=== PATIENT | male | born 1955 | race American Indian/Alaskan Native ===

== ENCOUNTER 2016-09-12 14:53 | Outpatient (CLI) | payer MEDICARE ==
--- NOTE | 2016-09-13 09:45 | XRay Report ---
Chest 2 views. History: Dyspnea, end stage renal disease. Findings: The heart and pulmonary vessels are normal. The lungs are clear. There is no pleural fluid. The bony structures appear normal. A vascular stent is noted in the left axilla and subclavian region. Impression: No acute findings.
== END 2016-09-12 14:54 | disposition home or self-care (01) ==
LOC: XRAY 14:53
PROVIDERS: ATTEND Internal Medicine Nephrology
DX: N18.6 End stage renal disease (principal); R06.00 Dyspnea, unspecified
CPT/HCPCS: 71020

== ENCOUNTER 2019-10-10 21:43 | Observation (INO) | payer MEDICARE ==
[2019-10-10] MEDS ORDERED: DEXTROSE 50% IN WATER (25GM) 50 ML SYRINGE IV ONE (21:53)
--- NOTE | 2019-10-10 21:54 | Emergency Department Report ---
ED General Adult HPI - General Chief complaint: Hypoglycemia Stated complaint: LOW SUGAR PUI?: No Time Seen by Provider: 10/10/19 21:51 Source: EMS Mode of arrival: Stretcher Limitations: Altered Mental Status - History of Present Illness Initial comments: Patient is a 64-year-old male that presents emergency room with hypoglycemia and altered mental status. Patient brought in by EMS. Report received from EMS. Patient's blood sugar with EMS was reading as low. Patient was minimally responsive. EMS placed a right IO since they were unable to place a peripheral IV and gave the patient D50. The patient is currently lethargic but easily arousable and able to answer some questions. Patient denies pain. Patient is not sure how his sugar dropped. Patient is on insulin. Patient has a history of diabetes. Patient denies chest pain or shortness of breath. Patient denies nausea vomiting. Patient denies shortness of breath. Patient denies recent travel. Patient denies recent international travel. Patient denies exposure to the novel coronavirus. Patient denies sick contacts. Patient denies fever and chills. Patient denies cough. Patient denies diarrhea. Patient denies coming in contact with anybody with symptoms of the novel coronavirus. -: Sudden Consistency: constant Improves with: none Worsens with: none Associated Symptoms: denies other symptoms - Related Data Allergies Allergy/AdvReac Type Severity Reaction Status Date / Time No Known Allergies Allergy Unverified 09/12/16 14:54 ED Review of Systems ROS: Stated complaint: LOW SUGAR Other details as noted in HPI Comment: All other systems reviewed and negative ED Past Medical Hx - Past Medical History Previous Medical History?: Yes Hx Hypertension: Yes Hx Diabetes: Yes ED Physical Exam - General General appearance: in no apparent distress, lethargic, obese - Head Head exam: Present: atraumatic, normocephalic - Eye Eye exam: Present: normal appearance, PERRL Pupils: Present: normal accommodation - ENT ENT exam: Present: mucous membranes dry - Neck Neck exam: Present: normal inspection - Respiratory Respiratory exam: Present: normal lung sounds bilaterally. Absent: respiratory distress - Cardiovascular Cardiovascular Exam: Present: regular rate, normal rhythm. Absent: systolic murmur, diastolic murmur, rubs, gallop - GI/Abdominal GI/Abdominal exam: Present: soft, normal bowel sounds. Absent: distended, tenderness, guarding - Rectal Rectal exam: Present: deferred - Extremities Exam Extremities exam: Present: normal inspection, full ROM. Absent: tenderness - Back Exam Back exam: Present: normal inspection - Neurological Exam Neurological exam: Present: oriented X3, CN II-XII intact, reflexes normal - Psychiatric Psychiatric exam: Present: normal affect, normal mood - Skin Skin exam: Present: warm, dry, intact, normal color. Absent: rash ED Course Vital Signs 10/10/19 10/10/19 10/10/19 22:11 22:30 22:46 Temperature 90.5 F L Pulse Rate 89 90 91 H Respiratory 16 15 13 Rate Blood Pressure 105/80 134/106 Blood Pressure 105/80 [Left] O2 Sat by Pulse 100 100 Oximetry 10/10/19 10/10/19 10/10/19 23:00 23:30 23:46 Temperature Pulse Rate 95 H 86 81 Respiratory 15 18 16 Rate Blood Pressure 103/78 103/78 98/28 Blood Pressure [Left] O2 Sat by Pulse 98 100 100 Oximetry 10/11/19 10/11/19 10/11/19 00:00 00:16 00:30 Temperature Pulse Rate 87 94 H 87 Respiratory 18 10 L 15 Rate Blood Pressure 98/28 132/46 132/46 Blood Pressure [Left] O2 Sat by Pulse 100 98 100 Oximetry 10/11/19 10/11/19 10/11/19 00:46 01:00 01:16 Temperature Pulse Rate 92 H 92 H 99 H Respiratory 13 16 22 Rate Blood Pressure 132/46 132/46 127/67 Blood Pressure [Left] O2 Sat by Pulse 99 97 100 Oximetry 10/11/19 01:19 Temperature 97.7 F Pulse Rate Respiratory Rate Blood Pressure Blood Pressure [Left] O2 Sat by Pulse Oximetry - Reevaluation(s) Reevaluation #1: Initial valuation done. Patient is lethargic but arousable and answers most questions appropriately. Patient has a right lower extremity IO which was placed by EMS under emergency duration since the patient required emergent D50. Patient will have an IV line placed. 10/10/19 21:53 Reevaluation #2: Patient's blood sugar is still low. Patient will be given D50. 10/10/19 22:09 Reevaluation #3: Patient's blood sugar at 68.. patient will be given oral glucose. Patient awake alert and oriented x4. Patient answering questions appropriately. 10/10/19 23:14 Reevaluation #4: Patient tolerated p.o. intake. 10/10/19 23:44 Reevaluation #5: I discussed all results with patient. I discussed plan of care with patient. Patient agrees with plan of care and admission. Patient to be admitted to the hospitalist service. 10/11/19 00:15 - Consultations Consultation #1: Hospitalist consulted for admission. Hospitalist to admit patient. 10/11/19 00:16 ED Medical Decision Making - Lab Data Result diagrams: 10/10/19 22:28 10/10/19 22:28 - EKG Data -: EKG Interpreted by Me EKG shows normal: sinus rhythm, axis, intervals, QRS complexes, ST-T waves Rate: normal - Radiology Data Radiology results: report reviewed, image reviewed interpreted by me: Chest x-ray: No pneumonia, no pneumothorax, no acute findings, lung martinez are clear, no fractures. CT head/brain wo con INDICATION / CLINICAL INFORMATION: Altered Mental Status. TECHNIQUE: Axial CT imaging of the brain was obtained without contrast. Coronal and sagittal reformatted imaging obtained and reviewed. All CT scans at this location are performed using CT dose reduction for ALARA by means of automated exposure control. COMPARISON: None available. FINDINGS: No intracranial hemorrhage, mass, or midline shift. No extra-axial fluid collection or suggestion of acute territorial infarction. Ventricular system and basilar cisterns are unremarkable. Mild age- appropriate cerebral/cerebellar atrophy noted. No evidence for acute ischemia. Visualized paranasal sinuses and mastoid air cells are well aerated and clear. No calvarial abnormality of significance. No soft tissue abnormality noted. IMPRESSION: 1. No acute intracranial abnormality. CHEST 1 VIEW INDICATION / CLINICAL INFORMATION: ams. COMPARISON: Chest radiograph 09/12/2016 FINDINGS: SUPPORT DEVICES: None. HEART / MEDIASTINUM: Borderline heart size, accentuated by low lung volumes and AP technique. LUNGS / PLEURA: No significant pulmonary or pleural abnormality. No pneumothorax. ADDITIONAL FINDINGS: Endovascular stent in the left supraclavicular region and left axilla. IMPRESSION: 1. No acute findings. - Medical Decision Making Patient is a 64-year-old male that presents emergency room with hyperglycemia, altered mental status and lethargy. Patient's blood sugar was low in the field. EMS unable to give D50 due to not being able to acquire a peripheral IV. Patient had IO placed by EMS. Patient was given D50 2 A of D50 in the field and his blood sugar was 46. Patient given a third amp of D50 in the ER and blood sugar increased to 68. Patient then became more lucid and more responsive and alert and oriented. Patient was then given oral intake. Patient tolerated oral intake. Upon initial evaluation patient was found to be hypothermic and was placed on a Sincere hugger. Patient had labs done which were consistent with end- stage renal disease. Patient had a head CT for his multiple altered mental status and was normal. Patient had a chest x-ray which was negative for acute findings. Patient admitted to the hospital service for further evaluation treatment and observation. Patient's dialysis schedule is Monday - Differential Diagnosis Hypoglycemia, end-stage renal disease, missed meals, missed dose of insulin Critical Care Time: Yes Critical care time in (mins) excluding proc time.: 35 Critical care attestation.: If time is entered above; I have spent that time in minutes in the direct care of this critically ill patient, excluding procedure time. Critical Care Time: 35 minutes ED Disposition Clinical Impression: Hypoglycemia, ESRD (end stage renal disease) on dialysis Hypothermia Qualifiers: Encounter type: initial encounter Qualified Code(s): T68.XXXA - Hypothermia, initial encounter Altered mental state Qualifiers: Altered mental status type: unspecified Qualified Code(s): R41.82 - Altered me ntal status, unspecified Disposition: 09 OP ADMIT IP TO THIS HOSP Is pt being admited?: Yes Does the pt Need Aspirin: No Condition: Critical Time of Disposition: 00:18
[2019-10-10 22:59] LABS: Basophils % (Auto) 0.2 % (0.0-1.8); Eosinophils % (Auto) 0.1 % (0.0-4.3); Lymphocytes # (Auto) 0.6 K/mm3 (1.2-5.4); Lymphocytes % (Auto) 5.6 % (13.4-35.0); Mean Corpuscular HGB Conc 31 % (32-34); Mean Corpuscular Volume 80 fl (84-94); Monocytes # (Auto) 0.5 K/mm3 (0.0-0.8); Monocytes % (Auto) 5.2 % (0.0-7.3); Platelet Count 243 K/mm3 (140-440); Red Blood Count 6.12 M/mm3 (3.65-5.03); Red Cell Distribution Width 17.2 % (13.2-15.2)
[2019-10-10 23:00] LABS: Hematocrit 48.9 % (35.5-45.6); Hemoglobin 15.2 gm/dl (11.8-15.2)
--- NOTE | 2019-10-10 23:06 | XRay Report ---
CHEST 1 VIEW INDICATION / CLINICAL INFORMATION: ams. COMPARISON: Chest radiograph 09/12/2016 FINDINGS: SUPPORT DEVICES: None. HEART / MEDIASTINUM: Borderline heart size, accentuated by low lung volumes and AP technique. LUNGS / PLEURA: No significant pulmonary or pleural abnormality. No pneumothorax. ADDITIONAL FINDINGS: Endovascular stent in the left supraclavicular region and left axilla. IMPRESSION: 1. No acute findings. Signer Name: Mahsa Cody MD Signed: 10/10/2019 11:01 PM Workstation Name: [id number]
[2019-10-10 23:18] LABS: Albumin 4.1 g/dL (3.9-5); Calcium 10.1 mg/dL (8.4-10.2)
--- NOTE | 2019-10-10 23:35 | Cat Scan Report ---
CT head/brain wo con INDICATION / CLINICAL INFORMATION: Altered Mental Status. TECHNIQUE: Axial CT imaging of the brain was obtained without contrast. Coronal and sagittal reformatted imaging obtained and reviewed. All CT scans at this location are performed using CT dose reduction for ALAR A by means of automated exposure control. COMPARISON: None available. FINDINGS: No intracranial hemorrhage, mass, or midline shift. No extra-axial fluid collection or suggestion of acute territorial infarction. Ventricular system and basilar cisterns are unremarkable. Mild age-appr opriate cerebral/cerebellar atrophy noted. No evidence for acute ischemia. Visualized paranasal sinuses and mastoid air cells are well aerated and clear. No calvarial abnormality of significance. No soft tissue abnormality noted. IMPRESSION: 1. No acute intracranial abnormality. Signer Name: Ivone Francisco MD Signed: 10/10/2019 11:30 PM Workstation Name: [id number]
[2019-10-11] MEDS ORDERED: DEXTROSE 50% IN WATER (25GM) 50 ML SYRINGE IV ONE ×2 (01:22→01:28)
[2019-10-11] MEDS ORDERED: DEXTROSE 5% IN WATER 0 ML IV ONE ×2 (01:28→01:29)
[2019-10-11] MEDS ORDERED: DEXTROSE 5% IN WATER 1,000 ML IV ONE (01:36)
[2019-10-11] MEDS ORDERED: MAGNESIUM HYDROXIDE (MOM) ORAL LIQD UDC PO PRN (01:44)
[2019-10-11] MEDS ORDERED: ONDANSETRON 4 MG/2 ML INJ IV PRN (01:44)
[2019-10-11] MEDS ORDERED: ACETAMINOPHEN 325 MG TAB PO PRN (01:44)
[2019-10-11] MEDS ORDERED: DEXTROSE 50% IN WATER (25GM) 50 ML SYRINGE IV PRN (01:44)
--- NOTE | 2019-10-11 01:56 | History and Physical Report ---
History of Present Illness Date of examination: 10/11/19 Date of admission: 10/11/19 00:36 Chief complaint: Altered Mental Status History of present illness: 64-year-old -[place] male with known history of hypertension, diabetes mellitus and end-stage renal disease on dialysis Mondays, Wednesdays and Fridays presenting to the emergency room today with altered mental status and hypoglycemia. Patient was brought in by EMS and blood sugar was said to be re ading low. He was minimally responsive and patient was given a D50 prior to arrival in the emergency room he had an IO and started as EMS could not get a peripheral IV line. Patient denies any fever or chills, denies any chest pain or shortness of breath, no nausea vomiting, no diarrhea, no abdominal pain, no hematuria or dysuria. Patient states she has been compliant with his medication and he does not know why his blood sugar dropped. He has received IV fluid and also been given some juice to drink in the emergency room. Past History Past Medical History: diabetes, ESRD (On dialysis Monday, Monday and Monday.), hypertension Past Surgical History: Other (Left arm A-V fistula placement) Social history: no significant social history Family history: no significant family history Medications and Allergies Allergies Allergy/AdvReac Type Severity Reaction Status Date / Time No Known Allergies Allergy Unverified 09/12/16 14:54 Active Meds: Active Medications Dextrose (D5w) 1,000 mls @ 75 mls/hr IV DIRECT LOS Last Admin: 10/11/19 01:42 Dose: 75 mls/hr Documented by: Review of Systems Constitutional: no fever, no chills, no lethargy Ears, nose, mouth and throat: no nasal congestion, no sore throat Cardiovascular: no chest pain, no palpitations Respiratory: no cough, no shortness of breath Gastrointestinal: no abdominal pain, no nausea, no vomiting, no diarrhea Genitourinary Male: no dysuria, no hematuria, no flank pain Musculoskeletal: no neck pain, no low back pain Integumentary: no rash, no pruritis Neurological: confusion, no seizures, no syncope, no headaches Psychiatric: no anxiety, no depression Exam - Constitutional Vitals: Temp Pulse Resp BP Pulse Ox 97.7 F 99 H 22 127/67 100 10/11/19 01:19 10/11/19 01:16 10/11/19 01:16 10/11/19 01:16 10/11/19 01:16 General appearance: Present: no acute distress, well-nourished, obese - EENT Eyes: Present: PERRL, EOM intact. Absent: scleral icterus ENT: hearing intact, clear oral mucosa, dentition normal - Neck Neck: Present: supple, normal ROM. Absent: carotid bruits - Respiratory Respiratory effort: normal Respiratory: bilateral: CTA - Cardiovascular Rhythm: regular Heart Sounds: Present: S1 & S2. Absent: gallop, systolic murmur, diastolic murmur, rub - Extremities Extremities: no ischemia, pulses intact, pulses symmetrical, No edema, Full ROM Peripheral Pulses: within normal limits - Abdominal General gastrointestinal: Present: soft, non-tender, non-distended, normal bowel sounds. Absent: mass - Integumentary Integumentary: Present: clear, warm, dry. Absent: rash - Musculoskeletal Musculoskeletal: strength equal bilaterally - Psychiatric Psychiatric: appropriate mood/affect, intact judgment & insight, memory intact, cooperative - Neurologic Neurologic: CNII-XII intact, no focal deficits, moves all extremities Results - Labs CBC & Chem 7: 10/10/19 22:28 10/10/19 22:28 Labs: Abnormal lab results 10/10/19 10/10/19 10/10/19 Range/Units 22:05 22:28 22:28 RBC 6.12 H (3.65-5.03) M/mm3 Hct 48.9 H (35.5-45.6) % MCV 80 L (84-94) fl MCH 25 L (28-32) pg MCHC 31 L (32-34) % RDW 17.2 H (13.2-15.2) % Lymph % (Auto) 5.6 L (13.4-35.0) % Lymph # 0.6 L (1.2-5.4) K/mm3 Seg Neutrophils % 88.9 H (40.0-70.0) % Seg Neutrophils # 9.3 H (1.8-7.7) K/mm3 Chloride 89.0 L (98-107) mmol/L Carbon Dioxide 34 H (22-30) mmol/L BUN 26 H (9-20) mg/dL Creatinine 6.7 H (0.8-1.3) mg/dL Glucose 74 L (75-100) mg/dL POC Glucose 42 L (70-105) AST 81 H (5-40) units/L 10/10/19 10/11/19 Range/Units 23:10 01:28 RBC (3.65-5.03) M/mm3 Hct (35.5-45.6) % MCV (84-94) fl MCH (28-32) pg MCHC (32-34) % RDW (13.2-15.2) % Lymph % (Auto) (13.4-35.0) % Lymph # (1.2-5.4) K/mm3 Seg Neutrophils % (40.0-70.0) % Seg Neutrophils # (1.8-7.7) K/mm3 Chloride (98-107) mmol/L Carbon Dioxide (22-30) mmol/L BUN (9-20) mg/dL Creatinine (0.8-1.3) mg/dL Glucose (75-100) mg/dL POC Glucose 68 L 58 L (70-105) AST (5-40) units/L Assessment and Plan - Patient Problems (1) Hypoglycemia Current Visit: Yes Status: Acute Plan to address problem: Etiology is unclear. Patient has been on insulin at home. Patient has been started on D5W. Will monitor Accu-Cheks closely. (2) Altered mental state Current Visit: Yes Status: Acute Qualifiers: Altered mental status type: unspecified Qualified Code(s): R41.82 - Altered mental status, unspecified Plan to address problem: Possibly secondary to the hypoglycemia. Patient has become more alert since arrival in the emergency room. We will continue to monitor mental status. (3) ESRD (end stage renal disease) on dialysis Current Visit: Yes Status: Acute Plan to address problem: Patient gets dialysis on Mondays, Wednesdays and Fridays. Consult has been placed to the nutrition tech for evaluation. (4) Hypothermia Current Visit: Yes Status: Acute Qualifiers: Encounter type: initial encounter Qualified Code(s): T68.XXXA - Hypothermia, initial encounter Plan to address problem: Patient has been be placed on a Sincere hugger. Will monitor vital signs closely. (5) DVT prophylaxis Current Visit: Yes Status: Acute Plan to address problem: Patient be placed on subcutaneous heparin. (6) Full code status Current Visit: Yes Status: Acute
[2019-10-11] MEDS ORDERED: DEXTROSE 5% IN WATER 1,000 ML IV SCH (02:00)
[2019-10-11] MEDS: INSULIN LISPRO 100 UNIT/ML VIAL 3 mL SUB-Q SCH ×2 (02:08→12:37)
[2019-10-11] MEDS: MORPHINE 2 MG/1 ML INJ IV PRN ×2 (06:12→17:42)
[2019-10-11] MEDS: HEPARIN 5,000 UNIT/1 ML VIAL SUB-Q SCH ×3 (06:22→21:23)
[2019-10-11] MEDS: D5W/0.9% NACL 1,000 ML IV SCH (08:00)
--- NOTE | 2019-10-11 09:28 | Progress Note ---
Assessment and Plan Assessment and Plan - Patient Problems (1) Hypoglycemia-blood sugar stable Current Visit: Yes Status: Acute Plan to address problem: Etiology is unclear. Patient has been on insulin at home. patient to monitor blood sugar at home before meal Will Continue IV D5W and monitor blood sugar (2) Altered mental state-likely due to hypoglycermia-resolved Current Visit: Yes Status: Acute Qualifiers: Altered mental status type: unspecified Qualified Code(s): R41.82 - Altered mental status, unspecified Plan to address problem: patient alert and orient at the time of assessment CT of the head negative for acut finding (3) ESRD (end stage renal disease) on dialysis Current Visit: Yes Status: Acute Plan to address problem: Patient gets dialysis on Mondays, Wednesdays and Fridays. Consult has been placed to the chief minister for evaluation. Follow chief minister plan of care Continue HD per renal reces (4) Hypothermia-temp stable Current Visit: Yes Status: Acute Qualifiers: Encounter type: initial encounter Qualified Code(s): T68.XXXA - Hypothermia, initial encounter Plan to address problem: Continue monitor vital signs (5) DVT prophylaxis Current Visit: Yes Status: Acute Plan to address problem: subcutaneous heparin. (6) Full code status Current Visit: Yes Status: Acute Subjective Date of service: 10/11/19 Interval history: patient seen-awake and on his phone with a family member. Patient reports he is felling better, but still has light headedness. He denies chest pain, sob, and n/v CT of the head-negative for acute process Chest x-ray-no acute finding Right arm graft for HD noted Objective - Constitutional Vitals: Vital Signs - 12hr 10/10/19 10/10/19 10/10/19 22:11 22:30 22:46 Temperature 90.5 F L Pulse Rate 89 90 91 H Respiratory 16 15 13 Rate Blood Pressure 105/80 134/106 Blood Pressure 105/80 [Left] O2 Sat by Pulse 100 100 Oximetry 10/10/19 10/10/19 10/10/19 23:00 23:30 23:46 Temperature Pulse Rate 95 H 86 81 Respiratory 15 18 16 Rate Blood Pressure 103/78 103/78 98/28 Blood Pressure [Left] O2 Sat by Pulse 98 100 100 Oximetry 10/11/19 10/11/19 10/11/19 00:00 00:16 00:30 Temperature Pulse Rate 87 94 H 87 Respiratory 18 10 L 15 Rate Blood Pressure 98/28 132/46 132/46 Blood Pressure [Left] O2 Sat by Pulse 100 98 100 Oximetry 10/11/19 10/11/19 10/11/19 00:46 01:00 01:16 Temperature Pulse Rate 92 H 92 H 99 H Respiratory 13 16 22 Rate Blood Pressure 132/46 132/46 127/67 Blood Pressure [Left] O2 Sat by Pulse 99 97 100 Oximetry 10/11/19 10/11/19 10/11/19 01:19 01:20 01:30 Temperature 97.7 F Pulse Rate 98 H 94 H Respiratory 18 13 Rate Blood Pressure 127/67 127/67 Blood Pressure [Left] O2 Sat by Pulse 100 100 Oximetry 10/11/19 10/11/19 10/11/19 01:40 01:50 02:00 Temperature Pulse Rate 106 H 95 H 99 H Respiratory 16 17 18 Rate Blood Pressure 127/67 127/67 127/67 Blood Pressure [Left] O2 Sat by Pulse 100 99 100 Oximetry 10/11/19 10/11/19 10/11/19 02:10 02:37 03:32 Temperature 98.0 F Pulse Rate 95 H 99 H 98 H Respiratory 13 18 Rate Blood Pressure 127/67 124/76 Blood Pressure [Left] O2 Sat by Pulse 99 97 Oximetry 10/11/19 06:12 Temperature Pulse Rate Respiratory 20 Rate Blood Pressure Blood Pressure [Left] O2 Sat by Pulse Oximetry General appearance: Present: no acute distress, well-nourished - EENT Eyes: PERRL, EOM intact ENT: hearing intact, clear oral mucosa Ears: bilateral: normal - Neck Neck: supple, normal ROM - Respiratory Respiratory effort: normal Respiratory: bilateral: CTA - Breasts Breasts: normal - Cardiovascular Heart rate: 98 Rhythm: regular Heart Sounds: Present: S1 & S2. Absent: gallop, rub Extremities: pulses intact, No edema, normal color, Full ROM - Gastrointestinal General gastrointestinal: Present: soft, non-tender, non-distended, normal bowel sounds - Genitourinary Male genitourinary: deferred (ESRD requiring HD), normal - Integumentary Integumentary: clear, warm, dry - Musculoskeletal Musculoskeletal: 1, strength equal bilaterally - Neurologic Neurologic: moves all extremities - Psychiatric Psychiatric: memory intact, appropriate mood/affect, intact judgment & insight - Labs CBC & Chem 7: 10/10/19 22:28 10/10/19 22:28 Labs: Abnormal lab results 10/10/19 10/10/19 10/10/19 Range/Units 22:05 22:28 22:28 RBC 6.12 H (3.65-5.03) M/mm3 Hct 48.9 H (35.5-45.6) % MCV 80 L (84-94) fl MCH 25 L (28-32) pg MCHC 31 L (32-34) % RDW 17.2 H (13.2-15.2) % Lymph % (Auto) 5.6 L (13.4-35.0) % Lymph # 0.6 L (1.2-5.4) K/mm3 Seg Neutrophils % 88.9 H (40.0-70.0) % Seg Neutrophils # 9.3 H (1.8-7.7) K/mm3 Chloride 89.0 L (98-107) mmol/L Carbon Dioxide 34 H (22-30) mmol/L BUN 26 H (9-20) mg/dL Creatinine 6.7 H (0.8-1.3) mg/dL Glucose 74 L (75-100) mg/dL POC Glucose 42 L (70-105) Hemoglobin A1c (4-6) % AST 81 H (5-40) units/L 10/10/19 10/10/19 10/11/19 Range/Units 22:28 23:10 01:28 RBC (3.65-5.03) M/mm3 Hct (35.5-45.6) % MCV (84-94) fl MCH (28-32) pg MCHC (32-34) % RDW (13.2-15.2) % Lymph % (Auto) (13.4-35.0) % Lymph # (1.2-5.4) K/mm3 Seg Neutrophils % (40.0-70.0) % Seg Neutrophils # (1.8-7.7) K/mm3 Chloride (98-107) mmol/L Carbon Dioxide (22-30) mmol/L BUN (9-20) mg/dL Creatinine (0.8-1.3) mg/dL Glucose (75-100) mg/dL POC Glucose 68 L 58 L (70-105) Hemoglobin A1c 7.3 H (4-6) % AST (5-40) units/L 10/11/19 Range/Units 06:44 RBC (3.65-5.03) M/mm3 Hct (35.5-45.6) % MCV (84-94) fl MCH (28-32) pg MCHC (32-34) % RDW (13.2-15.2) % Lymph % (Auto) (13.4-35.0) % Lymph # (1.2-5.4) K/mm3 Seg Neutrophils % (40.0-70.0) % Seg Neutrophils # (1.8-7.7) K/mm3 Chloride (98-107) mmol/L Carbon Dioxide (22-30) mmol/L BUN (9-20) mg/dL Creatinine (0.8-1.3) mg/dL Glucose (75-100) mg/dL POC Glucose 107 H (70-105) Hemoglobin A1c (4-6) % AST (5-40) units/L
--- NOTE | 2019-10-11 11:33 | Event Note ---
Date: 10/11/[address] 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 Notified Dr. Carter of hospitalization. Consult placed to his group.
[2019-10-11 14:35] LABS: Hepatitis B Surface Antigen Non-Reactive (Negative); Hepatitis C Virus Antibody Non-Reactive (NonReactive)
--- NOTE | 2019-10-11 16:17 | Consultation ---
History of Present Illness - Reason for Consult Consult date: 10/11/19 end stage renal disease - History of Present Illness This is a 64 year old male who presented to the E.R last night via EMS for Hypoglycemia with altered mentation. Patient was found minimally responsive by neighbor who then called 911. Patient is currently awake and alert and oriented x 3. Patient has history of Hypotension, Diabetes Mellitus and ESRD and is on hemodialysis and is due today. We are being consulted for management of this patient's ESRD. Past History Past Medical History: diabetes, ESRD (On dialysis Monday, Monday and Monday.), hypertension Past Surgical History: Other (Left arm A-V fistula placement) Social history: no significant social history Family history: no significant family history Medications and Allergies Allergies Allergy/AdvReac Type Severity Reaction Status Date / Time No Known Allergies Allergy Unverified 09/12/16 14:54 Active Meds: Active Medications Acetaminophen (Tylenol) 650 mg PO Q4H PRN PRN Reason: Pain MILD(1-3)/Fever >100.5/THOMPSON Dextrose (D50w (25gm) Syringe) 0 ml IV Q30MIN PRN; Protocol PRN Reason: Hypoglycemia Heparin Sodium (Porcine) (Heparin) 5,000 unit SUB-Q Q8HR LOS Last Admin: 10/11/19 06:22 Dose: 5,000 unit Documented by: Dextrose/Sodium Chloride (D5ns) 1,000 mls @ 75 mls/hr IV DIRECT LOS Last Admin: 10/11/19 08:00 Dose: 75 mls/hr Documented by: Insulin Human Lispro (Humalog) 0 unit SUB-Q Q6HR LOS; Protocol Last Admin: 10/11/19 02:08 Dose: Not Given Documented by: Magnesium Hydroxide (Milk Of Magnesia) 30 ml PO Q4H PRN PRN Reason: Constipation Morphine Sulfate (Morphine) 2 mg IV Q4H PRN PRN Reason: Pain, Moderate (4-6) Last Admin: 10/11/19 06:12 Dose: 2 mg Documented by: Ondansetron HCl (Zofran) 4 mg IV Q8H PRN PRN Reason: Nausea And Vomiting Sodium Chloride (Sodium Chloride Flush Syringe 10 Ml) 10 ml IV BID LOS Sodium Chloride (Sodium Chloride Flush Syringe 10 Ml) 10 ml IV PRN PRN PRN Reason: LINE FLUSH Review of Systems Constitutional: fatigue, no weight loss, no weight gain, no fever, no chills Ears, nose, mouth and throat: no ear pain, no ear discharge, no tinnitis, no decreased hearing, no nose pain, no nasal congestion, no nasal discharge Cardiovascular: edema, no chest pain, no orthopnea, no palpitations, no rapid/irregular heart beat, no syncope, no lightheadedness Respiratory: no cough, no cough with sputum, no excessive sputum, no hemoptysis, no shortness of breath Gastrointestinal: no abdominal pain, no nausea, no vomiting, no diarrhea, no constipation, no change in bowel habits Genitourinary Male: no hematuria, no flank pain, no discharge, no urinary frequency, no urinary hesitancy Rectal: no pain, no incontinence, no bleeding Musculoskeletal: no neck stiffness, no neck pain, no shooting arm pain, no arm numbness/tingling, no low back pain, no shooting leg pain Integumentary: no rash, no pruritis, no redness, no sores, no wounds, no jaundice Neurological: no head injury, no transient paralysis, no paralysis, no weakness, no parathesias, no numbness, no tingling, no seizures, no syncope Psychiatric: no anxiety, no memory loss, no change in sleep habits, no sleep disturbances, no insomnia, no hypersomnia, no change in appetite, no change in libido Endocrine: no cold intolerance, no heat intolerance, no polyphagia, no excessive thirst, no polydipsia, no polyuria, no nocturia Exam - Vital Signs Vital signs: Vital Signs Temp Pulse Resp BP Pulse Ox 90.5 F L 89 16 105/80 100 10/10/19 22:11 10/10/19 22:11 10/10/19 22:11 10/10/19 22:11 10/10/19 22:11 - General Appearance General appearance: well-developed, appears stated age EENT: ATNC, PERRL, hearing intact, vision intact Neck: Present: neck supple, trachea midline Respiratory: Decreased Breath Sounds Heart: regular, S1S2 Gastrointestinal: Present: normoactive bowel sounds Integumentary: warm and dry Neurologic: alert and oriented x3 Musculoskeletal: Present: joint swelling Psychiatric: cooperative Results - Lab Results 10/10/19 22:28 10/10/19 22:28 Most recent lab results Calcium 10.1 mg/dL (8.4-10.2) 10/10/19 22:28 Assessment and Plan End Stage Renal Disease on hemodialysis: -Hemodialysis today for UF and clearance -Fluid restriction of 1 liter per day -No Epogen as HGb is 15.2 -Obtain daily weights -Monitor I/O's -Assess dialysis needs daily Hypoglycemia: -On D5W drip -Insulin on hold -As per primary Hypotension: -Resume home Midodrine if needed
[2019-10-12] MEDS: INSULIN LISPRO 100 UNIT/ML VIAL 3 mL SUB-Q SCH ×3 (01:35→12:12)
[2019-10-12] MEDS: D5W/0.9% NACL 1,000 ML IV SCH (04:40)
[2019-10-12] MEDS: HEPARIN 5,000 UNIT/1 ML VIAL SUB-Q SCH ×2 (05:00→15:00)
[2019-10-12 06:29] LABS: Basophils % (Auto) 0.7 % (0.0-1.8); Eosinophils # (Auto) 0.2 K/mm3 (0.0-0.4); Eosinophils % (Auto) 2.7 % (0.0-4.3); Hematocrit 41.2 % (35.5-45.6); Hemoglobin 13.1 gm/dl (11.8-15.2); Lymphocytes # (Auto) 1.5 K/mm3 (1.2-5.4); Lymphocytes % (Auto) 24.6 % (13.4-35.0); Mean Corpuscular HGB Conc 32 % (32-34); Mean Corpuscular Volume 79 fl (84-94); Monocytes # (Auto) 0.6 K/mm3 (0.0-0.8); Monocytes % (Auto) 10.2 % (0.0-7.3); Platelet Count 122 K/mm3 (140-440); Red Blood Count 5.21 M/mm3 (3.65-5.03); Red Cell Distribution Width 17.1 % (13.2-15.2)
[2019-10-12 06:37] LABS: INR 1.16 (0.87-1.13)
[2019-10-12 06:44] LABS: Calcium 9.4 mg/dL (8.4-10.2)
--- NOTE | 2019-10-12 10:13 | Progress Note ---
Assessment and Plan Assessment and Plan - Patient Problems (1) Hypoglycemia-blood sugar stable-glucose 104 today Current Visit: Yes Status: Acute Plan to address problem: Etiology is unclear. Patient has been on insulin at home. patient to monitor blood sugar at home before meal Will Continue IV D5W and monitor blood sugar (2) Altered mental state-likely due to hypoglycermia-resolved Current Visit: Yes Status: Acute Qualifiers: Altered mental status type: unspecified Qualified Code(s): R41.82 - Altered mental status, unspecified Plan to address problem: patient alert and orient at the time of assessment CT of the head negative for acut finding (3) ESRD (end stage renal disease) on dialysis Current Visit: Yes Status: Acute Plan to address problem: Patient gets dialysis on Mondays, Wednesdays and Fridays. Consult has been placed to the health care marketing manager for evaluation. Follow health care marketing manager plan of care Continue HD per renal reces (4) Hypothermia-temp stable Current Visit: Yes Status: Acute Qualifiers: Encounter type: initial encounter Qualified Code(s): T68.XXXA - Hypothermia, initial encounter Plan to address problem: Continue monitor vital signs (5) DVT prophylaxis Current Visit: Yes Status: Acute Plan to address problem: subcutaneous heparin. (6) Full code status Current Visit: Yes Status: Acute Subjective Interval history: Patient seen-at bedside. reviewed mar, lab, and v/s. Reviewed health care marketing manager note and reces Continue Hemodialysis today for UF and clearance Fluid restriction of 1 liter per day No Epogen as HGb is 15.2 He denies chest pain, sob, and n/v CT of the head-negative for acute process Chest x-ray-no acute finding Right arm graft for HD noted Objective - Constitutional Vitals: Vital Signs - 12hr 10/11/19 10/11/19 10/12/19 23:00 23:59 04:47 Temperature 98.0 F 98.0 F Pulse Rate 93 H 94 H 99 H Respiratory 18 18 Rate Blood Pressure 96/51 83/35 O2 Sat by Pulse 96 93 Oximetry 10/12/19 10/12/19 04:52 07:43 Temperature 98.0 F 98.1 F Pulse Rate 82 Respiratory 18 18 Rate Blood Pressure 100/44 116/56 O2 Sat by Pulse 98 Oximetry - Labs CBC & Chem 7: 10/12/19 05:54 10/12/19 05:54 Labs: Abnormal lab results 10/11/19 10/11/19 10/12/19 Range/Units 18:00 21:21 05:09 RBC (3.65-5.03) M/mm3 MCV (84-94) fl MCH (28-32) pg RDW (13.2-15.2) % Plt Count (140-440) K/mm3 [place] % (Auto) (0.0-7.3) % PT (12.2-14.9) Sec. INR (0.87-1.13) Chloride (98-107) mmol/L Carbon Dioxide (22-30) mmol/L BUN (9-20) mg/dL Creatinine (0.8-1.3) mg/dL Glucose (75-100) mg/dL POC Glucose 121 H 172 H 130 H (70-105) Phosphorus (2.5-4.5) mg/dL 10/12/19 10/12/19 10/12/19 Range/Units 05:54 05:54 05:54 RBC 5.21 H (3.65-5.03) M/mm3 MCV 79 L (84-94) fl MCH 25 L (28-32) pg RDW 17.1 H (13.2-15.2) % Plt Count 122 L (140-440) K/mm3 [place] % (Auto) 10.2 H (0.0-7.3) % PT 15.1 H (12.2-14.9) Sec. INR 1.16 H (0.87-1.13) Chloride 93.9 L (98-107) mmol/L Carbon Dioxide 31 H (22-30) mmol/L BUN 26 H (9-20) mg/dL Creatinine 6.6 H (0.8-1.3) mg/dL Glucose 131 H (75-100) mg/dL POC Glucose (70-105) Phosphorus 4.80 H (2.5-4.5) mg/dL
[2019-10-12 11:12] VITALS: BP 130/65
--- NOTE | 2019-10-12 11:32 | Discharge Summary ---
Providers - Providers Date of Admission: 10/11/19 00:36 Date of discharge: 10/12/19 Attending physician: BOAZ SIMENTAL 10/11/19 01:44 Consult to Dietitian/Nutrition [CONS] Routine Physician Instructions: Reason For Exam: Reason for Consult: Diet education 10/11/19 06:59 Consult to Physician [CONS] Routine Comment: Consulting Provider: NORTH BURKS Physician Instructions: Reason For Exam: ESRD ON DIALYSIS- MON,MON,Mon10/11/19 11:33 Consult to Physician [CONS] Routine Comment: Consulting Provider: ROSHAN LOCKWOOD Physician Instructions: Reason For Exam: ESRD Primary care physician: AUDREY VILLASEÑOR Hospitalization Reason for admission: Hypoglycemia/reduced responsiveness Condition: Fair Hospital course: - Patient Problems (1) Hypoglycemia-blood sugar stable-glucose 104 today Etiology is unclear-HGA1C done-7.3 Patient has been on insulin at home. patient to monitor blood sugar at home before meal and follow SSI sliding scale form for insulin coverage given to patient to follow for home (2) Altered mental state-likely due to hypoglycermia-resolved CT of the head negative for acut finding (3) ESRD (end stage renal disease) on dialysis Patient will continue dialysis on Mondays, Wednesdays and Fridays. (4) Hypothermia-temp stable-oral temp-97.8 FridPatient seen sitting at bedside in no acute distress. patient alert and oriented times. Patient reports he is feeling well. Reviewed lab, mar, and v/s. BP 136/68, temp 97.8, blood sugar 104 HGA1C 7.3. Discussed with patient to monitor blood sugar with SSL before insulin coverage. patient voiced understanding. Disposition: DC-01 TO HOME OR SELFCARE Core Measure Documentation - Palliative Care Palliative Care/ Comfort Measures: Not Applicable - Core Measures Any of the following diagnoses?: none Exam - Constitutional Vitals: Temp Pulse Resp BP Pulse Ox 97.9 F 89 18 130/65 98 10/12/19 10:56 10/12/19 10:56 10/12/19 10:56 10/12/19 10:56 10/12/19 10:56 General appearance: Present: no acute distress, well-nourished - EENT Eyes: Present: PERRL ENT: hearing intact, clear oral mucosa - Neck Neck: Present: supple, normal ROM - Respiratory Respiratory effort: normal Respiratory: bilateral: CTA - Cardiovascular Heart rate: 76 Heart Sounds: Present: S1 & S2. Absent: rub, click - Extremities Extremities: pulses symmetrical, No edema Peripheral Pulses: within normal limits - Abdominal General gastrointestinal: Present: soft, non-tender, non-distended, normal bowel sounds Male genitourinary: Present: normal - Integumentary Integumentary: Present: clear, warm, dry - Musculoskeletal Musculoskeletal: gait normal, strength equal bilaterally - Psychiatric Psychiatric: appropriate mood/affect, intact judgment & insight - Neurologic Neurologic: CNII-XII intact, moves all extremities - Allied Health Allied health notes reviewed: nursing Plan Diet: low fat, low cholesterol, low salt, diabetic, renal Special Instructions: restrict fluid intake to Follow up with: PRIMARY CARE, [Referring] - 3-5 Days Prescriptions: Insulin Lispro [Humalog] See Protocol SUB-Q ACHS 30 Days #1 vial
--- NOTE | 2019-10-12 13:09 | Progress Note ---
Assessment and Plan End Stage Renal Disease on hemodialysis: -no indication for HD today -Fluid restriction of 1 liter per day -No Epogen as HGb is 15.2 -Obtain daily weights -Monitor I/O's -Assess dialysis needs daily Hypoglycemia: - resolved -As per primary Hypotension: -Resume home Midodrine if needed Subjective Date of service: 10/12/19 Principal diagnosis: ESRD on HD Interval history: no overnight events, A&O X3 Objective - Vital Signs Vital signs: Vital Signs - 12hr 10/12/19 10/12/19 10/12/19 04:47 04:52 07:25 Temperature 98.0 F 98.0 F Pulse Rate 99 H 88 Respiratory 18 18 Rate Blood Pressure 83/35 100/44 O2 Sat by Pulse 93 Oximetry 10/12/19 10/12/19 10/12/19 07:43 10:56 11:57 Temperature 98.1 F 97.9 F Pulse Rate 82 89 Respiratory 18 18 Rate Blood Pressure 116/56 130/65 O2 Sat by Pulse 98 98 98 Oximetry - Lab 10/12/19 05:54 10/12/19 05:54 Most recent lab results Calcium 9.4 mg/dL (8.4-10.2) 10/12/19 05:54 Phosphorus 4.80 mg/dL (2.5-4.5) H 10/12/19 05:54 Medications & Allergies - Medications Allergies/Adverse Reactions: Allergies No Known Allergies Allergy (Unverified 09/12/16 14:54) Home Medications: Home Medications Medication Instructions Recorded Confirmed Last Taken Type Acetaminophen [Acetaminophen TAB] 650 mg PO Q4H PRN tablet 10/12/19 Unknown Rx Insulin Lispro [Humalog] 0 unit SUB-Q Q6HR vial 10/12/19 Unknown Rx Active Medications: Generic Name Dose Route Start Last Admin Trade Name Freq PRN Reason Stop Dose Admin Acetaminophen 650 mg 10/11/19 01:44 Tylenol PO Q4H PRN Pain MILD(1-3)/Fever >100.5/THOMPSON Dextrose 0 ml 10/11/19 01:44 D50w (25gm) Syringe IV Q30MIN PRN Hypoglycemia Protocol Heparin Sodium (Porcine) 5,000 unit 10/11/19 06:00 10/12/19 05:00 Heparin SUB-Q 5,000 unit Q8HR LOS Administration Dextrose/Sodium Chloride 1,000 mls @ 75 mls/hr 10/11/19 02:00 10/12/19 04:40 D5ns IV 75 mls/hr DIRECT LOS Administration Insulin Human Lispro 0 unit 10/12/19 16:30 Humalog SUB-Q ACHS LOS Protocol Magnesium Hydroxide 30 ml 10/11/19 01:44 Milk Of Magnesia PO Q4H PRN Constipation Morphine Sulfate 2 mg 10/11/19 01:44 10/11/19 17:42 Morphine IV 2 mg Q4H PRN Administration Pain, Moderate (4-6) Ondansetron HCl 4 mg 10/11/19 01:44 Zofran IV Q8H PRN Nausea And Vomiting Sodium Chloride 10 ml 10/11/19 10:00 10/11/19 21:23 Sodium Chloride Flush Syringe 10 Ml IV 10 ml BID LOS Administration Sodium Chloride 10 ml 10/11/19 01:44 Sodium Chloride Flush Syringe 10 Ml IV PRN PRN LINE FLUSH
[2019-10-12] MEDS ORDERED: INSULIN LISPRO 100 UNIT/ML VIAL 3 mL SUB-Q SCH (16:30)
== END 2019-10-12 15:45 | disposition home or self-care (01) ==
LOC: ED 21:43 → 4A 10-11 00:36
PROVIDERS: ADMIT Internal Medicine Geriatric Medicine; ATTEND Internal Medicine
DX: E11.649 Type 2 diabetes mellitus with hypoglycemia without coma (principal); R41.82 Altered mental status, unspecified; T68.XXXA Hypothermia, initial encounter; I12.0 Hypertensive chronic kidney disease with stage 5 chronic kidney disease or end stage renal disease; N18.6 End stage renal disease; E11.22 Type 2 diabetes mellitus with diabetic chronic kidney disease; I95.9 Hypotension, unspecified; Z99.2 Dependence on renal dialysis; Z79.899 Other long term (current) drug therapy; Z79.4 Long term (current) use of insulin
CPT/HCPCS: 36415; 70450; 71045; 80048; 80053; 80074; 82962; 83036; 84100; 85025; 85610; 93005; 96361; 96372; 96374; 96375; 96376; 99291; G0257; G0378; J1644; J2270; J7042; J7070

== ENCOUNTER 2020-08-30 23:46 | Inpatient (IN) | payer MEDICARE ==
--- NOTE | 2020-08-31 00:23 | Emergency Department Report ---
HPI - General Chief Complaint: Wound/Laceration Time Seen by Provider: 08/31/20 00:02 - HPI HPI: This is a 65-year-old -[place] male presents to the emergency department via EMS from home with complaint of bleeding from his chest port in the right upper extremity. This started about 1 hour ago. EMS says that he appeared to lose about 0.5 L of blood. The patient has just some slight throbbing to the area. He denies any chest pain, shortness of breath, nausea, vomiting, diaphoresis. He has not taken anything for his symptoms prior to presentation. He gets dialysis on Monday/Monday/Monday and has been compliant. His fingernail former is Dr. Roque. The patient's vascular surgeon is Dr. Calhoun. He also has a past medical history of diabetes and hypertension. ED Past Medical Hx - Past Medical History Previous Medical History?: Yes Hx Hypertension: Yes Hx Diabetes: Yes Hx Renal Disease: Yes (dialysis mwf) - Surgical History Additional Surgical History: left arm fistula/ functioning per patient - Social History Smoking Status: Never Smoker - Medications Home Medications: Home Medications Medication Instructions Recorded Confirmed Last Taken Type Acetaminophen [Acetaminophen TAB] 650 mg PO Q4H PRN tablet 10/12/19 Unknown Rx Insulin Lispro [Humalog] 0 unit SUB-Q Q6HR vial 10/12/19 Unknown Rx Insulin Lispro [Humalog] See Protocol SUB-Q ACHS 30 Days #1 10/12/19 Unknown Rx vial ED Review of Systems ROS: Stated complaint: DIALYSIS PORT LEAKING/BLEEDING Other details as noted in HPI Comment: All other systems reviewed and negative Constitutional: denies: chills, fever Eyes: denies: eye pain, vision change ENT: denies: ear pain, throat pain Respiratory: denies: cough, shortness of breath Cardiovascular: denies: chest pain, palpitations Gastrointestinal: denies: abdominal pain, vomiting Genitourinary: denies: dysuria, discharge Musculoskeletal: myalgia. denies: back pain Skin: denies: rash, lesions Neurological: denies: headache, weakness Hematological/Lymphatic: easy bleeding Physical Exam - Physical Exam Physical Exam: GENERAL: The patient is well-developed well-nourished. HENT: Normocephalic. Atraumatic. Patient has moist mucous membranes. EYES: Extraocular motions are intact. NECK: Supple. Trachea is midline. CHEST/LUNGS: Clear to auscultation. There is no respiratory distress noted. HEART/CARDIOVASCULAR: Regular. There is no tachycardia. There is no murmur. ABDOMEN: Abdomen is soft, nontender. Patient has normal bowel sounds. Obese habitus. SKIN: Skin is warm and dry. NEURO: The patient is awake, alert, and oriented. The patient is cooperative. The patient has no focal neurologic deficits. Normal speech. MUSCULOSKELETAL: Mild tenderness to palpation to the right upper arm over the dialysis fistula. There is no limitation range of motion. There is a right upper extremity dialysis fistula in place. No current bleeding. There is also a left upper extremity dialysis fistula in place. ED Course - Consultations Consultation #1: 08/31/20 03:[address] Cunha, fingernail former on-call for Dr. Roque. They will see the patient as a consult for possible dialysis in the a.m. ED Medical Decision Making - Lab Data Result diagrams: 08/31/20 00:41 08/31/20 00:41 Lab Results 08/31/20 08/31/20 08/31/20 Range/Units 00:41 00:41 00:41 WBC 10.2 (4.5-11.0) K/mm3 RBC 3.95 (3.65-5.03) M/mm3 Hgb 9.7 L (11.8-15.2) gm/dl Hct 30.1 L (35.5-45.6) % MCV 76 L (84-94) fl MCH 25 L (28-32) pg MCHC 32 (32-34) % RDW 15.0 (13.2-15.2) % Plt Count 115 L (140-440) K/mm3 Lymph % (Auto) 9.5 L (13.4-35.0) % [place] % (Auto) 7.4 H (0.0-7.3) % Eos % (Auto) 1.2 (0.0-4.3) % Baso % (Auto) 0.2 (0.0-1.8) % Lymph # (Auto) 1.0 L (1.2-5.4) K/mm3 [place] # (Auto) 0.8 (0.0-0.8) K/mm3 Eos # (Auto) 0.1 (0.0-0.4) K/mm3 Baso # (Auto) 0.0 (0.0-0.1) K/mm3 Seg Neutrophils % 81.7 H (40.0-70.0) % Seg Neutrophils # 8.4 H (1.8-7.7) K/mm3 PT 15.3 H (12.2-14.9) Sec. INR 1.16 H (0.87-1.13) APTT 31.3 (24.2-36.6) Sec. Sodium 138 (137-145) mmol/L Potassium 4.2 (3.6-5.0) mmol/L Chloride 92.6 L (98-107) mmol/L Carbon Dioxide 32 H (22-30) mmol/L Anion Gap 18 mmol/L BUN 38 H (9-20) mg/dL Creatinine 7.5 H (0.8-1.3) mg/dL Estimated GFR 9 ml/min BUN/Creatinine Ratio 5 % Glucose 264 H (75-100) mg/dL Calcium 8.0 L (8.4-10.2) mg/dL - Medical Decision Making This patient presents with complaint of atraumatic spontaneous bleeding from the right upper extremity dialysis fistula, which is not currently used. The area was unwrapped and we did not see any current bleeding, but the patient has blood on his shirt, shorts, and in a towel, obviously showing that the patient did have at least a moderate amount of bleeding prior to presentation and in route. On top of that, the patient says that he saw a moderate amount of pus coming from that same area yesterday. Patient presents with a low-grade fever of about 101.5 F. He has no complaints of any chest pain, shortness of breath. Patient was given a dose of DDAVP and the fistula was rewrapped. Labs have been mostly unremarkable including CBC and metabolic panel, except for renal insufficiency consistent with his end-stage renal disease. Patient continues to have some tachycardia throughout his ED course. He has a fever of unknown origin, but has complaints of possible infection from the unused right upper extremity dialysis fistula. Blood cultures have been sent and the patient was started on antibiotics. Nephrology was contacted and consulted. Patient will be admitted to the hospital for further evaluation and treatment was accepted for admission by the hospitalist, Dr. Dsouza. Critical Care Time: No Critical care attestation.: If time is entered above; I have spent that time in minutes in the direct care of this critically ill patient, excluding procedure time. ED Disposition Clinical Impression: ESRD (end stage renal disease) on dialysis Fever Qualifiers: Fever type: unspecified Qualified Code(s): R50.9 - Fever, unspecified Bleeding from dialysis shunt Qualifiers: Encounter type: initial encounter Qualified Code(s): T82.838A - Hemorrhage due to vascular prosthetic devices, implants and grafts, initial encounter Infection, dialysis vascular access Qualifiers: Encounter type: initial encounter Qualified Code(s): T82.7XXA - Infection and inflammatory reaction due to other cardiac and vascular devices, implants and grafts, initial encounter Disposition: 09 OP ADMIT IP TO THIS HOSP Is pt being admited?: Yes Condition: Fair Time of Disposition: 02:30
[2020-08-31] MEDS ORDERED: ACETAMINOPHEN 325 MG TAB PO ONE (01:07)
[2020-08-31 01:12] LABS: Basophils % (Auto) 0.2 % (0.0-1.8); Eosinophils # (Auto) 0.1 K/mm3 (0.0-0.4); Eosinophils % (Auto) 1.2 % (0.0-4.3); Hematocrit 30.1 % (35.5-45.6); Hemoglobin 9.7 gm/dl (11.8-15.2); Lymphocytes % (Auto) 9.5 % (13.4-35.0); Mean Corpuscular HGB Conc 32 % (32-34); Mean Corpuscular Volume 76 fl (84-94); Monocytes # (Auto) 0.8 K/mm3 (0.0-0.8); Monocytes % (Auto) 7.4 % (0.0-7.3); Platelet Count 115 K/mm3 (140-440); Red Blood Count 3.95 M/mm3 (3.65-5.03)
[2020-08-31] MEDS ORDERED: DESMOPRESSIN 4 MCG/ML VIAL IV ONE (01:15)
[2020-08-31 01:29] LABS: INR 1.16 (0.87-1.13)
[2020-08-31 01:30] LABS: Partial Thromboplastin Time 31.3 Sec. (24.2-36.6)
[2020-08-31] MEDS ORDERED: SODIUM CHLORIDE 0.9% IV ONE (01:45)
[2020-08-31] MEDS ORDERED: DESMOPRESSIN IV ONE (01:45)
[2020-08-31] MEDS ORDERED: VANCOMYCIN/NS 1 GM/250 ML 1 GM/250 ML BAG IV ONE ×2 (02:13→10:00)
[2020-08-31] MEDS ORDERED: DEXTROSE 50% IN WATER (25GM) 50 ML SYRINGE IV PRN (02:59)
[2020-08-31] MEDS ORDERED: MORPHINE 4 MG/1 ML INJ IV PRN (02:59)
[2020-08-31] MEDS ORDERED: ONDANSETRON 4 MG/2 ML INJ IV PRN (02:59)
[2020-08-31] MEDS ORDERED: MORPHINE 2 MG/1 ML INJ IV PRN (02:59)
[2020-08-31] MEDS ORDERED: MAGNESIUM HYDROXIDE (MOM) ORAL LIQD UDC PO PRN (02:59)
--- NOTE | 2020-08-31 03:09 | History and Physical Report ---
History of Present Illness Date of examination: 08/31/20 Date of admission: 08/31/2020 Chief complaint: Bleeding from AV fistula History of present illness: 65-year-old -[place] male with known history of hypertension, diabetes mellitus and end-stage renal disease on dialysis on Mondays, Wednesdays and Fridays presents to the emergency room today AV fistula site of the right upper extremity. Bleeding was said to have started about an hour prior to reporting to the emergency room. Patient indicates that he felt some throbbing and what looked like pus like material coming from the AV fistula site prior to the bleeding. Use of right AV fistula site has since been discontinued due to blockage. He denies any fever or chills, no chest pain or shortness of breath, no nausea or vomiting and no abdominal pain. He denies any dizziness, no headache and no diaphoresis. Patient's tree shear operator is Dr. Roque. He has been compliant with his dialysis. According to EMS patient lost about 500 cc of blood. Upon arrival in the emergency room bleeding site was dressed with pressure applied. There has been no bleeding since arrival in the emergency room. He had a fever of 101.2 F. Work-up so far in the emergency room has been unremarkable however hemoglobin is 9.7, BUN is 38 and creatinine 7.5 Patient is being admitted with bleeding right upper extremity AV fistula and fever. Past History Past Medical History: diabetes, dialysis, ESRD (Gets dialysis on Mondays, Wednesdays and Fridays), hypertension Past Surgical History: Other (AV fistula placement the left arm) Social history: no significant social history Family history: no significant family history Medications and Allergies Allergies Allergy/AdvReac Type Severity Reaction Status Date / Time No Known Allergies Allergy Unverified 09/12/16 14:54 Home Medications Medication Instructions Recorded Confirmed Last Taken Type Acetaminophen [Acetaminophen TAB] 650 mg PO Q4H PRN tablet 10/12/19 Unknown Rx Insulin Lispro [Humalog] 0 unit SUB-Q Q6HR vial 10/12/19 Unknown Rx Insulin Lispro [Humalog] See Protocol SUB-Q ACHS 30 Days #1 10/12/19 Unknown Rx vial Active Meds: Active Medications Vancomycin HCl (Vancomycin/Ns 1 Gm/250 Ml) 1 gm in 250 mls @ 167.007 mls/hr IV ONCE ONE; Protocol Stop: 08/31/20 03:42 Last Admin: 08/31/20 02:50 Dose: 167.007 mls/hr Documented by: Review of Systems Constitutional: no fever, no chills Ears, nose, mouth and throat: no nasal congestion, no sore throat Cardiovascular: no chest pain, no palpitations Respiratory: no cough, no shortness of breath, no wheezing Gastrointestinal: no abdominal pain, no nausea, no vomiting, no diarrhea, no constipation Genitourinary Male: no dysuria, no hematuria, no flank pain, no nocturia Musculoskeletal: no neck pain, no low back pain Integumentary: no rash, no pruritis Neurological: no headaches, no confusion Psychiatric: no anxiety, no depression Endocrine: no polyphagia, no polydipsia, no polyuria, no nocturia Exam - Constitutional Vitals: Temp Pulse Resp BP Pulse Ox 101.2 F H 97 H 17 156/82 99 08/31/20 01:08 08/31/20 01:00 08/31/20 01:00 08/31/20 01:00 08/31/20 01:00 General appearance: Present: no acute distress, well-nourished, obese - EENT Eyes: Present: PERRL, EOM intact. Absent: scleral icterus ENT: hearing intact, clear oral mucosa, dentition normal - Neck Neck: Present: supple, normal ROM - Respiratory Respiratory effort: normal Respiratory: bilateral: CTA - Cardiovascular Rhythm: regular Heart Sounds: Present: S1 & S2. Absent: gallop, systolic murmur, diastolic murmur, rub, click - Extremities Extremities: no ischemia, pulses intact, pulses symmetrical, No edema, normal temperature, normal color, Full ROM Extremity abnormal: other (Dressing over right upper arm AV fistula. No warmth or tenderness. Left upper extremity AV fistula in place with palpable thrill.) Peripheral Pulses: within normal limits - Abdominal General gastrointestinal: Present: soft, non-tender, non-distended, normal bowel sounds. Absent: mass - Integumentary Integumentary: Present: clear, warm, dry, normal turgor - Musculoskeletal Musculoskeletal: strength equal bilaterally - Psychiatric Psychiatric: appropriate mood/affect, intact judgment & insight, memory intact, cooperative - Neurologic Neurologic: CNII-XII intact, no focal deficits, moves all extremities Results - Labs CBC & Chem 7: 08/31/20 00:41 08/31/20 00:41 Labs: Abnormal lab results 08/31/20 08/31/20 08/31/20 Range/Units 00:41 00:41 00:41 Hgb 9.7 L (11.8-15.2) gm/dl Hct 30.1 L (35.5-45.6) % MCV 76 L (84-94) fl MCH 25 L (28-32) pg Plt Count 115 L (140-440) K/mm3 Lymph % (Auto) 9.5 L (13.4-35.0) % [place] % (Auto) 7.4 H (0.0-7.3) % Lymph # (Auto) 1.0 L (1.2-5.4) K/mm3 Seg Neutrophils % 81.7 H (40.0-70.0) % Seg Neutrophils # 8.4 H (1.8-7.7) K/mm3 PT 15.3 H (12.2-14.9) Sec. INR 1.16 H (0.87-1.13) Chloride 92.6 L (98-107) mmol/L Carbon Dioxide 32 H (22-30) mmol/L BUN 38 H (9-20) mg/dL Creatinine 7.5 H (0.8-1.3) mg/dL Glucose 264 H (75-100) mg/dL Calcium 8.0 L (8.4-10.2) mg/dL Assessment and Plan - Patient Problems (1) Bleeding from dialysis shunt Current Visit: Yes Status: Acute Plan to address problem: Dressing has been done on the right AV fistula site. Meanwhile bleeding has subsided. May require vascular surgery evaluation. Patient meanwhile gets dialysis from the left AV fistula site. (2) ESRD (end stage renal disease) on dialysis Current Visit: Yes Status: Acute Plan to address problem: Patient on dialysis on Mondays, Wednesdays and Fridays. Nephrology has been consulted for evaluation. (3) Diabetes mellitus Current Visit: Yes Status: Acute Plan to address problem: We will monitor Accu-Cheks closely. Patient placed on sliding scale. (4) Hypertension Current Visit: Yes Status: Acute Plan to address problem: We will resume routine home medications and monitor vital signs closely. (5) Fever Current Visit: Yes Status: Acute Plan to address problem: Etiology unclear. Patient has been initiated on IV vancomycin. Will await culture results. (6) DVT prophylaxis Current Visit: No Status: Acute Plan to address problem: Patient placed on sequential compression device. (7) Full code status Current Visit: No Status: Acute Plan to address problem: Patient is full code
[2020-08-31] MEDS ORDERED: VANCOMYCIN PHARMACY TO DOSE IV SCH (04:00)
[2020-08-31] MEDS: INSULIN REGULAR, HUMAN 100 UNITS/1 ML SUB-Q SCH ×3 (09:31→22:11)
[2020-08-31 10:00] LABS: Hepatitis B Surface Antigen Non-Reactive (Negative); Hepatitis C Virus Antibody Non-Reactive (NonReactive)
--- NOTE | 2020-08-31 13:04 | Consultation ---
History of Present Illness - Reason for Consult Consult date: 08/31/20 end stage renal disease - History of Present Illness This is a 65 year old male who presented to the hospital from home for a chief complaint of bleeding from his AVF site. Upon arrival to E.R bleeding had stopped but during my evaluation, patient's right AVF is actively bleeding and pressure dressing has come off. Informed nurse to reapply. 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 Patient also noted to have fever of 101.2 F. Patient has ESRD and is due for hemodialysis today. Patient has history of Hypotenison on Midodrine, Diabetes Mellitus and Obesity. We are being consulted for management of this patient's ESRD. Past History Past Medical History: diabetes, dialysis, ESRD (Gets dialysis on Mondays, Wednesdays and Fridays), hypertension Past Surgical History: Other (AV fistula placement the left arm) Social history: no significant social history Family history: no significant family history Medications and Allergies Allergies Allergy/AdvReac Type Severity Reaction Status Date / Time No Known Allergies Allergy Unverified 09/12/16 14:54 Home Medications Medication Instructions Recorded Confirmed Last Taken Type Acetaminophen [Acetaminophen TAB] 650 mg PO Q4H PRN tablet 10/12/19 Unknown Rx Insulin Lispro [Humalog] 0 unit SUB-Q Q6HR vial 10/12/19 Unknown Rx Insulin Lispro [Humalog] See Protocol SUB-Q ACHS 30 Days #1 10/12/19 Unknown Rx vial Active Meds: Active Medications Acetaminophen (Acetaminophen 325 Mg Tab) 650 mg PO Q4H PRN PRN Reason: Pain MILD(1-3)/Fever >100.5/THOMPSON Dextrose (Dextrose 50% In Water (25gm) 50 Ml Syringe) 0 ml IV Q30MIN PRN; Protocol PRN Reason: Hypoglycemia Insulin Human Regular (Insulin Regular, Human 100 Units/1 Ml) 0 units SUB-Q ACHS LOS; Protocol Last Admin: 08/31/20 12:19 Dose: 3 units Documented by: Magnesium Hydroxide (Magnesium Hydroxide (Mom) Oral Liqd Udc) 30 ml PO Q4H PRN PRN Reason: Constipation Morphine Sulfate (Morphine 2 Mg/1 Ml Inj) 2 mg IV Q4H PRN PRN Reason: Pain, Moderate (4-6) Ondansetron HCl (Ondansetron 4 Mg/2 Ml Inj) 4 mg IV Q8H PRN PRN Reason: Nausea And Vomiting Sodium Chloride (Sodium Chloride 0.9% 10 Ml Flush Syringe) 10 ml IV BID LOS Last Admin: 08/31/20 10:13 Dose: 10 ml Documented by: Sodium Chloride (Sodium Chloride 0.9% 10 Ml Flush Syringe) 10 ml IV PRN PRN PRN Reason: LINE FLUSH Review of Systems Constitutional: fever, fatigue, no weight loss, no weight gain, no chills Ears, nose, mouth and throat: no ear pain, no ear discharge, no tinnitis, no decreased hearing, no nose pain, no nasal congestion, no nasal discharge Cardiovascular: no chest pain, no orthopnea, no palpitations, no rapid/irregular heart beat, no shortness of breath, no dyspnea on exertion Respiratory: no cough, no cough with sputum, no excessive sputum, no hemoptysis, no shortness of breath, no dyspnea on exertion Gastrointestinal: no abdominal pain, no nausea, no vomiting, no diarrhea, no constipation, no change in bowel habits Genitourinary Male: no hematuria, no flank pain, no urinary frequency, no urinary hesitancy Musculoskeletal: other (Right AVF bleeding from open wound site), no neck stiffness, no neck pain, no shooting leg pain Integumentary: no rash, no redness, no sores, no wounds, no jaundice Neurological: no head injury, no transient paralysis, no paralysis, no parathesias, no numbness, no tingling, no seizures Psychiatric: no memory loss, no change in sleep habits, no sleep disturbances, no insomnia, no hypersomnia, no change in appetite, no change in libido Endocrine: no cold intolerance, no heat intolerance, no polyphagia, no excessive thirst, no polydipsia, no polyuria, no nocturia Exam - Vital Signs Vital signs: Vital Signs Resp Pulse Ox 18 99 08/31/20 00:14 08/31/20 00:14 - General Appearance General appearance: well-developed, appears stated age EENT: ATNC, PERRL, hearing intact, vision intact Neck: Present: neck supple Respiratory: Decreased Breath Sounds Heart: regular, S1S2 Gastrointestinal: Present: normoactive bowel sounds Neurologic: alert and oriented x3 Musculoskeletal: Present: other (Left AVF has positive bruit and thrill .RIght AVF with small wound draining thick bloody contents, also with large aneurysm) Results - Lab Results 08/31/20 00:41 08/31/20 00:41 Most recent lab results Calcium 8.0 mg/dL (8.4-10.2) L 08/31/20 00:41 Assessment and Plan Assessment: Bleeding from AV fistula/Abscess End Stage Renal Disease Hypotension Diabetes Mellitus Plan: Hemodialysis today for UF and clearance via Left AVF Right old AVF that is not in use, has aneurysm present and suspected abscess with active thick bloody drainage. Informed nurse to reapply dressing as it has fallen off. Will consult IR Dr. Rasmussen for evaluation as contents may need to be drained a nd/or old right AVF may need to be excised since it is not in use Fluid restriction of 1 liter per day Renally dose medications Strict I&O monitoring Assess dialysis needs daily Renal plan reviewed by Dr Roque
--- NOTE | 2020-08-31 16:58 | Event Note ---
Date: 08/31/20 Discussed with patient that he is a patient of Dr. Calhoun who has privileges at [facility]. Evaluated right upper extremity old aneurysmal access evaluated with 1/2 cm by half centimeter hole with old blood leaking from it. Aneurysmal access is thrombosed and at minimum contaminated and likely will require removal. Discussed with nurse to apply Betadine and Gregg wrap. Since patient sees Dr. Calhoun, they will contact him for evaluation and access removal.
[2020-09-01] MEDS: ACETAMINOPHEN 325 MG TAB PO PRN ×3 (00:06→20:44)
--- NOTE | 2020-09-01 02:48 | Event Note ---
Date: 08/31/20 AV fistula aneurysm on Rt Arm Patients ABV fistula placed by Dr Calhoun Consulted Dr Unique florez to be consulted if Dr Calhoun not on the case
[2020-09-01 06:12] LABS: Basophils % (Auto) 0.4 % (0.0-1.8); Eosinophils # (Auto) 0.1 K/mm3 (0.0-0.4); Eosinophils % (Auto) 1.4 % (0.0-4.3); Hematocrit 25.3 % (35.5-45.6); Hemoglobin 8.4 gm/dl (11.8-15.2); Lymphocytes # (Auto) 1.1 K/mm3 (1.2-5.4); Lymphocytes % (Auto) 11.3 % (13.4-35.0); Mean Corpuscular HGB Conc 33 % (32-34); Mean Corpuscular Volume 76 fl (84-94); Monocytes # (Auto) 0.9 K/mm3 (0.0-0.8); Platelet Count 106 K/mm3 (140-440); Red Blood Count 3.34 M/mm3 (3.65-5.03)
[2020-09-01 06:23] LABS: INR 1.15 (0.87-1.13)
[2020-09-01 06:29] LABS: Calcium 9.5 mg/dL (8.4-10.2)
[2020-09-01] MEDS: INSULIN REGULAR, HUMAN 100 UNITS/1 ML SUB-Q SCH ×4 (08:35→22:45)
--- NOTE | 2020-09-01 12:13 | Progress Note ---
Assessment and Plan Assessment and plan: (1) Bleeding from dialysis shunt Current Visit: Yes Status: Acute Plan to address problem: Dressing has been done on the right AV fistula site. Meanwhile bleeding has subsided. May require vascular surgery evaluation. Patient meanwhile gets dialysis from the left AV fistula site. (2) ESRD (end stage renal disease) on dialysis Current Visit: Yes Status: Acute Plan to address problem: Patient on dialysis on Mondays, Wednesdays and Fridays. Nephrology has been consulted for evaluation. (3) Diabetes mellitus Current Visit: Yes Status: Acute Plan to address problem: We will monitor Accu-Cheks closely. Patient placed on sliding scale. (4) Hypertension Current Visit: Yes Status: Acute Plan to address problem: We will resume routine home medications and monitor vital signs closely. (5) Fever Current Visit: Yes Status: Acute Plan to address problem: Etiology unclear. Patient has been initiated on IV vancomycin. Will await culture results. (6) DVT prophylaxis Current Visit: No Status: Acute Plan to address problem: Patient placed on sequential compression device. (7) Full code status Current Visit: No Status: Acute Plan to address problem: Patient is full code We will closely monitor the patient and adjust management as needed Plan of care reviewed with the patient and his nurse store sales consultant recommendations noted and appreciated History Interval history: I have seen and examined the patient at the bedside this morning Patient's chart and medications reviewed Patient feels slightly better no new complaints Vital signs noted Hospitalist Physical - Constitutional Vitals: Temp Pulse Resp BP Pulse Ox 100.0 F H 94 H 18 126/49 95 09/01/20 11:30 09/01/20 11:30 09/01/20 11:30 09/01/20 11:30 09/01/20 11:30 General appearance: Present: no acute distress, well-nourished, obese - EENT Eyes: Present: PERRL, EOM intact - Neck Neck: Present: supple, normal ROM - Respiratory Respiratory effort: normal Respiratory: bilateral: diminished, negative: rales, rhonchi, wheezing - Cardiovascular Rhythm: regular Heart Sounds: Present: S1 & S2 - Extremities Extremities: no ischemia, No edema, abnormal (Right upper extremity AV fistula swelling redness) - Abdominal General gastrointestinal: soft, non-tender, non-distended, normal bowel sounds - Integumentary Integumentary: Present: clear, warm - Psychiatric Psychiatric: appropriate mood/affect, cooperative - Neurologic Neurologic: moves all extremities Results - Labs CBC & Chem 7: 09/01/20 20:55 09/01/20 04:00 Labs: Laboratory Last Values WBC 9.9 K/mm3 (4.5-11.0) 09/01/20 04:00 RBC 3.34 M/mm3 (3.65-5.03) L 09/01/20 04:00 Hgb 8.4 gm/dl (11.8-15.2) L 09/01/20 04:00 Hct 25.3 % (35.5-45.6) L 09/01/20 04:00 MCV 76 fl (84-94) L 09/01/20 04:00 MCH 25 pg (28-32) L 09/01/20 04:00 MCHC 33 % (32-34) 09/01/20 04:00 RDW 15.0 % (13.2-15.2) 09/01/20 04:00 Plt Count 106 K/mm3 (140-440) L 09/01/20 04:00 Lymph % (Auto) 11.3 % (13.4-35.0) L 09/01/20 04:00 [place] % (Auto) 9.0 % (0.0-7.3) H 09/01/20 04:00 Eos % (Auto) 1.4 % (0.0-4.3) 09/01/20 04:00 Baso % (Auto) 0.4 % (0.0-1.8) 09/01/20 04:00 Lymph # (Auto) 1.1 K/mm3 (1.2-5.4) L 09/01/20 04:00 [place] # (Auto) 0.9 K/mm3 (0.0-0.8) H 09/01/20 04:00 Eos # (Auto) 0.1 K/mm3 (0.0-0.4) 09/01/20 04:00 Baso # (Auto) 0.0 K/mm3 (0.0-0.1) 09/01/20 04:00 Seg Neutrophils % 77.9 % (40.0-70.0) H 09/01/20 04:00 Seg Neutrophils # 7.7 K/mm3 (1.8-7.7) 09/01/20 04:00 PT 15.2 Sec. (12.2-14.9) H 09/01/20 04:00 INR 1.15 (0.87-1.13) H 09/01/20 04:00 APTT 31.3 Sec. (24.2-36.6) 08/31/20 00:41 Sodium 138 mmol/L (137-145) 09/01/20 04:00 Potassium 3.7 mmol/L (3.6-5.0) 09/01/20 04:00 Chloride 94.9 mmol/L (98-107) L 09/01/20 04:00 Carbon Dioxide 32 mmol/L (22-30) H 09/01/20 04:00 Anion Gap 15 mmol/L 09/01/20 04:00 BUN 27 mg/dL (9-20) H 09/01/20 04:00 Creatinine 6.0 mg/dL (0.8-1.3) H 09/01/20 04:00 Estimated GFR 11 ml/min 09/01/20 04:00 BUN/Creatinine Ratio 5 % 09/01/20 04:00 Glucose 213 mg/dL (75-100) H 09/01/20 04:00 POC Glucose 266 mg/dL (70-105) H 09/01/20 11:31 Calcium 9.5 mg/dL (8.4-10.2) D 09/01/20 04:00 Random Vancomycin 13.4 ug/mL (0-40.0) 09/01/20 07:17 Hepatitis A IgM Ab Non-reactive (NonReactive) 08/31/20 08:59 Hep Bs Antigen Non-reactive (Negative) 08/31/20 08:59 Hep B Core IgM Ab Non-reactive (NonReactive) 08/31/20 08:59 Hepatitis C Antibody Non-reactive (NonReactive) 08/31/20 08:59 Microbiology: Microbiology 08/31/20 02:17 Peripheral/Venous Blood Culture - Preliminary NO GROWTH AFTER 24 HOURS 08/31/20 02:46 Peripheral/Venous Blood Culture - Preliminary Briceño/IV: Voiding Method Condom Catheter Active Medications - Current Medications Current Medications: Generic Name Dose Route Start Last Admin Trade Name Freq PRN Reason Stop Dose Admin Acetaminophen 650 mg 08/31/20 02:59 09/01/20 09:58 Acetaminophen 325 Mg Tab PO 650 mg Q4H PRN Administration Pain MILD(1-3)/Fever >100.5/THOMPSON Dextrose 0 ml 08/31/20 02:59 Dextrose 50% In Water (25gm) 50 Ml Syringe IV Q30MIN PRN Hypoglycemia Protocol Insulin Human Regular 0 units 08/31/20 07:30 09/01/20 08:36 Insulin Regular, Human 100 Units/1 Ml SUB-Q 3 units ACHS LOS Administration Protocol Magnesium Hydroxide 30 ml 08/31/20 02:59 Magnesium Hydroxide (Mom) Oral Liqd Udc PO Q4H PRN Constipation Morphine Sulfate 2 mg 08/31/20 02:59 08/31/20 17:05 Morphine 2 Mg/1 Ml Inj IV 2 mg Q4H PRN Administration Pain, Moderate (4-6) Ondansetron HCl 4 mg 08/31/20 02:59 Ondansetron 4 Mg/2 Ml Inj IV Q8H PRN Nausea And Vomiting Sodium Chloride 10 ml 08/31/20 10:00 09/01/20 10:00 Sodium Chloride 0.9% 10 Ml Flush Syringe IV 10 ml BID LOS Administration Sodium Chloride 10 ml 08/31/20 02:59 Sodium Chloride 0.9% 10 Ml Flush Syringe IV PRN PRN LINE FLUSH Nutrition/Malnutrition Assess - Dietary Evaluation Nutrition/Malnutrition Findings: Nutrition Notes Start: 08/31/20 13:13 Freq: Status: Active Protocol: Document 08/31/20 13:13 ORI (Rec: 08/31/20 13:13 ORI [id number]) Nutrition Notes Need for Assessment generated from: MD Order,Education Initial or Follow up Brief Note Subjective/Other Information MD consult for diet education. Pt denied education. Nutrition Intervention Revisit per MD consult or patient Sign Off request:
--- NOTE | 2020-09-01 15:14 | Progress Note ---
Assessment and Plan Assessment: Bleeding from AV fistula/Abscess End Stage Renal Disease Hypotension Diabetes Mellitus Plan: Hemodialysis tomorrow for UF and clearance via Left AVF Right old AVF that is not in use, has aneurysm present and thick bloody drainage, may need to be excised. Dr. Rasmussen deferred consult to evaluate patient's right AVF to Dr. Calhoun, awaiting his input Fluid restriction of 1 liter per day Renally dose medications Strict I&O monitoring Assess dialysis needs daily Renal plan reviewed by Dr Roque Subjective Date of service: 09/01/20 Principal diagnosis: Bleeding from old right AVF Interval history: Patient seen lying in bed. No family at bedside. Objective - Vital Signs Vital signs: Vital Signs - 12hr 09/01/20 09/01/20 09/01/20 03:43 07:22 07:30 Temperature 100.1 F H 100.6 F H 97.7 F Pulse Rate 111 H 95 H 107 H Respiratory 18 20 18 Rate Blood Pressure 117/50 109/57 125/78 O2 Sat by Pulse 97 94 91 Oximetry 09/01/20 11:30 Temperature 100.0 F H Pulse Rate 94 H Respiratory 18 Rate Blood Pressure 126/49 O2 Sat by Pulse 95 Oximetry - General Appearance General appearance: well-developed, appears stated age EENT: ATNC, PERRL, hearing intact, vision intact Neck: no JVD, supple Respiratory: Present: Decreased Breath Sounds Cardiology: S1S2 Gastrointestinal: normoactive bowel sounds Integumentary: warm and dry Neurologic: alert and oriented x3 Musculoskeletal: joint swelling, other (has PVD) Psychiatric: cooperative - Lab 09/01/20 04:00 09/01/20 04:00 Most recent lab results Calcium 9.5 mg/dL (8.4-10.2) D 09/01/20 04:00 Medications & Allergies - Medications Allergies/Adverse Reactions: Allergies No Known Allergies Allergy (Unverified 09/12/16 14:54) Home Medications: Home Medications Medication Instructions Recorded Confirmed Last Taken Type Acetaminophen [Acetaminophen TAB] 650 mg PO Q4H PRN tablet 10/12/19 09/01/20 Unknown Rx Insulin Lispro [Humalog] 0 unit SUB-Q Q6HR vial 10/12/19 09/01/20 Unknown Rx Insulin Lispro [Humalog] See Protocol SUB-Q ACHS 30 Days #1 10/12/19 09/01/20 Unknown Rx vial Active Medications: Generic Name Dose Route Start Last Admin Trade Name Ulissesq PRN Reason Stop Dose Admin Acetaminophen 650 mg 08/31/20 02:59 09/01/20 09:58 Acetaminophen 325 Mg Tab PO 650 mg Q4H PRN Administration Pain MILD(1-3)/Fever >100.5/THOMPSON Dextrose 0 ml 08/31/20 02:59 Dextrose 50% In Water (25gm) 50 Ml Syringe IV Q30MIN PRN Hypoglycemia Protocol Insulin Human Regular 0 units 08/31/20 07:30 09/01/20 12:13 Insulin Regular, Human 100 Units/1 Ml SUB-Q 4 units ACHS LOS Administration Protocol Magnesium Hydroxide 30 ml 08/31/20 02:59 Magnesium Hydroxide (Mom) Oral Liqd Udc PO Q4H PRN Constipation Morphine Sulfate 2 mg 08/31/20 02:59 08/31/20 17:05 Morphine 2 Mg/1 Ml Inj IV 2 mg Q4H PRN Administration Pain, Moderate (4-6) Ondansetron HCl 4 mg 08/31/20 02:59 Ondansetron 4 Mg/2 Ml Inj IV Q8H PRN Nausea And Vomiting Sodium Chloride 10 ml 08/31/20 10:00 09/01/20 10:00 Sodium Chloride 0.9% 10 Ml Flush Syringe IV 10 ml BID LOS Administration Sodium Chloride 10 ml 08/31/20 02:59 Sodium Chloride 0.9% 10 Ml Flush Syringe IV PRN PRN LINE FLUSH
--- NOTE | 2020-09-01 15:55 | Consultation ---
History of Present Illness - Reason for Consult Consult date: 09/01/20 - History of Present Illness 65 yo M PMHx HTN, DM2, ESRD on HD presented to the hospital complaining of bleeding from his RUE fistula. He notes what he believes to be purulence coming from the fistula site. He otherwise denies any issues. Febrile to 101.2 with a white count of 9.9. Blood cultures with GPC. Imaging personally reviewed: None Review of Systems: Bold if positive, otherwise negative General: fevers, chills, rigors HEENT: visual disturbance, diplopia, eye pain Respiratory: cough, sputum, hemoptysis, shortness of breath Cardiovascular: chest pain, syncope Gastrointestinal: nausea, vomiting, diarrhea, abdominal pain Genitourinary: dysuria, hematuria, flank pain Musculoskeletal: neck pain, back pain, joint pain, edema Neurologic: headaches, seizures Hematologic: easy bruising or bleeding Endocrine: night sweats, acute weight loss Skin: rash, jaundice, redness Psychiatric: suicidal, homicidal ideation Past History Past Medical History: diabetes, dialysis, ESRD (Gets dialysis on Mondays, Wednesdays and Fridays), hypertension Past Surgical History: Other (AV fistula placement the left arm) Social history: no significant social history Family history: no significant family history Medications and Allergies Allergies Allergy/AdvReac Type Severity Reaction Status Date / Time No Known Allergies Allergy Unverified 09/12/16 14:54 Home Medications Medication Instructions Recorded Confirmed Last Taken Type Acetaminophen [Acetaminophen TAB] 650 mg PO Q4H PRN tablet 10/12/19 09/01/20 Unknown Rx Insulin Lispro [Humalog] 0 unit SUB-Q Q6HR vial 10/12/19 09/01/20 Unknown Rx Insulin Lispro [Humalog] See Protocol SUB-Q ACHS 30 Days #1 10/12/19 09/01/20 Unknown Rx vial Active Meds: Active Medications Acetaminophen (Acetaminophen 325 Mg Tab) 650 mg PO Q4H PRN PRN Reason: Pain MILD(1-3)/Fever >100.5/THOMPSON Last Admin: 09/01/20 09:58 Dose: 650 mg Documented by: Dextrose (Dextrose 50% In Water (25gm) 50 Ml Syringe) 0 ml IV Q30MIN PRN; Protocol PRN Reason: Hypoglycemia Insulin Human Regular (Insulin Regular, Human 100 Units/1 Ml) 0 units SUB-Q ACHS LOS; Protocol Last Admin: 09/01/20 12:13 Dose: 4 units Documented by: Magnesium Hydroxide (Magnesium Hydroxide (Mom) Oral Liqd Udc) 30 ml PO Q4H PRN PRN Reason: Constipation Morphine Sulfate (Morphine 2 Mg/1 Ml Inj) 2 mg IV Q4H PRN PRN Reason: Pain, Moderate (4-6) Last Admin: 08/31/20 17:05 Dose: 2 mg Documented by: Ondansetron HCl (Ondansetron 4 Mg/2 Ml Inj) 4 mg IV Q8H PRN PRN Reason: Nausea And Vomiting Sodium Chloride (Sodium Chloride 0.9% 10 Ml Flush Syringe) 10 ml IV BID LOS Last Admin: 09/01/20 10:00 Dose: 10 ml Documented by: Sodium Chloride (Sodium Chloride 0.9% 10 Ml Flush Syringe) 10 ml IV PRN PRN PRN Reason: LINE FLUSH Physical Examination - Physical Exam Narrative exam: Physical Exam: Constitutional: Alert, cooperative. No acute distress Head, Ears, Nose: Normocephalic, atraumatic. External ears, nose normal Eyes: Conjunctivae/corneas clear. No icterus. No ptosis. Neck: Supple, no meningeal signs Oral: dentition fair, no thrush Cardiovascular: S1, S2 normal. Respiratory: Good air entry, clear to auscultation bilaterally GI: Soft, non-tender; bowel sounds normal. No peritoneal signs. Musculoskeletal: No pedal edema, no cyanosis. +RUE AVG Skin: No rash or abscess Hem/Lymphatic: No palpable cervical or supraclavicular nodes. No lymphangitis Psych: Mood ok. Affect normal Neurological: Awake, alert, oriented. No gross abnormality - Constitutional Vitals: Vital Signs Temp Pulse Resp BP Pulse Ox 100.0 F H 94 H 18 126/49 95 09/01/20 11:30 09/01/20 11:30 09/01/20 11:30 09/01/20 11:30 09/01/20 11:30 Temperature -Last 24 Hours Temperature 100.0 F Temperature 97.7 F Temperature 100.6 F Temperature 100.1 F Temperature 101.9 F Temperature 98.5 F Temperature 98.5 F Temperature 98.2 F Results - Labs CBC & Chem 7: 09/01/20 04:00 09/01/20 04:00 Labs: Abnormal lab results 08/31/20 08/31/20 09/01/20 Range/Units 16:27 20:51 04:00 RBC 3.34 L (3.65-5.03) M/mm3 Hgb 8.4 L (11.8-15.2) gm/dl Hct 25.3 L (35.5-45.6) % MCV 76 L (84-94) fl MCH 25 L (28-32) pg Plt Count 106 L (140-440) K/mm3 Lymph % (Auto) 11.3 L (13.4-35.0) % [place] % (Auto) 9.0 H (0.0-7.3) % Lymph # (Auto) 1.1 L (1.2-5.4) K/mm3 [place] # (Auto) 0.9 H (0.0-0.8) K/mm3 Seg Neutrophils % 77.9 H (40.0-70.0) % PT (12.2-14.9) Sec. INR (0.87-1.13) Chloride (98-107) mmol/L Carbon Dioxide (22-30) mmol/L BUN (9-20) mg/dL Creatinine (0.8-1.3) mg/dL Glucose (75-100) mg/dL POC Glucose 244 H 188 H (70-105) mg/dL 09/01/20 09/01/20 09/01/20 Range/Units 04:00 04:00 07:20 RBC (3.65-5.03) M/mm3 Hgb (11.8-15.2) gm/dl Hct (35.5-45.6) % MCV (84-94) fl MCH (28-32) pg Plt Count (140-440) K/mm3 Lymph % (Auto) (13.4-35.0) % [place] % (Auto) (0.0-7.3) % Lymph # (Auto) (1.2-5.4) K/mm3 [place] # (Auto) (0.0-0.8) K/mm3 Seg Neutrophils % (40.0-70.0) % PT 15.2 H (12.2-14.9) Sec. INR 1.15 H (0.87-1.13) Chloride 94.9 L (98-107) mmol/L Carbon Dioxide 32 H (22-30) mmol/L BUN 27 H (9-20) mg/dL Creatinine 6.0 H (0.8-1.3) mg/dL Glucose 213 H (75-100) mg/dL POC Glucose 201 H (70-105) mg/dL 09/01/20 Range/Units 11:31 RBC (3.65-5.03) M/mm3 Hgb (11.8-15.2) gm/dl Hct (35.5-45.6) % MCV (84-94) fl MCH (28-32) pg Plt Count (140-440) K/mm3 Lymph % (Auto) (13.4-35.0) % [place] % (Auto) (0.0-7.3) % Lymph # (Auto) (1.2-5.4) K/mm3 [place] # (Auto) (0.0-0.8) K/mm3 Seg Neutrophils % (40.0-70.0) % PT (12.2-14.9) Sec. INR (0.87-1.13) Chloride (98-107) mmol/L Carbon Dioxide (22-30) mmol/L BUN (9-20) mg/dL Creatinine (0.8-1.3) mg/dL Glucose (75-100) mg/dL POC Glucose 266 H (70-105) mg/dL Assessment and Plan Cultures: Blood culture GPC A/P: 35-year-old man history hypertension, diabetes, ESRD on HD presented with AVG site infection and bacteremia #Sepsis: Present with fevers and tachycardia. Secondary to bacteremia #GPC bacteremia: Awaiting speciation, contaminant versus real. #?AVG site infection: Recommend ultrasound of the area to evaluate for abscess #Diabetes: tight glycemic control for best outcomes. Recs: -Continue empiric vancomycin for now, goal trough 10-20. -Follow up blood culture finalization -Repeat blood cultures in AM -TTE -RUE AVG US. Thank you for the consult, we will continue to follow. MD [facility] ([facility] O: [phone] F: [phone]
--- NOTE | 2020-09-01 16:44 | Event Note ---
Date: 09/01/20 Responded to code met call because of severe bleeding from right upper extremity old aneurysmal access. Code team was at the bedside trying to control the bleeding with pressure bandage, consulted vascular Dr. Rasmussen Who immediately came and applied Surgicel and pressure bandage and plan to take to the OR tomorrow. Patient has been hemodynamically and clinically stable, alert and awake oriented x3 Stat CBC was requested, and consider blood transfusion if needed. Will closely monitor the patient and adjust the management as needed Plan of care reviewed with the patient and his nurse
--- NOTE | 2020-09-01 17:10 | Consultation ---
History of Present Illness - Reason for Consult Consult date: 09/01/20 Infected Right Arm AV Fistula Requesting physician: TIFFANY PATEL - History of Present Illness The patient is a 65-year-old male with history of end-stage renal disease who is currently on hemodialysis through left arm AV graft that was placed approximately 2 years ago. He presented to the emergency department with complaints of bleeding from a right arm AV fistula that he states was created approximately 5 years ago. He has not been using the fistula however over the last several weeks the fistula began to ulcerate and started to bleed on the day of his presentation. By report there was approximately half a liter of blood at the scene. The patient had a fever of approximately 101.2 on arrival. Since his admission he had a pressure dressing placed on the wound which initially con trolled the bleeding however today we were called secondary to the patient hemorrhaging despite having the pressure dressing in place. The patient denies having any pain or numbness in the right upper extremity. He has no additional complaints at this time. Past History Past Medical History: diabetes, dialysis, ESRD (Gets dialysis on Mondays, Wednesdays and Fridays), hypertension Past Surgical History: Other (Creation of left arm AV graft, creation of right arm AV fistula) Social history: no significant social history Family history: no significant family history Medications and Allergies Allergies Allergy/AdvReac Type Severity Reaction Status Date / Time No Known Allergies Allergy Unverified 09/12/16 14:54 Home Medications Medication Instructions Recorded Confirmed Last Taken Type Acetaminophen [Acetaminophen TAB] 650 mg PO Q4H PRN tablet 10/12/19 09/01/20 Unknown Rx Insulin Lispro [Humalog] 0 unit SUB-Q Q6HR vial 10/12/19 09/01/20 Unknown Rx Insulin Lispro [Humalog] See Protocol SUB-Q ACHS 30 Days #1 10/12/19 09/01/20 Unknown Rx vial Active Meds: Active Medications Acetaminophen (Acetaminophen 325 Mg Tab) 650 mg PO Q4H PRN PRN Reason: Pain MILD(1-3)/Fever >100.5/THOMPSON Last Admin: 09/01/20 09:58 Dose: 650 mg Documented by: Dextrose (Dextrose 50% In Water (25gm) 50 Ml Syringe) 0 ml IV Q30MIN PRN; Protocol PRN Reason: Hypoglycemia Insulin Human Regular (Insulin Regular, Human 100 Units/1 Ml) 0 units SUB-Q ACHS LOS; Protocol Last Admin: 09/01/20 12:13 Dose: 4 units Documented by: Magnesium Hydroxide (Magnesium Hydroxide (Mom) Oral Liqd Udc) 30 ml PO Q4H PRN PRN Reason: Constipation Morphine Sulfate (Morphine 2 Mg/1 Ml Inj) 2 mg IV Q4H PRN PRN Reason: Pain, Moderate (4-6) Last Admin: 08/31/20 17:05 Dose: 2 mg Documented by: Ondansetron HCl (Ondansetron 4 Mg/2 Ml Inj) 4 mg IV Q8H PRN PRN Reason: Nausea And Vomiting Sodium Chloride (Sodium Chloride 0.9% 10 Ml Flush Syringe) 10 ml IV BID LOS Last Admin: 09/01/20 10:00 Dose: 10 ml Documented by: Sodium Chloride (Sodium Chloride 0.9% 10 Ml Flush Syringe) 10 ml IV PRN PRN PRN Reason: LINE FLUSH Review of Systems All systems: negative Exam - Constitutional Vitals: Temp Pulse Resp BP Pulse Ox 99.3 F 99 H 20 158/63 98 09/01/20 16:46 09/01/20 16:46 09/01/20 16:46 09/01/20 16:46 09/01/20 16:46 General appearance: Present: no acute distress - Respiratory Respiratory effort: normal - Cardiovascular Rhythm: regular - Extremities Extremities: abnormal (Right arm AV fistula with 2 large pseudoaneurysms and a large ulcerated area with bleeding near the arterial anastomosis, the 2nd pseudoaneurysm is near the venous outflow and has a smaller ulceration with bleeding, there is no palpable thrill in the access) Extremity abnormal: other (Left arm AV graft with palpable thrill and no evidence of ulceration) - Abdominal General gastrointestinal: Present: soft Male genitourinary: Present: deferred - Rectal Rectal Exam: deferred Results - Labs CBC & Chem 7: 09/01/20 04:00 09/01/20 04:00 Labs: Abnormal lab results 08/31/20 09/01/20 09/01/20 Range/Units 20:51 04:00 04:00 RBC 3.34 L (3.65-5.03) M/mm3 Hgb 8.4 L (11.8-15.2) gm/dl Hct 25.3 L (35.5-45.6) % MCV 76 L (84-94) fl MCH 25 L (28-32) pg Plt Count 106 L (140-440) K/mm3 Lymph % (Auto) 11.3 L (13.4-35.0) % [place] % (Auto) 9.0 H (0.0-7.3) % Lymph # (Auto) 1.1 L (1.2-5.4) K/mm3 [place] # (Auto) 0.9 H (0.0-0.8) K/mm3 Seg Neutrophils % 77.9 H (40.0-70.0) % PT 15.2 H (12.2-14.9) Sec. INR 1.15 H (0.87-1.13) Chloride (98-107) mmol/L Carbon Dioxide (22-30) mmol/L BUN (9-20) mg/dL Creatinine (0.8-1.3) mg/dL Glucose (75-100) mg/dL POC Glucose 188 H (70-105) mg/dL 09/01/20 09/01/20 09/01/20 Range/Units 04:00 07:20 11:31 RBC (3.65-5.03) M/mm3 Hgb (11.8-15.2) gm/dl Hct (35.5-45.6) % MCV (84-94) fl MCH (28-32) pg Plt Count (140-440) K/mm3 Lymph % (Auto) (13.4-35.0) % [place] % (Auto) (0.0-7.3) % Lymph # (Auto) (1.2-5.4) K/mm3 [place] # (Auto) (0.0-0.8) K/mm3 Seg Neutrophils % (40.0-70.0) % PT (12.2-14.9) Sec. INR (0.87-1.13) Chloride 94.9 L (98-107) mmol/L Carbon Dioxide 32 H (22-30) mmol/L BUN 27 H (9-20) mg/dL Creatinine 6.0 H (0.8-1.3) mg/dL Glucose 213 H (75-100) mg/dL POC Glucose 201 H 266 H (70-105) mg/dL Assessment and Plan The patient is a 65-year-old male with a history of end-stage renal disease who presented with bleeding from an infected right arm arteriovenous fistula. At this time a pressure dressing has been placed on the fistula to control the bleeding. He will have his hemoglobin checked and transfused as needed. I will take him to the operating room tomorrow to excise the pseudoaneurysms and ligate both the inflow and outflow of the fistula to prevent any future complications of the fistula. The patient has expressed understanding of the plan and agrees.
[2020-09-01 21:20] LABS: Basophils # (Auto) 0.1 K/mm3 (0.0-0.1); Basophils % (Auto) 0.5 % (0.0-1.8); Eosinophils # (Auto) 0.1 K/mm3 (0.0-0.4); Eosinophils % (Auto) 1.2 % (0.0-4.3); Hematocrit 25.1 % (35.5-45.6); Hemoglobin 8.5 gm/dl (11.8-15.2); Lymphocytes # (Auto) 0.9 K/mm3 (1.2-5.4); Lymphocytes % (Auto) 7.8 % (13.4-35.0); Mean Corpuscular HGB Conc 34 % (32-34); Mean Corpuscular Volume 76 fl (84-94); Monocytes % (Auto) 8.4 % (0.0-7.3); Platelet Count 121 K/mm3 (140-440); Red Blood Count 3.32 M/mm3 (3.65-5.03); Red Cell Distribution Width 14.9 % (13.2-15.2)
[2020-09-02] MEDS: ACETAMINOPHEN 325 MG TAB PO PRN (02:30)
[2020-09-02] MEDS ORDERED: ceFAZolin/Water 2 GM/20 ML 2 GM/20 ML SYRINGE IV NR (06:00)
[2020-09-02] MEDS: INSULIN REGULAR, HUMAN 100 UNITS/1 ML SUB-Q SCH ×6 (07:42→23:42)
--- NOTE | 2020-09-02 09:55 | Event Note ---
Date: 09/02/20 Late entry: Called to bedside on 09/01/2020. Patient has still not been seen by his usual vascular provider who is a physician on staff. Contacted due to emergent situation with bleeding from AV access. Assess and found two denuded areas of tissue overlying the aneurysm with one bleeding from tissue disruption, and the other appearing to have a draining vein into the area that must have been bleeding. Due to the lack of tissue integrity, stitches could not be applied. Instead I cleaned the areas with betadine, applied surgicel, and then placed 4x4 overlying the area and applied a non circumferential pressure bandage over the area with elastoplast and silk tape. Bleeding controlled. Patient will need explantation of the old AV acess t omorrow. Hospital still cannot get in touch with patient's vascular provider and therefore we will see the patient under emergency conditions for explantation tomorrow. See full note by Dr. Mederos.
[2020-09-02] MEDS: SODIUM CHLORIDE 0.9% 1000 ML 1,000 ML IV SCH (10:08)
[2020-09-02] MEDS ORDERED: ONDANSETRON 4 MG/2 ML INJ IV PRN (10:10)
[2020-09-02] MEDS ORDERED: HYDROmorphone 1 MG/1 ML INJ IV PRN ×2 (10:10)
--- NOTE | 2020-09-02 10:11 | Anesthesia Day of Surgery ---
Anesthesia Day of Surgery - Day of Surgery Patient Examined: Yes Patient H&P Reviewed: Yes Patient is NPO: Yes
--- NOTE | 2020-09-02 10:18 | Anesthesia Consultation ---
Anesthesia Consult and Med Hx Date of service: 09/02/20 - Airway Anesthetic Teeth Evaluation: Good ROM Head & Neck: Adequate Mental/Hyoid Distance: Adequate Mallampati Class: Class II Intubation Access Assessment: Probably Good - Pre-Operative Health Status ASA Pre-Surgery Classification: ASA3 Proposed Anesthetic Plan: General - Pulmonary SOB: Yes (MAI) Hx Sleep Apnea: Yes - Cardiovascular System Hx Hypertension: Yes - Gastrointestinal Hx Gastroesophageal Reflux Disease: No - Endocrine Hx Renal Disease: Yes Hx End Stage Renal Disease: Yes (HD --) - Hematic Hx Anemia: Yes Hx Sickle Cell Disease: No - Other Systems Hx Obesity: Yes - Additional Comments Anesthesia Medical History Comments: ECHO done yesterday; not resulted
[2020-09-02] MEDS ORDERED: ROCURONIUM 50 MG/5 ML INJ IV ONE (10:45)
[2020-09-02] MEDS ORDERED: SUCCINYLCHOLINE CHLORIDE 200 MG/10 ML INJ MDV ONE (10:45)
[2020-09-02] MEDS ORDERED: LIDOCAINE MPF (2%) 20 MG/1 ML VIAL 5 ML ONE (10:45)
[2020-09-02] MEDS ORDERED: fentaNYL 100 MCG/2 ML INJ ONE (10:46)
[2020-09-02] MEDS ORDERED: propofoL 200 MG/20 ML VIAL IV ONE (10:46)
[2020-09-02] MEDS ORDERED: ePHEDrine SULFATE 50 MG/1 ML INJ ONE (10:48)
[2020-09-02] MEDS ORDERED: SODIUM CHLORIDE 0.45% 500 ML IV ONE (10:58)
[2020-09-02] MEDS ORDERED: HEPARIN 10,000 UNITS/10 ML VIAL ONE (10:58)
[2020-09-02] MEDS ORDERED: MIDAZOLAM 2 MG/2 ML INJ IV NR (11:00)
[2020-09-02] MEDS ORDERED: HEPARIN 10,000 UNITS/10 ML VIAL IV ONE (12:33)
[2020-09-02] MEDS ORDERED: SODIUM CHLORIDE 0.9% 500 ML IVPB IV ONE (12:33)
[2020-09-02] MEDS ORDERED: BUPIVACAINE/PF (0.5%) 5 MG/1 ML 30 ML VIAL INFILTRATI ONE (12:33)
[2020-09-02] MEDS ORDERED: NEOSTIGMINE 10MG/10 ML INJ MDV ONE (12:50)
[2020-09-02] MEDS ORDERED: GLYCOPYRROLATE 0.4 MG/2 ML INJ ONE (12:50)
--- NOTE | 2020-09-02 12:55 | Operative Report ---
Operative Report Operative Report: Date of Procedure: 09/02/2020 Pre-operative Diagnosis: Infected Right Upper Extremity AV Fistula Post-operative Diagnosis: Same Procedure(s): 1. Excision of Infected Right Upper Extremity AV Fistula Surgeon: Hood Mederos M.D. Block Greaser: None Anesthesia: General Endotracheal Anesthesia EBL: 600 mL Counts: Correct Complications: None Condition: Stable Findings: Both the venous outflow and the arterial inflow were patent. There was purulent drainage from the pseudoaneurysm at the venous outflow. Specimen: Right arm AV fistula was sent for culture. Indication: The patient is a 65-year-old male with a history of end-stage renal disease who is currently on hemodialysis through left arm arteriovenous access. He presented with spontaneous bleeding from a previous right arm arteriovenous fistula that had not been used for approximately 2 years. The bleeding occurred at 2 areas of pseudoaneurysm and it is believed that the thrombus within the pseudoaneurysms has become infected. He is in need of excision of the fistula. He has been given the risk, benefits, and alternative procedures and consented to the procedure. Description of Procedure: The patient was brought to the operating room and laid in supine position. After general endotracheal esthesia was achieved his right arm was prepped and draped in normal sterile fashion. An elliptical incision was created around the area of pseudoaneurysm, using a 10 blade and carried down through the soft tissue using cautery. Multiple subcutaneous branches were identified, suture ligated, and divided. The venous outflow of the fistula was identified and found to be patent. This was clamped with 2 Lily clamps and divided and then suture-ligated. Once the venous outflow of the fistula have been ligated cautery was used to continue the dissection towards the arterial inflow. The arterial inflow was identified and suture ligated with a 0 silk tie. It was then divided and cautery was used to complete the dissection until the aneurysmal portion of the fistula have been completely transected and excised. The specimen was passed off and sent to microbiology for culture. Cautery was used to achieve hemostasis within the wound bed. The wound was then copiously irrigated. Once hemostasis had been adequately achieved the wound was anesthetized using 0.5% Marcaine. The wound was then partially closed using 3-0 Vicryl in running fashion the deep dermal layer to close the proximal portion of the wound leaving approximately 3 cm of the wound opening at the arterial inflow. [place] were then used to reapproximate the skin over the portion that had been closed with the Vicryl suture. The portion of the wound that remained open was packed with a Betadine soaked gauze and then the wound was dressed with fluffs, an ABD pad, a Kerlix roll, and a 6 inch Gregg bandage. The patient tolerated the procedure well. All sponge, needle, and instrument counts were correct. The patient was taken to the recovery area in stable condition.
--- NOTE | 2020-09-02 14:27 | Progress Note ---
Assessment and Plan Assessment: Bleeding from AV fistula/Abscess End Stage Renal Disease Hypotension Diabetes Mellitus Plan: Hemodialysis today for UF and clearance via Left AVF Right old AVF that is not in use, has aneurysm present and thick bloody drainage, undergoing excision of right AVF today Fluid restriction of 1 liter per day Renally dose medications Strict I&O monitoring Assess dialysis needs daily Renal plan reviewed with Dr Roque Subjective Date of service: 09/02/20 Principal diagnosis: Bleeding from old right AVF Interval history: Patient off floor in OR Objective - Vital Signs Vital signs: Vital Signs - 12hr 09/02/20 09/02/20 09/02/20 04:07 07:37 10:05 Temperature 100.4 F H 101.3 F H 99.7 F H Pulse Rate 109 H 100 H 104 H Respiratory 18 20 18 Rate Blood Pressure 108/68 128/56 156/66 O2 Sat by Pulse 96 100 99 Oximetry 09/02/20 09/02/20 09/02/20 13:14 13:20 13:25 Temperature 97.0 F L Pulse Rate 102 H 100 H 100 H Respiratory 16 17 17 Rate Blood Pressure 119/35 120/41 121/54 O2 Sat by Pulse 100 100 100 Oximetry 09/02/20 09/02/20 09/02/20 13:30 13:45 14:00 Temperature 98.0 F 98.2 F Pulse Rate 99 H 97 H 97 H Respiratory 17 16 16 Rate Blood Pressure 125/50 117/51 133/49 O2 Sat by Pulse 100 99 97 Oximetry 09/02/20 14:15 Temperature 98.2 F Pulse Rate 98 H Respiratory 19 Rate Blood Pressure 102/43 O2 Sat by Pulse 97 Oximetry - Lab 09/01/20 20:55 09/01/20 04:00 Most recent lab results Calcium 9.5 mg/dL (8.4-10.2) D 09/01/20 04:00 Medications & Allergies - Medications Allergies/Adverse Reactions: Allergies No Known Allergies Allergy (Unverified 09/12/16 14:54) Home Medications: Home Medications Medication Instructions Recorded Confirmed Last Taken Type Acetaminophen [Acetaminophen TAB] 650 mg PO Q4H PRN tablet 10/12/19 09/01/20 Unknown Rx Insulin Lispro [Humalog] 0 unit SUB-Q Q6HR vial 10/12/19 09/01/20 Unknown Rx Insulin Lispro [Humalog] See Protocol SUB-Q ACHS 30 Days #1 10/12/19 09/01/20 Unknown Rx vial Active Medications: Generic Name Dose Route Start Last Admin Trade Name Freq PRN Reason Stop Dose Admin Acetaminophen 650 mg 08/31/20 02:59 09/02/20 02:30 Acetaminophen 325 Mg Tab PO 650 mg Q4H PRN Administration Pain MILD(1-3)/Fever >100.5/THOMPSON Dextrose 0 ml 08/31/20 02:59 Dextrose 50% In Water (25gm) 50 Ml Syringe IV Q30MIN PRN Hypoglycemia Protocol Hydromorphone HCl 0.25 mg 09/02/20 10:10 Hydromorphone 1 Mg/1 Ml Inj IV 09/02/20 23:00 Q10MIN PRN Pain, Moderate (4-6) Hydromorphone HCl 0.5 mg 09/02/20 10:10 Hydromorphone 1 Mg/1 Ml Inj IV 09/02/20 23:00 Q10MIN PRN Pain , Severe (7-10) Cefazolin Sodium 2 gm in 20 mls @ 80 mls/hr 09/02/20 06:00 Ancef/Sterile Water 2 Gm/20 Ml IV 09/02/20 23:59 PREOP NR Protocol Sodium Chloride 1,000 mls @ 42 mls/hr 09/02/20 11:00 09/02/20 10:08 Nacl 0.9% 1000 Ml IV 42 mls/hr DIRECT LOS Administration Insulin Human Regular 0 units 08/31/20 07:30 09/02/20 13:41 Insulin Regular, Human 100 Units/1 Ml SUB-Q 3 units ACHS LOS Administration Protocol Magnesium Hydroxide 30 ml 08/31/20 02:59 Magnesium Hydroxide (Mom) Oral Liqd Udc PO Q4H PRN Constipation Midazolam HCl 2 mg 09/02/20 11:00 Midazolam 2 Mg/2 Ml Inj IV 09/02/20 23:59 PREOP NR Morphine Sulfate 2 mg 08/31/20 02:59 08/31/20 17:05 Morphine 2 Mg/1 Ml Inj IV 2 mg Q4H PRN Administration Pain, Moderate (4-6) Ondansetron HCl 4 mg 08/31/20 02:59 Ondansetron 4 Mg/2 Ml Inj IV Q8H PRN Nausea And Vomiting Sodium Chloride 10 ml 08/31/20 10:00 09/02/20 00:17 Sodium Chloride 0.9% 10 Ml Flush Syringe IV 10 ml BID LOS Administration Sodium Chloride 10 ml 08/31/20 02:59 Sodium Chloride 0.9% 10 Ml Flush Syringe IV PRN PRN LINE FLUSH
--- NOTE | 2020-09-02 15:04 | Progress Note ---
Assessment and Plan Cultures: Blood culture GPC A/P: 35-year-old man history hypertension, diabetes, ESRD on HD presented with AVG site infection and bacteremia #Sepsis: Present with fevers and tachycardia. Secondary to bacteremia #GPC bacteremia: Awaiting speciation, contaminant versus real. #?AVG site infection: Recommend ultrasound of the area to evaluate for abscess #Diabetes: tight glycemic control for best outcomes. Recs: -Continue empiric vancomycin for now, goal trough 10-20. -Follow up blood culture finalization -Follow up repeat blood cultures -TTE -Infected AVG was removed. Await negative cultures prior to new permanant line. Thank you for the consult, we will continue to follow. Arnoldo Pugh MD [facility] ([facility] O: [phone] F: [phone] Subjective Date of service: 09/02/20 Principal diagnosis: Bleeding from old right AVF Interval history: Afebrile, no acute change present. Culture results still pending. Taken to the OR today for excision of infected fistula. Cultures obtained. Objective - Exam Narrative Exam: Physical Exam: Constitutional: Alert, cooperative. No acute distress Head, Ears, Nose: Normocephalic, atraumatic. External ears, nose normal Eyes: Conjunctivae/corneas clear. No icterus. No ptosis. Neck: Supple, no meningeal signs Oral: dentition fair, no thrush Cardiovascular: S1, S2 normal. Respiratory: Good air entry, clear to auscultation bilaterally GI: Soft, non-tender; bowel sounds normal. No peritoneal signs. Musculoskeletal: No pedal edema, no cyanosis. +RUE AVG Skin: No rash or abscess Hem/Lymphatic: No palpable cervical or supraclavicular nodes. No lymphangitis Psych: Mood ok. Affect normal Neurological: Awake, alert, oriented. No gross abnormality - Constitutional Vitals: Vital Signs Temp Pulse Resp BP Pulse Ox -98 F L 98 H 18 132/36 95 09/02/20 14:33 09/02/20 14:33 09/02/20 14:33 09/02/20 14:33 09/02/20 14:33 Temperature -Last 24 Hours Temperature -98 F Temperature 98.3 F Temperature 98.2 F Temperature 98.2 F Temperature 98.2 F Temperature 98.0 F Temperature 97.0 F Temperature 99.7 F Temperature 99.7 F Temperature 101.3 F Temperature 100.4 F Temperature 102.4 F Temperature 101.3 F Temperature 99.3 F - Labs CBC & Chem 7: 09/01/20 20:55 09/01/20 04:00 Labs: Abnormal lab results 09/01/20 09/01/20 09/01/20 Range/Units 16:44 20:55 21:04 WBC 11.4 H (4.5-11.0) K/mm3 RBC 3.32 L (3.65-5.03) M/mm3 Hgb 8.5 L (11.8-15.2) gm/dl Hct 25.1 L (35.5-45.6) % MCV 76 L (84-94) fl MCH 26 L (28-32) pg Plt Count 121 L (140-440) K/mm3 Lymph % (Auto) 7.8 L (13.4-35.0) % Gibson % (Auto) 8.4 H (0.0-7.3) % Lymph # (Auto) 0.9 L (1.2-5.4) K/mm3 Gibson # (Auto) 1.0 H (0.0-0.8) K/mm3 Seg Neutrophils % 82.1 H (40.0-70.0) % Seg Neutrophils # 9.3 H (1.8-7.7) K/mm3 POC Glucose 250 H 255 H (70-105) mg/dL Crossmatch 09/02/20 09/02/20 09/02/20 Range/Units 07:39 10:14 10:20 WBC (4.5-11.0) K/mm3 RBC (3.65-5.03) M/mm3 Hgb (11.8-15.2) gm/dl Hct (35.5-45.6) % MCV (84-94) fl MCH (28-32) pg Plt Count (140-440) K/mm3 Lymph % (Auto) (13.4-35.0) % Gibson % (Auto) (0.0-7.3) % Lymph # (Auto) (1.2-5.4) K/mm3 Gibson # (Auto) (0.0-0.8) K/mm3 Seg Neutrophils % (40.0-70.0) % Seg Neutrophils # (1.8-7.7) K/mm3 POC Glucose 209 H 186 H (70-105) mg/dL Crossmatch See Detail 09/02/20 Range/Units 13:24 WBC (4.5-11.0) K/mm3 RBC (3.65-5.03) M/mm3 Hgb (11.8-15.2) gm/dl Hct (35.5-45.6) % MCV (84-94) fl MCH (28-32) pg Plt Count (140-440) K/mm3 Lymph % (Auto) (13.4-35.0) % Gibson % (Auto) (0.0-7.3) % Lymph # (Auto) (1.2-5.4) K/mm3 Gibson # (Auto) (0.0-0.8) K/mm3 Seg Neutrophils % (40.0-70.0) % Seg Neutrophils # (1.8-7.7) K/mm3 POC Glucose 202 H (70-105) mg/dL Crossmatch
--- NOTE | 2020-09-02 17:07 | Post Anesthesia Evaluation ---
- Post Anesthesia Evaluation Patient Participated: Yes Airway Patent: Yes Stable Respiratory Function: Yes Nausea/Vomiting: No Temp > 96.8F: Yes Pain Manageable: Yes Adequeate Hydration: Yes Anesthesia Complications: No Block Receding Appropriately: Not Applicable Patient on Ventilator: No
--- NOTE | 2020-09-02 18:29 | Progress Note ---
Assessment and Plan Assessment and plan: -- Infected Right Upper Extremity AV Fistula s/p Excision of Infected Right Upper Extremity AV Fistula -- Bleeding from right upper extremity AV fistula Current Visit: Yes Status: Acute Dressing has been done on the right AV fistula site. Meanwhile bleeding has subsided. Vascular applied Surgicel and pressure bandage Today s/p excision of the infected right upper extremity AV fistula Vascular following --ESRD (end stage renal disease) on dialysis Current Visit: Yes Status: Acute Has left upper arm dialysis access , HD on Mondays, Wednesdays and Fridays. Nephrology following -- Diabetes mellitus Current Visit: Yes Status: Acute We will monitor Accu-Cheks closely. Patient placed on sliding scale. Long-acting insulin as needed -- Hypertension Current Visit: Yes Status: Acute Continue current antihypertensives As needed medications --Febrile illness/sepsis Current Visit: Yes Status: Acute Infected right AV fistula Patient has been initiated on IV vancomycin. Cultures positive for gram positive cocci ID following --Morbid obesity; BMI 41.6 Current Visit: Yes Status: Acute Patient needs weight reduction and medically stable --DVT prophylaxis Current Visit: No Status: Acute Patient placed on sequential compression device. --Full code status Current Visit: No Status: Acute Patient is full code Closely monitor the patient and adjust the management as needed History Interval history: Patient was scheduled for vascular procedure today followed by hemodialysis Seen and examined the patient at the bedside patient's chart and medications reviewed Feels slightly better Hospitalist Physical - Constitutional Vitals: Temp Pulse Resp BP Pulse Ox 97.8 F 109 H 16 167/57 100 09/02/20 15:00 09/02/20 15:00 09/02/20 15:00 09/02/20 15:00 09/02/20 15:00 General appearance: Present: no acute distress, well-nourished, obese (Morbidly obese) - EENT Eyes: Present: PERRL, EOM intact - Neck Neck: Present: supple, normal ROM - Respiratory Respiratory effort: normal Respiratory: bilateral: diminished, negative: rales, rhonchi, wheezing - Cardiovascular Rhythm: regular Heart Sounds: Present: S1 & S2 - Extremities Extremities: no ischemia, No edema, abnormal (Surgical dressing right upper arm) - Abdominal General gastrointestinal: soft, non-tender, non-distended, normal bowel sounds - Integumentary Integumentary: Present: clear, warm - Psychiatric Psychiatric: appropriate mood/affect, cooperative - Neurologic Neurologic: moves all extremities Results - Labs CBC & Chem 7: 09/02/20 21:18 09/03/20 04:59 Labs: Laboratory Last Values WBC 11.4 K/mm3 (4.5-11.0) H 09/01/20 20:55 RBC 3.32 M/mm3 (3.65-5.03) L 09/01/20 20:55 Hgb 8.5 gm/dl (11.8-15.2) L 09/01/20 20:55 Hct 25.1 % (35.5-45.6) L 09/01/20 20:55 MCV 76 fl (84-94) L 09/01/20 20:55 MCH 26 pg (28-32) L 09/01/20 20:55 MCHC 34 % (32-34) 09/01/20 20:55 RDW 14.9 % (13.2-15.2) 09/01/20 20:55 Plt Count 121 K/mm3 (140-440) L 09/01/20 20:55 Lymph % (Auto) 7.8 % (13.4-35.0) L 09/01/20 20:55 Hughes % (Auto) 8.4 % (0.0-7.3) H 09/01/20 20:55 Eos % (Auto) 1.2 % (0.0-4.3) 09/01/20 20:55 Baso % (Auto) 0.5 % (0.0-1.8) 09/01/20 20:55 Lymph # (Auto) 0.9 K/mm3 (1.2-5.4) L 09/01/20 20:55 Hughes # (Auto) 1.0 K/mm3 (0.0-0.8) H 09/01/20 20:55 Eos # (Auto) 0.1 K/mm3 (0.0-0.4) 09/01/20 20:55 Baso # (Auto) 0.1 K/mm3 (0.0-0.1) 09/01/20 20:55 Seg Neutrophils % 82.1 % (40.0-70.0) H 09/01/20 20:55 Seg Neutrophils # 9.3 K/mm3 (1.8-7.7) H 09/01/20 20:55 PT 15.2 Sec. (12.2-14.9) H 09/01/20 04:00 INR 1.15 (0.87-1.13) H 09/01/20 04:00 APTT 31.3 Sec. (24.2-36.6) 08/31/20 00:41 Sodium 138 mmol/L (137-145) 09/01/20 04:00 Potassium 3.7 mmol/L (3.6-5.0) 09/01/20 04:00 Chloride 94.9 mmol/L (98-107) L 09/01/20 04:00 Carbon Dioxide 32 mmol/L (22-30) H 09/01/20 04:00 Anion Gap 15 mmol/L 09/01/20 04:00 BUN 27 mg/dL (9-20) H 09/01/20 04:00 Creatinine 6.0 mg/dL (0.8-1.3) H 09/01/20 04:00 Estimated GFR 11 ml/min 09/01/20 04:00 BUN/Creatinine Ratio 5 % 09/01/20 04:00 Glucose 213 mg/dL (75-100) H 09/01/20 04:00 POC Glucose 247 mg/dL (70-105) H 09/02/20 15:11 Calcium 9.5 mg/dL (8.4-10.2) D 09/01/20 04:00 Random Vancomycin 13.4 ug/mL (0-40.0) 09/01/20 07:17 Hepatitis A IgM Ab Non-reactive (NonReactive) 08/31/20 08:59 Hep Bs Antigen Non-reactive (Negative) 08/31/20 08:59 Hep B Core IgM Ab Non-reactive (NonReactive) 08/31/20 08:59 Hepatitis C Antibody Non-reactive (NonReactive) 08/31/20 08:59 Blood Type A POSITIVE 09/02/20 10:20 Antibody Screen Negative 09/02/20 10:20 Crossmatch See Detail 09/02/20 10:20 Microbiology: Microbiology 09/02/20 04:54 Peripheral/Venous Blood Culture - Preliminary Culture in Progress 09/02/20 05:46 Peripheral/Venous Blood Culture - Preliminary Culture in Progress 08/31/20 02:17 Peripheral/Venous Blood Culture - Preliminary NO GROWTH AFTER 48 HOURS Briceño/IV: Voiding Method Condom Catheter Active Medications - Current Medications Current Medications: Generic Name Dose Route Start Last Admin Trade Name Freq PRN Reason Stop Dose Admin Acetaminophen 650 mg 08/31/20 02:59 09/02/20 02:30 Acetaminophen 325 Mg Tab PO 650 mg Q4H PRN Administration Pain MILD(1-3)/Fever >100.5/THOMPSON Dextrose 0 ml 08/31/20 02:59 Dextrose 50% In Water (25gm) 50 Ml Syringe IV Q30MIN PRN Hypoglycemia Protocol Hydromorphone HCl 0.25 mg 09/02/20 10:10 Hydromorphone 1 Mg/1 Ml Inj IV 09/02/20 23:00 Q10MIN PRN Pain, Moderate (4-6) Hydromorphone HCl 0.5 mg 09/02/20 10:10 Hydromorphone 1 Mg/1 Ml Inj IV 09/02/20 23:00 Q10MIN PRN Pain , Severe (7-10) Cefazolin Sodium 2 gm in 20 mls @ 80 mls/hr 09/02/20 06:00 Ancef/Sterile Water 2 Gm/20 Ml IV 09/02/20 23:59 PREOP NR Protocol Sodium Chloride 1,000 mls @ 42 mls/hr 09/02/20 11:00 09/02/20 10:08 Nacl 0.9% 1000 Ml IV 42 mls/hr DIRECT LOS Administration Vancomycin HCl 1,250 mg/ 275 mls @ 166.667 mls/hr 09/02/20 22:00 Sodium Chloride IV 09/02/20 23:38 ONCE ONE Insulin Human Regular 0 units 08/31/20 07:30 09/02/20 16:42 Insulin Regular, Human 100 Units/1 Ml SUB-Q Not Given ACHS LOS Protocol Magnesium Hydroxide 30 ml 08/31/20 02:59 Magnesium Hydroxide (Mom) Oral Liqd Udc PO Q4H PRN Constipation Midazolam HCl 2 mg 09/02/20 11:00 Midazolam 2 Mg/2 Ml Inj IV 09/02/20 23:59 PREOP NR Morphine Sulfate 2 mg 08/31/20 02:59 08/31/20 17:05 Morphine 2 Mg/1 Ml Inj IV 2 mg Q4H PRN Administration Pain, Moderate (4-6) Ondansetron HCl 4 mg 08/31/20 02:59 Ondansetron 4 Mg/2 Ml Inj IV Q8H PRN Nausea And Vomiting Sodium Chloride 10 ml 08/31/20 10:00 09/02/20 16:42 Sodium Chloride 0.9% 10 Ml Flush Syringe IV Not Given BID LOS Sodium Chloride 10 ml 08/31/20 02:59 Sodium Chloride 0.9% 10 Ml Flush Syringe IV PRN PRN LINE FLUSH Nutrition/Malnutrition Assess - Dietary Evaluation Nutrition/Malnutrition Findings: Nutrition Notes Start: 08/31/20 13:13 Freq: Status: Active Protocol: Document 08/31/20 13:13 (Rec: 08/31/20 13:13 ORI [id number]) Nutrition Notes Need for Assessment generated from: MD Order,Education Initial or Follow up Brief Note Subjective/Other Information MD consult for diet education. Pt denied education. Nutrition Intervention Revisit per MD consult or patient Sign Off request:
--- NOTE | 2020-09-02 19:39 | Progress Note ---
Assessment and Plan Assessment and plan: -- Infected Right Upper Extremity AV Fistula s/p Excision of Infected Right Upper Extremity AV Fistula -- Bleeding from right upper extremity AV fistula Current Visit: Yes Status: Acute Dressing has been done on the right AV fistula site. Meanwhile bleeding has subsided. Vascular applied Surgicel and pressure bandage Today s/p excision of the infected right upper extremity AV fistula Vascular following --ESRD (end stage renal disease) on dialysis Current Visit: Yes Status: Acute Has left upper arm dialysis access , HD on Mondays, Wednesdays and Fridays. Nephrology following -- Diabetes mellitus Current Visit: Yes Status: Acute We will monitor Accu-Cheks closely. Patient placed on sliding scale. Long-acting insulin as needed -- Hypertension Current Visit: Yes Status: Acute Continue current antihypertensives As needed medications --Febrile illness/sepsis Current Visit: Yes Status: Acute Infected right AV fistula Patient has been initiated on IV vancomycin. Cultures positive for gram positive cocci ID following --Morbid obesity; BMI 41.6 Current Visit: Yes Status: Acute Patient needs weight reduction and medically stable --DVT prophylaxis Current Visit: No Status: Acute Patient placed on sequential compression device. --Full code status Current Visit: No Status: Acute Patient is full code Closely monitor the patient and adjust the management as needed Closely monitor the patient and adjust management History Interval history: I have seen and examined the patient at the bedside Patient's chart and medications reviewed Patient feels slightly better Hospitalist Physical - Constitutional Vitals: Temp Pulse Resp BP Pulse Ox 97.8 F 109 H 16 167/57 100 09/02/20 15:00 09/02/20 15:00 09/02/20 15:00 09/02/20 15:00 09/02/20 15:00 General appearance: Present: no acute distress, well-nourished, obese - EENT Eyes: Present: PERRL, EOM intact - Neck Neck: Present: supple, normal ROM - Respiratory Respiratory effort: normal Respiratory: bilateral: diminished, negative: rales, rhonchi, wheezing - Cardiovascular Rhythm: regular Heart Sounds: Present: S1 & S2 - Extremities Extremities: no ischemia, No edema - Abdominal General gastrointestinal: soft, non-tender, non-distended, normal bowel sounds - Integumentary Integumentary: Present: clear, warm - Psychiatric Psychiatric: appropriate mood/affect, cooperative - Neurologic Neurologic: CNII-XII intact, moves all extremities Results - Labs CBC & Chem 7: 09/04/20 10:14 09/03/20 04:59 Labs: Laboratory Last Values WBC 11.4 K/mm3 (4.5-11.0) H 09/01/20 20:55 RBC 3.32 M/mm3 (3.65-5.03) L 09/01/20 20:55 Hgb 8.5 gm/dl (11.8-15.2) L 09/01/20 20:55 Hct 25.1 % (35.5-45.6) L 09/01/20 20:55 MCV 76 fl (84-94) L 09/01/20 20:55 MCH 26 pg (28-32) L 09/01/20 20:55 MCHC 34 % (32-34) 09/01/20 20:55 RDW 14.9 % (13.2-15.2) 09/01/20 20:55 Plt Count 121 K/mm3 (140-440) L 09/01/20 20:55 Lymph % (Auto) 7.8 % (13.4-35.0) L 09/01/20 20:55 Stephenson % (Auto) 8.4 % (0.0-7.3) H 09/01/20 20:55 Eos % (Auto) 1.2 % (0.0-4.3) 09/01/20 20:55 Baso % (Auto) 0.5 % (0.0-1.8) 09/01/20 20:55 Lymph # (Auto) 0.9 K/mm3 (1.2-5.4) L 09/01/20 20:55 Stephenson # (Auto) 1.0 K/mm3 (0.0-0.8) H 09/01/20 20:55 Eos # (Auto) 0.1 K/mm3 (0.0-0.4) 09/01/20 20:55 Baso # (Auto) 0.1 K/mm3 (0.0-0.1) 09/01/20 20:55 Seg Neutrophils % 82.1 % (40.0-70.0) H 09/01/20 20:55 Seg Neutrophils # 9.3 K/mm3 (1.8-7.7) H 09/01/20 20:55 PT 15.2 Sec. (12.2-14.9) H 09/01/20 04:00 INR 1.15 (0.87-1.13) H 09/01/20 04:00 APTT 31.3 Sec. (24.2-36.6) 08/31/20 00:41 Sodium 138 mmol/L (137-145) 09/01/20 04:00 Potassium 3.7 mmol/L (3.6-5.0) 09/01/20 04:00 Chloride 94.9 mmol/L (98-107) L 09/01/20 04:00 Carbon Dioxide 32 mmol/L (22-30) H 09/01/20 04:00 Anion Gap 15 mmol/L 09/01/20 04:00 BUN 27 mg/dL (9-20) H 09/01/20 04:00 Creatinine 6.0 mg/dL (0.8-1.3) H 09/01/20 04:00 Estimated GFR 11 ml/min 09/01/20 04:00 BUN/Creatinine Ratio 5 % 09/01/20 04:00 Glucose 213 mg/dL (75-100) H 09/01/20 04:00 POC Glucose 247 mg/dL (70-105) H 09/02/20 15:11 Calcium 9.5 mg/dL (8.4-10.2) D 09/01/20 04:00 Random Vancomycin 13.4 ug/mL (0-40.0) 09/01/20 07:17 Hepatitis A IgM Ab Non-reactive (NonReactive) 08/31/20 08:59 Hep Bs Antigen Non-reactive (Negative) 08/31/20 08:59 Hep B Core IgM Ab Non-reactive (NonReactive) 08/31/20 08:59 Hepatitis C Antibody Non-reactive (NonReactive) 08/31/20 08:59 Blood Type A POSITIVE 09/02/20 10:20 Antibody Screen Negative 09/02/20 10:20 Crossmatch See Detail 09/02/20 10:20 Microbiology: Microbiology 09/02/20 04:54 Peripheral/Venous Blood Culture - Preliminary Culture in Progress 09/02/20 05:46 Peripheral/Venous Blood Culture - Preliminary Culture in Progress 08/31/20 02:17 Peripheral/Venous Blood Culture - Preliminary NO GROWTH AFTER 48 HOURS Briceño/IV: Voiding Method Condom Catheter Active Medications - Current Medications Current Medications: Generic Name Dose Route Start Last Admin Trade Name Freq PRN Reason Stop Dose Admin Acetaminophen 650 mg 08/31/20 02:59 09/02/20 02:30 Acetaminophen 325 Mg Tab PO 650 mg Q4H PRN Administration Pain MILD(1-3)/Fever >100.5/THOMPSON Dextrose 0 ml 08/31/20 02:59 Dextrose 50% In Water (25gm) 50 Ml Syringe IV Q30MIN PRN Hypoglycemia Protocol Hydromorphone HCl 0.25 mg 09/02/20 10:10 Hydromorphone 1 Mg/1 Ml Inj IV 09/02/20 23:00 Q10MIN PRN Pain, Moderate (4-6) Hydromorphone HCl 0.5 mg 09/02/20 10:10 Hydromorphone 1 Mg/1 Ml Inj IV 09/02/20 23:00 Q10MIN PRN Pain , Severe (7-10) Cefazolin Sodium 2 gm in 20 mls @ 80 mls/hr 09/02/20 06:00 Ancef/Sterile Water 2 Gm/20 Ml IV 09/02/20 23:59 PREOP NR Protocol Sodium Chloride 1,000 mls @ 42 mls/hr 09/02/20 11:00 09/02/20 10:08 Nacl 0.9% 1000 Ml IV 42 mls/hr DIRECT LOS Administration Vancomycin HCl 1,250 mg/ 275 mls @ 166.667 mls/hr 09/02/20 22:00 Sodium Chloride IV 09/02/20 23:38 ONCE ONE Insulin Human Regular 0 units 08/31/20 07:30 09/02/20 16:42 Insulin Regular, Human 100 Units/1 Ml SUB-Q Not Given ACHS LOS Protocol Magnesium Hydroxide 30 ml 08/31/20 02:59 Magnesium Hydroxide (Mom) Oral Liqd Udc PO Q4H PRN Constipation Midazolam HCl 2 mg 09/02/20 11:00 Midazolam 2 Mg/2 Ml Inj IV 09/02/20 23:59 PREOP NR Morphine Sulfate 2 mg 08/31/20 02:59 08/31/20 17:05 Morphine 2 Mg/1 Ml Inj IV 2 mg Q4H PRN Administration Pain, Moderate (4-6) Ondansetron HCl 4 mg 08/31/20 02:59 Ondansetron 4 Mg/2 Ml Inj IV Q8H PRN Nausea And Vomiting Sodium Chloride 10 ml 08/31/20 10:00 09/02/20 16:42 Sodium Chloride 0.9% 10 Ml Flush Syringe IV Not Given BID LOS Sodium Chloride 10 ml 08/31/20 02:59 Sodium Chloride 0.9% 10 Ml Flush Syringe IV PRN PRN LINE FLUSH Nutrition/Malnutrition Assess - Dietary Evaluation Nutrition/Malnutrition Findings: Nutrition Notes Start: 08/31/20 13:13 Freq: Status: Active Protocol: Document 08/31/20 13:13 (Rec: 08/31/20 13:13 [id number]) Nutrition Notes Need for Assessment generated from: MD Order,Education Initial or Follow up Brief Note Subjective/Other Information MD consult for diet education. Pt denied education. Nutrition Intervention Revisit per MD consult or patient Sign Off request:
[2020-09-02 21:38] LABS: Hematocrit 28.2 % (35.5-45.6); Hemoglobin 9.3 gm/dl (11.8-15.2)
[2020-09-02] MEDS ORDERED: VANCOMYCIN 1,250 MG in SODIUM CHLORIDE 0.9% 250ML 250 ML IV ONE (22:00)
[2020-09-03 05:56] LABS: Calcium 8.9 mg/dL (8.4-10.2)
[2020-09-03] MEDS: INSULIN REGULAR, HUMAN 100 UNITS/1 ML SUB-Q SCH ×2 (09:20→15:39)
--- NOTE | 2020-09-03 09:23 | Progress Note ---
Assessment and Plan Patient's left upper arm AV fistula removal site with only scant drainage. The patient will need wound care both as an inpatient and on discharge. He can follow-up in our office for staple removal in 2 weeks. Subjective Date of service: 09/03/20 Principal diagnosis: Bleeding from old right AVF Interval history: Patient status post excision of right upper arm AV fistula secondary to infected pseudoaneurysms and fistula that has not been used for 2 years. The patient's incision is clean and dry with only scant drainage. The patient currently dialyzes through a left upper arm AV graft. Objective - Constitutional Vitals: Vital Signs - 12hr 09/02/20 09/03/20 09/03/20 23:41 04:16 07:52 Temperature 98.0 F 98 F 98.6 F Pulse Rate 106 H 78 87 Respiratory 18 18 Rate Blood Pressure 102/50 103/44 Blood Pressure 135/68 [Right] O2 Sat by Pulse 94 99 Oximetry 09/03/20 08:56 Temperature Pulse Rate Respiratory Rate Blood Pressure Blood Pressure [Right] O2 Sat by Pulse 99 Oximetry General appearance: Present: no acute distress - EENT Eyes: EOM intact ENT: hearing intact - Neck Neck: supple - Respiratory Respiratory effort: normal Extremities: abnormal (Postsurgical changes to both arms following multiple fistula and graft placement) - Gastrointestinal General gastrointestinal: Present: deferred Rectal Exam: deferred - Genitourinary Male genitourinary: deferred - Psychiatric Psychiatric: appropriate mood/affect, cooperative - Labs CBC & Chem 7: 09/02/20 21:18 09/03/20 04:59 Labs: Abnormal lab results 09/02/20 09/02/20 09/02/20 Range/Units 10:14 10:20 13:24 Hgb (11.8-15.2) gm/dl Hct (35.5-45.6) % Chloride (98-107) mmol/L Carbon Dioxide (22-30) mmol/L BUN (9-20) mg/dL Creatinine (0.8-1.3) mg/dL Glucose (75-100) mg/dL POC Glucose 186 H 202 H (70-105) mg/dL Crossmatch See Detail 09/02/20 09/02/20 09/02/20 Range/Units 15:11 20:34 21:18 Hgb 9.3 L (11.8-15.2) gm/dl Hct 28.2 L (35.5-45.6) % Chloride (98-107) mmol/L Carbon Dioxide (22-30) mmol/L BUN (9-20) mg/dL Creatinine (0.8-1.3) mg/dL Glucose (75-100) mg/dL POC Glucose 247 H 205 H (70-105) mg/dL Crossmatch 09/03/20 09/03/20 Range/Units 04:59 07:35 Hgb (11.8-15.2) gm/dl Hct (35.5-45.6) % Chloride 95.0 L (98-107) mmol/L Carbon Dioxide 32 H (22-30) mmol/L BUN 28 H (9-20) mg/dL Creatinine 5.8 H (0.8-1.3) mg/dL Glucose 216 H (75-100) mg/dL POC Glucose 198 H (70-105) mg/dL Crossmatch Medications & Allergies - Medications Allergies/Adverse Reactions: Allergies No Known Allergies Allergy (Unverified 09/12/16 14:54) Home Medications: Home Medications Medication Instructions Recorded Confirmed Last Taken Type Acetaminophen [Acetaminophen TAB] 650 mg PO Q4H PRN tablet 10/12/19 09/01/20 Unknown Rx Insulin Lispro [Humalog] 0 unit SUB-Q Q6HR vial 10/12/19 09/01/20 Unknown Rx Insulin Lispro [Humalog] See Protocol SUB-Q ACHS 30 Days #1 10/12/19 09/01/20 Unknown Rx vial Active Medications: Generic Name Dose Route Start Last Admin Trade Name Leonila PRN Reason Stop Dose Admin Acetaminophen 650 mg 08/31/20 02:59 09/02/20 02:30 Acetaminophen 325 Mg Tab PO 650 mg Q4H PRN Administration Pain MILD(1-3)/Fever >100.5/THOMPSON Dextrose 0 ml 08/31/20 02:59 Dextrose 50% In Water (25gm) 50 Ml Syringe IV Q30MIN PRN Hypoglycemia Protocol Sodium Chloride 1,000 mls @ 42 mls/hr 09/02/20 11:00 09/02/20 10:08 Nacl 0.9% 1000 Ml IV 42 mls/hr DIRECT LOS Administration Insulin Human Regular 0 units 08/31/20 07:30 09/02/20 23:42 Insulin Regular, Human 100 Units/1 Ml SUB-Q Not Given ACHS [facility] Protocol Magnesium Hydroxide 30 ml 08/31/20 02:59 Magnesium Hydroxide (Mom) Oral Liqd Udc PO Q4H PRN Constipation Morphine Sulfate 2 mg 08/31/20 02:59 08/31/20 17:05 Morphine 2 Mg/1 Ml Inj IV 2 mg Q4H PRN Administration Pain, Moderate (4-6) Ondansetron HCl 4 mg 08/31/20 02:59 Ondansetron 4 Mg/2 Ml Inj IV Q8H PRN Nausea And Vomiting Sodium Chloride 10 ml 08/31/20 10:00 09/02/20 21:19 Sodium Chloride 0.9% 10 Ml Flush Syringe IV 10 ml BID LOS Administration Sodium Chloride 10 ml 08/31/20 02:59 Sodium Chloride 0.9% 10 Ml Flush Syringe IV PRN PRN LINE FLUSH
--- NOTE | 2020-09-03 09:44 | Progress Note ---
Assessment and Plan Bleeding from AV fistula/Abscess End Stage Renal Disease Hypotension Diabetes Mellitus Plan: No indication for HD today Right old AVF that is not in use, has aneurysm present and thick bloody drainage, underwent excision of right AVF yesterday, followed by vascular Fluid restriction of 1 liter per day Renally dose medications Strict I&O monitoring Assess dialysis needs daily Subjective Date of service: 09/03/20 Principal diagnosis: Bleeding from old right AVF Interval history: Tolerated HD yesterday Objective - Vital Signs Vital signs: Vital Signs - 12hr 09/02/20 09/03/20 09/03/20 23:41 04:16 07:52 Temperature 98.0 F 98 F 98.6 F Pulse Rate 106 H 78 87 Respiratory 18 18 Rate Blood Pressure 102/50 103/44 Blood Pressure 135/68 [Right] O2 Sat by Pulse 94 99 Oximetry 09/03/20 08:56 Temperature Pulse Rate Respiratory Rate Blood Pressure Blood Pressure [Right] O2 Sat by Pulse 99 Oximetry - General Appearance General appearance: well-developed, well-nourished, appears stated age EENT: ATNC, PERRL, mucous membranes moist Neck: no JVD, no carotid bruit Respiratory: Present: Clear to Ascultation. Absent: Rales, Ronchi Cardiology: regular, S1S2 Gastrointestinal: normoactive bowel sounds, no tenderness, no distended, no masses Integumentary: no rash, warm and dry Neurologic: no focal deficit, no asterixis Musculoskeletal: other (trace pitting edema in BLE) Psychiatric: mood/affect appropriate, cooperative - Lab 09/02/20 21:18 09/03/20 04:59 Most recent lab results Calcium 8.9 mg/dL (8.4-10.2) 09/03/20 04:59 Medications & Allergies - Medications Allergies/Adverse Reactions: Allergies No Known Allergies Allergy (Unverified 09/12/16 14:54) Home Medications: Home Medications Medication Instructions Recorded Confirmed Last Taken Type Acetaminophen [Acetaminophen TAB] 650 mg PO Q4H PRN tablet 10/12/19 09/01/20 Unknown Rx Insulin Lispro [Humalog] 0 unit SUB-Q Q6HR vial 10/12/19 09/01/20 Unknown Rx Insulin Lispro [Humalog] See Protocol SUB-Q ACHS 30 Days #1 08/22/20 07/13/21 Unknown Rx vial Insulin Detemir [Levemir Flextouch] 8 unit SQ QHS 09/03/20 09/03/20 08/31/20 20:00 History Active Medications: Generic Name Dose Route Start Last Admin Trade Name Freq PRN Reason Stop Dose Admin Acetaminophen 650 mg 08/31/20 02:59 09/02/20 02:30 Acetaminophen 325 Mg Tab PO 650 mg Q4H PRN Administration Pain MILD(1-3)/Fever >100.5/THOMPSON Dextrose 0 ml 08/31/20 02:59 Dextrose 50% In Water (25gm) 50 Ml Syringe IV Q30MIN PRN Hypoglycemia Protocol Sodium Chloride 1,000 mls @ 42 mls/hr 09/02/20 11:00 09/02/20 10:08 Nacl 0.9% 1000 Ml IV 42 mls/hr DIRECT LOS Administration Insulin Human Regular 0 units 08/31/20 07:30 09/03/20 09:20 Insulin Regular, Human 100 Units/1 Ml SUB-Q 2 units ACHS LOS Administration Protocol Magnesium Hydroxide 30 ml 08/31/20 02:59 Magnesium Hydroxide (Mom) Oral Liqd Udc PO Q4H PRN Constipation Morphine Sulfate 2 mg 08/31/20 02:59 08/31/20 17:05 Morphine 2 Mg/1 Ml Inj IV 2 mg Q4H PRN Administration Pain, Moderate (4-6) Ondansetron HCl 4 mg 08/31/20 02:59 Ondansetron 4 Mg/2 Ml Inj IV Q8H PRN Nausea And Vomiting Sodium Chloride 10 ml 08/31/20 10:00 09/03/20 09:21 Sodium Chloride 0.9% 10 Ml Flush Syringe IV 10 ml BID LOS Administration Sodium Chloride 10 ml 08/31/20 02:59 Sodium Chloride 0.9% 10 Ml Flush Syringe IV PRN PRN LINE FLUSH
--- NOTE | 2020-09-03 11:26 | Progress Note ---
Assessment and Plan Cultures: Blood culture GPC A/P: 35-year-old man history hypertension, diabetes, ESRD on HD presented with AVG site infection and bacteremia #Sepsis: Present with fevers and tachycardia. Secondary to bacteremia #GPC bacteremia: Awaiting speciation, contaminant versus real. #?AVG site infection: Recommend ultrasound of the area to evaluate for abscess #Diabetes: tight glycemic control for best outcomes. Recs: -Continue empiric vancomycin for now, goal trough 10-20. -Follow up blood culture finalization -> still awaiting? -Follow up repeat blood cultures -Infected AVF was removed. Thank you for the consult, we will continue to follow. Arnoldo Pugh MD [facility] ([facility]) O: [phone] F: [phone] Subjective Date of service: 09/03/20 Principal diagnosis: Bleeding from old right AVF Interval history: Afebrile, no acute change. Cultures still awaiting finalization Objective - Exam Narrative Exam: Physical Exam: Constitutional: Alert, cooperative. No acute distress Head, Ears, Nose: Normocephalic, atraumatic. External ears, nose normal Eyes: Conjunctivae/corneas clear. No icterus. No ptosis. Neck: Supple, no meningeal signs Oral: dentition fair, no thrush Cardiovascular: S1, S2 normal. Respiratory: Good air entry, clear to auscultation bilaterally GI: Soft, non-tender; bowel sounds normal. No peritoneal signs. Musculoskeletal: No pedal edema, no cyanosis. +RUE AVG Skin: No rash or abscess Hem/Lymphatic: No palpable cervical or supraclavicular nodes. Psych: Mood ok. Affect normal Neurological: Awake, alert, oriented. No gross abnormality - Constitutional Vitals: Vital Signs Temp Pulse Resp BP Pulse Ox 98.6 F 87 18 103/44 99 09/03/20 07:52 09/03/20 07:52 09/03/20 07:52 09/03/20 07:52 09/03/20 08:56 Temperature -Last 24 Hours Temperature 98.6 F Temperature 98 F Temperature 98.0 F Temperature 97.8 F Temperature 98.0 F Temperature 97.8 F Temperature 97.8 F Temperature -98 F Temperature 98.3 F Temperature 98.2 F Temperature 98.2 F Temperature 98.2 F Temperature 98.0 F Temperature 97.0 F - Labs CBC & Chem 7: 09/02/20 21:18 09/03/20 04:59 Labs: Abnormal lab results 09/02/20 09/02/20 09/02/20 Range/Units 10:20 13:24 15:11 Hgb (11.8-15.2) gm/dl Hct (35.5-45.6) % Chloride (98-107) mmol/L Carbon Dioxide (22-30) mmol/L BUN (9-20) mg/dL Creatinine (0.8-1.3) mg/dL Glucose (75-100) mg/dL POC Glucose 202 H 247 H (70-105) mg/dL Crossmatch See Detail 09/02/20 09/02/20 09/03/20 Range/Units 20:34 21:18 04:59 Hgb 9.3 L (11.8-15.2) gm/dl Hct 28.2 L (35.5-45.6) % Chloride 95.0 L (98-107) mmol/L Carbon Dioxide 32 H (22-30) mmol/L BUN 28 H (9-20) mg/dL Creatinine 5.8 H (0.8-1.3) mg/dL Glucose 216 H (75-100) mg/dL POC Glucose 205 H (70-105) mg/dL Crossmatch 09/03/20 09/03/20 Range/Units 07:35 11:07 Hgb (11.8-15.2) gm/dl Hct (35.5-45.6) % Chloride (98-107) mmol/L Carbon Dioxide (22-30) mmol/L BUN (9-20) mg/dL Creatinine (0.8-1.3) mg/dL Glucose (75-100) mg/dL POC Glucose 198 H 237 H (70-105) mg/dL Crossmatch
[2020-09-03 14:50] LABS: Hematocrit 22.9 % (35.5-45.6); Hemoglobin 7.7 gm/dl (11.8-15.2)
[2020-09-03] MEDS: INSULIN LISPRO 100 UNIT/ML SUB-Q SCH ×2 (15:52→21:52)
[2020-09-03] MEDS: INSULIN GLARGINE 100 UNITS/ML SUB-Q SCH (21:51)
[2020-09-03] MEDS: ACETAMINOPHEN 325 MG TAB PO PRN (21:51)
[2020-09-03 23:45] LABS: Hematocrit 22.6 % (35.5-45.6); Hemoglobin 7.4 gm/dl (11.8-15.2)
[2020-09-04 10:31] LABS: Hematocrit 23.7 % (35.5-45.6); Hemoglobin 7.8 gm/dl (11.8-15.2)
--- NOTE | 2020-09-04 11:50 | Progress Note ---
Assessment and Plan Bleeding from AV fistula/Abscess End Stage Renal Disease Hypotension Diabetes Mellitus Plan: HD today for clearance and volume removal Fluid restriction of 1 liter per day Renally dose medications Strict I&O monitoring Assess dialysis needs daily Subjective Date of service: 09/04/20 Principal diagnosis: Bleeding from old right AVF Interval history: in dialysis this AM, tolerating Objective - Vital Signs Vital signs: Vital Signs - 12hr 09/04/20 09/04/20 09/04/20 00:24 05:08 08:34 Temperature 98.3 F 98.2 F 98.1 F Pulse Rate 87 89 89 Respiratory 20 20 20 Rate Blood Pressure 95/50 109/49 120/51 O2 Sat by Pulse 100 97 98 Oximetry O2 Sat by Pulse Oximetry [ Anterior Bilateral Throughout] 09/04/20 09/04/20 09/04/20 08:36 09:10 09:15 Temperature 97.8 F Pulse Rate 88 84 Respiratory 18 Rate Blood Pressure 110/64 122/69 O2 Sat by Pulse 100 Oximetry O2 Sat by Pulse 100 Oximetry [ Anterior Bilateral Throughout] 09/04/20 09/04/20 09/04/20 09:30 09:45 10:00 Temperature Pulse Rate 87 90 90 Respiratory Rate Blood Pressure 119/58 94/54 129/55 O2 Sat by Pulse Oximetry O2 Sat by Pulse Oximetry [ Anterior Bilateral Throughout] 09/04/20 09/04/20 09/04/20 10:15 10:30 10:45 Temperature Pulse Rate 90 90 94 H Respiratory Rate Blood Pressure 111/51 128/61 101/39 O2 Sat by Pulse Oximetry O2 Sat by Pulse Oximetry [ Anterior Bilateral Throughout] 09/04/20 09/04/20 09/04/20 11:00 11:15 11:30 Temperature Pulse Rate 93 H 73 94 H Respiratory Rate Blood Pressure 122/55 94/47 104/32 O2 Sat by Pulse Oximetry O2 Sat by Pulse Oximetry [ Anterior Bilateral Throughout] 09/04/20 11:45 Temperature Pulse Rate 95 H Respiratory Rate Blood Pressure 105/56 O2 Sat by Pulse Oximetry O2 Sat by Pulse Oximetry [ Anterior Bilateral Throughout] - Lab 09/04/20 10:14 09/03/20 04:59 Most recent lab results Calcium 8.9 mg/dL (8.4-10.2) 09/03/20 04:59 Medications & Allergies - Medications Allergies/Adverse Reactions: Allergies No Known Allergies Allergy (Unverified 09/12/16 14:54) Home Medications: Home Medications Medication Instructions Recorded Confirmed Last Taken Type Acetaminophen [Acetaminophen TAB] 650 mg PO Q4H PRN tablet 10/12/19 09/01/20 Unknown Rx Insulin Lispro [Humalog] 0 unit SUB-Q Q6HR vial 10/12/19 09/01/20 Unknown Rx Insulin Lispro [Humalog] See Protocol SUB-Q ACHS 30 Days #1 10/12/19 09/01/20 Unknown Rx vial Insulin Detemir [Levemir Flextouch] 8 unit SQ QHS 09/03/20 09/03/20 08/31/20 20:00 History Active Medications: Generic Name Dose Route Start Last Admin Trade Name Freq PRN Reason Stop Dose Admin Acetaminophen 650 mg 08/31/20 02:59 09/03/20 21:51 Acetaminophen 325 Mg Tab PO 650 mg Q4H PRN Administration Pain MILD(1-3)/Fever >100.5/THOMPSON Dextrose 0 ml 08/31/20 02:59 Dextrose 50% In Water (25gm) 50 Ml Syringe IV Q30MIN PRN Hypoglycemia Protocol Sodium Chloride 1,000 mls @ 42 mls/hr 09/02/20 11:00 09/02/20 10:08 Nacl 0.9% 1000 Ml IV 42 mls/hr DIRECT LOS Administration Insulin Glargine 8 units 09/03/20 22:00 09/03/20 21:51 Insulin Glargine 100 Units/Ml SUB-Q 8 units QHS LOS Administration Insulin Human Lispro 0 unit 09/03/20 16:30 09/03/20 21:52 Insulin Lispro 100 Unit/Ml SUB-Q 4 unit ACHS LOS Administration Protocol Magnesium Hydroxide 30 ml 08/31/20 02:59 Magnesium Hydroxide (Mom) Oral Liqd Udc PO Q4H PRN Constipation Morphine Sulfate 2 mg 08/31/20 02:59 08/31/20 17:05 Morphine 2 Mg/1 Ml Inj IV 2 mg Q4H PRN Administration Pain, Moderate (4-6) Ondansetron HCl 4 mg 08/31/20 02:59 Ondansetron 4 Mg/2 Ml Inj IV Q8H PRN Nausea And Vomiting Sodium Chloride 10 ml 08/31/20 10:00 09/03/20 21:55 Sodium Chloride 0.9% 10 Ml Flush Syringe IV 10 ml BID LOS Administration Sodium Chloride 10 ml 08/31/20 02:59 Sodium Chloride 0.9% 10 Ml Flush Syringe IV PRN PRN LINE FLUSH
--- NOTE | 2020-09-04 15:42 | Progress Note ---
Assessment and Plan Assessment and plan: --Sepsis/due to infected graft/gram-negative rods; Current Visit: Yes Status: Acute Follow culture sensitivities, antibiotics per ID s/p Excision of Infected Right Upper Extremity AV Fistula Wound care, follow sensitivities -- Bleeding from right upper extremity AV fistula Current Visit: Yes Status: Acute Dressing has been done on the right AV fistula site. Meanwhile bleeding has subsided. Vascular applied Surgicel and pressure bandage Today s/p excision of the infected right upper extremity AV fistula Vascular following --ESRD (end stage renal disease) on dialysis Current Visit: Yes Status: Acute Has left upper arm dialysis access , HD on Mondays, Wednesdays and Fridays. Nephrology following -- Diabetes mellitus Current Visit: Yes Status: Acute We will monitor Accu-Cheks closely. Patient placed on sliding scale. Long-acting insulin as needed -- Hypertension Current Visit: Yes Status: Acute Continue current antihypertensives As needed medications --Febrile illness/sepsis Current Visit: Yes Status: Acute Infected right AV fistula status post excision Bacteremia, continue current antibiotics per ID --Morbid obesity; BMI 41.6 Current Visit: Yes Status: Acute Patient needs weight reduction and medically stable --DVT prophylaxis Current Visit: No Status: Acute Patient placed on sequential compression device. --Full code status Current Visit: No Status: Acute Patient is full code Closely monitor the patient and adjust the management as needed Consults and recommendations noted and appreciated Plan of care reviewed with the patient and his nurse History Interval history: I seen and examined the patient at the bedside Patient's chart and medications reviewed No new events reported by the nursing staff Patient received hemodialysis today Vital signs noted Hospitalist Physical - Constitutional Vitals: Temp Pulse Resp BP Pulse Ox 97.8 F 92 H 18 100/54 100 09/04/20 12:25 09/04/20 12:25 09/04/20 12:25 09/04/20 12:25 09/04/20 09:10 General appearance: Present: no acute distress, well-nourished, obese - EENT Eyes: Present: PERRL, EOM intact - Neck Neck: Present: supple, normal ROM - Respiratory Respiratory effort: normal Respiratory: bilateral: diminished, negative: rales, rhonchi, wheezing - Cardiovascular Rhythm: regular Heart Sounds: Present: S1 & S2 - Extremities Extremities: no ischemia, abnormal (Dressing in place right upper extremity) - Abdominal General gastrointestinal: soft, non-tender, non-distended, normal bowel sounds - Integumentary Integumentary: Present: clear, warm - Psychiatric Psychiatric: appropriate mood/affect, cooperative - Neurologic Neurologic: moves all extremities Results - Labs CBC & Chem 7: 09/04/20 10:14 09/03/20 04:59 Labs: Laboratory Last Values WBC 11.4 K/mm3 (4.5-11.0) H 09/01/20 20:55 RBC 3.32 M/mm3 (3.65-5.03) L 09/01/20 20:55 Hgb 7.8 gm/dl (11.8-15.2) L 09/04/20 10:14 Hct 23.7 % (35.5-45.6) L 09/04/20 10:14 MCV 76 fl (84-94) L 09/01/20 20:55 MCH 26 pg (28-32) L 09/01/20 20:55 MCHC 34 % (32-34) 09/01/20 20:55 RDW 14.9 % (13.2-15.2) 09/01/20 20:55 Plt Count 121 K/mm3 (140-440) L 09/01/20 20:55 Lymph % (Auto) 7.8 % (13.4-35.0) L 09/01/20 20:55 [place] % (Auto) 8.4 % (0.0-7.3) H 09/01/20 20:55 Eos % (Auto) 1.2 % (0.0-4.3) 09/01/20 20:55 Baso % (Auto) 0.5 % (0.0-1.8) 09/01/20 20:55 Lymph # (Auto) 0.9 K/mm3 (1.2-5.4) L 09/01/20 20:55 [place] # (Auto) 1.0 K/mm3 (0.0-0.8) H 09/01/20 20:55 Eos # (Auto) 0.1 K/mm3 (0.0-0.4) 09/01/20 20:55 Baso # (Auto) 0.1 K/mm3 (0.0-0.1) 09/01/20 20:55 Seg Neutrophils % 82.1 % (40.0-70.0) H 09/01/20 20:55 Seg Neutrophils # 9.3 K/mm3 (1.8-7.7) H 09/01/20 20:55 PT 15.2 Sec. (12.2-14.9) H 09/01/20 04:00 INR 1.15 (0.87-1.13) H 09/01/20 04:00 APTT 31.3 Sec. (24.2-36.6) 08/31/20 00:41 Sodium 138 mmol/L (137-145) 09/03/20 04:59 Potassium 4.2 mmol/L (3.6-5.0) 09/03/20 04:59 Chloride 95.0 mmol/L (98-107) L 09/03/20 04:59 Carbon Dioxide 32 mmol/L (22-30) H 09/03/20 04:59 Anion Gap 15 mmol/L 09/03/20 04:59 BUN 28 mg/dL (9-20) H 09/03/20 04:59 Creatinine 5.8 mg/dL (0.8-1.3) H 09/03/20 04:59 Estimated GFR 12 ml/min 09/03/20 04:59 BUN/Creatinine Ratio 5 % 09/03/20 04:59 Glucose 216 mg/dL (75-100) H 09/03/20 04:59 POC Glucose 189 mg/dL (70-105) H 09/04/20 08:31 Calcium 8.9 mg/dL (8.4-10.2) 09/03/20 04:59 Random Vancomycin 13.4 ug/mL (0-40.0) 09/01/20 07:17 Hepatitis A IgM Ab Non-reactive (NonReactive) 08/31/20 08:59 Hep Bs Antigen Non-reactive (Negative) 08/31/20 08:59 Hep B Core IgM Ab Non-reactive (NonReactive) 08/31/20 08:59 Hepatitis C Antibody Non-reactive (NonReactive) 08/31/20 08:59 Blood Type A POSITIVE 09/02/20 10:20 Antibody Screen Negative 09/02/20 10:20 Crossmatch See Detail 09/02/20 10:20 Microbiology: Microbiology 09/02/20 Unknown Arm - Right Surgical Biopsy Culture - Preliminary Gram Negative Mahamed 09/02/20 04:54 Peripheral/Venous Blood Culture - Preliminary NO GROWTH AFTER 48 HOURS 09/02/20 05:46 Peripheral/Venous Blood Culture - Preliminary NO GROWTH AFTER 48 HOURS 08/31/20 02:17 Peripheral/Venous Blood Culture - Preliminary NO GROWTH AFTER 4 DAYS Briceño/IV: Voiding Method Toilet Active Medications - Current Medications Current Medications: Generic Name Dose Route Start Last Admin Trade Name Freq PRN Reason Stop Dose Admin Acetaminophen 650 mg 08/31/20 02:59 09/03/20 21:51 Acetaminophen 325 Mg Tab PO 650 mg Q4H PRN Administration Pain MILD(1-3)/Fever >100.5/THOMPSON Dextrose 0 ml 08/31/20 02:59 Dextrose 50% In Water (25gm) 50 Ml Syringe IV Q30MIN PRN Hypoglycemia Protocol Sodium Chloride 1,000 mls @ 42 mls/hr 09/02/20 11:00 09/02/20 10:08 Nacl 0.9% 1000 Ml IV 42 mls/hr DIRECT LOS Administration Vancomycin HCl 1,250 mg/ 275 mls @ 166.667 mls/hr 09/04/20 22:00 Sodium Chloride IV 09/04/20 23:38 ONCE ONE Insulin Glargine 8 units 09/03/20 22:00 09/03/20 21:51 Insulin Glargine 100 Units/Ml SUB-Q 8 units QHS LOS Administration Insulin Human Lispro 0 unit 09/03/20 16:30 09/03/20 21:52 Insulin Lispro 100 Unit/Ml SUB-Q 4 unit ACHS LOS Administration Protocol Magnesium Hydroxide 30 ml 08/31/20 02:59 Magnesium Hydroxide (Mom) Oral Liqd Udc PO Q4H PRN Constipation Morphine Sulfate 2 mg 08/31/20 02:59 08/31/20 17:05 Morphine 2 Mg/1 Ml Inj IV 2 mg Q4H PRN Administration Pain, Moderate (4-6) Ondansetron HCl 4 mg 08/31/20 02:59 Ondansetron 4 Mg/2 Ml Inj IV Q8H PRN Nausea And Vomiting Sodium Chloride 10 ml 08/31/20 10:00 09/03/20 21:55 Sodium Chloride 0.9% 10 Ml Flush Syringe IV 10 ml BID LOS Administration Sodium Chloride 10 ml 08/31/20 02:59 Sodium Chloride 0.9% 10 Ml Flush Syringe IV PRN PRN LINE FLUSH Nutrition/Malnutrition Assess - Dietary Evaluation Nutrition/Malnutrition Findings: Nutrition Notes Start: 08/31/20 13:13 Freq: Status: Active Protocol: Document 08/31/20 13:13 ORI (Rec: 08/31/20 13:13 ORI [id number]) Nutrition Notes Need for Assessment generated from: MD Order,Education Initial or Follow up Brief Note Subjective/Other Information MD consult for diet education. Pt denied education. Nutrition Intervention Revisit per MD consult or patient Sign Off request:
--- NOTE | 2020-09-04 16:03 | Progress Note ---
Assessment and Plan Cultures: Blood culture GPC Surgical culture: Gram-negative gabi A/P: 35-year-old man history hypertension, diabetes, ESRD on HD presented with AVG site infection and bacteremia #Sepsis: Present with fevers and tachycardia. Secondary to bacteremia #GPC bacteremia: Awaiting speciation, contaminant versus real. #AVF site infection: removed old AVF, cultures positive #Diabetes: tight glycemic control for best outcomes. Recs: -Continue empiric vancomycin for now, goal trough 10-20. -Follow up blood culture finalization -> still awaiting? -Added ceftriaxone due to positive surgical culture with GNR -Follow up repeat blood cultures -Infected AVF was removed. Thank you for the consult, we will continue to follow. Arnoldo Pugh MD [facility] ([facility]) O: [phone] F: [phone] Subjective Date of service: 09/04/20 Principal diagnosis: Bleeding from old right AVF Interval history: Afebrile, no acute change. Blood culture still pending, however surgical biopsy culture with gram-negative gabi. Objective - Exam Narrative Exam: Physical Exam: Constitutional: Alert, cooperative. No acute distress Head, Ears, Nose: Normocephalic, atraumatic. External ears, nose normal Eyes: Conjunctivae/corneas clear. No icterus. No ptosis. Neck: Supple, no meningeal signs Oral: dentition fair, no thrush Cardiovascular: S1, S2 normal. Respiratory: Good air entry, clear to auscultation bilaterally GI: Soft, non-tender; bowel sounds normal. No peritoneal signs. Musculoskeletal: No pedal edema, no cyanosis. +RUE AVG Skin: No rash or abscess Hem/Lymphatic: No palpable cervical or supraclavicular nodes. Psych: Mood ok. Affect normal Neurological: Awake, alert, oriented. No gross abnormality - Constitutional Vitals: Vital Signs Temp Pulse Resp BP Pulse Ox 97.8 F 92 H 18 100/54 100 09/04/20 12:25 09/04/20 12:25 09/04/20 12:25 09/04/20 12:25 09/04/20 09:10 Temperature -Last 24 Hours Temperature 97.8 F Temperature 97.8 F Temperature 98.1 F Temperature 98.2 F Temperature 98.3 F Temperature 98.4 F Temperature 98.6 F - Labs CBC & Chem 7: 09/04/20 10:14 09/03/20 04:59 Labs: Abnormal lab results 09/03/20 09/03/20 09/04/20 Range/Units 21:14 23:03 08:31 Hgb 7.4 L (11.8-15.2) gm/dl Hct 22.6 L (35.5-45.6) % POC Glucose 284 H 189 H (70-105) mg/dL 09/04/20 Range/Units 10:14 Hgb 7.8 L (11.8-15.2) gm/dl Hct 23.7 L (35.5-45.6) % POC Glucose (70-105) mg/dL
[2020-09-04] MEDS ORDERED: VANCOMYCIN 1,250 MG in SODIUM CHLORIDE 0.9% 250ML 250 ML IV ONE (22:00)
[2020-09-04] MEDS: INSULIN LISPRO 100 UNIT/ML SUB-Q SCH (22:01)
[2020-09-04] MEDS: cefTRIAXone/NS 2 GM/100 ML 2 GM/100 ML BAG IV SCH (22:07)
[2020-09-04] MEDS: INSULIN GLARGINE 100 UNITS/ML SUB-Q SCH (22:07)
[2020-09-04] MEDS: SODIUM CHLORIDE 0.9% 1000 ML 1,000 ML IV SCH (22:29)
[2020-09-05 08:14] LABS: Hematocrit 23.4 % (35.5-45.6); Hemoglobin 7.8 gm/dl (11.8-15.2)
[2020-09-05 08:31] LABS: Calcium 9.2 mg/dL (8.4-10.2)
[2020-09-05] MEDS: INSULIN LISPRO 100 UNIT/ML SUB-Q SCH ×6 (09:44→23:21)
--- NOTE | 2020-09-05 11:39 | Progress Note ---
Assessment and Plan Assessment Bleeding from AV fistula/Abscess Sepsis due to infected graft ESRD on HD Hypotension Anemia of ESRD Diabetes Mellitus type 2 on insulin Plan: S/p HD yesterday for UF and clearance, UF removed 2.5L No acute indication for HD today Assess need for HD on daily basis Fluid restriction of 1 liter per day S/p Excision of Infected Right Upper Extremity AV Fistula by Dr Hood Mederos (vascular surgeon) on 09/02/20 Renally dose medications Strict I&O This pt undergoes OP HD at [facility] Renal plan reviewed by Dr Roque Subjective Date of service: 09/05/20 Principal diagnosis: Bleeding from old right AVF Interval history: Pt seen in the chair, denies shortness of breath at this time, has some pain to right arm s/p procedure, no acute distress, no family at bedside Objective - Vital Signs Vital signs: Vital Signs - 12hr 09/05/20 09/05/20 09/05/20 01:21 04:35 08:34 Temperature 98.0 F 97.9 F 97.6 F Pulse Rate 82 80 82 Respiratory 20 20 20 Rate Blood Pressure 105/55 118/53 130/54 O2 Sat by Pulse 100 99 100 Oximetry - General Appearance General appearance: well-developed EENT: ATNC Neck: no JVD Respiratory: Present: Decreased Breath Sounds Cardiology: regular, S1S2, other (ACCESS: Left AVF + thrill and bruit noted) Gastrointestinal: normoactive bowel sounds, no tenderness Integumentary: other (Right arm wound with dressing in place) Neurologic: alert and oriented x3 Musculoskeletal: other (trace edema to BLE) Psychiatric: cooperative - Lab 09/05/20 07:41 09/05/20 07:41 Most recent lab results Calcium 9.2 mg/dL (8.4-10.2) 09/05/20 07:41 Medications & Allergies - Medications Allergies/Adverse Reactions: Allergies No Known Allergies Allergy (Unverified 09/12/16 14:54) Home Medications: Home Medications Medication Instructions Recorded Confirmed Last Taken Type Acetaminophen [Acetaminophen TAB] 650 mg PO Q4H PRN tablet 10/12/19 09/01/20 Unknown Rx Insulin Lispro [Humalog] 0 unit SUB-Q Q6HR vial 10/12/19 09/01/20 Unknown Rx Insulin Lispro [Humalog] See Protocol SUB-Q ACHS 30 Days #1 10/12/19 09/01/20 Unknown Rx vial Insulin Detemir [Levemir Flextouch] 8 unit SQ QHS 09/03/20 09/03/20 08/31/20 20:00 History Active Medications: Generic Name Dose Route Start Last Admin Trade Name Freq PRN Reason Stop Dose Admin Acetaminophen 650 mg 08/31/20 02:59 09/03/20 21:51 Acetaminophen 325 Mg Tab PO 650 mg Q4H PRN Administration Pain MILD(1-3)/Fever >100.5/THOMPSON Dextrose 0 ml 08/31/20 02:59 Dextrose 50% In Water (25gm) 50 Ml Syringe IV Q30MIN PRN Hypoglycemia Protocol Sodium Chloride 1,000 mls @ 42 mls/hr 09/02/20 11:00 09/04/20 22:29 Nacl 0.9% 1000 Ml IV 42 mls/hr DIRECT LOS Administration Ceftriaxone Sodium 2 gm in 100 mls @ 200 mls/hr 09/04/20 17:00 09/04/20 22:07 Rocephin/Ns 2 Gm/100 Ml IV 200 mls/hr Q24H LOS Administration Protocol Insulin Glargine 8 units 09/03/20 22:00 09/04/20 22:07 Insulin Glargine 100 Units/Ml SUB-Q 8 units QHS LOS Administration Insulin Human Lispro 0 unit 09/03/20 16:30 09/05/20 09:45 Insulin Lispro 100 Unit/Ml SUB-Q Not Given ACHS LOS Protocol Magnesium Hydroxide 30 ml 08/31/20 02:59 Magnesium Hydroxide (Mom) Oral Liqd Udc PO Q4H PRN Constipation Morphine Sulfate 2 mg 08/31/20 02:59 08/31/20 17:05 Morphine 2 Mg/1 Ml Inj IV 2 mg Q4H PRN Administration Pain, Moderate (4-6) Ondansetron HCl 4 mg 08/31/20 02:59 Ondansetron 4 Mg/2 Ml Inj IV Q8H PRN Nausea And Vomiting Sodium Chloride 10 ml 08/31/20 10:00 09/05/20 09:45 Sodium Chloride 0.9% 10 Ml Flush Syringe IV Not Given BID LOS Sodium Chloride 10 ml 08/31/20 02:59 Sodium Chloride 0.9% 10 Ml Flush Syringe IV PRN PRN LINE FLUSH
--- NOTE | 2020-09-05 12:39 | Progress Note ---
Assessment and Plan Assessment and plan: --Sepsis/due to infected graft/gram-negative rods; Current Visit: Yes Status: Acute Follow culture sensitivities, antibiotics per ID s/p Excision of Infected Right Upper Extremity AV Fistula. Wound care, follow sensitivities --Klebsiella pneumonia/surgical cultures Current Visit: Yes Status: Acute ID DC vancomycin and Rocephin recommend renal dose of Levaquin to 250 mg daily ID cleared for discharge -- Bleeding from right upper extremity AV fistula Current Visit: Yes Status: Acute Dressing has been done on the right AV fistula site. Meanwhile bleeding has subsided. Vascular applied Surgicel and pressure bandage Today s/p excision of the infected right upper extremity AV fistula Vascular following --ESRD (end stage renal disease) on dialysis Current Visit: Yes Status: Acute Has left upper arm dialysis access , HD on Mondays, Wednesdays and Fridays. Nephrology following -- Diabetes mellitus Current Visit: Yes Status: Acute We will monitor Accu-Cheks closely. Patient placed on sliding scale. Long-acting insulin as needed -- Hypertension Current Visit: Yes Status: Acute Continue current antihypertensives As needed medications --Febrile illness/sepsis Current Visit: Yes Status: Acute Infected right AV fistula status post excision Bacteremia, continue current antibiotics per ID --Morbid obesity; BMI 41.6 Current Visit: Yes Status: Acute Patient needs weight reduction and medically stable --DVT prophylaxis Current Visit: No Status: Acute Patient placed on sequential compression device. 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 Pressure dressing applied vascular IR Dr. Rasmussen applied Surgicel and pressure bandage possible exploration and surgical procedure tomorrow, closely monitor H&H and transfuse as needed 09/02/2020; Patient underwent vascular surgical procedure Excision of infected right upper extremity AV fistula under general endotracheal anesthesia 09/03/2020; right upper extremity surgical site clean and dry only scant drainage Patient receives hemodialysis from the left upper arm AV graft 09/04/2020; Patient is receiving vancomycin empirically surgical cultures positive for gram- negative rods, ID added Rocephin 09/05/2020; Surgical cultures Klebsiella pneumonia, ID discontinued vancomycin changed to oral Levaquin 250 daily to complete 5 days. ID signed off cleared for discharge. Patient lives alone, multiple medical problems, patient and family requested SNF placement, case management initiated DC planning per case management possible SNF placement. History Interval history: I have seen and examined the patient at the bedside Patient's chart and medications reviewed No new events reported by the nursing staff Patient's surgical cultures Klebsiella pneumonia ID discontinued Vanco and Rocephin, started renal dose of Levaquin Total 5 days as infected graft is removed Patient has no new complaints Vital signs reviewed Hemodialysis per schedule Hospitalist Physical - Constitutional Vitals: Temp Pulse Resp BP Pulse Ox 97.6 F 82 20 130/54 100 09/05/20 08:34 09/05/20 08:34 09/05/20 08:34 09/05/20 08:34 09/05/20 08:34 General appearance: Present: no acute distress, well-nourished, obese - EENT Eyes: Present: PERRL, EOM intact - Neck Neck: Present: supple, normal ROM - Respiratory Respiratory effort: normal Respiratory: bilateral: diminished, negative: rales, rhonchi, wheezing - Cardiovascular Rhythm: regular Heart Sounds: Present: S1 & S2 - Extremities Extremities: no ischemia, No edema - Abdominal General gastrointestinal: soft, non-tender, non-distended, normal bowel sounds - Integumentary Integumentary: Present: clear, warm - Psychiatric Psychiatric: appropriate mood/affect, cooperative - Neurologic Neurologic: CNII-XII intact, moves all extremities Results - Labs CBC & Chem 7: 09/05/20 07:41 09/05/20 07:41 Labs: Laboratory Last Values WBC 11.4 K/mm3 (4.5-11.0) H 09/01/20 20:55 RBC 3.32 M/mm3 (3.65-5.03) L 09/01/20 20:55 Hgb 7.8 gm/dl (11.8-15.2) L 09/05/20 07:41 Hct 23.4 % (35.5-45.6) L 09/05/20 07:41 MCV 76 fl (84-94) L 09/01/20 20:55 MCH 26 pg (28-32) L 09/01/20 20:55 MCHC 34 % (32-34) 09/01/20 20:55 RDW 14.9 % (13.2-15.2) 09/01/20 20:55 Plt Count 121 K/mm3 (140-440) L 09/01/20 20:55 Lymph % (Auto) 7.8 % (13.4-35.0) L 09/01/20 20:55 Centre % (Auto) 8.4 % (0.0-7.3) H 09/01/20 20:55 Eos % (Auto) 1.2 % (0.0-4.3) 09/01/20 20:55 Baso % (Auto) 0.5 % (0.0-1.8) 09/01/20 20:55 Lymph # (Auto) 0.9 K/mm3 (1.2-5.4) L 09/01/20 20:55 Centre # (Auto) 1.0 K/mm3 (0.0-0.8) H 09/01/20 20:55 Eos # (Auto) 0.1 K/mm3 (0.0-0.4) 09/01/20 20:55 Baso # (Auto) 0.1 K/mm3 (0.0-0.1) 09/01/20 20:55 Seg Neutrophils % 82.1 % (40.0-70.0) H 09/01/20 20:55 Seg Neutrophils # 9.3 K/mm3 (1.8-7.7) H 09/01/20 20:55 PT 15.2 Sec. (12.2-14.9) H 09/01/20 04:00 INR 1.15 (0.87-1.13) H 09/01/20 04:00 APTT 31.3 Sec. (24.2-36.6) 08/31/20 00:41 Sodium 138 mmol/L (137-145) 09/05/20 07:41 Potassium 3.9 mmol/L (3.6-5.0) 09/05/20 07:41 Chloride 93.9 mmol/L (98-107) L 09/05/20 07:41 Carbon Dioxide 34 mmol/L (22-30) H 09/05/20 07:41 Anion Gap 14 mmol/L 09/05/20 07:41 BUN 29 mg/dL (9-20) H 09/05/20 07:41 Creatinine 6.0 mg/dL (0.8-1.3) H 09/05/20 07:41 Estimated GFR 11 ml/min 09/05/20 07:41 BUN/Creatinine Ratio 5 % 09/05/20 07:41 Glucose 204 mg/dL (75-100) H 09/05/20 07:41 POC Glucose 269 mg/dL (70-105) H 09/05/20 11:38 Calcium 9.2 mg/dL (8.4-10.2) 09/05/20 07:41 Random Vancomycin 13.4 ug/mL (0-40.0) 09/01/20 07:17 Hepatitis A IgM Ab Non-reactive (NonReactive) 08/31/20 08:59 Hep Bs Antigen Non-reactive (Negative) 08/31/20 08:59 Hep B Core IgM Ab Non-reactive (NonReactive) 08/31/20 08:59 Hepatitis C Antibody Non-reactive (NonReactive) 08/31/20 08:59 Blood Type A POSITIVE 09/02/20 10:20 Antibody Screen Negative 09/02/20 10:20 Crossmatch See Detail 09/02/20 10:20 Microbiology: Microbiology 09/02/20 Unknown Arm - Right Surgical Biopsy Culture - Preliminary Klebsiella Pneumoniae 09/02/20 04:54 Peripheral/Venous Blood Culture - Preliminary NO GROWTH AFTER 72 HOURS 09/02/20 05:46 Peripheral/Venous Blood Culture - Preliminary NO GROWTH AFTER 72 HOURS 08/31/20 02:17 Peripheral/Venous Blood Culture - Final NO GROWTH AFTER 5 DAYS Briceño/IV: Voiding Method Toilet Active Medications - Current Medications Current Medications: Generic Name Dose Route Start Last Admin Trade Name Freq PRN Reason Stop Dose Admin Acetaminophen 650 mg 08/31/20 02:59 09/03/20 21:51 Acetaminophen 325 Mg Tab PO 650 mg Q4H PRN Administration Pain MILD(1-3)/Fever >100.5/THOMPSON Dextrose 0 ml 08/31/20 02:59 Dextrose 50% In Water (25gm) 50 Ml Syringe IV Q30MIN PRN Hypoglycemia Protocol Sodium Chloride 1,000 mls @ 42 mls/hr 09/02/20 11:00 09/04/20 22:29 Nacl 0.9% 1000 Ml IV 42 mls/hr DIRECT LOS Administration Ceftriaxone Sodium 2 gm in 100 mls @ 200 mls/hr 09/04/20 17:00 09/04/20 22:07 Rocephin/Ns 2 Gm/100 Ml IV 200 mls/hr Q24H LOS Administration Protocol Insulin Glargine 8 units 09/03/20 22:00 09/04/20 22:07 Insulin Glargine 100 Units/Ml SUB-Q 8 units QHS LOS Administration Insulin Human Lispro 0 unit 09/03/20 16:30 09/05/20 11:42 Insulin Lispro 100 Unit/Ml SUB-Q 4 unit ACHS LOS Administration Protocol Magnesium Hydroxide 30 ml 08/31/20 02:59 Magnesium Hydroxide (Mom) Oral Liqd Udc PO Q4H PRN Constipation Morphine Sulfate 2 mg 08/31/20 02:59 08/31/20 17:05 Morphine 2 Mg/1 Ml Inj IV 2 mg Q4H PRN Administration Pain, Moderate (4-6) Ondansetron HCl 4 mg 08/31/20 02:59 Ondansetron 4 Mg/2 Ml Inj IV Q8H PRN Nausea And Vomiting Sodium Chloride 10 ml 08/31/20 10:00 09/05/20 11:42 Sodium Chloride 0.9% 10 Ml Flush Syringe IV 10 ml BID LOS Administration Sodium Chloride 10 ml 08/31/20 02:59 Sodium Chloride 0.9% 10 Ml Flush Syringe IV PRN PRN LINE FLUSH Nutrition/Malnutrition Assess - Dietary Evaluation Nutrition/Malnutrition Findings: Nutrition Notes Start: 08/31/20 13:13 Freq: Status: Active Protocol: Document 08/31/20 13:13 ORI (Rec: 08/31/20 13:13 ORI [id number]) Nutrition Notes Need for Assessment generated from: MD Order,Education Initial or Follow up Brief Note Subjective/Other Information MD consult for diet education. Pt denied education. Nutrition Intervention Revisit per MD consult or patient Sign Off request:
--- NOTE | 2020-09-05 13:34 | Progress Note ---
Assessment and Plan Cultures: Blood culture coagulase-negative staph Surgical culture: Klebsiella pneumoniae A/P: 35-year-old man history hypertension, diabetes, ESRD on HD presented with AVG site infection and bacteremia #Sepsis: Present with fevers and tachycardia. Secondary to bacteremia #CoNS bacteremia: Likely contaminant #AVF site infection: removed old AVF, cultures positive #Diabetes: tight glycemic control for best outcomes. Recs: -Stop vancomycin -Okay to discharge with Levaquin 250 mg daily to complete 5 days -Infected AVF was removed. Thank you for the consult, we will sign off. Please call with questions. Arnoldo Pugh MD [facility] ([facility]) O: [phone] F: [phone] Subjective Date of service: 09/05/20 Principal diagnosis: Bleeding from old right AVF Interval history: Afebrile, no acute change. Cultures finalized Objective - Exam Narrative Exam: Physical Exam: Constitutional: Alert, cooperative. No acute distress Head, Ears, Nose: Normocephalic, atraumatic. External ears, nose normal Eyes: Conjunctivae/corneas clear. No icterus. No ptosis. Neck: Supple, no meningeal signs Oral: dentition fair, no thrush Cardiovascular: S1, S2 normal. Respiratory: Good air entry, clear to auscultation bilaterally GI: Soft, non-tender; bowel sounds normal. No peritoneal signs. Musculoskeletal: No pedal edema, no cyanosis. +RUE AVG Skin: No rash or abscess Hem/Lymphatic: No palpable cervical or supraclavicular nodes. Psych: Mood ok. Affect normal Neurological: Awake, alert, oriented. No gross abnormality - Constitutional Vitals: Vital Signs Temp Pulse Resp BP Pulse Ox 97.6 F 82 20 130/54 97 09/05/20 08:34 09/05/20 08:34 09/05/20 08:34 09/05/20 08:34 09/05/20 10:00 Temperature -Last 24 Hours Temperature 97.6 F Temperature 97.9 F Temperature 98.0 F Temperature 98.5 F Temperature 98.3 F - Labs CBC & Chem 7: 09/05/20 07:41 09/05/20 07:41 Labs: Abnormal lab results 09/04/20 09/04/20 09/05/20 Range/Units 17:53 21:43 07:24 Hgb (11.8-15.2) gm/dl Hct (35.5-45.6) % Chloride (98-107) mmol/L Carbon Dioxide (22-30) mmol/L BUN (9-20) mg/dL Creatinine (0.8-1.3) mg/dL Glucose (75-100) mg/dL POC Glucose 195 H 273 H 196 H (70-105) mg/dL 09/05/20 09/05/20 09/05/20 Range/Units 07:41 07:41 11:38 Hgb 7.8 L (11.8-15.2) gm/dl Hct 23.4 L (35.5-45.6) % Chloride 93.9 L (98-107) mmol/L Carbon Dioxide 34 H (22-30) mmol/L BUN 29 H (9-20) mg/dL Creatinine 6.0 H (0.8-1.3) mg/dL Glucose 204 H (75-100) mg/dL POC Glucose 269 H (70-105) mg/dL
[2020-09-05] MEDS: cefTRIAXone/NS 2 GM/100 ML 2 GM/100 ML BAG IV SCH (18:39)
--- NOTE | 2020-09-05 19:05 | Event Note ---
Date: 09/05/20 I called patient's daughter Ms. Yovana Coreas at [phone] and discussed in detail patient's condition, tests and reports, consultants recommendation, treatment plan, discharge planning , SNF placement, she had numerous questions, answered all of them and encouraged her to call back if she has any new questions or concerns. I also advised her to talk to the rn field case manager regarding the discharge planning Informed patient's nurse Ms. Chiang about my conversation with Ms.Kiera Coreas.
[2020-09-05] MEDS: INSULIN GLARGINE 100 UNITS/ML SUB-Q SCH (23:20)
--- NOTE | 2020-09-06 08:35 | Progress Note ---
Assessment and Plan Assessment Bleeding from AV fistula/Abscess Sepsis due to infected graft Surgical cultures Klebsiella pneumonia ESRD on HD Hypotension Anemia of ESRD Diabetes Mellitus type 2 on insulin Plan: Labs pending today No acute indication for HD today at this time HD tomorrow for UF and clearance Assess need for HD on daily basis Fluid restriction of 1 liter per day S/p Excision of Infected Right Upper Extremity AV Fistula by Dr Hood Mederos (vascular surgeon) on 09/02/20 Renally dose medications Strict I&O This pt undergoes OP HD at [facility] Renal plan reviewed by Dr Roque Subjective Date of service: 09/06/20 Principal diagnosis: Bleeding from old right AVF Interval history: Pt seen in bed, states breathing ok, no acute distress. Objective - Vital Signs Vital signs: Vital Signs - 12hr 09/05/20 09/05/20 09/06/20 22:00 22:55 00:19 Temperature 98.4 F Pulse Rate 72 76 Respiratory 18 20 Rate Blood Pressure 126/64 O2 Sat by Pulse 97 100 Oximetry 09/06/20 09/06/20 00:21 05:16 Temperature 98.8 F 97.6 F Pulse Rate 68 73 Respiratory 18 18 Rate Blood Pressure 138/68 128/41 O2 Sat by Pulse 91 99 Oximetry - General Appearance General appearance: well-developed EENT: ATNC Neck: no JVD Respiratory: Present: Decreased Breath Sounds Cardiology: regular, S1S2, other (ACCESS: Left AVF + thrill and bruit) Gastrointestinal: normoactive bowel sounds, no tenderness Integumentary: other (Right arm wound with dressing in place) Neurologic: alert and oriented x3 Musculoskeletal: other (trace edema to BLE) Psychiatric: cooperative - Lab 09/06/20 09:05 09/06/20 09:05 Most recent lab results Calcium 9.2 mg/dL (8.4-10.2) 09/05/20 07:41 Medications & Allergies - Medications Allergies/Adverse Reactions: Allergies No Known Allergies Allergy (Unverified 09/12/16 14:54) Home Medications: Home Medications Medication Instructions Recorded Confirmed Last Taken Type Acetaminophen [Acetaminophen TAB] 650 mg PO Q4H PRN tablet 10/12/19 09/01/20 Unknown Rx Insulin Lispro [Humalog] 0 unit SUB-Q Q6HR vial 10/12/19 09/01/20 Unknown Rx Insulin Lispro [Humalog] See Protocol SUB-Q ACHS 30 Days #1 10/12/19 09/01/20 Unknown Rx vial Insulin Detemir [Levemir Flextouch] 8 unit SQ QHS 09/03/20 09/03/20 08/31/20 20:00 History Active Medications: Generic Name Dose Route Start Last Admin Trade Name Freq PRN Reason Stop Dose Admin Acetaminophen 650 mg 08/31/20 02:59 09/03/20 21:51 Acetaminophen 325 Mg Tab PO 650 mg Q4H PRN Administration Pain MILD(1-3)/Fever >100.5/THOMPSON Dextrose 0 ml 08/31/20 02:59 Dextrose 50% In Water (25gm) 50 Ml Syringe IV Q30MIN PRN Hypoglycemia Protocol Sodium Chloride 1,000 mls @ 42 mls/hr 09/02/20 11:00 09/04/20 22:29 Nacl 0.9% 1000 Ml IV 42 mls/hr DIRECT LOS Administration Ceftriaxone Sodium 2 gm in 100 mls @ 200 mls/hr 09/04/20 17:00 09/05/20 18:39 Rocephin/Ns 2 Gm/100 Ml IV 200 mls/hr Q24H LOS Administration Protocol Insulin Glargine 8 units 09/03/20 22:00 09/05/20 23:20 Insulin Glargine 100 Units/Ml SUB-Q 8 units QHS LOS Administration Insulin Human Lispro 0 unit 09/03/20 16:30 09/05/20 23:21 Insulin Lispro 100 Unit/Ml SUB-Q 3 unit ACHS LOS Administration Protocol Magnesium Hydroxide 30 ml 08/31/20 02:59 Magnesium Hydroxide (Mom) Oral Liqd Udc PO Q4H PRN Constipation Morphine Sulfate 2 mg 08/31/20 02:59 08/31/20 17:05 Morphine 2 Mg/1 Ml Inj IV 2 mg Q4H PRN Administration Pain, Moderate (4-6) Ondansetron HCl 4 mg 08/31/20 02:59 Ondansetron 4 Mg/2 Ml Inj IV Q8H PRN Nausea And Vomiting Sodium Chloride 10 ml 08/31/20 10:00 09/05/20 23:22 Sodium Chloride 0.9% 10 Ml Flush Syringe IV 10 ml BID LOS Administration Sodium Chloride 10 ml 08/31/20 02:59 Sodium Chloride 0.9% 10 Ml Flush Syringe IV PRN PRN LINE FLUSH
[2020-09-06 09:32] LABS: Hematocrit 22.3 % (35.5-45.6); Hemoglobin 7.4 gm/dl (11.8-15.2); Mean Corpuscular HGB Conc 33 % (32-34); Mean Corpuscular Volume 77 fl (84-94); Platelet Count 189 K/mm3 (140-440); Red Blood Count 2.89 M/mm3 (3.65-5.03); Red Cell Distribution Width 15.8 % (13.2-15.2)
[2020-09-06 09:42] LABS: Calcium 9.1 mg/dL (8.4-10.2)
[2020-09-06] MEDS: INSULIN LISPRO 100 UNIT/ML SUB-Q SCH ×4 (10:09→22:34)
--- NOTE | 2020-09-06 11:41 | Progress Note ---
Assessment and Plan Assessment and plan: --Sepsis/due to infected graft/gram-negative rods; Current Visit: Yes Status: Acute Follow culture sensitivities, antibiotics per ID s/p Excision of Infected Right Upper Extremity AV Fistula. Wound care, follow sensitivities --Klebsiella pneumonia/surgical cultures Current Visit: Yes Status: Acute ID DC vancomycin and Rocephin recommend renal dose of Levaquin to 250 mg daily ID cleared for discharge -- Bleeding from right upper extremity AV fistula Current Visit: Yes Status: Acute Dressing has been done on the right AV fistula site. Meanwhile bleeding has subsided. Vascular applied Surgicel and pressure bandage Today s/p excision of the infected right upper extremity AV fistula Vascular following --ESRD (end stage renal disease) on dialysis Current Visit: Yes Status: Acute Has left upper arm dialysis access , HD on Mondays, Wednesdays and Fridays. Nephrology following -- Diabetes mellitus Current Visit: Yes Status: Acute We will monitor Accu-Cheks closely. Patient placed on sliding scale. Long-acting insulin as needed -- Hypertension Current Visit: Yes Status: Acute Continue current antihypertensives As needed medications --Febrile illness/sepsis Current Visit: Yes Status: Acute Infected right AV fistula status post excision Bacteremia, continue current antibiotics per ID --Morbid obesity; BMI 41.6 Current Visit: Yes Status: Acute Patient needs weight reduction and medically stable --DVT prophylaxis Current Visit: No Status: Acute Patient placed on sequential compression device. 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 Pressure dressing applied vascular IR Dr. Rasmussen applied Surgicel and pressure bandage possible exploration and surgical procedure tomorrow, closely monitor H&H and transfuse as needed 09/02/2020; Patient underwent vascular surgical procedure Excision of infected right upper extremity AV fistula under general endotracheal anesthesia 09/03/2020; right upper extremity surgical site clean and dry only scant drainage Patient receives hemodialysis from the left upper arm AV graft 09/04/2020; Patient is receiving vancomycin empirically surgical cultures positive for gram- negative rods, ID added Rocephin 09/05/2020; Surgical cultures Klebsiella pneumonia, ID discontinued vancomycin changed to oral Levaquin 250 daily to complete 5 days. ID signed off cleared for discharge. Patient lives alone, multiple medical problems, patient and family requested SNF placement, case management initiated DC planning per case management possible SNF placement. On 09/05/20 I called patient's daughter Ms. Yovana Coreas at [phone] and discussed in detail patient's condition, tests and reports, consultants recommendation, treatment plan, discharge planning , SNF placement, she had numerous questions, answered all of them and encouraged her to call back if she has any new question s or concerns. I also advised her to talk to the case supervisor regarding the discharge planning Informed patient's nurse Ms. Chiang about my conversation with Ms.Kiera Coreas. 09/06/2020; patient is clinically stable, awaiting SNF placement, DC planning per case management History Interval history: I have seen and examined the patient at the bedside today Patient's chart and medications reviewed. Patient feels better, no new complaints Vital signs noted Awaiting placement Hospitalist Physical - Constitutional Vitals: Temp Pulse Resp BP Pulse Ox 97.6 F 73 18 128/41 100 09/06/20 05:16 09/06/20 05:16 09/06/20 05:16 09/06/20 05:16 09/06/20 10:00 General appearance: Present: no acute distress, well-nourished, obese - EENT Eyes: Present: PERRL, EOM intact - Neck Neck: Present: supple, normal ROM - Respiratory Respiratory effort: normal Respiratory: bilateral: diminished, negative: rales, rhonchi, wheezing - Cardiovascular Rhythm: regular Heart Sounds: Present: S1 & S2 - Extremities Extremities: no ischemia, No edema - Abdominal General gastrointestinal: soft, non-tender, non-distended, normal bowel sounds - Integumentary Integumentary: Present: clear, warm - Psychiatric Psychiatric: appropriate mood/affect, cooperative - Neurologic Neurologic: CNII-XII intact, moves all extremities Results - Labs CBC & Chem 7: 09/06/20 09:05 09/06/20 09:05 Labs: Laboratory Last Values WBC 7.6 K/mm3 (4.5-11.0) 09/06/20 09:05 RBC 2.89 M/mm3 (3.65-5.03) L 09/06/20 09:05 Hgb 7.4 gm/dl (11.8-15.2) L 09/06/20 09:05 Hct 22.3 % (35.5-45.6) L 09/06/20 09:05 MCV 77 fl (84-94) L 09/06/20 09:05 MCH 26 pg (28-32) L 09/06/20 09:05 MCHC 33 % (32-34) 09/06/20 09:05 RDW 15.8 % (13.2-15.2) H 09/06/20 09:05 Plt Count 189 K/mm3 (140-440) 09/06/20 09:05 Lymph % (Auto) 7.8 % (13.4-35.0) L 09/01/20 20:55 [place] % (Auto) 8.4 % (0.0-7.3) H 09/01/20 20:55 Eos % (Auto) 1.2 % (0.0-4.3) 09/01/20 20:55 Baso % (Auto) 0.5 % (0.0-1.8) 09/01/20 20:55 Lymph # (Auto) 0.9 K/mm3 (1.2-5.4) L 09/01/20 20:55 [place] # (Auto) 1.0 K/mm3 (0.0-0.8) H 09/01/20 20:55 Eos # (Auto) 0.1 K/mm3 (0.0-0.4) 09/01/20 20:55 Baso # (Auto) 0.1 K/mm3 (0.0-0.1) 09/01/20 20:55 Seg Neutrophils % 82.1 % (40.0-70.0) H 09/01/20 20:55 Seg Neutrophils # 9.3 K/mm3 (1.8-7.7) H 09/01/20 20:55 PT 15.2 Sec. (12.2-14.9) H 09/01/20 04:00 INR 1.15 (0.87-1.13) H 09/01/20 04:00 APTT 31.3 Sec. (24.2-36.6) 08/31/20 00:41 Sodium 137 mmol/L (137-145) 09/06/20 09:05 Potassium 4.0 mmol/L (3.6-5.0) 09/06/20 09:05 Chloride 94.8 mmol/L (98-107) L 09/06/20 09:05 Carbon Dioxide 33 mmol/L (22-30) H 09/06/20 09:05 Anion Gap 13 mmol/L 09/06/20 09:05 BUN 36 mg/dL (9-20) H 09/06/20 09:05 Creatinine 7.4 mg/dL (0.8-1.3) H 09/06/20 09:05 Estimated GFR 9 ml/min 09/06/20 09:05 BUN/Creatinine Ratio 5 % 09/06/20 09:05 Glucose 169 mg/dL (75-100) H 09/06/20 09:05 POC Glucose 175 mg/dL (70-105) H 09/06/20 11:39 Calcium 9.1 mg/dL (8.4-10.2) 09/06/20 09:05 Phosphorus 4.70 mg/dL (2.5-4.5) H 09/06/20 09:05 Random Vancomycin 25.9 ug/mL (0-40.0) 09/06/20 04:44 Coronavirus (PCR) Negative (Negative) 09/04/20 Unknown Hepatitis A IgM Ab Non-reactive (NonReactive) 08/31/20 08:59 Hep Bs Antigen Non-reactive (Negative) 08/31/20 08:59 Hep B Core IgM Ab Non-reactive (NonReactive) 08/31/20 08:59 Hepatitis C Antibody Non-reactive (NonReactive) 08/31/20 08:59 Blood Type A POSITIVE 09/02/20 10:20 Antibody Screen Negative 09/02/20 10:20 Crossmatch See Detail 09/02/20 10:20 Microbiology: Microbiology 09/02/20 04:54 Peripheral/Venous Blood Culture - Preliminary NO GROWTH AFTER 4 DAYS 09/02/20 05:46 Peripheral/Venous Blood Culture - Preliminary NO GROWTH AFTER 4 DAYS 09/02/20 Unknown Arm - Right Surgical Biopsy Culture - Preliminary Klebsiella Pneumoniae 08/31/20 02:46 Peripheral/Venous Blood Culture - Preliminary Coag Negative Staphylococcus Briceño/IV: Voiding Method Urinal Active Medications - Current Medications Current Medications: Generic Name Dose Route Start Last Admin Trade Name Freq PRN Reason Stop Dose Admin Acetaminophen 650 mg 08/31/20 02:59 09/03/20 21:51 Acetaminophen 325 Mg Tab PO 650 mg Q4H PRN Administration Pain MILD(1-3)/Fever >100.5/THOMPSON Dextrose 0 ml 08/31/20 02:59 Dextrose 50% In Water (25gm) 50 Ml Syringe IV Q30MIN PRN Hypoglycemia Protocol Sodium Chloride 1,000 mls @ 42 mls/hr 09/02/20 11:00 09/04/20 22:29 Nacl 0.9% 1000 Ml IV 42 mls/hr DIRECT LOS Administration Ceftriaxone Sodium 2 gm in 100 mls @ 200 mls/hr 09/04/20 17:00 09/05/20 18:39 Rocephin/Ns 2 Gm/100 Ml IV 200 mls/hr Q24H LOS Administration Protocol Insulin Glargine 8 units 09/03/20 22:00 09/05/20 23:20 Insulin Glargine 100 Units/Ml SUB-Q 8 units QHS LOS Administration Insulin Human Lispro 0 unit 09/03/20 16:30 09/06/20 10:09 Insulin Lispro 100 Unit/Ml SUB-Q 2 unit ACHS LOS Administration Protocol Magnesium Hydroxide 30 ml 08/31/20 02:59 Magnesium Hydroxide (Mom) Oral Liqd Udc PO Q4H PRN Constipation Morphine Sulfate 2 mg 08/31/20 02:59 08/31/20 17:05 Morphine 2 Mg/1 Ml Inj IV 2 mg Q4H PRN Administration Pain, Moderate (4-6) Ondansetron HCl 4 mg 08/31/20 02:59 Ondansetron 4 Mg/2 Ml Inj IV Q8H PRN Nausea And Vomiting Sodium Chloride 10 ml 08/31/20 10:00 09/06/20 10:09 Sodium Chloride 0.9% 10 Ml Flush Syringe IV 10 ml BID LOS Administration Sodium Chloride 10 ml 08/31/20 02:59 Sodium Chloride 0.9% 10 Ml Flush Syringe IV PRN PRN LINE FLUSH Nutrition/Malnutrition Assess - Dietary Evaluation Nutrition/Malnutrition Findings: Nutrition Notes Start: 08/31/20 13:13 Freq: Status: Active Protocol: Document 08/31/20 13:13 ORI (Rec: 08/31/20 13:13 ORI [id number]) Nutrition Notes Need for Assessment generated from: MD Order,Education Initial or Follow up Brief Note Subjective/Other Information MD consult for diet education. Pt denied education. Nutrition Intervention Revisit per MD consult or patient Sign Off request:
[2020-09-06] MEDS: cefTRIAXone/NS 2 GM/100 ML 2 GM/100 ML BAG IV SCH (16:25)
[2020-09-06] MEDS: TOBRADEX 0.3-0.1% OPHTH SUSP 2.5ML OD SCH ×2 (17:28→22:35)
[2020-09-06] MEDS: INSULIN GLARGINE 100 UNITS/ML SUB-Q SCH (22:34)
[2020-09-06] MEDS: MOXIFLOXACIN 0.5% OPHTH SOLN 3ML OD SCH (22:36)
[2020-09-07] MEDS: TOBRADEX 0.3-0.1% OPHTH SUSP 2.5ML OD SCH ×4 (01:12→19:54)
[2020-09-07] MEDS: MOXIFLOXACIN 0.5% OPHTH SOLN 3ML OD SCH ×2 (05:41→19:54)
--- NOTE | 2020-09-07 09:00 | Progress Note ---
Assessment and Plan Assessment and plan: --Constipation; Current Visit: Yes Status: Acute Of 1 week duration Milk of magnesia, Dulcolax suppository If no improvement repeat 1 more time Still if there is no improvement will consider Fleet enema Advised to drink plenty of fluids high-fiber diet --Sepsis/due to infected graft/gram-negative rods; Current Visit: Yes Status: Acute Follow culture sensitivities, antibiotics per ID s/p Excision of Infected Right Upper Extremity AV Fistula. Wound care, follow sensitivities --Klebsiella pneumonia/surgical cultures Current Visit: Yes Status: Acute ID DC vancomycin and Rocephin recommend renal dose of Levaquin to 250 mg daily ID cleared for discharge -- Bleeding from right upper extremity AV fistula s/p excision AV fistula Current Visit: Yes Status: Acute Vascular evaluated the patient , bleeding controlled , subsequently vascular surgical procedure s/p excision of the infected right upper extremity AV fistula 09/02/2020 --ESRD (end stage renal disease) on dialysis Current Visit: Yes Status: Acute Has left upper arm dialysis access , HD on Mondays, Wednesdays and Fridays. Nephrology following -- Diabetes mellitus/moderate control Current Visit: Yes Status: Acute Continue Accu-Chek sliding scale coverage ADA diet Increase long-acting insulin Lantus tube 10 units subcu nightly Closely monitor blood sugars adjust as needed Last year A1c 7.3, check A1c today Diabetic education, diabetic diet education prior to discharge -- Hypertension Current Visit: Yes Status: Acute Continue current antihypertensives As needed medications --Febrile illness/sepsis Current Visit: Yes Status: Acute Infected right AV fistula status post excision Bacteremia, continue current antibiotics per ID --Morbid obesity; BMI 41.6 Current Visit: Yes Status: Acute Patient needs weight reduction and medically stable --DVT prophylaxis Current Visit: No Status: Acute Patient placed on sequential compression device. 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 Pressure dressing applied vascular IR Dr. Rasmussen applied Surgicel and pressure bandage possible exploration and surgical procedure tomorrow, closely monitor H&H and transfuse as needed 09/02/2020; Patient underwent vascular surgical procedure Excision of infected right upper extremity AV fistula under general endotracheal anesthesia 09/03/2020; right upper extremity surgical site clean and dry only scant drainage Patient receives hemodialysis from the left upper arm AV graft 09/04/2020; Patient is receiving vancomycin empirically surgical cultures positive for gram- negative rods, ID added Rocephin 09/05/2020; Surgical cultures Klebsiella pneumonia, ID discontinued vancomycin changed to oral Levaquin 250 daily to complete 5 days. ID signed off cleared for discharge. Patient lives alone, multiple medical problems, patient and family requested SNF placement, case management initiated DC planning per case management possible SNF placement. On 09/05/20 I called patient's daughter Ms. Yovana Coreas at [phone] and discussed in detail patient's condition, tests and reports, consultants recommendation, treatment plan, discharge planning , SNF placement, she had numerous questions, answered all of them and encouraged her to call back if she has any new questions or concerns. I also advised her to talk to the child support case officer regarding the discharge planning Informed patient's nurse Ms. Chiang about my conversation with Ms.Kiera Coreas. 09/06/2020; patient is clinically stable, awaiting SNF placement, DC planning per case management 09/07/2020; Uncontrolled blood sugars, increase Lantus dose to 10 units subcu nightly Requested diabetic education and diabetic diet education today Patient has constipation advised stool softener if no improvement consider enema awaiting placement History Interval history: I have seen and examined the patient at the bedside this morning Patient's chart and medications reviewed Patient complains of constipation Also scheduled for hemodialysis today No new complaints, awaiting placement Vital signs reviewed Hospitalist Physical - Constitutional Vitals: Temp Pulse Resp BP Pulse Ox 97.8 F 69 20 144/57 99 09/07/20 05:40 09/07/20 05:40 09/07/20 05:40 09/07/20 05:40 09/07/20 08:17 General appearance: Present: no acute distress, well-nourished, obese (Morbidly obese) - EENT Eyes: Present: PERRL, EOM intact - Neck Neck: Present: supple, normal ROM - Respiratory Respiratory effort: normal Respiratory: bilateral: diminished, negative: rales, rhonchi, wheezing - Cardiovascular Rhythm: regular Heart Sounds: Present: S1 & S2 - Extremities Extremities: no ischemia, No edema - Abdominal General gastrointestinal: soft, non-tender, non-distended, normal bowel sounds - Integumentary Integumentary: Present: clear, warm - Psychiatric Psychiatric: appropriate mood/affect, cooperative - Neurologic Neurologic: CNII-XII intact, moves all extremities Results - Labs CBC & Chem 7: 09/07/20 17:47 09/07/20 17:47 Labs: Laboratory Last Values WBC 7.6 K/mm3 (4.5-11.0) 09/06/20 09:05 RBC 2.89 M/mm3 (3.65-5.03) L 09/06/20 09:05 Hgb 7.4 gm/dl (11.8-15.2) L 09/06/20 09:05 Hct 22.3 % (35.5-45.6) L 09/06/20 09:05 MCV 77 fl (84-94) L 09/06/20 09:05 MCH 26 pg (28-32) L 09/06/20 09:05 MCHC 33 % (32-34) 09/06/20 09:05 RDW 15.8 % (13.2-15.2) H 09/06/20 09:05 Plt Count 189 K/mm3 (140-440) 09/06/20 09:05 Lymph % (Auto) 7.8 % (13.4-35.0) L 09/01/20 20:55 [place] % (Auto) 8.4 % (0.0-7.3) H 09/01/20 20:55 Eos % (Auto) 1.2 % (0.0-4.3) 09/01/20 20:55 Baso % (Auto) 0.5 % (0.0-1.8) 09/01/20 20:55 Lymph # (Auto) 0.9 K/mm3 (1.2-5.4) L 09/01/20 20:55 [place] # (Auto) 1.0 K/mm3 (0.0-0.8) H 09/01/20 20:55 Eos # (Auto) 0.1 K/mm3 (0.0-0.4) 09/01/20 20:55 Baso # (Auto) 0.1 K/mm3 (0.0-0.1) 09/01/20 20:55 Seg Neutrophils % 82.1 % (40.0-70.0) H 09/01/20 20:55 Seg Neutrophils # 9.3 K/mm3 (1.8-7.7) H 09/01/20 20:55 PT 15.2 Sec. (12.2-14.9) H 09/01/20 04:00 INR 1.15 (0.87-1.13) H 09/01/20 04:00 APTT 31.3 Sec. (24.2-36.6) 08/31/20 00:41 Sodium 137 mmol/L (137-145) 09/06/20 09:05 Potassium 4.0 mmol/L (3.6-5.0) 09/06/20 09:05 Chloride 94.8 mmol/L (98-107) L 09/06/20 09:05 Carbon Dioxide 33 mmol/L (22-30) H 09/06/20 09:05 Anion Gap 13 mmol/L 09/06/20 09:05 BUN 36 mg/dL (9-20) H 09/06/20 09:05 Creatinine 7.4 mg/dL (0.8-1.3) H 09/06/20 09:05 Estimated GFR 9 ml/min 09/06/20 09:05 BUN/Creatinine Ratio 5 % 09/06/20 09:05 Glucose 169 mg/dL (75-100) H 09/06/20 09:05 POC Glucose 145 mg/dL (70-105) H 09/07/20 08:17 Calcium 9.1 mg/dL (8.4-10.2) 09/06/20 09:05 Phosphorus 4.70 mg/dL (2.5-4.5) H 09/06/20 09:05 Random Vancomycin 25.9 ug/mL (0-40.0) 09/06/20 04:44 Coronavirus (PCR) Negative (Negative) 09/04/20 Unknown Hepatitis A IgM Ab Non-reactive (NonReactive) 08/31/20 08:59 Hep Bs Antigen Non-reactive (Negative) 08/31/20 08:59 Hep B Core IgM Ab Non-reactive (NonReactive) 08/31/20 08:59 Hepatitis C Antibody Non-reactive (NonReactive) 08/31/20 08:59 Blood Type A POSITIVE 09/02/20 10:20 Antibody Screen Negative 09/02/20 10:20 Crossmatch See Detail 09/02/20 10:20 Microbiology: Microbiology 09/02/20 04:54 Peripheral/Venous Blood Culture - Final NO GROWTH AFTER 5 DAYS 09/02/20 05:46 Peripheral/Venous Blood Culture - Final NO GROWTH AFTER 5 DAYS 09/02/20 Unknown Arm - Right Surgical Biopsy Culture - Final Klebsiella Pneumoniae Briceño/IV: Voiding Method Urinal Active Medications - Current Medications Current Medications: Generic Name Dose Route Start Last Admin Trade Name Freq PRN Reason Stop Dose Admin Acetaminophen 650 mg 08/31/20 02:59 09/03/20 21:51 Acetaminophen 325 Mg Tab PO 650 mg Q4H PRN Administration Pain MILD(1-3)/Fever >100.5/THOMPSON Dextrose 0 ml 08/31/20 02:59 Dextrose 50% In Water (25gm) 50 Ml Syringe IV Q30MIN PRN Hypoglycemia Protocol Sodium Chloride 1,000 mls @ 42 mls/hr 09/02/20 11:00 09/04/20 22:29 Nacl 0.9% 1000 Ml IV 42 mls/hr DIRECT LOS Administration Ceftriaxone Sodium 2 gm in 100 mls @ 200 mls/hr 09/04/20 17:00 09/06/20 16:25 Rocephin/Ns 2 Gm/100 Ml IV 200 mls/hr Q24H LOS Administration Protocol Insulin Glargine 10 units 09/07/20 08:53 Insulin Glargine 100 Units/Ml SUB-Q QHS LOS Insulin Human Lispro 0 unit 09/03/20 16:30 09/06/20 22:34 Insulin Lispro 100 Unit/Ml SUB-Q 3 unit ACHS LOS Administration Protocol Magnesium Hydroxide 30 ml 08/31/20 02:59 Magnesium Hydroxide (Mom) Oral Liqd Udc PO Q4H PRN Constipation Morphine Sulfate 2 mg 08/31/20 02:59 08/31/20 17:05 Morphine 2 Mg/1 Ml Inj IV 2 mg Q4H PRN Administration Pain, Moderate (4-6) Moxifloxacin HCl 1 drops 09/06/20 22:00 09/07/20 05:41 Moxifloxacin 0.5% Ophth Soln 3ml OD 09/08/20 22:01 1 drops Q8HR LOS Administration Ondansetron HCl 4 mg 08/31/20 02:59 Ondansetron 4 Mg/2 Ml Inj IV Q8H PRN Nausea And Vomiting Sodium Chloride 10 ml 08/31/20 10:00 09/06/20 22:42 Sodium Chloride 0.9% 10 Ml Flush Syringe IV 10 ml BID LOS Administration Sodium Chloride 10 ml 08/31/20 02:59 Sodium Chloride 0.9% 10 Ml Flush Syringe IV PRN PRN LINE FLUSH Tobramycin/Dexamethasone 1 drops 09/06/20 17:00 09/07/20 05:42 Tobradex 0.3-0.1% Ophth Susp 2.5ml OD 1 drops Q4H LOS Administration Nutrition/Malnutrition Assess - Dietary Evaluation Nutrition/Malnutrition Findings: Nutrition Notes Start: 08/31/20 13:13 Freq: Status: Active Protocol: Document 08/31/20 13:13 ORI (Rec: 08/31/20 13:13 ORI [id number]) Nutrition Notes Need for Assessment generated from: MD Order,Education Initial or Follow up Brief Note Subjective/Other Information MD consult for diet education. Pt denied education. Nutrition Intervention Revisit per MD consult or patient Sign Off request:
[2020-09-07] MEDS: INSULIN LISPRO 100 UNIT/ML SUB-Q SCH ×3 (09:08→22:03)
--- NOTE | 2020-09-07 12:13 | Progress Note ---
Assessment and Plan Assessment: Bleeding from AV fistula/Abscess End Stage Renal Disease Hypotension Diabetes Mellitus Plan: Hemodialysis today for UF and clearance via Left AVF S/p Excision of Infected Right Upper Extremity AV Fistula by Dr Hood Mederos (vascular surgeon) on 09/02/20 Fluid restriction of 1 liter per day Renally dose medications Strict I&O monitoring Assess dialysis needs daily Awaiting rehab placement Subjective Date of service: 09/07/20 Principal diagnosis: Bleeding from old right AVF Interval history: Patient seen lying in bed. No family at bedside. Objective - Vital Signs Vital signs: Vital Signs - 12hr 09/07/20 09/07/20 09/07/20 00:24 05:40 07:55 Temperature 97.9 F 97.8 F 98.3 F Pulse Rate 67 69 80 Respiratory 20 20 18 Rate Blood Pressure 137/56 144/57 149/58 O2 Sat by Pulse 100 100 100 Oximetry 09/07/20 08:17 Temperature Pulse Rate Respiratory Rate Blood Pressure O2 Sat by Pulse 99 Oximetry - General Appearance General appearance: well-developed, appears stated age EENT: ATNC, PERRL, hearing intact, vision intact Neck: no JVD, supple Respiratory: Present: Decreased Breath Sounds Cardiology: S1S2 Gastrointestinal: normoactive bowel sounds Integumentary: warm and dry Neurologic: alert and oriented x3 Musculoskeletal: joint swelling Psychiatric: cooperative - Lab 09/06/20 09:05 09/06/20 09:05 Most recent lab results Calcium 9.1 mg/dL (8.4-10.2) 09/06/20 09:05 Phosphorus 4.70 mg/dL (2.5-4.5) H 09/06/20 09:05 Medications & Allergies - Medications Allergies/Adverse Reactions: Allergies No Known Allergies Allergy (Unverified 09/12/16 14:54) Home Medications: Home Medications Medication Instructions Recorded Confirmed Last Taken Type Acetaminophen [Acetaminophen TAB] 650 mg PO Q4H PRN tablet 10/12/19 09/01/20 Unknown Rx Insulin Lispro [Humalog] 0 unit SUB-Q Q6HR vial 10/12/19 09/01/20 Unknown Rx Insulin Lispro [Humalog] See Protocol SUB-Q ACHS 30 Days #1 10/12/19 09/01/20 Unknown Rx vial Insulin Detemir [Levemir Flextouch] 8 unit SQ QHS 09/03/20 09/03/20 08/31/20 20:00 History Active Medications: Generic Name Dose Route Start Last Admin Trade Name Freq PRN Reason Stop Dose Admin Acetaminophen 650 mg 08/31/20 02:59 09/03/20 21:51 Acetaminophen 325 Mg Tab PO 650 mg Q4H PRN Administration Pain MILD(1-3)/Fever >100.5/THOMPSON Dextrose 0 ml 08/31/20 02:59 Dextrose 50% In Water (25gm) 50 Ml Syringe IV Q30MIN PRN Hypoglycemia Protocol Sodium Chloride 1,000 mls @ 42 mls/hr 09/02/20 11:00 09/04/20 22:29 Nacl 0.9% 1000 Ml IV 42 mls/hr DIRECT LOS Administration Ceftriaxone Sodium 2 gm in 100 mls @ 200 mls/hr 09/04/20 17:00 09/06/20 16:25 Rocephin/Ns 2 Gm/100 Ml IV 09/08/20 17:29 200 mls/hr Q24H LOS Administration Protocol Insulin Glargine 10 units 09/07/20 22:00 Insulin Glargine 100 Units/Ml SUB-Q QHS [facility] Insulin Human Lispro 0 unit 09/03/20 16:30 09/07/20 09:08 Insulin Lispro 100 Unit/Ml SUB-Q Not Given ACHS LOS Protocol Magnesium Hydroxide 30 ml 08/31/20 02:59 Magnesium Hydroxide (Mom) Oral Liqd Udc PO Q4H PRN Constipation Morphine Sulfate 2 mg 08/31/20 02:59 08/31/20 17:05 Morphine 2 Mg/1 Ml Inj IV 2 mg Q4H PRN Administration Pain, Moderate (4-6) Moxifloxacin HCl 1 drops 09/06/20 22:00 09/07/20 05:41 Moxifloxacin 0.5% Ophth Soln 3ml OD 09/08/20 22:01 1 drops Q8HR LOS Administration Ondansetron HCl 4 mg 08/31/20 02:59 Ondansetron 4 Mg/2 Ml Inj IV Q8H PRN Nausea And Vomiting Sodium Chloride 10 ml 08/31/20 10:00 09/07/20 10:25 Sodium Chloride 0.9% 10 Ml Flush Syringe IV 10 ml BID LOS Administration Sodium Chloride 10 ml 08/31/20 02:59 Sodium Chloride 0.9% 10 Ml Flush Syringe IV PRN PRN LINE FLUSH Tobramycin/Dexamethasone 1 drops 09/06/20 17:00 09/07/20 10:25 Tobradex 0.3-0.1% Ophth Susp 2.5ml OD 1 drops Q4H LOS Administration
[2020-09-07 18:00] LABS: Hematocrit 26.2 % (35.5-45.6); Hemoglobin 8.7 gm/dl (11.8-15.2); Mean Corpuscular HGB Conc 33 % (32-34); Mean Corpuscular Volume 78 fl (84-94); Platelet Count 219 K/mm3 (140-440); Red Blood Count 3.35 M/mm3 (3.65-5.03); Red Cell Distribution Width 15.9 % (13.2-15.2)
[2020-09-07 18:23] LABS: Calcium 9.6 mg/dL (8.4-10.2)
[2020-09-07] MEDS ORDERED: MAGNESIUM HYDROXIDE (MOM) ORAL LIQD UDC PO PRN (18:47)
[2020-09-07] MEDS ORDERED: MAGNESIUM HYDROXIDE (MOM) ORAL LIQD UDC PO ONE (18:50)
[2020-09-07] MEDS: cefTRIAXone/NS 2 GM/100 ML 2 GM/100 ML BAG IV SCH (19:54)
[2020-09-07] MEDS ORDERED: INSULIN GLARGINE 100 UNITS/ML SUB-Q SCH (22:00)
[2020-09-07] MEDS: FERROUS SULFATE 325 MG TAB PO SCH (22:02)
[2020-09-08] MEDS: TOBRADEX 0.3-0.1% OPHTH SUSP 2.5ML OD SCH ×5 (02:04→19:10)
[2020-09-08] MEDS: MOXIFLOXACIN 0.5% OPHTH SOLN 3ML OD SCH ×3 (02:05→15:09)
[2020-09-08 07:29] LABS: Calcium 9.6 mg/dL (8.4-10.2)
[2020-09-08 09:59] LABS: Hematocrit 24.3 % (35.5-45.6); Mean Corpuscular HGB Conc 33 % (32-34); Mean Corpuscular Volume 79 fl (84-94); Platelet Count 232 K/mm3 (140-440); Red Blood Count 3.08 M/mm3 (3.65-5.03); Red Cell Distribution Width 15.9 % (13.2-15.2)
--- NOTE | 2020-09-08 10:16 | Progress Note ---
Assessment and Plan Status post fistula explantation for infection. Doing well. Healing well. Follow-up with Dr. Mederos in 2 weeks. SNF for rehab. Wound care at rehab. Subjective Date of service: 09/08/20 Principal diagnosis: Bleeding from old right AVF Interval history: Right arm feels better. Staple line intact. Small area without staple line noted to allow for drainage. No drainage noted. Wound changed. Need wound care to see patient. Patient going to SNF for rehab. Wound care can be done at SNF. Objective - Constitutional Vitals: Vital Signs - 12hr 09/07/20 09/07/20 22:52 23:00 Temperature 98.0 F Pulse Rate 72 Respiratory 18 18 Rate Blood Pressure 142/59 O2 Sat by Pulse 100 98 Oximetry General appearance: Present: no acute distress - EENT Eyes: EOM intact ENT: hearing intact - Respiratory Respiratory effort: normal Extremities: abnormal (see subjective) - Psychiatric Psychiatric: appropriate mood/affect, cooperative - Labs CBC & Chem 7: 09/08/20 09:14 09/08/20 06:28 Labs: Abnormal lab results 09/07/20 09/07/20 09/07/20 Range/Units 11:43 17:47 17:47 RBC 3.35 L (3.65-5.03) M/mm3 Hgb 8.7 L (11.8-15.2) gm/dl Hct 26.2 L (35.5-45.6) % MCV 78 L (84-94) fl MCH 26 L (28-32) pg RDW 15.9 H (13.2-15.2) % Sodium 136 L (137-145) mmol/L Chloride 94.3 L (98-107) mmol/L BUN 25 H (9-20) mg/dL Creatinine 5.4 H (0.8-1.3) mg/dL Glucose 200 H (75-100) mg/dL POC Glucose 200 H (70-105) mg/dL 09/07/20 09/08/20 09/08/20 Range/Units 20:49 06:28 09:01 RBC (3.65-5.03) M/mm3 Hgb (11.8-15.2) gm/dl Hct (35.5-45.6) % MCV (84-94) fl MCH (28-32) pg RDW (13.2-15.2) % Sodium 135 L (137-145) mmol/L Chloride 94.0 L (98-107) mmol/L BUN 31 H (9-20) mg/dL Creatinine 6.4 H (0.8-1.3) mg/dL Glucose 157 H (75-100) mg/dL POC Glucose 249 H 261 H (70-105) mg/dL 09/08/20 Range/Units 09:14 RBC 3.08 L (3.65-5.03) M/mm3 Hgb 8.0 L (11.8-15.2) gm/dl Hct 24.3 L (35.5-45.6) % MCV 79 L (84-94) fl MCH 26 L (28-32) pg RDW 15.9 H (13.2-15.2) % Sodium (137-145) mmol/L Chloride (98-107) mmol/L BUN (9-20) mg/dL Creatinine (0.8-1.3) mg/dL Glucose (75-100) mg/dL POC Glucose (70-105) mg/dL Medications & Allergies - Medications Allergies/Adverse Reactions: Allergies No Known Allergies Allergy (Unverified 09/12/16 14:54) Home Medications: Home Medications Medication Instructions Recorded Confirmed Last Taken Type Acetaminophen [Acetaminophen TAB] 650 mg PO Q4H PRN tablet 10/12/19 09/01/20 Unknown Rx Insulin Lispro [Humalog] 0 unit SUB-Q Q6HR vial 10/12/19 09/01/20 Unknown Rx Insulin Lispro [Humalog] See Protocol SUB-Q ACHS 30 Days #1 10/12/19 09/01/20 Unknown Rx vial Insulin Detemir [Levemir Flextouch] 8 unit SQ QHS 09/03/20 09/03/20 08/31/20 20:00 History Active Medications: Generic Name Dose Route Start Last Admin Trade Name Freq PRN Reason Stop Dose Admin Acetaminophen 650 mg 08/31/20 02:59 09/03/20 21:51 Acetaminophen 325 Mg Tab PO 650 mg Q4H PRN Administration Pain MILD(1-3)/Fever >100.5/THOMPSON Bisacodyl 10 mg 09/07/20 18:49 Bisacodyl 10 Mg Rect Supp [place] QDAY PRN Constipation Dextrose 0 ml 08/31/20 02:59 Dextrose 50% In Water (25gm) 50 Ml Syringe IV Q30MIN PRN Hypoglycemia Protocol Ferrous Sulfate 325 mg 09/07/20 22:00 09/07/20 22:02 Ferrous Sulfate 325 Mg Tab PO 325 mg BID LOS Administration Sodium Chloride 1,000 mls @ 42 mls/hr 09/02/20 11:00 09/04/20 22:29 Nacl 0.9% 1000 Ml IV 42 mls/hr DIRECT LOS Administration Ceftriaxone Sodium 2 gm in 100 mls @ 200 mls/hr 09/04/20 17:00 09/07/20 19:54 Rocephin/Ns 2 Gm/100 Ml IV 09/08/20 17:29 Not Given Q24H [facility] Protocol Insulin Glargine 10 units 09/07/20 22:00 09/07/20 22:02 Insulin Glargine 100 Units/Ml SUB-Q 10 units QHS LOS Administration Insulin Human Lispro 0 unit 09/03/20 16:30 09/07/20 22:03 Insulin Lispro 100 Unit/Ml SUB-Q 4 unit ACHS LOS Administration Protocol Magnesium Hydroxide 30 ml 09/07/20 18:47 Magnesium Hydroxide (Mom) Oral Liqd Udc PO DAILY PRN Constipation Morphine Sulfate 2 mg 08/31/20 02:59 08/31/20 17:05 Morphine 2 Mg/1 Ml Inj IV 2 mg Q4H PRN Administration Pain, Moderate (4-6) Moxifloxacin HCl 1 drops 09/06/20 22:00 09/08/20 05:30 Moxifloxacin 0.5% Ophth Soln 3ml OD 09/08/20 22:01 Not Given Q8HR [facility] Ondansetron HCl 4 mg 08/31/20 02:59 Ondansetron 4 Mg/2 Ml Inj IV Q8H PRN Nausea And Vomiting Sodium Chloride 10 ml 08/31/20 10:00 09/07/20 22:03 Sodium Chloride 0.9% 10 Ml Flush Syringe IV 10 ml BID LOS Administration Sodium Chloride 10 ml 08/31/20 02:59 Sodium Chloride 0.9% 10 Ml Flush Syringe IV PRN PRN LINE FLUSH Tobramycin/Dexamethasone 1 drops 09/06/20 17:00 09/08/20 05:30 Tobradex 0.3-0.1% Ophth Susp 2.5ml OD Not Given Q4H LOS
--- NOTE | 2020-09-08 10:51 | Progress Note ---
Assessment and Plan Assessment and plan: --Constipation; Current Visit: Yes Status: Acute Of 1 week duration Milk of magnesia, Dulcolax suppository If no improvement repeat 1 more time Still if there is no improvement will consider Fleet enema Advised to drink plenty of fluids high-fiber diet --Sepsis/due to infected graft/gram-negative rods; Current Visit: Yes Status: Acute Follow culture sensitivities, antibiotics per ID s/p Excision of Infected Right Upper Extremity AV Fistula. Wound care, follow sensitivities --Klebsiella pneumonia/surgical cultures Current Visit: Yes Status: Acute ID DC vancomycin and Rocephin recommend renal dose of Levaquin to 250 mg daily ID cleared for discharge -- Bleeding from right upper extremity AV fistula s/p excision AV fistula Current Visit: Yes Status: Acute Vascular evaluated the patient , bleeding controlled , subsequently vascular surgical procedure s/p excision of the infected right upper extremity AV fistula 09/02/2020 --ESRD (end stage renal disease) on dialysis Current Visit: Yes Status: Acute Has left upper arm dialysis access , HD on Mondays, Wednesdays and Fridays. Nephrology following -- Diabetes mellitus/moderate control Current Visit: Yes Status: Acute Continue Accu-Chek sliding scale coverage ADA diet Increase long-acting insulin Lantus tube 10 units subcu nightly Closely monitor blood sugars adjust as needed Last year A1c 7.3, check A1c today Diabetic education, diabetic diet education prior to discharge -- Hypertension Current Visit: Yes Status: Acute Continue current antihypertensives As needed medications --Febrile illness/sepsis Current Visit: Yes Status: Acute Infected right AV fistula status post excision Bacteremia, continue current antibiotics per ID --Morbid obesity; BMI 41.6 Current Visit: Yes Status: Acute Patient needs weight reduction and medically stable --DVT prophylaxis Current Visit: No Status: Acute Patient placed on sequential compression device. 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 Pressure dressing applied vascular IR Dr. Rasmussen applied Surgicel and pressure bandage possible exploration and surgical procedure tomorrow, closely monitor H&H and transfuse as needed 09/02/2020; Patient underwent vascular surgical procedure Excision of infected right upper extremity AV fistula under general endotracheal anesthesia 09/03/2020; right upper extremity surgical site clean and dry only scant drainage Patient receives hemodialysis from the left upper arm AV graft 09/04/2020; Patient is receiving vancomycin empirically surgical cultures positive for gram- negative rods, ID added Rocephin 09/05/2020; Surgical cultures Klebsiella pneumonia, ID discontinued vancomycin changed to oral Levaquin 250 daily to complete 5 days. ID signed off cleared for discharge. Patient lives alone, multiple medical problems, patient and family requested SNF placement, case management initiated DC planning per case management possible SNF placement. On 09/05/20 I called patient's daughter Ms. Yovana Coreas at [phone] and discussed in detail patient's condition, tests and reports, consultants recommendation, treatment plan, discharge planning , SNF placement, she had numerous questions, answered all of them and encouraged her to call back if she has any new questions or concerns. I also advised her to talk to the pillowcase cleaner regarding the discharge planning Informed patient's nurse Ms. Chiang about my conversation with Ms.Kiera Coreas. 09/06/2020; patient is clinically stable, awaiting SNF placement, DC planning per case management 09/07/2020; Uncontrolled blood sugars, increase Lantus dose to 10 units subcu nightly Requested diabetic education and diabetic diet education today Patient has constipation advised stool softener if no improvement consider enema awaiting placement 09/08/2020' awaiting SNF placement, patient is medically stable for discharge History Interval history: I have seen and examined the patient at the bedside patient's chart and medications reviewed. Patient continues to have constipation Milk of magnesia and Dulcolax ordered yesterday For some unknown reason patient did not receive it No other complaints Vital signs noted Awaiting placement Hospitalist Physical - Constitutional Vitals: Temp Pulse Resp BP Pulse Ox 98.0 F 72 18 142/59 98 09/07/20 22:52 09/07/20 22:52 09/07/20 23:00 09/07/20 22:52 09/07/20 23:00 General appearance: Present: no acute distress, well-nourished, obese - EENT Eyes: Present: PERRL, EOM intact (Morbidly obese) - Neck Neck: Present: supple, normal ROM - Respiratory Respiratory effort: normal Respiratory: bilateral: diminished, negative: rales, rhonchi, wheezing - Cardiovascular Rhythm: regular Heart Sounds: Present: S1 & S2 - Extremities Extremities: no ischemia, No edema - Abdominal General gastrointestinal: soft, non-tender, non-distended, normal bowel sounds - Integumentary Integumentary: Present: clear, warm - Psychiatric Psychiatric: appropriate mood/affect, cooperative - Neurologic Neurologic: CNII-XII intact, moves all extremities Results - Labs CBC & Chem 7: 09/08/20 09:14 09/08/20 06:28 Labs: Laboratory Last Values WBC 7.9 K/mm3 (4.5-11.0) 09/08/20 09:14 RBC 3.08 M/mm3 (3.65-5.03) L 09/08/20 09:14 Hgb 8.0 gm/dl (11.8-15.2) L 09/08/20 09:14 Hct 24.3 % (35.5-45.6) L 09/08/20 09:14 MCV 79 fl (84-94) L 09/08/20 09:14 MCH 26 pg (28-32) L 09/08/20 09:14 MCHC 33 % (32-34) 09/08/20 09:14 RDW 15.9 % (13.2-15.2) H 09/08/20 09:14 Plt Count 232 K/mm3 (140-440) 09/08/20 09:14 Lymph % (Auto) 7.8 % (13.4-35.0) L 09/01/20 20:55 [place] % (Auto) 8.4 % (0.0-7.3) H 09/01/20 20:55 Eos % (Auto) 1.2 % (0.0-4.3) 09/01/20 20:55 Baso % (Auto) 0.5 % (0.0-1.8) 09/01/20 20:55 Lymph # (Auto) 0.9 K/mm3 (1.2-5.4) L 09/01/20 20:55 [place] # (Auto) 1.0 K/mm3 (0.0-0.8) H 09/01/20 20:55 Eos # (Auto) 0.1 K/mm3 (0.0-0.4) 09/01/20 20:55 Baso # (Auto) 0.1 K/mm3 (0.0-0.1) 09/01/20 20:55 Seg Neutrophils % 82.1 % (40.0-70.0) H 09/01/20 20:55 Seg Neutrophils # 9.3 K/mm3 (1.8-7.7) H 09/01/20 20:55 PT 15.2 Sec. (12.2-14.9) H 09/01/20 04:00 INR 1.15 (0.87-1.13) H 09/01/20 04:00 APTT 31.3 Sec. (24.2-36.6) 08/31/20 00:41 Sodium 135 mmol/L (137-145) L 09/08/20 06:28 Potassium 4.0 mmol/L (3.6-5.0) 09/08/20 06:28 Chloride 94.0 mmol/L (98-107) L 09/08/20 06:28 Carbon Dioxide 28 mmol/L (22-30) 09/08/20 06:28 Anion Gap 17 mmol/L 09/08/20 06:28 BUN 31 mg/dL (9-20) H 09/08/20 06:28 Creatinine 6.4 mg/dL (0.8-1.3) H 09/08/20 06:28 Estimated GFR 11 ml/min 09/08/20 06:28 BUN/Creatinine Ratio 5 % 09/08/20 06:28 Glucose 157 mg/dL (75-100) H 09/08/20 06:28 POC Glucose 261 mg/dL (70-105) H 09/08/20 09:01 Calcium 9.6 mg/dL (8.4-10.2) 09/08/20 06:28 Phosphorus 4.70 mg/dL (2.5-4.5) H 09/06/20 09:05 Random Vancomycin 25.9 ug/mL (0-40.0) 09/06/20 04:44 Coronavirus (PCR) Negative (Negative) 09/04/20 Unknown Hepatitis A IgM Ab Non-reactive (NonReactive) 08/31/20 08:59 Hep Bs Antigen Non-reactive (Negative) 08/31/20 08:59 Hep B Core IgM Ab Non-reactive (NonReactive) 08/31/20 08:59 Hepatitis C Antibody Non-reactive (NonReactive) 08/31/20 08:59 Blood Type A POSITIVE 09/02/20 10:20 Antibody Screen Negative 09/02/20 10:20 Crossmatch See Detail 09/02/20 10:20 Microbiology: Microbiology 09/02/20 04:54 Peripheral/Venous Blood Culture - Final NO GROWTH AFTER 5 DAYS 09/02/20 05:46 Peripheral/Venous Blood Culture - Final NO GROWTH AFTER 5 DAYS Briceño/IV: Voiding Method Toilet Active Medications - Current Medications Current Medications: Generic Name Dose Route Start Last Admin Trade Name Freq PRN Reason Stop Dose Admin Acetaminophen 650 mg 08/31/20 02:59 09/03/20 21:51 Acetaminophen 325 Mg Tab PO 650 mg Q4H PRN Administration Pain MILD(1-3)/Fever >100.5/THOMPSON Bisacodyl 10 mg 09/07/20 18:49 Bisacodyl [address] QDAY PRN Constipation Dextrose 0 ml 08/31/20 02:59 Dextrose 50% In Water (25gm) 50 Ml Syringe IV Q30MIN PRN Hypoglycemia Protocol Ferrous Sulfate 325 mg 09/07/20 22:00 09/07/20 22:02 Ferrous Sulfate 325 Mg Tab PO 325 mg BID LOS Administration Sodium Chloride 1,000 mls @ 42 mls/hr 09/02/20 11:00 09/04/20 22:29 Nacl 0.9% 1000 Ml IV 42 mls/hr DIRECT LOS Administration Ceftriaxone Sodium 2 gm in 100 mls @ 200 mls/hr 09/04/20 17:00 09/07/20 19:54 Rocephin/Ns 2 Gm/100 Ml IV 09/08/20 17:29 Not Given Q24H LOS Protocol Insulin Glargine 10 units 09/07/20 22:00 09/07/20 22:02 Insulin Glargine 100 Units/Ml SUB-Q 10 units QHS LOS Administration Insulin Human Lispro 0 unit 09/03/20 16:30 09/07/20 22:03 Insulin Lispro 100 Unit/Ml SUB-Q 4 unit ACHS LOS Administration Protocol Magnesium Hydroxide 30 ml 09/07/20 18:47 Magnesium Hydroxide (Mom) Oral Liqd Udc PO DAILY PRN Constipation Morphine Sulfate 2 mg 07/12/21 02:59 08/31/20 17:05 Morphine 2 Mg/1 Ml Inj IV 2 mg Q4H PRN Administration Pain, Moderate (4-6) Moxifloxacin HCl 1 drops 09/06/20 22:00 09/08/20 05:30 Moxifloxacin 0.5% Ophth Soln 3ml OD 09/08/20 22:01 Not Given Q8HR LOS Ondansetron HCl 4 mg 08/31/20 02:59 Ondansetron 4 Mg/2 Ml Inj IV Q8H PRN Nausea And Vomiting Sodium Chloride 10 ml 08/31/20 10:00 09/07/20 22:03 Sodium Chloride 0.9% 10 Ml Flush Syringe IV 10 ml BID LOS Administration Sodium Chloride 10 ml 08/31/20 02:59 Sodium Chloride 0.9% 10 Ml Flush Syringe IV PRN PRN LINE FLUSH Tobramycin/Dexamethasone 1 drops 09/06/20 17:00 09/08/20 05:30 Tobradex 0.3-0.1% Ophth Susp 2.5ml OD Not Given Q4H LOS Nutrition/Malnutrition Assess - Dietary Evaluation Nutrition/Malnutrition Findings: Nutrition Notes Start: 08/31/20 13:13 Freq: Status: Active Protocol: Document 08/31/20 13:13 ORI (Rec: 08/31/20 13:13 ORI [id number]) Nutrition Notes Need for Assessment generated from: MD Order,Education Initial or Follow up Brief Note Subjective/Other Information MD consult for diet education. Pt denied education. Nutrition Intervention Revisit per MD consult or patient Sign Off request:
[2020-09-08] MEDS: INSULIN LISPRO 100 UNIT/ML SUB-Q SCH ×3 (11:25→17:08)
[2020-09-08] MEDS: FERROUS SULFATE 325 MG TAB PO SCH (11:26)
--- NOTE | 2020-09-08 11:58 | Progress Note ---
Assessment and Plan Bleeding from AV fistula/Abscess End Stage Renal Disease Hypotension Diabetes Mellitus Plan: no indication for HD today Fluid restriction of 1 liter per day Renally dose medications Strict I&O monitoring Assess dialysis needs daily Subjective Date of service: 09/08/20 Principal diagnosis: Bleeding from old right AVF Interval history: tolerated HD yesterday Objective - Vital Signs Vital signs: Vital Signs - 12hr 09/08/20 11:47 O2 Sat by Pulse 100 Oximetry - Lab 09/08/20 09:14 09/08/20 06:28 Most recent lab results Calcium 9.6 mg/dL (8.4-10.2) 09/08/20 06:28 Phosphorus 4.70 mg/dL (2.5-4.5) H 09/06/20 09:05 Medications & Allergies - Medications Allergies/Adverse Reactions: Allergies No Known Allergies Allergy (Unverified 09/12/16 14:54) Home Medications: Home Medications Medication Instructions Recorded Confirmed Last Taken Type Acetaminophen [Acetaminophen TAB] 650 mg PO Q4H PRN tablet 10/12/19 09/01/20 Unknown Rx Insulin Lispro [Humalog] 0 unit SUB-Q Q6HR vial 10/12/19 09/01/20 Unknown Rx Insulin Lispro [Humalog] See Protocol SUB-Q ACHS 30 Days #1 10/12/19 09/01/20 Unknown Rx vial Insulin Detemir [Levemir Flextouch] 8 unit SQ QHS 09/03/20 09/03/20 08/31/20 20:00 History Active Medications: Generic Name Dose Route Start Last Admin Trade Name Freq PRN Reason Stop Dose Admin Acetaminophen 650 mg 08/31/20 02:59 09/03/20 21:51 Acetaminophen 325 Mg Tab PO 650 mg Q4H PRN Administration Pain MILD(1-3)/Fever >100.5/THOMPSON Bisacodyl 10 mg 09/07/20 18:49 Bisacodyl 10 Mg Rect Supp [place] QDAY PRN Constipation Dextrose 0 ml 08/31/20 02:59 Dextrose 50% In Water (25gm) 50 Ml Syringe IV Q30MIN PRN Hypoglycemia Protocol Ferrous Sulfate 325 mg 09/07/20 22:00 09/08/20 11:26 Ferrous Sulfate 325 Mg Tab PO 325 mg BID LOS Administration Sodium Chloride 1,000 mls @ 42 mls/hr 09/02/20 11:00 09/04/20 22:29 Nacl 0.9% 1000 Ml IV 42 mls/hr DIRECT LOS Administration Ceftriaxone Sodium 2 gm in 100 mls @ 200 mls/hr 09/04/20 17:00 09/07/20 19:54 Rocephin/Ns 2 Gm/100 Ml IV 09/08/20 17:29 Not Given Q24H [facility] Protocol Insulin Glargine 10 units 09/07/20 22:00 09/07/20 22:02 Insulin Glargine 100 Units/Ml SUB-Q 10 units QHS LOS Administration Insulin Human Lispro 0 unit 09/03/20 16:30 09/08/20 11:25 Insulin Lispro 100 Unit/Ml SUB-Q Not Given ACHS [facility] Protocol Magnesium Hydroxide 30 ml 09/07/20 18:47 Magnesium Hydroxide (Mom) Oral Liqd Udc PO DAILY PRN Constipation Morphine Sulfate 2 mg 08/31/20 02:59 08/31/20 17:05 Morphine 2 Mg/1 Ml Inj IV 2 mg Q4H PRN Administration Pain, Moderate (4-6) Moxifloxacin HCl 1 drops 09/06/20 22:00 09/08/20 05:30 Moxifloxacin 0.5% Ophth Soln 3ml OD 09/08/20 22:01 Not Given Q8HR [facility] Ondansetron HCl 4 mg 08/31/20 02:59 Ondansetron 4 Mg/2 Ml Inj IV Q8H PRN Nausea And Vomiting Sodium Chloride 10 ml 08/31/20 10:00 09/08/20 11:26 Sodium Chloride 0.9% 10 Ml Flush Syringe IV 10 ml BID LOS Administration Sodium Chloride 10 ml 08/31/20 02:59 Sodium Chloride 0.9% 10 Ml Flush Syringe IV PRN PRN LINE FLUSH Tobramycin/Dexamethasone 1 drops 09/06/20 17:00 09/08/20 11:26 Tobradex 0.3-0.1% Ophth Susp 2.5ml OD 1 drops Q4H LOS Administration
[2020-09-08] MEDS ORDERED: MAGNESIUM HYDROXIDE (MOM) ORAL LIQD UDC PO ONE (18:22)
[2020-09-08 20:40] VITALS: BP 152/45
--- NOTE | 2020-09-21 14:54 | Discharge Summary ---
Providers - Providers Date of Admission: 09/01/20 08:57 Date of discharge: 09/08/20 Attending physician: CURTIS MARSHALL 08/31/20 02:17 Consult to Physician [CONS] Routine Comment: Dr. Parr spoke with Dr. Faizan Sagastume @ 0216 Consulting Provider: MELISSA DWYER Physician Instructions: Reason For Exam: dialysis 08/31/20 03:00 Consult to Dietitian/Nutrition [CONS] Routine Physician Instructions: Reason For Exam: Reason for Consult: Diet education 08/31/20 13:26 Consult to Interventional Radiology [CONS] Routine Consulting Provider: JORDEN FLOREZ Reason For Exam: Right AVF possible Abscess with drainage/Aneurysm Place consult to:: vascular Notified:: yes Comment:: Dr florez on floor 08/31/20 15:47 Consult to Physician [CONS] Routine Comment: Consulting Provider: AISHWARYA VINES Physician Instructions: Reason For Exam: Rt AV Fistula malfunction 09/01/20 12:19 Consult to Physician [CONS] Routine Comment: Consulting Provider: LIZZY GAMBINO Physician Instructions: Reason For Exam: Fevers/gram-positive bacteremia/ESRD on HD 09/02/20 12:53 Consult to Wound/ET Nurse [CONS] Routine Reason For Exam: wound eval right arm wound 09/04/20 14:39 Physical Therapy Evaluation and Treat [CONS] Urgent Comment: Reason For Exam: PT eval and treat 09/04/20 14:40 Occupational Therapy Evaluate and Treat [CONS] Urgent Comment: Reason For Exam: OT eval and treat 09/04/20 22:46 Consult to Wound/ET Nurse [CONS] Urgent Reason For Exam: wound vac Primary care physician: CONFORMAL PAD FORMER Hospitalization Reason for admission: Bleeding from AV fistula and fever Condition: Fair Pertinent studies: Echo; normal ejection fraction, LVH, no vegetations Procedures: Echocardiogram 06/03/2020; infected right upper extremity AV fistula s/p excision of infected right upper extremity AV fistula next next Hospital course: 65-year-old -[place] male patient with significant history of hypertension diabetes mellitus, end-stage renal disease on hemodialysis and morbid obesity was admitted through emergency room with right upper arm AV fistula bleeding and infection, patient received pressure bandage initially however could not be controlled vascular has evaluated the patient and patient underwent excision of right upper AV fistula, patient was in severe sepsis secondary to AV fistula infection evaluated by ID, patient received appropriate antibiotics and monitored the cultures and adjusted as needed, patient also received dialysis per schedule evaluated by record changer assembler. Patient was followed by vascular throughout the hospital stay Patient symptoms slowly and gradually improved, today patient is comfortable no new complaints vital signs stable Physical examination prior to discharge no new changes PT OT evaluated the patient and recommended acute inpatient rehabilitation. director alumni relations Dr. Light has evaluated the patient and accepted for acute rehab Patient is hemodynamically and clinically stable at discharge to acute rehab facility; Final diagnosis; -- Bleeding from right upper extremity AV fistula s/p excision AV fistula Current Visit: Yes Status: Acute re s/p excision of the infected right upper extremity AV fistula 09/02/2020 --Sepsis/due to infected graft/gram-negative rods; Current Visit: Yes Status: Acute s/p Excision of Infected Right Upper Extremity AV Fistula. On antibiotics per ID --Klebsiella pneumonia/surgical cultures Current Visit: Yes Status: Acute IV antibiotics per ID, transition to oral Levaquin on discharge --ESRD (end stage renal disease) on dialysis Current Visit: Yes Status: Acute Has left upper arm dialysis access , HD MWF per nephrology -- Diabetes mellitus/moderate control Current Visit: Yes Status: Acute Accu-Chek sliding scale coverage ADA diet and insulin --Sepsis/due to infected graft/gram-negative rods; Current Visit: Yes Status: Acute Follow culture sensitivities, antibiotics per ID s/p Excision of Infected Right Upper Extremity AV Fistula. Wound care, follow sensitivities --Klebsiella pneumonia/surgical cultures Current Visit: Yes Status: Acute ID DC vancomycin and Rocephin re commend renal dose of Levaquin to 250 mg daily ID cleared for discharge -- Bleeding from right upper extremity AV fistula s/p excision AV fistula Current Visit: Yes Status: Acute Vascular evaluated the patient , bleeding controlled , subsequently vascular surgical procedure s/p excision of the infected right upper extremity AV fistula 09/02/2020 --ESRD (end stage renal disease) on dialysis Current Visit: Yes Status: Acute Has left upper arm dialysis access , HD on Mondays, Wednesdays and Fridays. Nephrology following -- Diabetes mellitus/moderate control Current Visit: Yes Status: Acute Continue Accu-Chek sliding scale coverage ADA diet and insulin -- Hypertension Current Visit: Yes Status: Acute Continue current antihypertensives --Febrile illness/sepsis Current Visit: Yes Status: Acute Continue current antibiotics --Morbid obesity; BMI 41.6 Current Visit: Yes Status: Acute Patient needs weight reduction and medically stable --DVT prophylaxis Current Visit: No Status: Acute Patient placed on sequential compression device. --Full code status- Current Visit: No Status: Acute Patient is full code Patient is being discharged in transfer to acute inpatient rehab unit For rehabilitation Disposition: [id number] IN REHAB FACILITY Final Discharge Diagnosis (Prints w/discharge instructions): Bleeding right AV fistula upper arm. Severe sepsis/gram-negative bacteremia. s/p surgical excision. AV fistula infection. s/p excision. Klebsiella positive surgical cultures. Morbid obesity BMI 42.4. ESRD on hemodialysis. Type 2 diabetes mellitus. Hypertension Time spent for discharge: 35 min Core Measure Documentation - Palliative Care Palliative Care/ Comfort Measures: Not Applicable - Core Measures Any of the following diagnoses?: none Exam - Constitutional Vitals: Temp Pulse Resp BP Pulse Ox 98.0 F 71 20 152/45 100 09/08/20 16:15 09/08/20 19:48 09/08/20 19:48 09/08/20 19:48 09/08/20 19:48 General appearance: Present: mild distress, well-nourished, obese (Morbidly) - EENT Eyes: Present: PERRL, EOM intact - Neck Neck: Present: supple, normal ROM - Respiratory Respiratory effort: normal Respiratory: bilateral: diminished, negative: rales, rhonchi, wheezing - Extremities Extremities: no ischemia, No edema - Abdominal General gastrointestinal: Present: soft, non-tender, non-distended, normal bowel sounds - Integumentary Integumentary: Present: clear, warm, erythema - Musculoskeletal Musculoskeletal: strength equal bilaterally - Psychiatric Psychiatric: appropriate mood/affect, agitated - Neurologic Neurologic: CNII-XII intact - Allied Health Allied health notes reviewed: case management Plan Activity: advance as tolerated, fall precautions Diet: diabetic, renal Special Instructions: physical therapy, occupational therapy Additional Instructions: Follow renal, hemodialysis per schedule. Advised to follow primary care physician per schedule. Patient is being transferred to acute rehab for PT OT and rehabilitation per protocols Follow up with: PIETER WHITING MD [Primary Care Provider] - 3-5 Days ROSHAN LOCKWOOD MD [Staff Physician] - 7 Days LIZZY GAMBINO MD [Staff Physician] - 6 Weeks JORDEN CORRAL MD [Staff Physician] - 14 Days
== END 2020-09-08 20:40 | DRG 252 ==
LOC: ED 23:46 → 4A 08-31 02:30 → OBSVTOIN 09-01 08:57
PROVIDERS: ADMIT Internal Medicine Geriatric Medicine; ATTEND Internal Medicine
PROC: 5A1D70Z Performance of Urinary Filtration, Intermittent, Less than 6 Hours Per Day (ICD-10-PCS; 2020-08-31)
PROC: 03BY0ZZ Excision of Upper Artery, Open Approach (ICD-10-PCS; principal; 2020-09-02)
PROC: 5A1D70Z Performance of Urinary Filtration, Intermittent, Less than 6 Hours Per Day (ICD-10-PCS; 2020-09-02)
PROC: 30233N1 Transfusion of Nonautologous Red Blood Cells into Peripheral Vein, Percutaneous Approach (ICD-10-PCS; 2020-09-02)
PROC: 5A09457 Assistance with Respiratory Ventilation, 24-96 Consecutive Hours, Continuous Positive Airway Pressure (ICD-10-PCS; 2020-09-04)
PROC: 5A1D70Z Performance of Urinary Filtration, Intermittent, Less than 6 Hours Per Day (ICD-10-PCS; 2020-09-04)
PROC: 5A1D70Z Performance of Urinary Filtration, Intermittent, Less than 6 Hours Per Day (ICD-10-PCS; 2020-09-07)
DX: T82.838A Hemorrhage due to vascular prosthetic devices, implants and grafts, initial encounter (principal); A41.9 Sepsis, unspecified organism; N18.6 End stage renal disease; Z68.41 Body mass index [BMI] 40.0-44.9, adult; I12.0 Hypertensive chronic kidney disease with stage 5 chronic kidney disease or end stage renal disease; T82.7XXA Infection and inflammatory reaction due to other cardiac and vascular devices, implants and grafts, initial encounter; Z20.822 Contact with and (suspected) exposure to COVID-19; R50.9 Fever, unspecified; I95.9 Hypotension, unspecified; E66.01 Morbid (severe) obesity due to excess calories; B96.1 Klebsiella pneumoniae [K. pneumoniae] as the cause of diseases classified elsewhere; E11.22 Type 2 diabetes mellitus with diabetic chronic kidney disease; Y84.1 Kidney dialysis as the cause of abnormal reaction of the patient, or of later complication, without mention of misadventure at the time of the procedure; Y92.89 Other specified places as the place of occurrence of the external cause; Z71.3 Dietary counseling and surveillance; Z79.899 Other long term (current) drug therapy; Z79.891 Long term (current) use of opiate analgesic; Z79.01 Long term (current) use of anticoagulants
CPT/HCPCS: 36415; 80048; 80074; 80202; 82962; 84100; 85014; 85018; 85025; 85027; 85610; 85730; 86850; 86900; 86901; 86920; 87040; 87076; 87116; 87186; 93306; 94660; 96365; G0378; J0330; J0696; J1644; J1815; J2270; J2597; J2704; J2710; J3010; J3370; J7030; J7040; J7050; P9016; U0003

== ENCOUNTER 2020-09-08 17:10 | Inpatient (IN) | payer MEDICARE ==
[2020-09-08] MEDS ORDERED: DEXTROSE 50% IN WATER (25GM) 50 ML SYRINGE IV PRN (20:19)
[2020-09-08] MEDS ORDERED: ACETAMINOPHEN 325 MG TAB PO PRN (20:19)
[2020-09-08] MEDS ORDERED: oxyCODONE /ACETAMINOPHEN 5-325MG TAB PO PRN (20:19)
[2020-09-08] MEDS ORDERED: ONDANSETRON 4 MG ODT TAB PO PRN (20:36)
[2020-09-08] MEDS: DOCUSATE SODIUM 100 MG CAP PO SCH (21:56)
[2020-09-08] MEDS: FERROUS SULFATE 325 MG TAB PO SCH (21:56)
[2020-09-08] MEDS: MOXIFLOXACIN 0.5% OPHTH SOLN 3ML OU SCH (21:58)
[2020-09-08] MEDS: TOBRADEX 0.3-0.1% OPHTH SUSP 2.5ML OU SCH (21:58)
[2020-09-08] MEDS: INSULIN LISPRO 100 UNIT/ML SUB-Q SCH (22:12)
[2020-09-08] MEDS: INSULIN GLARGINE 100 UNITS/ML SUB-Q SCH (22:14)
[2020-09-09] MEDS: TOBRADEX 0.3-0.1% OPHTH SUSP 2.5ML OU SCH ×6 (02:23→21:53)
[2020-09-09] MEDS: MOXIFLOXACIN 0.5% OPHTH SOLN 3ML OU SCH ×3 (05:56→21:52)
[2020-09-09 07:37] LABS: Hematocrit 23.4 % (35.5-45.6); Hemoglobin 7.7 gm/dl (11.8-15.2); Mean Corpuscular HGB Conc 33 % (32-34); Mean Corpuscular Volume 78 fl (84-94); Platelet Count 248 K/mm3 (140-440); Red Blood Count 3.02 M/mm3 (3.65-5.03); Red Cell Distribution Width 16.3 % (13.2-15.2)
[2020-09-09 08:00] LABS: Albumin 3.2 g/dL (3.9-5)
--- NOTE | 2020-09-09 08:28 | History and Physical Report ---
History of Present Illness Date: 09/09/20 Date of admission: 09/08/20 20:56 Chief Complaint: Debility History of present illness: 65-year-old male who developed a bleed on his right upper extremity AV fistula site. 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 Patient was admitted and was febrile, blood cultures were taken and showed GPC's. Infectious disease started the patient on antibiotics. Initially a pressure bandage was utilized to control bleeding however the patient continued to bleed through the dressing. He was prepped for surgery by vascular surgery for excision of the pseudoaneurysm and ligation which occurred on 09/02/2020. Patient underwent surgery without any complications and was noted to have increased debility afterwards. Patient does live alone and after being evaluated by therapy was determined to be a good candidate for participation in a short-term acute inpatient rehabilitation stay. After the patient was medically stabilized they were transferred for further rehabilitation. All available medical records have been reviewed. Plan of care was discussed with patient. Patient does state that he normally takes eyedrops for glaucoma however these were not in place at the time of admission. Will call his rubble placer for further clarification as the patient cannot remember which medications he was taking. Past History Past Medical History: diabetes, dialysis, ESRD, hypertension, other (glaucoma, obstructive sleep apnea, lymphedema in the right lower extremity) Past Surgical History: Other (vascular access) Social history: , Lives alone (single level home), full code. denies: smoking, alcohol abuse Family history: diabetes Medications and Allergies Allergies Allergy/AdvReac Type Severity Reaction Status Date / Time No Known Allergies Allergy Unverified 09/12/16 14:54 Home Medications Medication Instructions Recorded Confirmed Last Taken Type Acetaminophen [Acetaminophen TAB] 650 mg PO Q4H PRN tablet 10/12/19 09/09/20 09/07/20 20:00 Rx Insulin Lispro [Humalog] 0 unit SUB-Q Q6HR vial 10/12/19 09/09/20 09/08/20 22:00 Rx Insulin Lispro [Humalog] See Protocol SUB-Q ACHS 30 Days #1 10/12/19 09/09/20 09/08/20 22:00 Rx vial Insulin Detemir [Levemir Flextouch] 8 unit SQ QHS 09/03/20 09/09/20 08/31/20 20:00 History Gabapentin [Neurontin] 300 mg PO Q8HR 09/09/20 09/09/20 09/06/20 History Simvastatin 20 mg PO BID 09/09/20 09/09/20 Unknown History Active Meds: Active Medications Acetaminophen (Acetaminophen 325 Mg Tab) 650 mg PO Q4H PRN PRN Reason: Pain MILD(1-3)/Fever >100.5/THOMPSON Hydrocodone Bitart/Acetaminophen (Hydrocodone/Acetaminophen 5-325 Mg Tab) 1 each PO Q8H PRN PRN Reason: Pain, Moderate (4-6) Bisacodyl (Bisacodyl 10 Mg Rect Supp) 10 mg [place] QDAY PRN PRN Reason: Constipation Bisacodyl (Bisacodyl 5 Mg Tab) 5 mg PO QDAY PRN PRN Reason: Constipation Dextrose (Dextrose 50% In Water (25gm) 50 Ml Syringe) 50 ml IV Q30MIN PRN; Protocol PRN Reason: Hypoglycemia Docusate Sodium (Docusate Sodium 100 Mg Cap) 100 mg PO BID [facility] Last Admin: 09/08/20 21:56 Dose: 100 mg Documented by: Ferrous Sulfate (Ferrous Sulfate 325 Mg Tab) 325 mg PO BID [facility] Last Admin: 09/08/20 21:56 Dose: 325 mg Documented by: Insulin Glargine (Insulin Glargine 100 Units/Ml) 10 units SUB-Q QHS [facility] Last Admin: 09/08/20 22:14 Dose: 10 units Documented by: Insulin Human Lispro (Insulin Lispro 100 Unit/Ml) 0 unit SUB-Q [facility]; Protocol Last Admin: 09/08/20 22:12 Dose: 3 unit Documented by: Moxifloxacin HCl (Moxifloxacin 0.5% Ophth Soln 3ml) 1 drops OU Q8HR [facility] Stop: 09/09/20 22:01 Last Admin: 09/09/20 05:56 Dose: 1 drops Documented by: Ondansetron HCl (Ondansetron 4 Mg Odt Tab) 4 mg PO Q8H PRN PRN Reason: Nausea And Vomiting Pantoprazole Sodium (Pantoprazole 20 Mg Tab) 20 mg PO QDAC PRN PRN Reason: Indigestion Tobramycin/Dexamethasone (Tobradex 0.3-0.1% Ophth Susp 2.5ml) 1 drops OU Q4HR [facility] Last Admin: 09/09/20 05:56 Dose: 1 drops Documented by: Review of Systems All systems: negative (ROS negative for 10 systems except as noted below with pertinent positives and negatives.) Constitutional: no fever, no chills Eyes: right: blurred vision Ears, nose, mouth and throat: no decreased hearing, no dysphagia Cardiovascular: edema, no chest pain, no rapid/irregular heart beat Respiratory: no cough, no shortness of breath Gastrointestinal: no abdominal pain, no nausea, no vomiting, no diarrhea, no constipation Genitourinary Male: no dysuria, no hematuria Musculoskeletal: no shooting arm pain, no shooting leg pain Integumentary: wounds (RUE surgical), no rash Neurological: weakness, no syncope Psychiatric: no anxiety, no sleep disturbances, no insomnia Exam - Exam Narrative exam: MUSCULOSKELETAL SPECIALTY EXAM CONSTITUTIONAL: Well developed, well nourished, appropriately groomed, obese LYMPHATIC: No appreciable abnormalities palpable in neck RESPIRATORY: Clear to auscultation bilaterally, no increased work of breathing CARDIOVASCULAR: Regular Rate/ Rhythm, right lower extremity swelling with no pitting edema, otherwise no swelling, edema or tenderness in BUE or BLE. Pulses palpable in all extremities. All extremities warm. GI: + bowel sounds, soft, NTTP, nondistended. INTEGUMENTARY: Right upper extremity surgical site clean dry and intact with annita, scars on other limbs from vascular access surgeries, otherwise normal, no lesion, rash, masses or bruising noted in extremities. MUSCULOSKELETAL: BUE and BLE normal without defect, crepitus, subluxation, effusion, arthritic changes or TTP. BUE 4+/5, good ROM, with normal tone. BLE 3 - 4-/5 decreased ROM, with normal tone NEURO: Sensation intact in all extremities. Reflexes 1+ bilaterally at biceps, brachioradialis and patella. No clonus at ankles. Coordination intact in BUE. No tremor noted in 4 extremities. POSTURE and GAIT: Sitting posture good. Balance and gait deferred until seen with therapy due to safety. PSYCH: Alert, oriented x3, affect appears normal. Insight appears intact. - Constitutional Vitals: Vital Signs - 12hr 09/08/20 09/08/20 09/08/20 21:10 21:28 21:58 Temperature 98.4 F Pulse Rate 77 Respiratory 18 Rate Respiratory Rate [R arm] Blood Pressure Blood Pressure 161/62 [Left] Blood Pressure [Right] O2 Sat by Pulse 96 99 Oximetry 09/08/20 09/08/20 09/08/20 22:00 22:22 22:24 Temperature Pulse Rate Respiratory Rate Respiratory 17 Rate [R arm] Blood Pressure Blood Pressure [Left] Blood Pressure 149/70 149/70 [Right] O2 Sat by Pulse Oximetry 09/09/20 09/09/20 09/09/20 06:06 07:14 07:23 Temperature 97.2 F L 97.9 F Pulse Rate 77 80 Respiratory 18 20 Rate Respiratory Rate [R arm] Blood Pressure 140/70 154/77 Blood Pressure [Left] Blood Pressure [Right] O2 Sat by Pulse 100 100 99 Oximetry - Labs CBC & Chem 7: 09/09/20 06:58 09/09/20 06:58 Labs: Laboratory Results - last 72 hr 09/09/20 09/09/20 09/09/20 06:58 06:58 07:11 WBC 7.9 RBC 3.02 L Hgb 7.7 L Hct 23.4 L MCV 78 L MCH 25 L MCHC 33 RDW 16.3 H Plt Count 248 Sodium 135 L Potassium 4.2 Chloride 93.1 L Carbon Dioxide 27 Anion Gap 19 BUN 41 H Creatinine 8.4 H Estimated GFR 8 BUN/Creatinine Ratio 5 Glucose 147 H POC Glucose 144 H Calcium 9.0 Total Bilirubin 0.20 AST 14 ALT 5 L Alkaline Phosphatase 164 H Total Protein 6.7 Albumin 3.2 L Albumin/Globulin Ratio 0.9 Assessment and Plan Assessment and plan: Patient was assessed and evaluated for Acute Inpatient Rehab Unit. Due to the patients above-mentioned medical complexity, along with decreased functional mobility and self care, this patient continues to require and be appropriate for a comprehensive, multidisciplinary [id number] rehabilitat ion program. These needs cannot be met in an outpatient or other less intensive setting. The patient would continue to benefit from skilled therapy intervention for at least 3 hours per day, five days a week, with techniques specific to the needs of the patient to improve function, activities of daily living, and reintegration into the community. The patient continues to require: -- OT to improve ROM, self-care, and learn use of adaptive equipment -- PT to improve strength and balance, functional transfers, and ambulation with energy conservation techniques to improve functional mobility -- 24 hour RN to ensure and prevent skin breakdown, promote progressive independence while ensuring safety, ensure education regarding medications, and incorporation of the rehabilitation at the bedside -- 24 hour [address] Cdl Driver to coordinate this interdisciplinary program, and to manage/prevent complications as a result of the patients medical comorbidities. -Plan of care by day 4 -Weekly team conferences With such a program, there is a reasonable certainty that the goals individualized for this patient can be achieved within the specified length of stay. Infected AV fistula: We will continue Levaquin 250 mg daily x5 days per ID recommendations. Monitor for any further signs of infection. Monitor WBCs. End-stage renal disease on hemodialysis: Consult nephrology for management. Hemodialysis on Monday in the afternoons due to the patient being on IRU. Renally dose all medications. Continue renal diet Diabetes: Continue medications, sliding scale insulin and monitor for euglycemia. Will monitor diet and possibly place the patient on carb controlled diet based on glucose levels. Hypertension: Not an issue recently since patient has been on dialysis. Will monitor for any signs of hyper or hypotension and to treat accordingly. Obstructive sleep apnea: Continue CPAP at night. Monitor for any signs or issues that need to be addressed. RT consult Glaucoma: Patient states that he is now missed his follow-up with his rubble placer due to hospitalization. Does not recall which medication he was on for drops. Will attempt to contact his outside rubble placer for further recommendation to restart eyedrops. ADL dysfunction: OT will work on improving ability to perform ADLs (including assistive devices) to increase independence and decrease caregiver burden and improve functional transfers and mobility training. Difficulty walking: PT will work on gait training and proper use of assistive devices and advance as appropriate to use of stairs and outside ambulation on uneven surfaces. Unsteadiness on feet: PT will work on improving static and dynamic sitting and standing balance as well as proper use of assistive devices to decrease risk of falls. Abnormality of gait: PT will work to improve safety and efficiency of gait through neuromotor training and gait training along with instruction on proper use of assistive devices. Muscle weakness: PT & OT will work on strengthening exercises to improve functional strength including mixture of closed and open kinetic chain exercises. Debility: PT & OT will work on improving overall functional status to improve participation with ADLs, mobility and social involvement. Fatigue: PT & OT will work on improving endurance through aerobic exercises and therapeutic activity while monitoring patients tolerance for activity and vital signs as needed. DVT ppx: Mechanical due to recent bleed. May look to start heparin in next few days if needed Pain: Continue physical modalities in therapy and pain medications as needed to achieve functional pain control. Sleep: Monitor and address as needed. Bowel: Monitor and address as needed. Appetite: Monitor and address as needed. Discharge planning: Pending therapy progress and care plan meeting. Will continue discussion with therapy team, SW, patient and family. Restrictions/ Precautions: Falls WB status: FWB Functional Hx: ADLs: Independent Cognition: Independent Mobility: Cane Barriers to Discharge: Decreased mobility and ability to perform self care, balance deficits, weakness Estimated Length of Stay: 710 days Discharge Destination: Home with family POST ADMISSION PHYSICIAN EVALUATION I have examined the patient and find that functional status, medical condition and appropriateness for IRF admission are essentially unchanged from those described in the preadmission screening. Will monitor for worsening infection, dehiscence of wound site, bleeding, DVT/PE, bowel and bladder complications and complications due to hypertension, diabetes, glaucoma, VALERIA, ESRD and electrolyte abnormalities. Will attempt to avoid occurrence of these issues or treat them if they present themselves.
[2020-09-09] MEDS ORDERED: HYDROcodone/ACETAMINOPHEN 5-325 MG TAB PO PRN (09:00)
[2020-09-09] MEDS: INSULIN LISPRO 100 UNIT/ML SUB-Q SCH ×4 (09:20→21:43)
[2020-09-09] MEDS: DOCUSATE SODIUM 100 MG CAP PO SCH ×2 (09:21→21:40)
[2020-09-09] MEDS: FERROUS SULFATE 325 MG TAB PO SCH ×2 (09:21→21:40)
[2020-09-09] MEDS: PANTOPRAZOLE 20 MG TAB PO PRN ×2 (09:21→21:47)
[2020-09-09 11:09] LABS: Hypochromasia 1+; Myelocytes # (Manual) 0.2 K/mm3; Platelet Estimate Consistent w Auto; Total Cells Counted 100
[2020-09-09] MEDS: levoFLOXacin 250 MG TAB PO SCH (11:39)
--- NOTE | 2020-09-09 11:47 | Consultation ---
History of Present Illness - Reason for Consult Consult date: 09/09/20 end stage renal disease - History of Present Illness This is a 65 year old male who was transferred to [facility] rehab department for weakness and decrease mobility after being treated at [facility] for right AVF large aneurysm with bleeding and infection requiring excision on 09/02/2020. Patient has ESRD and is due for hemodialysis today. Patient has history of Hypotenison on Midodrine outpatiently, Diabetes Mellitus and Obesity. We are being consulted for management of this patient's ESRD. Patient has consented to continue receiving hemodialysis while in rehab. Past History Past Medical History: diabetes, dialysis, ESRD, hypertension, other (glaucoma, obstructive sleep apnea, lymphedema in the right lower extremity) Past Surgical History: Other (vascular access) Social history: , Lives alone (single level home), full code. denies: smoking, alcohol abuse Family history: diabetes Medications and Allergies Allergies Allergy/AdvReac Type Severity Reaction Status Date / Time No Known Allergies Allergy Unverified 09/12/16 14:54 Home Medications Medication Instructions Recorded Confirmed Last Taken Type Acetaminophen [Acetaminophen TAB] 650 mg PO Q4H PRN tablet 10/12/19 09/09/20 09/07/20 20:00 Rx Insulin Lispro [Humalog] 0 unit SUB-Q Q6HR vial 10/12/19 09/09/20 09/08/20 22:00 Rx Insulin Lispro [Humalog] See Protocol SUB-Q ACHS 30 Days #1 10/12/19 09/09/20 09/08/20 22:00 Rx vial Insulin Detemir [Levemir Flextouch] 8 unit SQ QHS 09/03/20 09/09/20 08/31/20 20:00 History Gabapentin [Neurontin] 300 mg PO Q8HR 09/09/20 09/09/20 09/06/20 History Simvastatin 20 mg PO BID 09/09/20 09/09/20 Unknown History Active Meds: Active Medications Acetaminophen (Acetaminophen 325 Mg Tab) 650 mg PO Q4H PRN PRN Reason: Pain MILD(1-3)/Fever >100.5/[place] Hydrocodone Bitart/Acetaminophen (Hydrocodone/Acetaminophen 5-325 Mg Tab) 1 each PO Q8H PRN PRN Reason: Pain, Moderate (4-6) Bisacodyl (Bisacodyl 10 Mg Rect Supp) 10 mg [place] QDAY PRN PRN Reason: Constipation Bisacodyl (Bisacodyl 5 Mg Tab) 5 mg PO QDAY PRN PRN Reason: Constipation Dextrose (Dextrose 50% In Water (25gm) 50 Ml Syringe) 50 ml IV Q30MIN PRN; Protocol PRN Reason: Hypoglycemia Docusate Sodium (Docusate Sodium 100 Mg Cap) 100 mg PO BID [facility] Last Admin: 09/09/20 09:21 Dose: 100 mg Documented by: Ferrous Sulfate (Ferrous Sulfate 325 Mg Tab) 325 mg PO BID [facility] Last Admin: 09/09/20 09:21 Dose: 325 mg Documented by: Insulin Glargine (Insulin Glargine 100 Units/Ml) 10 units SUB-Q QHS [facility] Last Admin: 09/08/20 22:14 Dose: 10 units Documented by: Insulin Human Lispro (Insulin Lispro 100 Unit/Ml) 0 unit SUB-Q ACHS [facility]; Protocol Last Admin: 09/09/20 11:41 Dose: 2 unit Documented by: Levofloxacin (Levofloxacin 250 Mg Tab) 250 mg PO Q24HR [facility]; Protocol Stop: 09/14/20 09:59 Last Admin: 09/09/20 11:39 Dose: 250 mg Documented by: Moxifloxacin HCl (Moxifloxacin 0.5% Ophth Soln 3ml) 1 drops OU Q8HR [facility] Stop: 09/09/20 22:01 Last Admin: 09/09/20 05:56 Dose: 1 drops Documented by: Ondansetron HCl (Ondansetron 4 Mg Odt Tab) 4 mg PO Q8H PRN PRN Reason: Nausea And Vomiting Pantoprazole Sodium (Pantoprazole 20 Mg Tab) 20 mg PO QDAC PRN PRN Reason: Indigestion Last Admin: 09/09/20 09:21 Dose: 20 mg Documented by: Tobramycin/Dexamethasone (Tobradex 0.3-0.1% Ophth Susp 2.5ml) 1 drops OU Q4HR [facility] Last Admin: 09/09/20 09:21 Dose: 1 drops Documented by: Review of Systems Constitutional: weakness, no weight loss, no weight gain, no fever, no chills, no sweats Ears, nose, mouth and throat: no ear pain, no ear discharge, no tinnitis, no decreased hearing, no nose pain, no nasal congestion, no nasal discharge, no sinus pressure Cardiovascular: edema, no chest pain, no orthopnea, no palpitations, no rapid/irregular heart beat, no syncope, no lightheadedness, no shortness of breath Respiratory: shortness of breath, no cough with sputum, no excessive sputum, no hemoptysis, no dyspnea on exertion Gastrointestinal: no abdominal pain, no nausea, no vomiting, no diarrhea, no constipation, no change in bowel habits Genitourinary Male: no dysuria, no hematuria, no flank pain, no discharge, no urinary frequency, no nocturia Musculoskeletal: no neck stiffness, no neck pain, no shooting arm pain, no arm numbness/tingling, no low back pain, no shooting leg pain, no leg numbness/tingling Integumentary: no rash, no pruritis, no redness, no sores, no wounds, no jaundice, no boils Neurological: weakness, no head injury, no transient paralysis, no paralysis, no parathesias, no numbness, no tingling, no seizures, no syncope Psychiatric: no anxiety, no memory loss, no change in sleep habits, no sleep disturbances, no insomnia, no hypersomnia, no change in appetite, no change in libido, no suicidal ideation Endocrine: no cold intolerance, no heat intolerance, no polyphagia, no excessive thirst, no polydipsia, no polyuria, no nocturia Exam - Vital Signs Vital signs: Vital Signs Resp Pulse Ox 18 96 09/08/20 21:10 09/08/20 21:10 - General Appearance General appearance: well-developed, appears stated age EENT: ATNC, PERRL, hearing intact, vision intact Neck: Present: neck supple, trachea midline Respiratory: Decreased Breath Sounds Heart: S1S2 Gastrointestinal: Present: normoactive bowel sounds Integumentary: warm and dry Neurologic: alert and oriented x3 Musculoskeletal: Present: joint swelling Psychiatric: cooperative Results - Lab Results 09/09/20 06:58 09/09/20 06:58 Most recent lab results Calcium 9.0 mg/dL (8.4-10.2) 09/09/20 06:58 Assessment and Plan Assessment: S/P Excison of Right AVF End Stage Renal Disease Hypotension Diabetes Mellitus Weakness Plan: Hemodialysis today for UF and clearance via Left AVF S/p Excision of Infected Right Upper Extremity AV Fistula by Dr Hood Mederos (vascular surgeon) on 09/02/20 Weakness-In rehab therapy Fluid restriction of 1 liter per day Renally dose medications Strict I&O monitoring Assess dialysis needs daily
[2020-09-09] MEDS: INSULIN GLARGINE 100 UNITS/ML SUB-Q SCH (21:40)
[2020-09-10] MEDS: TOBRADEX 0.3-0.1% OPHTH SUSP 2.5ML OU SCH ×6 (05:23→22:19)
[2020-09-10] MEDS: INSULIN LISPRO 100 UNIT/ML SUB-Q SCH ×4 (07:59→22:18)
[2020-09-10] MEDS: DOCUSATE SODIUM 100 MG CAP PO SCH ×2 (08:05→22:17)
[2020-09-10] MEDS: FERROUS SULFATE 325 MG TAB PO SCH ×2 (08:05→22:17)
[2020-09-10] MEDS: levoFLOXacin 250 MG TAB PO SCH (09:54)
--- NOTE | 2020-09-10 10:36 | Progress Note ---
Subjective Date of service: 09/10/20 Principal diagnosis: Debility Interval history: 65-year-old male who developed a bleed on his right upper extremity AV fistula site. 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 Patient was admitted and was febrile, blood cultures were taken and showed GPC's. Infectious disease started the patient on antibiotics. Initially a pressure bandage was utilized to control bleeding however the patient continued to bleed through the dressing. He was prepped for surgery by vascular surgery for excision of the pseudoaneurysm and ligation which occurred on 09/02/2020. Patient underwent surgery without any complications and was noted to have increased debility afterwards. Patient does live alone and after being evaluated by therapy was determined to be a good candidate for participation in a short-term acute inpatient rehabilitation stay. Interval History: Patient is participating in therapy and making reasonable progress. Taking rest breaks as needed. -BM. Pain well controlled currently. Denies palpitations, dyspnea, cough, N/V, or joint pain. Tolerating therapy however it is fairly challenging for him to move around Infected AV fistula: Continue antibiotics until complete, no signs of wound dehiscence or appearance of infection. Wound nurse consulted End-stage renal disease on hemodialysis: Appreciate nephrology consult, continue hemodialysis and afternoons on Monday/Monday/Monday, renal diet and avoid nephrotoxic medications Diabetes: Continue to monitor patient's oral intake and glucose control. Based on current glucose readings we will institute carb controlled diet. Patient did state that he was controlling his diet at home with nutritional choices however glucose levels here are little too elevated to allow him to continue to pick his own nutritional choices Hypertension: Fairly well controlled currently without any episodes of orthostatic hypotension. Goal less than 140/90 Obstructive sleep apnea: Continue use of CPAP at night Glaucoma: Was able to contact the patient's pit clerk and discussed the medication regimen he was on for glaucoma, have restarted those medications. No issues currently with worsening vision. Stopping TobraDex today Debility with decreased mobility and ability to perform ADLs: All records, vitals, labs and medications were reviewed. No other issues per patient, nursing or therapy. Objective - Exam Narrative Exam: MUSCULOSKELETAL SPECIALTY EXAM CONSTITUTIONAL: Well developed, well nourished, appropriately groomed, obese RESPIRATORY: Clear to auscultation bilaterally, no increased work of breathing CARDIOVASCULAR: Regular Rate/ Rhythm, right lower extremity swelling with no pitting edema, otherwise no swelling, edema or tenderness in BUE or BLE. All extremities warm. GI: + bowel sounds, soft, NTTP, nondistended. INTEGUMENTARY: Right upper extremity surgical site clean dry and intact with annita, scars on other limbs from vascular access surgeries, otherwise normal, no lesion, rash, masses or bruising noted in extremities. MUSCULOSKELETAL: BUE and BLE normal without defect, crepitus, subluxation, effusion, arthritic changes or TTP. BUE 4+/5, good ROM, with normal tone. BLE 3 - 4-/5 decreased ROM, with normal tone NEURO: Sensation intact in all extremities. No tremor noted in 4 extremities. POSTURE and GAIT: Sitting posture good. Balance and gait deferred until seen with therapy due to safety. PSYCH: Alert, oriented x3, affect appears normal. Insight appears intact. - Constitutional Vitals: Vital Signs - 12hr 09/10/20 09/10/20 09/10/20 04:13 05:03 07:11 Temperature 97.8 F 98.6 F Pulse Rate 71 88 Respiratory 20 20 Rate Blood Pressure 123/48 137/47 O2 Sat by Pulse 100 100 99 Oximetry - Allied health notes Allied health notes reviewed: nursing, PT, OT FIMS assessment as documented by PT/OT/ST: Grooming Patient cleans teeth/dentures: Yes Patient guzman/brushes hair: Yes Patient washes, rinses and Yes dries face: Patient washes, rinses and Yes dries hands: Patient shaves: No Patient performs (no make-up/ / (100%) shaving): Toileting Toileting Device Commode over Toilet Patient able to: Adjust clothes before,Adjust clothes after Patient able to perform: 2/3 (67%) Toileting FIM Score 3. Moderate Assistance (Patient = 50% or more. Some lifting.) Social interaction/Memory/Problem solving Social Interaction FIM Score 7. Complete [place] (Interacts appropriately. Controls temper.) Memory FIM Score 7. Complete [place] (Remembers people and routines.) Problem Solving FIM Score 5. Supervision (Needs cueing <10% to solve routine problems.) Transfers Mode of Locomotion: Wheelchair Bed/Chair/Wheelchair Transfers 4. Minimal Assistance (Patient = 75% or more. FIM Score Needs touching.) Patient transferred to: Shower Shower Transfers FIM Score 3. Moderate Assistance (Patient = 50% or more. Some lifting.) Locomotion- walk/wheelchair Ambulation Distance 45 Eating Eating FIM Score 5. Supervision/Set-Up (Needs help w/ containers, cutting meat, etc.) Dressing-Upper body Patient retrieves clothing No items: Patient applies/removes UE No: n/a prosthesis or orthosis: Upper Body Dressing FIM Score 4. Minimal Assistance (Patient = 75% or more. Needs touching.) Dressing-lower body Lower Body Dressing Device [place] Patient retrieves clothing No items: Patient applies/removes LE n/a prosthesis or orthosis: Lower Body Dressing FIM Score 4. Minimal Assistance (Patient = 75% or more. Needs touching.) - Labs CBC & Chem 7: 09/09/20 06:58 09/09/20 06:58 Labs: Laboratory Results - last 72 hr 09/09/20 09/09/20 09/09/20 06:58 06:58 07:11 WBC 7.9 RBC 3.02 L Hgb 7.7 L Hct 23.4 L MCV 78 L MCH 25 L MCHC 33 RDW 16.3 H Plt Count 248 Add Manual Diff Complete Total Counted 100 Seg Neuts % (Manual) 74.0 H Lymphocytes % (Manual) 17.0 Monocytes % (Manual) 5.0 Eosinophils % (Manual) 2.0 Myelocytes % 2.0 Nucleated RBC % Not Reportable Seg Neutrophils # Man 5.8 Band Neutrophils # 0.0 Lymphocytes # (Manual) 1.3 Abs React Lymphs (Man) 0.0 Monocytes # (Manual) 0.4 Eosinophils # (Manual) 0.2 Basophils # (Manual) 0.0 Metamyelocytes # 0.0 Myelocytes # 0.2 Promyelocytes # 0.0 Blast Cells # 0.0 WBC Morphology Not Reportable Hypersegmented Neuts Not Reportable Hyposegmented Neuts Not Reportable Hypogranular Neuts Not Reportable Smudge Cells Not Reportable Toxic Granulation Not Reportable Toxic Vacuolation Not Reportable Dohle Bodies Not Reportable Pelger-Huet Anomaly Not Reportable Selvin Rods Not Reportable Platelet Estimate Consistent w auto Clumped Platelets Not Reportable Plt Clumps, EDTA Not Reportable Large Platelets Not Reportable Giant Platelets Not Reportable Platelet Satelliting Not Reportable Plt Morphology Comment Not Reportable RBC Morphology Not Reportable Dimorphic RBCs Not Reportable Polychromasia Not Reportable Hypochromasia 1+ Poikilocytosis Not Reportable Anisocytosis Not Reportable Microcytosis Not Reportable Macrocytosis Not Reportable Spherocytes Not Reportable Pappenheimer Bodies Not Reportable Sickle Cells Not Reportable Target Cells Not Reportable Tear Drop Cells Not Reportable Ovalocytes Not Reportable Helmet Cells Not Reportable [place] Bodies Not Reportable [place] Rings Not Reportable [place] Cells Not Reportable Bite Cells Not Reportable Crenated Cell Not Reportable Elliptocytes Not Reportable Acanthocytes (Spur) Not Reportable Rouleaux Not Reportable Hemoglobin C Crystals Not Reportable Schistocytes Not Reportable Malaria parasites Not Reportable [place] Bodies Not Reportable Hem Pathologist Commnt No Sodium 135 L Potassium 4.2 Chloride 93.1 L Carbon Dioxide 27 Anion Gap 19 BUN 41 H Creatinine 8.4 H Estimated GFR 8 BUN/Creatinine Ratio 5 Glucose 147 H POC Glucose 144 H Calcium 9.0 Total Bilirubin 0.20 AST 14 ALT 5 L Alkaline Phosphatase 164 H Total Protein 6.7 Albumin 3.2 L Albumin/Globulin Ratio 0.9 09/09/20 09/09/20 09/09/20 11:12 16:10 21:24 WBC RBC Hgb Hct MCV MCH MCHC RDW Plt Count Add Manual Diff Total Counted Seg Neuts % (Manual) Lymphocytes % (Manual) Monocytes % (Manual) Eosinophils % (Manual) Myelocytes % Nucleated RBC % Seg Neutrophils # Man Band Neutrophils # Lymphocytes # (Manual) Abs React Lymphs (Man) Monocytes # (Manual) Eosinophils # (Manual) Basophils # (Manual) Metamyelocytes # Myelocytes # Promyelocytes # Blast Cells # WBC Morphology Hypersegmented Neuts Hyposegmented Neuts Hypogranular Neuts Smudge Cells Toxic Granulation Toxic Vacuolation Dohle Bodies Pelger-Huet Anomaly Selvin Rods Platelet Estimate Clumped Platelets Plt Clumps, EDTA Large Platelets Giant Platelets Platelet Satelliting Plt Morphology Comment RBC Morphology Dimorphic RBCs Polychromasia Hypochromasia Poikilocytosis Anisocytosis Microcytosis Macrocytosis Spherocytes Pappenheimer Bodies Sickle Cells Target Cells Tear Drop Cells Ovalocytes Helmet Cells [place] Bodies [place] Rings Mayra Cells Bite Cells Crenated Cell Elliptocytes Acanthocytes (Spur) Rouleaux Hemoglobin C Crystals Schistocytes Malaria parasites Wilbur Bodies Hem Pathologist Commnt Sodium Potassium Chloride Carbon Dioxide Anion Gap BUN Creatinine Estimated GFR BUN/Creatinine Ratio Glucose POC Glucose 190 H 199 H 206 H Calcium Total Bilirubin AST ALT Alkaline Phosphatase Total Protein Albumin Albumin/Globulin Ratio 09/10/20 07:09 WBC RBC Hgb Hct MCV MCH MCHC RDW Plt Count Add Manual Diff Total Counted Seg Neuts % (Manual) Lymphocytes % (Manual) Monocytes % (Manual) Eosinophils % (Manual) Myelocytes % Nucleated RBC % Seg Neutrophils # Man Band Neutrophils # Lymphocytes # (Manual) Abs React Lymphs (Man) Monocytes # (Manual) Eosinophils # (Manual) Basophils # (Manual) Metamyelocytes # Myelocytes # Promyelocytes # Blast Cells # WBC Morphology Hypersegmented Neuts Hyposegmented Neuts Hypogranular Neuts Smudge Cells Toxic Granulation Toxic Vacuolation Dohle Bodies Pelger-Huet Anomaly Selvin Rods Platelet Estimate Clumped Platelets Plt Clumps, EDTA Large Platelets Giant Platelets Platelet Satelliting Plt Morphology Comment RBC Morphology Dimorphic RBCs Polychromasia Hypochromasia Poikilocytosis Anisocytosis Microcytosis Macrocytosis Spherocytes Pappenheimer Bodies Sickle Cells Target Cells Tear Drop Cells Ovalocytes Helmet Cells [place] Bodies [place] Rings [place] Cells Bite Cells Crenated Cell Elliptocytes Acanthocytes (Spur) Rouleaux Hemoglobin C Crystals Schistocytes Malaria parasites Wilbur Bodies Hem Pathologist Commnt Sodium Potassium Chloride Carbon Dioxide Anion Gap BUN Creatinine Estimated GFR BUN/Creatinine Ratio Glucose POC Glucose 129 H Calcium Total Bilirubin AST ALT Alkaline Phosphatase Total Protein Albumin Albumin/Globulin Ratio Assessment and Plan Infected AV fistula: We will continue Levaquin 250 mg daily x5 days per ID recommendations. Monitor for any further signs of infection. Monitor WBCs. End-stage renal disease on hemodialysis: Consult nephrology for management. Hemodialysis on Monday in the afternoons due to the patient being on IRU. Renally dose all medications. Continue renal diet Diabetes: Continue medications, sliding scale insulin and monitor for euglycemia. Carb controlled/renal diet Hypertension: Not an issue recently since patient has been on dialysis. Will monitor for any signs of hyper or hypotension and to treat accordingly. Obstructive sleep apnea: Continue CPAP at night. Monitor for any signs or issues that need to be addressed. RT consult Glaucoma: Patient states that he is now missed his follow-up with his pit clerk due to hospitalization. I was able to speak with the office of the pit clerk and have restarted the patient on his prescribed medications. ADL dysfunction: OT will work on improving ability to perform ADLs (including assistive devices) to increase independence and decrease caregiver burden and improve functional transfers and mobility training. Difficulty walking: PT will work on gait training and proper use of assistive devices and advance as appropriate to use of stairs and outside ambulation on uneven surfaces. Unsteadiness on feet: PT will work on improving static and dynamic sitting and standing balance as well as proper use of assistive devices to decrease risk of falls. Abnormality of gait: PT will work to improve safety and efficiency of gait through neuromotor training and gait training along with instruction on proper use of assistive devices. Muscle weakness: PT & OT will work on strengthening exercises to improve fun ctional strength including mixture of closed and open kinetic chain exercises. Debility: PT & OT will work on improving overall functional status to improve participation with ADLs, mobility and social involvement. Fatigue: PT & OT will work on improving endurance through aerobic exercises and therapeutic activity while monitoring patients tolerance for activity and vital signs as needed. DVT ppx: Mechanical due to recent bleed. May look to start heparin in next few days if needed Pain: Continue physical modalities in therapy and pain medications as needed to achieve functional pain control. Sleep: Monitor and address as needed. Bowel: Monitor and address as needed. Appetite: Monitor and address as needed. Discharge planning: Pending therapy progress and care plan meeting. Will continue discussion with therapy team, SW, patient and family. Restrictions/ Precautions: Falls WB status: FWB Functional Hx: ADLs: Independent Cognition: Independent Mobility: Cane Barriers to Discharge: Decreased mobility and ability to perform self care, balance deficits, weakness Estimated Length of Stay: 710 days Discharge Destination: Home with family
--- NOTE | 2020-09-10 11:32 | IRU Plan of Care ---
Interdisciplinary Plan of Care - IP IRU INTERDISCIPLINARY PLAN: [facility] Inpatient Rehab Unit Plan of Care IRU Interdisciplinary Care Plan Start: 09/08/20 21:10 Freq: Admission then PRN Status: Active Protocol: Document 09/09/20 15:39 AB (Rec: 09/09/20 15:46 AB [id number]) Interdisciplinary Problem List Interdisciplinary Problem List Interdisciplinary Problem List Impaired Eating/Swallowing, Query Text:Answers will Trigger Problems Impaired Bathing/Grooming, and Outcomes on Worklist. Impaired Dressing,Impaired Mobility,Impaired Transfers, Impaired Toileting,Impaired Skin/Tissue Integrity, Community Reintergration, Impaired Home Management IRU Interdisciplinary Care Plan Therapy Services Therapy Services Will Include: Physical Therapy,Occupational Query Text:Patient will be seen for a Therapy minimum of 3 hours of daily therapy 5 out of 7 days a week. Therapy intensity may be adjusted within a 7 consecutive day period to effectively serve the individual needs of the patient. Treatment Frequency/Intensity/Duration Treatment Frequency 3 hours/ day Treatment Intensity 5x/week Treatment Duration 10-14 days Problem Area: Eating/Swallowing Eating/Swallowing Outcomes Eating/Swallowing Interventions Problem Area: Bathing/Grooming Bathing/Grooming Outcomes Improve [place] w/ Grooming,Improve [place] w/ Bathing Bathing/Grooming Interventions ADL Training,Use of Assistive Devices,Therapeutic Exercise, Therapeutic Activity, Neuromuscular Re-Education, Balance Work,Activity Tolerance Work,Patient/ Caregiver Education Problem Area: Dressing Dressing Outcomes Improve [place] w/ UB Dressing,Improve [place] w/ LB Dressing Dressing Interventions ADL Training,Use of Assistive Devices,Neuromuscular Re- Education,Therapeutic Exercise ,Balance Work,Modalities, Patient/Caregiver Education Problem Area: Mobility Mobility Outcomes Improve [place] w/ Bed Mobility,Improve [place] w/ Ambulation,Improve [place] w/ Stairs/Curb, Improve [place] w/ Wheelchair Mobility Interventions Therapeutic Exercise, Neuromuscular Re-Ed.,Activity Tolerance Work,Use of Assistive Devices,Patient/ Caregiver Education,Bed Mobility Work,Gait Training,W/ C Mobility Work Problem Area: Transfers Transfers Outcomes Improve [place] w/ Bed Transfers,Improve [place] w/ Toilet Transfers,Improve [place] w/ Tub/Shower Transfers,Improve [place] w/ Car Transfers Transfers Interventions Transfer Training,Therapeutic Exercise,Neuromuscular Re- Education,Activity Tolerance Work,Use of Assistive Devices, Patient/Caregiver Education Problem Area: Bowel/Bladder Managment Bowel/Bladder Outcomes Bowel/Bladder Interventions Problem Area: Toileting Toileting Outcomes Improve [place] w/ Toileting Toileting Interventions ADL Training,Balance Work,Use of Assistive Devices,Patient/ Caregiver Education Problem Area: Nutrition Nutrition Outcomes Nutrition Interventions Problem Area: Comprehension Comprehension Outcomes Comprehension Interventions Problem Area: Expression Expression Outcomes Expression Interventions Problem Area: Problem Solving Problem Solving Outcomes Problem Solving Interventions Problem Area: Memory Memory Outcomes Memory Interventions Problem Area: Pain Management Pain Management Outcomes Pain Management Interventions Problem Area: Knowledge Deficits Knowledge Deficits Outcomes Demonstrate Ability to Manage Blood Glucose Knowledge Deficits Interventions Disease/Injury/Sx. Intervention Education, Medication Use Education, Disease Management Education Problem Area: Skin/Tissue Integrity Skin/Tissue Integrity Outcomes Skin/Tissue Integrity Interventions Problem Area: Social Interaction Social Interaction Outcomes Social Interaction Interventions Problem Area: Adjustment to Disability Adjustment to Disability Outcomes Adjustment to Disability Interventions Problem Area: Discharge Concerns Discharge Concerns Outcomes Discharge w/ Necessary Equipment,Have Home Health/ Outpatient Services Discharge Concerns Interventions Discharge Planning,Equipment Assessment, Acquisition and Placement,Family/Caregiver Training Problem Area: Community Reintegration Community Reintegration Outcomes Community Reintegration Interventions Problem Area: Home Management Home Management Outcomes Improve [place] w/ Home Management Home Management Interventions Meal Preparation,Clothing Care ,Activity Tolerance Work, Patient/Caregiver Education Problem Area: Safety Safety Outcomes Provide Safe Environment, Perform Selfcare Safely, Demonstrate Good Safety w/ Transfers/Mobility Safety Interventions Identify Fall Risk,[place] Pt. to Environment,Reduce Environmental Hazards,Neuro Check Assessment,Implement Mechanical Devices, i.e. Chair Alarm (Post Fall Update),Re- Educate Patient/Caregiver for Safety (Post Fall Update) Problem Area: Medication Education Medication Education Outcomes Medication Education Interventions Problem Area: Diabetes Education Diabetes Education Outcomes Demonstrate Knowledge of Resources Availlable in Diabetic Ed. Folder Diabetes Education Interventions Give Pt. Diabetes Education Folder,Discuss Pathophysiology of Diabetes Problem Area: Oxygenation Oxygenation Outcomes Oxygenation Interventions Problem Area: Cardiovascular Cardiovascular Outcomes Maintain or Improve Cardiovascular Status Cardiovascular Interventions Assess Vital Signs at least Every 4 hours,Cardiac Monitoring, EKG and ABG as Ordered. Physician Only Medical Prognosis and Rehabilitation Potential (Completed by Physician) Good rehab potential, good medical prognosis This plan of care has been developed based on the findings from the pre- admission assessment, post admission physician evaluation, information gathered from the assessments from all therapy disciplines and other pertinent clinicians. The plan of care has been reviewed and discussed in collaboration with the interdisciplinary team. The plan of care will be reviewed and updated at least weekly.
--- NOTE | 2020-09-10 11:55 | Progress Note ---
Assessment and Plan Assessment: S/P Excison of Right AVF End Stage Renal Disease Hypotension Diabetes Mellitus Weakness Plan: S/P Hemodialysis yesterday for UF and clearance via Left AVF S/p Excision of Infected Right Upper Extremity AV Fistula by Dr Hood Mederos (vascular surgeon) on 09/02/20 Weakness-In rehab therapy Fluid restriction of 1 liter per day Renally dose medications Strict I&O monitoring Assess dialysis needs daily Subjective Date of service: 09/10/20 Principal diagnosis: Debility Interval history: Patient seen sitting up in chair using cell phone. States he is feeling better. Objective - Vital Signs Vital signs: Vital Signs - 12hr 09/10/20 09/10/20 09/10/20 04:13 05:03 07:11 Temperature 97.8 F 98.6 F Pulse Rate 71 88 Respiratory 20 20 Rate Blood Pressure 123/48 137/47 O2 Sat by Pulse 100 100 99 Oximetry 09/10/20 11:28 Temperature 98.0 F Pulse Rate 76 Respiratory 18 Rate Blood Pressure 169/97 O2 Sat by Pulse 100 Oximetry - General Appearance General appearance: well-developed, appears stated age EENT: ATNC, PERRL, hearing intact, vision intact Neck: no JVD, supple Respiratory: Present: Decreased Breath Sounds Cardiology: S1S2 Gastrointestinal: normoactive bowel sounds Integumentary: warm and dry Neurologic: alert and oriented x3 Musculoskeletal: joint swelling Psychiatric: cooperative - Lab 09/09/20 06:58 09/09/20 06:58 Most recent lab results Calcium 9.0 mg/dL (8.4-10.2) 09/09/20 06:58 Medications & Allergies - Medications Allergies/Adverse Reactions: Allergies No Known Allergies Allergy (Unverified 09/12/16 14:54) Home Medications: Home Medications Medication Instructions Recorded Confirmed Last Taken Type Acetaminophen [Acetaminophen TAB] 650 mg PO Q4H PRN tablet 10/12/19 09/09/20 09/07/20 20:00 Rx Insulin Lispro [Humalog] 0 unit SUB-Q Q6HR vial 10/12/19 09/09/20 09/08/20 22:00 Rx Insulin Lispro [Humalog] See Protocol SUB-Q ACHS 30 Days #1 10/12/19 09/09/20 09/08/20 22:00 Rx vial Insulin Detemir [Levemir Flextouch] 8 unit SQ QHS 09/03/20 09/09/20 08/31/20 20:00 History Gabapentin [Neurontin] 300 mg PO Q8HR 09/09/20 09/09/20 09/06/20 History Simvastatin 20 mg PO BID 09/09/20 09/09/20 Unknown History Active Medications: Generic Name Dose Route Start Last Admin Trade Name Freq PRN Reason Stop Dose Admin Acetaminophen 650 mg 09/08/20 20:19 Acetaminophen 325 Mg Tab PO Q4H PRN Pain MILD(1-3)/Fever >100.5/THOMPSON Hydrocodone Bitart/Acetaminophen 1 each 09/09/20 09:00 Hydrocodone/Acetaminophen 5-325 Mg Tab PO Q8H PRN Pain, Moderate (4-6) Bisacodyl 10 mg 09/08/20 20:36 Bisacodyl 10 Mg Rect Supp [place] QDAY PRN Constipation Bisacodyl 5 mg 09/08/20 20:37 Bisacodyl 5 Mg Tab PO QDAY PRN Constipation Brimonidine/Timolol 1 drops 09/10/20 22:00 Combigan 0.2-0.5% Ophth Soln OU Q12HR LOS Dextrose 50 ml 09/08/20 20:19 Dextrose 50% In Water (25gm) 50 Ml Syringe IV Q30MIN PRN Hypoglycemia Protocol Docusate Sodium 100 mg 09/08/20 22:00 09/10/20 08:05 Docusate Sodium 100 Mg Cap PO 100 mg BID LOS Administration Ferrous Sulfate 325 mg 09/08/20 22:00 09/10/20 08:05 Ferrous Sulfate 325 Mg Tab PO 325 mg BID LOS Administration Insulin Glargine 10 units 09/08/20 21:00 09/09/20 21:40 Insulin Glargine 100 Units/Ml SUB-Q 10 units QHS LOS Administration Insulin Human Lispro 0 unit 09/08/20 22:00 09/10/20 07:59 Insulin Lispro 100 Unit/Ml SUB-Q Not Given ACHS LOS Protocol Latanoprost 1 drops 09/10/20 18:00 Latanoprost 0.005% Ophth Soln 2.5 Ml OU QPM LOS Levofloxacin 250 mg 09/09/20 10:00 09/10/20 09:54 Levofloxacin 250 Mg Tab PO 09/14/20 09:59 250 mg Q24HR LOS Administration Protocol Ondansetron HCl 4 mg 09/08/20 20:36 Ondansetron 4 Mg Odt Tab PO Q8H PRN Nausea And Vomiting Pantoprazole Sodium 20 mg 09/09/20 09:00 09/09/20 21:47 Pantoprazole 20 Mg Tab PO 20 mg QDAC PRN Administration Indigestion Tobramycin/Dexamethasone 1 drops 09/08/20 22:00 09/10/20 09:54 Tobradex 0.3-0.1% Ophth Susp 2.5ml OU 09/10/20 23:59 1 drops Q4HR LOS Administration
[2020-09-10] MEDS: LATANOPROST 0.005% OPHTH SOLN 2.5 ML OU SCH (17:32)
[2020-09-10] MEDS: INSULIN GLARGINE 100 UNITS/ML SUB-Q SCH (22:18)
[2020-09-10] MEDS: COMBIGAN 0.2-0.5% OPHTH SOLN OU SCH (22:19)
[2020-09-11 04:49] LABS: Calcium 9.3 mg/dL (8.4-10.2)
[2020-09-11] MEDS: INSULIN LISPRO 100 UNIT/ML SUB-Q SCH ×2 (07:17→23:31)
[2020-09-11] MEDS ORDERED: hydrALAZINE 20 MG/1 ML INJ IV PRN (08:02)
--- NOTE | 2020-09-11 08:06 | Progress Note ---
Subjective Date of service: 09/11/20 Principal diagnosis: Debility Interval history: 65-year-old male who developed a bleed on his right upper extremity AV fistula site. 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 Patient was admitted and was febrile, blood cultures were taken and showed GPC's. Infectious disease started the patient on antibiotics. Initially a pressure bandage was utilized to control bleeding however the patient continued to bleed through the dressing. He was prepped for surgery by vascular surgery for excision of the pseudoaneurysm and ligation which occurred on 09/02/2020. Patient underwent surgery without any complications and was noted to have increased debility afterwards. Patient does live alone and after being evaluated by therapy was determined to be a good candidate for participation in a short-term acute inpatient rehabilitation stay. Interval History: Patient is participating in therapy and making reasonable progress. Taking rest breaks as needed. -BM. Pain well controlled currently. Denies palpitations, dyspnea, cough, N/V, or joint pain. Tolerating therapy however it is fairly challenging for him to move around Infected AV fistula: Continue antibiotics until complete, no signs of wound dehiscence or appearance of infection. Wound nurse consulted End-stage renal disease on hemodialysis: Appreciate nephrology consult, continue hemodialysis and afternoons on Monday/Monday/Monday, renal diet and avoid nephrotoxic medications Diabetes: Continue carb controlled diet, sliding scale insulin, and basal insulin dosing. Adjust as needed for euglycemia. Hypertension: Patient has started having episodes of elevated blood pressure. We will start low-dose amlodipine and monitor. As needed hydralazine ordered. Goal less than 140/90 Obstructive sleep apnea: Continue use of CPAP at night Glaucoma: No issues currently with worsening vision. Debility with decreased mobility and ability to perform ADLs: Continue therapy to improve patient's ability to ambulate safely and provide for his own ADLs without assistance from others. All records, vitals, labs and medications were reviewed. No other issues per patient, nursing or therapy. Objective - Exam Narrative Exam: MUSCULOSKELETAL SPECIALTY EXAM CONSTITUTIONAL: Well developed, well nourished, appropriately groomed, obese RESPIRATORY: Clear to auscultation bilaterally, no increased work of breathing CARDIOVASCULAR: Regular Rate/ Rhythm, right lower extremity swelling with no pitting edema, otherwise no swelling, edema or tenderness in BUE or BLE. All extremities warm. GI: + bowel sounds, soft, NTTP, nondistended. INTEGUMENTARY: Right upper extremity surgical site clean dry and intact with annita, scars on other limbs from vascular access surgeries, otherwise normal, no lesion, rash, masses or bruising noted in extremities. MUSCULOSKELETAL: BUE and BLE normal without defect, crepitus, subluxation, effusion, arthritic changes or TTP. BUE 4+/5, good ROM, with normal tone. BLE 3 - 4-/5 decreased ROM, with normal tone NEURO: Sensation intact in all extremities. No tremor noted in 4 extremities. POSTURE and GAIT: Sitting posture good. Balance and gait deferred until seen with therapy due to safety. PSYCH: Alert, oriented x3, affect appears normal. Insight appears intact. - Constitutional Vitals: Vital Signs - 12hr 09/10/20 09/10/20 09/11/20 20:23 21:04 05:09 Temperature 98.9 F Pulse Rate 92 H 79 Respiratory 17 18 Rate Respiratory 17 Rate [R arm] Blood Pressure 142/82 Blood Pressure 154/64 [Right] O2 Sat by Pulse 100 100 Oximetry 09/11/20 09/11/20 07:24 07:25 Temperature 97.7 F Pulse Rate 79 80 Respiratory 20 Rate Respiratory Rate [R arm] Blood Pressure 143/61 Blood Pressure [Right] O2 Sat by Pulse 100 100 Oximetry - Allied health notes Allied health notes reviewed: nursing, PT, OT FIMS assessment as documented by PT/OT/ST: Grooming Patient cleans teeth/dentures: Yes Patient guzman/brushes hair: Yes Patient washes, rinses and Yes dries face: Patient washes, rinses and Yes dries hands: Patient shaves: No Patient performs (no make-up/ 05/24 (100%) shaving): Toileting Toileting Device Commode over Toilet Patient able to: Adjust clothes before,Adjust clothes after Patient able to perform: 2/3 (67%) Toileting FIM Score 3. Moderate Assistance (Patient = 50% or more. Some lifting.) Social interaction/Memory/Problem solving Social Interaction FIM Score 7. Complete Reagan (Interacts appropriately. Controls temper.) Memory FIM Score 7. Complete Reagan (Remembers people and routines.) Problem Solving FIM Score 7. Complete Reagan (Solves complex problems. Self corrects.) Transfers Mode of Locomotion: Wheelchair Bed/Chair/Wheelchair Transfers 2. Maximal Assistance (Patient = 25% or more) FIM Score Patient transferred to: Shower Shower Transfers FIM Score 3. Moderate Assistance (Patient = 50% or more. Some lifting.) Locomotion- walk/wheelchair Ambulation Distance 45 Eating Eating FIM Score 5. Supervision/Set-Up (Needs help w/ containers, cutting meat, etc.) Dressing-Upper body Patient retrieves clothing No items: Patient applies/removes UE No: n/a prosthesis or orthosis: Upper Body Dressing FIM Score 4. Minimal Assistance (Patient = 75% or more. Needs touching.) Dressing-lower body Lower Body Dressing Device [place] Patient retrieves clothing No items: Patient applies/removes LE n/a prosthesis or orthosis: Lower Body Dressing FIM Score 4. Minimal Assistance (Patient = 75% or more. Needs touching.) - Labs CBC & Chem 7: 09/09/20 06:58 09/11/20 04:09 Labs: Laboratory Results - last 72 hr 09/09/20 09/09/20 09/09/20 06:58 06:58 07:11 WBC 7.9 RBC 3.02 L Hgb 7.7 L Hct 23.4 L MCV 78 L MCH 25 L MCHC 33 RDW 16.3 H Plt Count 248 Add Manual Diff Complete Total Counted 100 Seg Neuts % (Manual) 74.0 H Lymphocytes % (Manual) 17.0 Monocytes % (Manual) 5.0 Eosinophils % (Manual) 2.0 Myelocytes % 2.0 Nucleated RBC % Not Reportable Seg Neutrophils # Man 5.8 Band Neutrophils # 0.0 Lymphocytes # (Manual) 1.3 Abs React Lymphs (Man) 0.0 Monocytes # (Manual) 0.4 Eosinophils # (Manual) 0.2 Basophils # (Manual) 0.0 Metamyelocytes # 0.0 Myelocytes # 0.2 Promyelocytes # 0.0 Blast Cells # 0.0 WBC Morphology Not Reportable Hypersegmented Neuts Not Reportable Hyposegmented Neuts Not Reportable Hypogranular Neuts Not Reportable Smudge Cells Not Reportable Toxic Granulation Not Reportable Toxic Vacuolation Not Reportable Dohle Bodies Not Reportable Pelger-Huet Anomaly Not Reportable Selvin Rods Not Reportable Platelet Estimate Consistent w auto Clumped Platelets Not Reportable Plt Clumps, EDTA Not Reportable Large Platelets Not Reportable Giant Platelets Not Reportable Platelet Satelliting Not Reportable Plt Morphology Comment Not Reportable RBC Morphology Not Reportable Dimorphic RBCs Not Reportable Polychromasia Not Reportable Hypochromasia 1+ Poikilocytosis Not Reportable Anisocytosis Not Reportable Microcytosis Not Reportable Macrocytosis Not Reportable Spherocytes Not Reportable Pappenheimer Bodies Not Reportable Sickle Cells Not Reportable Target Cells Not Reportable Tear Drop Cells Not Reportable Ovalocytes Not Reportable Helmet Cells Not Reportable [place] Bodies Not Reportable [place] Rings Not Reportable [place] Cells Not Reportable Bite Cells Not Reportable Crenated Cell Not Reportable Elliptocytes Not Reportable Acanthocytes (Spur) Not Reportable Rouleaux Not Reportable Hemoglobin C Crystals Not Reportable Schistocytes Not Reportable Malaria parasites Not Reportable Wilbur Bodies Not Reportable Hem Pathologist Commnt No Sodium 135 L Potassium 4.2 Chloride 93.1 L Carbon Dioxide 27 Anion Gap 19 BUN 41 H Creatinine 8.4 H Estimated GFR 8 BUN/Creatinine Ratio 5 Glucose 147 H POC Glucose 144 H Calcium 9.0 Total Bilirubin 0.20 AST 14 ALT 5 L Alkaline Phosphatase 164 H Total Protein 6.7 Albumin 3.2 L Albumin/Globulin Ratio 0.9 09/09/20 09/09/20 09/09/20 11:12 16:10 21:24 WBC RBC Hgb Hct MCV MCH MCHC RDW Plt Count Add Manual Diff Total Counted Seg Neuts % (Manual) Lymphocytes % (Manual) Monocytes % (Manual) Eosinophils % (Manual) Myelocytes % Nucleated RBC % Seg Neutrophils # Man Band Neutrophils # Lymphocytes # (Manual) Abs React Lymphs (Man) Monocytes # (Manual) Eosinophils # (Manual) Basophils # (Manual) Metamyelocytes # Myelocytes # Promyelocytes # Blast Cells # WBC Morphology Hypersegmented Neuts Hyposegmented Neuts Hypogranular Neuts Smudge Cells Toxic Granulation Toxic Vacuolation Dohle Bodies Pelger-Huet Anomaly Selvin Rods Platelet Estimate Clumped Platelets Plt Clumps, EDTA Large Platelets Giant Platelets Platelet Satelliting Plt Morphology Comment RBC Morphology Dimorphic RBCs Polychromasia Hypochromasia Poikilocytosis Anisocytosis Microcytosis Macrocytosis Spherocytes Pappenheimer Bodies Sickle Cells Target Cells Tear Drop Cells Ovalocytes Helmet Cells [place] Bodies [place] Cells Bite Cells Crenated Cell Elliptocytes Acanthocytes (Spur) Rouleaux Hemoglobin C Crystals Schistocytes Malaria parasites Wilbur Bodies Hem Pathologist Commnt Sodium Potassium Chloride Carbon Dioxide Anion Gap BUN Creatinine Estimated GFR BUN/Creatinine Ratio Glucose POC Glucose 190 H 199 H 206 H Calcium Total Bilirubin AST ALT Alkaline Phosphatase Total Protein Albumin Albumin/Globulin Ratio 09/10/20 09/10/20 09/10/20 07:09 11:05 15:59 WBC RBC Hgb Hct MCV MCH MCHC RDW Plt Count Add Manual Diff Total Counted Seg Neuts % (Manual) Lymphocytes % (Manual) Monocytes % (Manual) Eosinophils % (Manual) Myelocytes % Nucleated RBC % Seg Neutrophils # Man Band Neutrophils # Lymphocytes # (Manual) Abs React Lymphs (Man) Monocytes # (Manual) Eosinophils # (Manual) Basophils # (Manual) Metamyelocytes # Myelocytes # Promyelocytes # Blast Cells # WBC Morphology Hypersegmented Neuts Hyposegmented Neuts Hypogranular Neuts Smudge Cells Toxic Granulation Toxic Vacuolation Dohle Bodies Pelger-Huet Anomaly Selvin Rods Platelet Estimate Clumped Platelets Plt Clumps, EDTA Large Platelets Giant Platelets Platelet Satelliting Plt Morphology Comment RBC Morphology Dimorphic RBCs Polychromasia Hypochromasia Poikilocytosis Anisocytosis Microcytosis Macrocytosis Spherocytes Pappenheimer Bodies Sickle Cells Target Cells Tear Drop Cells Ovalocytes Helmet Cells [place] Bodies [place] Cells Bite Cells Crenated Cell Elliptocytes Acanthocytes (Spur) Rouleaux Hemoglobin C Crystals Schistocytes Malaria parasites Wilbur Bodies Hem Pathologist Commnt Sodium Potassium Chloride Carbon Dioxide Anion Gap BUN Creatinine Estimated GFR BUN/Creatinine Ratio Glucose POC Glucose 129 H 169 H 139 H Calcium Total Bilirubin AST ALT Alkaline Phosphatase Total Protein Albumin Albumin/Globulin Ratio 09/10/20 09/11/20 09/11/20 20:18 04:09 07:26 WBC RBC Hgb Hct MCV MCH MCHC RDW Plt Count Add Manual Diff Total Counted Seg Neuts % (Manual) Lymphocytes % (Manual) Monocytes % (Manual) Eosinophils % (Manual) Myelocytes % Nucleated RBC % Seg Neutrophils # Man Band Neutrophils # Lymphocytes # (Manual) Abs React Lymphs (Man) Monocytes # (Manual) Eosinophils # (Manual) Basophils # (Manual) Metamyelocytes # Myelocytes # Promyelocytes # Blast Cells # WBC Morphology Hypersegmented Neuts Hyposegmented Neuts Hypogranular Neuts Smudge Cells Toxic Granulation Toxic Vacuolation Dohle Bodies Pelger-Huet Anomaly Selvin Rods Platelet Estimate Clumped Platelets Plt Clumps, EDTA Large Platelets Giant Platelets Platelet Satelliting Plt Morphology Comment RBC Morphology Dimorphic RBCs Polychromasia Hypochromasia Poikilocytosis Anisocytosis Microcytosis Macrocytosis Spherocytes Pappenheimer Bodies Sickle Cells Target Cells Tear Drop Cells Ovalocytes Helmet Cells [place] Bodies [place] Cells Bite Cells Crenated Cell Elliptocytes Acanthocytes (Spur) Rouleaux Hemoglobin C Crystals Schistocytes Malaria parasites Wilbur Bodies Hem Pathologist Commnt Sodium 137 Potassium 3.9 Chloride 96.4 L Carbon Dioxide 26 Anion Gap 19 BUN 37 H Creatinine 7.5 H Estimated GFR 9 BUN/Creatinine Ratio 5 Glucose 91 POC Glucose 167 H 89 Calcium 9.3 Total Bilirubin AST ALT Alkaline Phosphatase Total Protein Albumin Albumin/Globulin Ratio Assessment and Plan Infected AV fistula: We will continue Levaquin 250 mg daily x5 days per ID recommendations. Monitor for any further signs of infection. Monitor WBCs. End-stage renal disease on hemodialysis: Consult nephrology for management. Hemodialysis on Monday in the afternoons due to the patient being on IRU. Renally dose all medications. Continue renal diet Diabetes: Continue medications, sliding scale insulin and monitor for euglycemia. Carb controlled/renal diet Hypertension: Blood pressure has started to show signs of elevation on a rather frequent basis. Patient cannot remember medication he was previously taking. Have started low-dose amlodipine and as needed hydralazine. Goal is less than 140/90. Obstructive sleep apnea: Continue CPAP at night. Monitor for any signs or issues that need to be addressed. RT consult Glaucoma: Patient states that he is now missed his follow-up with his epic director due to hospitalization. I was able to speak with the office of the epic director and have restarted the patient on his prescribed medications. ADL dysfunction: OT will work on improving ability to perform ADLs (including assistive devices) to increase independence and decrease caregiver burden and improve functional transfers and mobility training. Difficulty walking: PT will work on gait training and proper use of assistive devices and advance as appropriate to use of stairs and outside ambulation on uneven surfaces. Unsteadiness on feet: PT will work on improving static and dynamic sitting and standing balance as well as proper use of assistive devices to decrease risk of falls. Abnormality of gait: PT will work to improve safety and efficiency of gait through neuromotor training and gait training along with instruction on proper use of assistive devices. Muscle weakness: PT & OT will work on strengthening exercises to improve functional strength including mixture of closed and open kinetic chain exercises. Debility: PT & OT will work on improving overall functional status to improve participation with ADLs, mobility and social involvement. Fatigue: PT & OT will work on improving endurance through aerobic exercises and therapeutic activity while monitoring patients tolerance for activity and vital signs as needed. DVT ppx: Mechanical due to recent bleed. May look to start heparin in next few days if needed Pain: Continue physical modalities in therapy and pain medications as needed to achieve functional pain control. Sleep: Monitor and address as needed. Bowel: Monitor and address as needed. Appetite: Monitor and address as needed. Discharge planning: Pending therapy progress and care plan meeting. Will continue discussion with therapy team, SW, patient and family. Restrictions/ Precautions: Falls WB status: FWB Functional Hx: ADLs: Independent Cognition: Independent Mobility: Cane Barriers to Discharge: Decreased mobility and ability to perform self care, balance deficits, weakness Estimated Length of Stay: 710 days Discharge Destination: Home with family
[2020-09-11] MEDS: FERROUS SULFATE 325 MG TAB PO SCH ×2 (08:26→21:26)
[2020-09-11] MEDS: DOCUSATE SODIUM 100 MG CAP PO SCH ×2 (09:31→21:31)
[2020-09-11] MEDS: COMBIGAN 0.2-0.5% OPHTH SOLN OU SCH ×2 (10:20→21:32)
--- NOTE | 2020-09-11 14:01 | Progress Note ---
Assessment and Plan Assessment: S/P Excison of Right AVF End Stage Renal Disease Hypotension Diabetes Mellitus Weakness Plan: Hemodialysis today for UF and clearance via Left AVF S/p Excision of Infected Right Upper Extremity AV Fistula by Dr Hood Mederos (vascular surgeon) on 09/02/20 Weakness-In rehab therapy Fluid restriction of 1 liter per day Renally dose medications Strict I&O monitoring Assess dialysis needs daily Subjective Date of service: 09/11/20 Principal diagnosis: Debility Interval history: Patient seen lying in bed talking on cell phone. In good spirits. Objective - Vital Signs Vital signs: Vital Signs - 12hr 09/11/20 09/11/20 09/11/20 05:09 07:24 07:25 Temperature 98.9 F 97.7 F Pulse Rate 79 79 80 Respiratory 18 20 Rate Blood Pressure 142/82 143/61 O2 Sat by Pulse 100 100 100 Oximetry 09/11/20 09/11/20 10:22 11:06 Temperature Pulse Rate 85 Respiratory Rate Blood Pressure O2 Sat by Pulse 100 100 Oximetry - General Appearance General appearance: well-developed, appears stated age EENT: ATNC, PERRL, hearing intact, vision intact Neck: no JVD, supple Respiratory: Present: Decreased Breath Sounds Cardiology: S1S2 Gastrointestinal: normoactive bowel sounds Integumentary: warm and dry Neurologic: alert and oriented x3 Musculoskeletal: joint swelling, other Psychiatric: cooperative - Lab 09/09/20 06:58 09/11/20 04:09 Most recent lab results Calcium 9.3 mg/dL (8.4-10.2) 09/11/20 04:09 Medications & Allergies - Medications Allergies/Adverse Reactions: Allergies No Known Allergies Allergy (Unverified 09/12/16 14:54) Home Medications: Home Medications Medication Instructions Recorded Confirmed Last Taken Type Acetaminophen [Acetaminophen TAB] 650 mg PO Q4H PRN tablet 10/12/19 09/09/20 09/07/20 20:00 Rx Insulin Lispro [Humalog] 0 unit SUB-Q Q6HR vial 10/12/19 09/09/20 09/08/20 22:00 Rx Insulin Lispro [Humalog] See Protocol SUB-Q ACHS 30 Days #1 10/12/19 09/09/20 09/08/20 22:00 Rx vial Insulin Detemir [Levemir Flextouch] 8 unit SQ QHS 09/03/20 09/09/20 08/31/20 20:00 History Gabapentin [Neurontin] 300 mg PO Q8HR 09/09/20 09/09/20 09/06/20 History Simvastatin 20 mg PO BID 09/09/20 09/09/20 Unknown History Active Medications: Generic Name Dose Route Start Last Admin Trade Name Freq PRN Reason Stop Dose Admin Acetaminophen 650 mg 09/08/20 20:19 Acetaminophen 325 Mg Tab PO Q4H PRN Pain MILD(1-3)/Fever >100.5/THOMPSON Hydrocodone Bitart/Acetaminophen 1 each 09/09/20 09:00 Hydrocodone/Acetaminophen 5-325 Mg Tab PO Q8H PRN Pain, Moderate (4-6) Amlodipine Besylate 2.5 mg 09/11/20 10:00 Amlodipine 5 Mg Tab PO QDAY LOS Bisacodyl 10 mg 09/08/20 20:36 Bisacodyl 10 Mg Rect Supp [place] QDAY PRN Constipation Bisacodyl 5 mg 09/08/20 20:37 Bisacodyl 5 Mg Tab PO QDAY PRN Constipation Brimonidine/Timolol 1 drops 09/10/20 22:00 09/11/20 10:20 Combigan 0.2-0.5% Ophth Soln OU 1 drops Q12HR LOS Administration Dextrose 50 ml 09/08/20 20:19 Dextrose 50% In Water (25gm) 50 Ml Syringe IV Q30MIN PRN Hypoglycemia Protocol Docusate Sodium 100 mg 09/08/20 22:00 09/10/20 22:17 Docusate Sodium 100 Mg Cap PO 100 mg BID LOS Administration Ferrous Sulfate 325 mg 09/08/20 22:00 09/10/20 22:17 Ferrous Sulfate 325 Mg Tab PO 325 mg BID LOS Administration Hydralazine HCl 10 mg 09/11/20 08:02 Hydralazine 20 Mg/1 Ml Inj IV Q4HR PRN Hypertension Insulin Glargine 10 units 09/08/20 21:00 09/10/20 22:18 Insulin Glargine 100 Units/Ml SUB-Q 10 units QHS LOS Administration Insulin Human Lispro 0 unit 09/08/20 22:00 09/10/20 22:18 Insulin Lispro 100 Unit/Ml SUB-Q 2 unit ACHS LOS Administration Protocol Latanoprost 1 drops 09/10/20 18:00 09/10/20 17:32 Latanoprost 0.005% Ophth Soln 2.5 Ml OU 1 drops QPM LOS Administration Levofloxacin 250 mg 09/09/20 10:00 09/10/20 09:54 Levofloxacin 250 Mg Tab PO 09/14/20 09:59 250 mg Q24HR LOS Administration Protocol Ondansetron HCl 4 mg 09/08/20 20:36 Ondansetron 4 Mg Odt Tab PO Q8H PRN Nausea And Vomiting Pantoprazole Sodium 20 mg 09/09/20 09:00 09/09/20 21:47 Pantoprazole 20 Mg Tab PO 20 mg QDAC PRN Administration Indigestion
[2020-09-11] MEDS: LATANOPROST 0.005% OPHTH SOLN 2.5 ML OU SCH (18:23)
[2020-09-11] MEDS: amLODIPine 5 MG TAB PO SCH (21:26)
[2020-09-11] MEDS: levoFLOXacin 250 MG TAB PO SCH (21:29)
[2020-09-11] MEDS: PANTOPRAZOLE 20 MG TAB PO PRN (21:42)
[2020-09-11] MEDS: INSULIN GLARGINE 100 UNITS/ML SUB-Q SCH (23:29)
[2020-09-12] MEDS: INSULIN LISPRO 100 UNIT/ML SUB-Q SCH ×5 (03:26→22:16)
[2020-09-12] MEDS: amLODIPine 5 MG TAB PO SCH (07:40)
[2020-09-12] MEDS: levoFLOXacin 250 MG TAB PO SCH ×2 (08:09→11:34)
[2020-09-12] MEDS: DOCUSATE SODIUM 100 MG CAP PO SCH ×2 (08:09→22:14)
[2020-09-12] MEDS: FERROUS SULFATE 325 MG TAB PO SCH ×2 (08:09→22:14)
[2020-09-12] MEDS ORDERED: SODIUM CHLORIDE 0.9% 500 ML 500 ML IV SCH (09:00)
--- NOTE | 2020-09-12 09:40 | Progress Note ---
Assessment and Plan Assessment: S/P Excison of Right AVF End Stage Renal Disease Hypotension Diabetes Mellitus Weakness Plan: s/p HD yesterday, no HD today S/p Excision of Infected Right Upper Extremity AV Fistula by Dr Hood Mederos (vascular surgeon) on 09/02/20 Weakness-In rehab therapy Fluid restriction of 1 liter per day Renally dose medications Strict I&O monitoring Assess dialysis needs daily Subjective Date of service: 09/12/20 Principal diagnosis: Debility Interval history: Tolerated HD yesterday. NAD. Objective - Exam Narrative Exam: General appearance: well-developed, appears stated age EENT: ATNC, PERRL, hearing intact, vision intact Neck: no JVD, supple Respiratory: Present: Decreased Breath Sounds Cardiology: S1S2 Gastrointestinal: normoactive bowel sounds Integumentary: warm and dry Neurologic: alert and oriented x3 Musculoskeletal: joint swelling, other Psychiatric: cooperative - Vital Signs Vital signs: Vital Signs - 12hr 09/12/20 09/12/20 09/12/20 07:34 08:23 08:30 Temperature 98.2 F Pulse Rate 78 84 Respiratory 18 Rate Blood Pressure 115/35 Blood Pressure 117/59 [Right] O2 Sat by Pulse 100 100 Oximetry - Lab 09/09/20 06:58 09/12/20 12:17 Most recent lab results Calcium 9.3 mg/dL (8.4-10.2) 09/11/20 04:09 Medications & Allergies - Medications Allergies/Adverse Reactions: Allergies No Known Allergies Allergy (Unverified 09/12/16 14:54) Home Medications: Home Medications Medication Instructions Recorded Confirmed Last Taken Type Acetaminophen [Acetaminophen TAB] 650 mg PO Q4H PRN tablet 10/12/19 09/09/20 09/07/20 20:00 Rx Insulin Lispro [Humalog] 0 unit SUB-Q Q6HR vial 10/12/19 09/09/20 09/08/20 22:00 Rx Insulin Lispro [Humalog] See Protocol SUB-Q ACHS 30 Days #1 10/12/19 09/09/20 09/08/20 22:00 Rx vial Insulin Detemir [Levemir Flextouch] 8 unit SQ QHS 09/03/20 09/09/20 08/31/20 20:00 History Gabapentin [Neurontin] 300 mg PO Q8HR 0709/09/20 09/06/20 History Simvastatin 20 mg PO BID 09/09/20 09/09/20 Unknown History Active Medications: Generic Name Dose Route Start Last Admin Trade Name Ulissesq PRN Reason Stop Dose Admin Acetaminophen 650 mg 09/08/20 20:19 Acetaminophen 325 Mg Tab PO Q4H PRN Pain MILD(1-3)/Fever >100.5/THOMPSON Hydrocodone Bitart/Acetaminophen 1 each 09/09/20 09:00 Hydrocodone/Acetaminophen 5-325 Mg Tab PO Q8H PRN Pain, Moderate (4-6) Bisacodyl 10 mg 09/08/20 20:36 Bisacodyl 10 Mg Rect Supp [place] QDAY PRN Constipation Bisacodyl 5 mg 09/08/20 20:37 Bisacodyl 5 Mg Tab PO QDAY PRN Constipation Brimonidine/Timolol 1 drops 09/10/20 22:00 09/11/20 21:32 Combigan 0.2-0.5% Ophth Soln OU 1 drops Q12HR LOS Administration Dextrose 50 ml 09/08/20 20:19 Dextrose 50% In Water (25gm) 50 Ml Syringe IV Q30MIN PRN Hypoglycemia Protocol Docusate Sodium 100 mg 09/08/20 22:00 09/12/20 08:09 Docusate Sodium 100 Mg Cap PO 100 mg BID LOS Administration Ferrous Sulfate 325 mg 09/08/20 22:00 09/12/20 08:09 Ferrous Sulfate 325 Mg Tab PO 325 mg BID LOS Administration Hydralazine HCl 10 mg 09/11/20 08:02 Hydralazine 20 Mg/1 Ml Inj IV Q4HR PRN Hypertension Sodium Chloride 500 mls @ 75 mls/hr 09/12/20 09:00 Nacl 0.9% 500 Ml IV 09/12/20 15:39 DIRECT LOS Insulin Glargine 10 units 09/08/20 21:00 09/11/20 23:29 Insulin Glargine 100 Units/Ml SUB-Q 10 units QHS LOS Administration Insulin Human Lispro 0 unit 09/08/20 22:00 09/12/20 08:00 Insulin Lispro 100 Unit/Ml SUB-Q Not Given ACHS LOS Protocol Latanoprost 1 drops 09/10/20 18:00 09/11/20 18:23 Latanoprost 0.005% Ophth Soln 2.5 Ml OU 1 drops QPM LOS Administration Levofloxacin 250 mg 09/09/20 10:00 09/12/20 08:09 Levofloxacin 250 Mg Tab PO 09/14/20 09:59 250 mg Q24HR LOS Administration Protocol Ondansetron HCl 4 mg 09/08/20 20:36 Ondansetron 4 Mg Odt Tab PO Q8H PRN Nausea And Vomiting Pantoprazole Sodium 20 mg 09/09/20 09:00 09/11/20 21:42 Pantoprazole 20 Mg Tab PO 20 mg QDAC PRN Administration Indigestion
[2020-09-12] MEDS: COMBIGAN 0.2-0.5% OPHTH SOLN OU SCH ×2 (11:34→22:18)
[2020-09-12] MEDS: LATANOPROST 0.005% OPHTH SOLN 2.5 ML OU SCH (17:39)
[2020-09-12] MEDS: INSULIN GLARGINE 100 UNITS/ML SUB-Q SCH (22:12)
[2020-09-13] MEDS: INSULIN LISPRO 100 UNIT/ML SUB-Q SCH ×4 (07:22→21:55)
[2020-09-13] MEDS: COMBIGAN 0.2-0.5% OPHTH SOLN OU SCH ×3 (08:13→21:57)
[2020-09-13] MEDS: FERROUS SULFATE 325 MG TAB PO SCH ×2 (08:15→21:53)
[2020-09-13] MEDS: DOCUSATE SODIUM 100 MG CAP PO SCH ×2 (08:15→21:54)
[2020-09-13] MEDS: levoFLOXacin 250 MG TAB PO SCH ×2 (08:15→10:00)
--- NOTE | 2020-09-13 10:34 | Progress Note ---
Assessment and Plan Assessment: S/P Excison of Right AVF End Stage Renal Disease Hypotension Diabetes Mellitus Weakness Plan: s/p HD Monday, no HD today S/p Excision of Infected Right Upper Extremity AV Fistula by Dr Hood Medreos (v ascular surgeon) on 09/02/20 Weakness-In rehab therapy Fluid restriction of 1 liter per day Renally dose medications Strict I&O monitoring Assess dialysis needs daily Subjective Date of service: 09/13/20 Principal diagnosis: Debility Interval history: Tolerated HD monday. NAD. Objective - Exam Narrative Exam: General appearance: well-developed, appears stated age EENT: ATNC, PERRL, hearing intact, vision intact Neck: no JVD, supple Respiratory: Present: Decreased Breath Sounds Cardiology: S1S2 Gastrointestinal: normoactive bowel sounds Integumentary: warm and dry Neurologic: alert and oriented x3 Musculoskeletal: joint swelling, other Psychiatric: cooperative - Vital Signs Vital signs: Vital Signs - 12hr 09/12/20 09/13/20 09/13/20 23:42 04:57 07:30 Temperature 98.6 F 98.1 F Pulse Rate 79 83 85 Respiratory 20 20 Rate Blood Pressure 151/56 Blood Pressure 140/68 [Right] O2 Sat by Pulse 100 100 98 Oximetry - Lab 09/09/20 06:58 09/12/20 12:17 Most recent lab results Calcium 10.0 mg/dL (8.4-10.2) 09/12/20 12:17 Medications & Allergies - Medications Allergies/Adverse Reactions: Allergies No Known Allergies Allergy (Unverified 09/12/16 14:54) Home Medications: Home Medications Medication Instructions Recorded Confirmed Last Taken Type Acetaminophen [Acetaminophen TAB] 650 mg PO Q4H PRN tablet 10/12/19 09/09/20 09/07/20 20:00 Rx Insulin Lispro [Humalog] 0 unit SUB-Q Q6HR vial 10/12/19 09/09/20 09/08/20 22:00 Rx Insulin Lispro [Humalog] See Protocol SUB-Q ACHS 30 Days #1 10/12/19 09/09/20 09/08/20 22:00 Rx vial Insulin Detemir [Levemir Flextouch] 8 unit SQ QHS 09/03/20 09/09/20 08/31/20 20:00 History Gabapentin [Neurontin] 300 mg PO Q8HR 09/09/20 09/09/20 09/06/20 History Simvastatin 20 mg PO BID 09/09/20 09/09/20 Unknown History Active Medications: Generic Name Dose Route Start Last Admin Trade Name Freq PRN Reason Stop Dose Admin Acetaminophen 650 mg 09/08/20 20:19 Acetaminophen 325 Mg Tab PO Q4H PRN Pain MILD(1-3)/Fever >100.5/THOMPSON Hydrocodone Bitart/Acetaminophen 1 each 09/09/20 09:00 Hydrocodone/Acetaminophen 5-325 Mg Tab PO Q8H PRN Pain, Moderate (4-6) Bisacodyl 10 mg 09/08/20 20:36 Bisacodyl 10 Mg Rect Supp [place] QDAY PRN Constipation Bisacodyl 5 mg 09/08/20 20:37 Bisacodyl 5 Mg Tab PO QDAY PRN Constipation Brimonidine/Timolol 1 drops 09/10/20 22:00 09/13/20 08:13 Combigan 0.2-0.5% Ophth Soln OU 1 drops Q12HR LOS Administration Dextrose 50 ml 09/08/20 20:19 Dextrose 50% In Water (25gm) 50 Ml Syringe IV Q30MIN PRN Hypoglycemia Protocol Docusate Sodium 100 mg 09/08/20 22:00 09/13/20 08:15 Docusate Sodium 100 Mg Cap PO 100 mg BID LOS Administration Ferrous Sulfate 325 mg 09/08/20 22:00 09/13/20 08:15 Ferrous Sulfate 325 Mg Tab PO 325 mg BID LOS Administration Hydralazine HCl 10 mg 09/11/20 08:02 Hydralazine 20 Mg/1 Ml Inj IV Q4HR PRN Hypertension Insulin Glargine 10 units 09/08/20 21:00 09/12/20 22:12 Insulin Glargine 100 Units/Ml SUB-Q 10 units QHS LOS Administration Insulin Human Lispro 0 unit 09/08/20 22:00 09/13/20 07:22 Insulin Lispro 100 Unit/Ml SUB-Q Not Given ACHS LOS Protocol Latanoprost 1 drops 09/10/20 18:00 09/12/20 17:39 Latanoprost 0.005% Ophth Soln 2.5 Ml OU 1 drops QPM LOS Administration Levofloxacin 250 mg 09/09/20 10:00 09/13/20 08:15 Levofloxacin 250 Mg Tab PO 09/14/20 09:59 250 mg Q24HR LOS Administration Protocol Ondansetron HCl 4 mg 09/08/20 20:36 Ondansetron 4 Mg Odt Tab PO Q8H PRN Nausea And Vomiting Pantoprazole Sodium 20 mg 09/09/20 09:00 09/11/20 21:42 Pantoprazole 20 Mg Tab PO 20 mg QDAC PRN Administration Indigestion
[2020-09-13] MEDS: INSULIN GLARGINE 100 UNITS/ML SUB-Q SCH (21:54)
[2020-09-13] MEDS: PANTOPRAZOLE 20 MG TAB PO PRN (21:54)
[2020-09-13] MEDS: LATANOPROST 0.005% OPHTH SOLN 2.5 ML OU SCH (21:57)
[2020-09-14] MEDS: FERROUS SULFATE 325 MG TAB PO SCH ×2 (08:09→21:51)
[2020-09-14] MEDS: COMBIGAN 0.2-0.5% OPHTH SOLN OU SCH ×3 (08:09→21:53)
[2020-09-14] MEDS: INSULIN LISPRO 100 UNIT/ML SUB-Q SCH ×4 (08:09→21:55)
[2020-09-14] MEDS: DOCUSATE SODIUM 100 MG CAP PO SCH ×2 (08:09→21:51)
--- NOTE | 2020-09-14 09:02 | Progress Note ---
Subjective Date of service: 09/14/20 Principal diagnosis: Debility Interval history: 65-year-old male who developed a bleed on his right upper extremity AV fistula site. 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 Patient was admitted and was febrile, blood cultures were taken and showed GPC's. Infectious disease started the patient on antibiotics. Initially a pressure bandage was utilized to control bleeding however the patient continued to bleed through the dressing. He was prepped for surgery by vascular surgery for excision of the pseudoaneurysm and ligation which occurred on 09/02/2020. Patient underwent surgery without any complications and was noted to have increased debility afterwards. Patient does live alone and after being evaluated by therapy was determined to be a good candidate for participation in a short-term acute inpatient rehabilitation stay. Interval History: Patient is participating in therapy and making reasonable progress. Taking rest breaks as needed. -BM. Pain well controlled currently. Denies palpitations, dyspnea, cough, N/V, or joint pain. Tolerating therapy, making some improvements with endurance but is still having issues with desaturation during activity. Infected AV fistula: Continue antibiotics until complete, no signs of wound dehiscence or appearance of infection. Wound nurse consulted End-stage renal disease on hemodialysis: Appreciate nephrology consult, continue hemodialysis and afternoons on Monday/Monday/Monday, renal diet and avoid nephrotoxic medications Dyspnea on exertion: Continue supplemental oxygen and rest breaks as needed Diabetes: Continue carb controlled diet, sliding scale insulin, and basal insulin dosing. Adjust as needed for euglycemia. Blood glucose variable Hypertension: Over the weekend, the patient has had early variable blood pre ssure values. At times and after looking over his entire stay he does have diastolic values that are less than 40. Systolic values range from 90-190. I question the validity of some of these values as the patient is not symptomatic when he has these readings, may be related to numerous ligated fistulas in extremities. As needed hydralazine ordered. Goal less than 140/90 Obstructive sleep apnea: Continue use of CPAP at night Glaucoma: No issues currently with worsening vision. Debility with decreased mobility and ability to perform ADLs: Continue therapy to improve patient's ability to ambulate safely and provide for his own ADLs without assistance from others. All records, vitals, labs and medications were reviewed. No other issues per patient, nursing or therapy. Objective - Exam Narrative Exam: MUSCULOSKELETAL SPECIALTY EXAM CONSTITUTIONAL: Well developed, well nourished, appropriately groomed, obese RESPIRATORY: Clear to auscultation bilaterally, no increased work of breathing CARDIOVASCULAR: Regular Rate/ Rhythm, right lower extremity swelling with no pitting edema, otherwise no swelling, edema or tenderness in BUE or BLE. All extremities warm. GI: + bowel sounds, soft, NTTP, nondistended. INTEGUMENTARY: Right upper extremity surgical site clean dry and intact with annita, scars on other limbs from vascular access surgeries, otherwise normal, no lesion, rash, masses or bruising noted in extremities. MUSCULOSKELETAL: BUE and BLE normal without defect, crepitus, subluxation, effusion, arthritic changes or TTP. BUE 4+/5, good ROM, with normal tone. BLE 3 - 4-/5 decreased ROM, with normal tone NEURO: Sensation intact in all extremities. No tremor noted in 4 extremities. POSTURE and GAIT: Sitting posture good. Balance and gait deferred until seen with therapy due to safety. PSYCH: Alert, oriented x3, affect appears normal. Insight appears intact. - Constitutional Vitals: Vital Signs - 12hr 09/14/20 09/14/20 09/14/20 04:51 07:13 07:14 Temperature 97.9 F Pulse Rate 77 70 69 Respiratory 18 Rate Blood Pressure 136/52 129/43 O2 Sat by Pulse 100 100 100 Oximetry - Allied health notes Allied health notes reviewed: nursing, PT, OT FIMS assessment as documented by PT/OT/ST: Grooming Patient cleans teeth/dentures: Yes Patient guzman/brushes hair: Yes Patient washes, rinses and Yes dries face: Patient washes, rinses and Yes dries hands: Patient shaves: No Patient performs (no make-up/ 05/24 (100%) shaving): Toileting Toileting Device Commode over Toilet Patient able to: Adjust clothes before,Adjust clothes after Patient able to perform: 2/3 (67%) Toileting FIM Score 3. Moderate Assistance (Patient = 50% or more. Some lifting.) Social interaction/Memory/Problem solving Social Interaction FIM Score 7. Complete Success (Interacts appropriately. Controls temper.) Memory FIM Score 7. Complete Success (Remembers people and routines.) Problem Solving FIM Score 7. Complete Success (Solves complex problems. Self corrects.) Transfers Mode of Locomotion: Wheelchair Bed/Chair/Wheelchair Transfers 5. Supervision (Needs supv. or set-up for FIM Score sliding board, foot rests.) Patient transferred to: Shower Shower Transfers FIM Score 3. Moderate Assistance (Patient = 50% or more. Some lifting.) Locomotion- walk/wheelchair Ambulation Distance 45 Eating Eating FIM Score 6. Modified Success (Special consistency or uses device.) Dressing-Upper body Patient retrieves clothing No items: Patient applies/removes UE No: n/a prosthesis or orthosis: Upper Body Dressing FIM Score 4. Minimal Assistance (Patient = 75% or more. Needs touching.) Dressing-lower body Lower Body Dressing Device [place] Patient retrieves clothing No items: Patient applies/removes LE n/a prosthesis or orthosis: Lower Body Dressing FIM Score 4. Minimal Assistance (Patient = 75% or more. Needs touching.) - Labs CBC & Chem 7: 09/09/20 06:58 09/12/20 12:17 Labs: Laboratory Results - last 72 hr 09/11/20 09/11/20 09/11/20 11:09 18:43 21:43 Sodium Potassium Chloride Carbon Dioxide Anion Gap BUN Creatinine Estimated GFR BUN/Creatinine Ratio Glucose POC Glucose 153 H 167 H 217 H Calcium 09/12/20 09/12/20 09/12/20 07:35 11:08 12:17 Sodium 134 L Potassium 3.7 Chloride 90.8 L Carbon Dioxide 29 Anion Gap 18 BUN 27 H Creatinine 5.4 H Estimated GFR 13 BUN/Creatinine Ratio 5 Glucose 155 H POC Glucose 118 H 136 H Calcium 10.0 09/12/20 09/12/20 09/13/20 15:59 20:58 07:17 Sodium Potassium Chloride Carbon Dioxide Anion Gap BUN Creatinine Estimated GFR BUN/Creatinine Ratio Glucose POC Glucose 177 H 206 H 84 Calcium 09/13/20 09/13/20 09/13/20 11:05 15:57 20:11 Sodium Potassium Chloride Carbon Dioxide Anion Gap BUN Creatinine Estimated GFR BUN/Creatinine Ratio Glucose POC Glucose 149 H 160 H 186 H Calcium 09/14/20 07:12 Sodium Potassium Chloride Carbon Dioxide Anion Gap BUN Creatinine Estimated GFR BUN/Creatinine Ratio Glucose POC Glucose 78 Calcium Assessment and Plan Infected AV fistula: We will continue Levaquin 250 mg daily x5 days per ID recommendations. Monitor for any further signs of infection. Monitor WBCs. End-stage renal disease on hemodialysis: Consult nephrology for management. Hemodialysis on Monday in the afternoons due to the patient being on IRU. Renally dose all medications. Continue renal diet Diabetes: Continue medications, sliding scale insulin and monitor for euglycemia. Carb controlled/renal diet Dyspnea with exertion: Continue supplemental oxygen as needed, rest breaks for recovery. Hypertension: Blood pressure is variable, patient mostly asymptomatic. Have started as needed hydralazine. Goal is less than 140/90. Obstructive sleep apnea: Continue CPAP at night. Monitor for any signs or issues that need to be addressed. RT consult Glaucoma: Patient states that he is now missed his follow-up with his dental office manager due to hospitalization. I was able to speak with the office of the dental office manager and have restarted the patient on his prescribed medications. ADL dysfunction: OT will work on improving ability to perform ADLs (including assistive devices) to increase independence and decrease caregiver burden and improve functional transfers and mobility training. Difficulty walking: PT will work on gait training and proper use of assistive devices and advance as appropriate to use of stairs and outside ambulation on uneven surfaces. Unsteadiness on feet: PT will work on improving static and dynamic sitting and standing balance as well as proper use of assistive devices to decrease risk of falls. Abnormality of gait: PT will work to improve safety and efficiency of gait through neuromotor training and gait training along with instruction on proper use of assistive devices. Muscle weakness: PT & OT will work on strengthening exercises to improve functional strength including mixture of closed and open kinetic chain exercises. Debility: PT & OT will work on improving overall functional status to improve participation with ADLs, mobility and social involvement. Fatigue: PT & OT will work on improving endurance through aerobic exercises and therapeutic activity while monitoring patients tolerance for activity and vital signs as needed. DVT ppx: Heparin started Pain: Continue physical modalities in therapy and pain medications as needed to achieve functional pain control. Sleep: Monitor and address as needed. Bowel: Monitor and address as needed. Appetite: Monitor and address as needed. Discharge planning: Pending therapy progress and care plan meeting. Will continue discussion with therapy team, SW, patient and family. Restrictions/ Precautions: Falls WB status: FWB Functional Hx: ADLs: Independent Cognition: Independent Mobility: Cane Barriers to Discharge: Decreased mobility and ability to perform self care, balance deficits, weakness Estimated Length of Stay: 710 days Discharge Destination: Home with family
--- NOTE | 2020-09-14 12:00 | Progress Note ---
Assessment and Plan Assessment: S/P Excison of Right AVF End Stage Renal Disease Hypotension Diabetes Mellitus Weakness Plan: Hemodialysis today for UF and clearance via Left AVF S/p Excision of Infected Right Upper Extremity AV Fistula by Dr Hood Mederos (vascular surgeon) on 09/02/20 Weakness-In rehab therapy Fluid restriction of 1 liter per day Renally dose medications Strict I&O monitoring Assess dialysis needs daily Subjective Date of service: 09/14/20 Principal diagnosis: Debility Interval history: Patient seen sitting up in chair eating lunch. Objective - Vital Signs Vital signs: Vital Signs - 12hr 09/14/20 09/14/20 09/14/20 04:51 07:13 07:14 Temperature 97.9 F Pulse Rate 77 70 69 Respiratory 18 Rate Blood Pressure 136/52 129/43 O2 Sat by Pulse 100 100 100 Oximetry - General Appearance General appearance: well-developed, appears stated age EENT: ATNC, PERRL, hearing intact, vision intact Neck: no JVD, supple Respiratory: Present: Decreased Breath Sounds Cardiology: S1S2 Gastrointestinal: normoactive bowel sounds Integumentary: warm and dry Neurologic: alert and oriented x3 Musculoskeletal: other (positive edema-chronic, has lymphedema) Psychiatric: cooperative - Lab 09/09/20 06:58 09/12/20 12:17 Most recent lab results Calcium 10.0 mg/dL (8.4-10.2) 09/12/20 12:17 Medications & Allergies - Medications Allergies/Adverse Reactions: Allergies No Known Allergies Allergy (Unverified 09/12/16 14:54) Home Medications: Home Medications Medication Instructions Recorded Confirmed Last Taken Type Acetaminophen [Acetaminophen TAB] 650 mg PO Q4H PRN tablet 10/12/19 09/09/20 09/07/20 20:00 Rx Insulin Lispro [Humalog] 0 unit SUB-Q Q6HR vial 10/12/19 09/09/20 09/08/20 22:00 Rx Insulin Lispro [Humalog] See Protocol SUB-Q ACHS 30 Days #1 10/12/19 09/09/20 09/08/20 22:00 Rx vial Insulin Detemir [Levemir Flextouch] 8 unit SQ QHS 09/03/20 09/09/20 08/31/20 20 :00 History Gabapentin [Neurontin] 300 mg PO Q8HR 09/09/20 09/09/20 09/06/20 History Simvastatin 20 mg PO BID 09/09/20 09/09/20 Unknown History Active Medications: Generic Name Dose Route Start Last Admin Trade Name Freq PRN Reason Stop Dose Admin Acetaminophen 650 mg 09/08/20 20:19 Acetaminophen 325 Mg Tab PO Q4H PRN Pain MILD(1-3)/Fever >100.5/[place]PS[place] Hydrocodone Bitart/Acetaminophen 1 each 09/09/20 09:00 Hydrocodone/Acetaminophen 5-325 Mg Tab PO Q8H PRN Pain, Moderate (4-6) Bisacodyl 10 mg 09/08/20 20:36 Bisacodyl 10 Mg Rect Supp [place] QDAY PRN Constipation Bisacodyl 5 mg 09/08/20 20:37 Bisacodyl 5 Mg Tab PO QDAY PRN Constipation Brimonidine/Timolol 1 drops 09/10/20 22:00 09/14/20 08:09 Combigan 0.2-0.5% Ophth Soln OU 1 drops Q12HR LOS Administration Dextrose 50 ml 09/08/20 20:19 Dextrose 50% In Water (25gm) 50 Ml Syringe IV Q30MIN PRN Hypoglycemia Protocol Docusate Sodium 100 mg 09/08/20 22:00 09/14/20 08:09 Docusate Sodium 100 Mg Cap PO 100 mg BID LOS Administration Ferrous Sulfate 325 mg 09/08/20 22:00 09/14/20 08:09 Ferrous Sulfate 325 Mg Tab PO 325 mg BID LOS Administration Heparin Sodium (Porcine) 5,000 unit 09/14/20 14:00 Heparin 5,000 Unit/1 Ml Vial SUB-Q Q8HR [facility] Hydralazine HCl 10 mg 09/11/20 08:02 Hydralazine 20 Mg/1 Ml Inj IV Q4HR PRN Hypertension Insulin Glargine 10 units 09/08/20 21:00 09/13/20 21:54 Insulin Glargine 100 Units/Ml SUB-Q 10 units QHS LOS Administration Insulin Human Lispro 0 unit 09/08/20 22:00 09/14/20 08:09 Insulin Lispro 100 Unit/Ml SUB-Q Not Given ACHS [facility] Protocol Latanoprost 1 drops 09/10/20 18:00 09/13/20 21:57 Latanoprost 0.005% Ophth Soln 2.5 Ml OU 1 drops QPM LOS Administration Ondansetron HCl 4 mg 09/08/20 20:36 Ondansetron 4 Mg Odt Tab PO Q8H PRN Nausea And Vomiting Pantoprazole Sodium 20 mg 09/09/20 09:00 09/13/20 21:54 Pantoprazole 20 Mg Tab PO 20 mg QDAC PRN Administration Indigestion
[2020-09-14] MEDS: PANTOPRAZOLE 20 MG TAB PO PRN (12:22)
[2020-09-14] MEDS: HEPARIN 5,000 UNIT/1 ML VIAL SUB-Q SCH ×2 (15:54→21:51)
[2020-09-14] MEDS: INSULIN GLARGINE 100 UNITS/ML SUB-Q SCH (21:52)
[2020-09-14] MEDS: LATANOPROST 0.005% OPHTH SOLN 2.5 ML OU SCH (21:53)
[2020-09-15] MEDS: HEPARIN 5,000 UNIT/1 ML VIAL SUB-Q SCH ×3 (06:55→22:15)
--- NOTE | 2020-09-15 08:12 | Progress Note ---
Subjective Date of service: 09/15/20 Principal diagnosis: Debility Interval history: 65-year-old male who developed a bleed on his right upper extremity AV fistula site. 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 Patient was admitted and was febrile, blood cultures were taken and showed GPC's. Infectious disease started the patient on antibiotics. Initially a pressure bandage was utilized to control bleeding however the patient continued to bleed through the dressing. He was prepped for surgery by vascular surgery for excision of the pseudoaneurysm and ligation which occurred on 09/02/2020. Patient underwent surgery without any complications and was noted to have increased debility afterwards. Patient does live alone and after being evaluated by therapy was determined to be a good candidate for participation in a short-term acute inpatient rehabilitation stay. Interval History: Patient is participating in therapy and making reasonable progress. Taking rest breaks as needed. +BM. Pain well controlled currently. Denies palpitations, dyspnea, cough, N/V, or joint pain but does have dyspnea on exertion. Tolerating therapy, making some improvements with endurance. Infected AV fistula: Continue antibiotics until complete, no signs of wound dehiscence or appearance of infection. Wound nurse consulted. Follow-up with vascular surgery next week for possible staple removal. Will consult them to see patient in house End-stage renal disease on hemodialysis: Appreciate nephrology consult, continue hemodialysis and afternoons on Monday/Monday/Monday, renal diet and avoid nephrotoxic medications Dyspnea on exertion: Continue supplemental oxygen and rest breaks as needed Diabetes: Continue carb controlled diet, sliding scale insulin, and basal insulin dosing. Adjust as needed for euglycemia. Blood glucose variable Hypertension: Blood pressure has been variable however patient has been fairly asymptomatic from any of the hypotensive episodes. As needed hydralazine ordered. Goal less than 140/90 Obstructive sleep apnea: Continue use of CPAP at night Glaucoma: No issues currently with worsening vision. Debility with decreased mobility and ability to perform ADLs: Continue therapy to improve patient's ability to ambulate safely and provide for his own ADLs without assistance from others. All records, vitals, labs and medications were reviewed. No other issues per patient, nursing or therapy. Patient discussed during team conference. He is making fair progress with therapy. Blood pressures have been slightly erratic and discussed with nursing today about checking them at the same place on the patient. Patient is walking approximately 50 feet with a rolling walker but does experience desaturation with this. Will evaluate him for oxygen prior to discharge and likely discharge him home with supplemental oxygen to use during activities. We will look to discharge patient home on 09/23. Patient will need to go home with a rolling walker, he states that he owns a 3 in 1 which is still in the box and unused. Objective - Exam Narrative Exam: MUSCULOSKELETAL SPECIALTY EXAM CONSTITUTIONAL: Well developed, well nourished, appropriately groomed, obese RESPIRATORY: Clear to auscultation bilaterally, no increased work of breathing at rest CARDIOVASCULAR: Regular Rate/ Rhythm, right lower extremity swelling with no pitting edema, otherwise no swelling, edema or tenderness in BUE or BLE. All extremities warm. GI: + bowel sounds, soft, NTTP, nondistended. INTEGUMENTARY: Right upper extremity surgical site clean dry and intact with annita, scars on other limbs from vascular access surgeries, otherwise normal, no lesion, rash, masses or bruising noted in extremities. MUSCULOSKELETAL: BUE and BLE normal without defect, crepitus, subluxation, effusion, arthritic changes or TTP. BUE 4+/5, good ROM, with normal tone. BLE 4-/5 decreased ROM, with normal tone NEURO: Sensation intact in all extremities. No tremor noted in 4 extremities. POSTURE and GAIT: Sitting posture good. PSYCH: Alert, oriented x3, affect appears normal. Insight appears intact. - Constitutional Vitals: Vital Signs - 12hr 09/14/20 09/14/20 09/14/20 20:46 21:00 22:00 Temperature 98.1 F Pulse Rate 81 Pulse Rate [ 18 L Left Radial] Respiratory 18 17 Rate Respiratory 17 Rate [R arm] Blood Pressure 153/43 O2 Sat by Pulse 100 96 99 Oximetry 09/15/20 02:00 Temperature Pulse Rate Pulse Rate [ Left Radial] Respiratory Rate Respiratory Rate [R arm] Blood Pressure O2 Sat by Pulse 100 Oximetry - Allied health notes Allied health notes reviewed: nursing, PT, OT FIMS assessment as documented by PT/OT/ST: Grooming Patient cleans teeth/dentures: Yes Patient guzman/brushes hair: Yes Patient washes, rinses and Yes dries face: Patient washes, rinses and Yes dries hands: Patient shaves: No Patient performs (no make-up/ 05/24 (100%) shaving): Grooming FIM Score 5. Supervision ([place] applies toothpaste or opens containers.) Toileting Toileting Device Commode over Toilet Patient able to: Adjust clothes before,Clean self,Adjust clothes after Patient able to perform: 3/3 (100%) Toileting FIM Score 4. Minimal Assistance (Patient = 75% or more. Needs touching.) Social interaction/Memory/Problem solving Social Interaction FIM Score 7. Complete [place] (Interacts appropriately. Controls temper.) Memory FIM Score 7. Complete [place] (Remembers people and routines.) Problem Solving FIM Score 7. Complete [place] (Solves complex problems. Self corrects.) Transfers Mode of Locomotion: Wheelchair Bed/Chair/Wheelchair Transfers 5. Supervision (Needs supv. or set-up for FIM Score sliding board, foot rests.) Toilet Transfers FIM Score 5. Supervision (Needs supervision or cueing.) Patient transferred to: Shower Shower Transfers FIM Score 3. Moderate Assistance (Patient = 50% or more. Some lifting.) Locomotion- walk/wheelchair Ambulation Distance 45 Eating Eating FIM Score 6. Modified [place] (Special consistency or uses device.) Dressing-Upper body Patient retrieves clothing Yes items: Patient applies/removes UE No: n/a prosthesis or orthosis: Upper Body Dressing FIM Score 4. Minimal Assistance (Patient = 75% or more. Needs touching.) Dressing-lower body Lower Body Dressing Device [place] Patient retrieves clothing Yes items: Patient applies/removes LE n/a prosthesis or orthosis: Lower Body Dressing FIM Score 4. Minimal Assistance (Patient = 75% or more. Needs touching.) - Labs CBC & Chem 7: 09/09/20 06:58 09/12/20 12:17 Labs: Laboratory Results - last 72 hr 09/12/20 09/12/20 09/12/20 11:08 12:17 15:59 Sodium 134 L Potassium 3.7 Chloride 90.8 L Carbon Dioxide 29 Anion Gap 18 BUN 27 H Creatinine 5.4 H Estimated GFR 13 BUN/Creatinine Ratio 5 Glucose 155 H POC Glucose 136 H 177 H Calcium 10.0 09/12/20 09/13/20 09/13/20 20:58 07:17 11:05 Sodium Potassium Chloride Carbon Dioxide Anion Gap BUN Creatinine Estimated GFR BUN/Creatinine Ratio Glucose POC Glucose 206 H 84 149 H Calcium 09/13/20 09/13/20 09/14/20 15:57 20:11 07:12 Sodium Potassium Chloride Carbon Dioxide Anion Gap BUN Creatinine Estimated GFR BUN/Creatinine Ratio Glucose POC Glucose 160 H 186 H 78 Calcium 09/14/20 09/14/20 11:47 20:55 Sodium Potassium Chloride Carbon Dioxide Anion Gap BUN Creatinine Estimated GFR BUN/Creatinine Ratio Glucose POC Glucose 95 168 H Calcium Assessment and Plan Infected AV fistula: Antibiotics completed. Monitor for any further signs of infection. Monitor WBCs. End-stage renal disease on hemodialysis: Consult nephrology for management. Hemodialysis on Monday in the afternoons due to the patient being on IRU. Renally dose all medications. Continue renal diet Diabetes: Continue medications, sliding scale insulin and monitor for euglycemia. Carb controlled/renal diet Dyspnea with exertion: Continue supplemental oxygen as needed, rest breaks for recovery. Hypertension: Blood pressure is variable, patient mostly asymptomatic. Have started as needed hydralazine. Goal is less than 140/90. Obstructive sleep apnea: Continue CPAP at night. Monitor for any signs or issues that need to be addressed. RT consult Glaucoma: Patient states that he is now missed his follow-up with his hub borer due to hospitalization. I was able to speak with the office of the hub borer and have restarted the patient on his prescribed medications. ADL dysfunction: OT will work on improving ability to perform ADLs (including assistive devices) to increase independence and decrease caregiver burden and improve functional transfers and mobility training. Difficulty walking: PT will work on gait training and proper use of assistive devices and advance as appropriate to use of stairs and outside ambulation on uneven surfaces. Unsteadiness on feet: PT will work on improving static and dynamic sitting and standing balance as well as proper use of assistive devices to decrease risk of falls. Abnormality of gait: PT will work to improve safety and efficiency of gait through neuromotor training and gait training along with instruction on proper use of assistive devices. Muscle weakness: PT & OT will work on strengthening exercises to improve functional strength including mixture of closed and open kinetic chain exercises. Debility: PT & OT will work on improving overall functional status to improve participation with ADLs, mobility and social involvement. Fatigue: PT & OT will work on improving endurance through aerobic exercises and therapeutic activity while monitoring patients tolerance for activity and vital signs as needed. DVT ppx: Heparin started Pain: Continue physical modalities in therapy and pain medications as needed to achieve functional pain control. Sleep: Monitor and address as needed. Bowel: Monitor and address as needed. Appetite: Monitor and address as needed. Discharge planning: Pending therapy progress and care plan meeting. Will continue discussion with therapy team, SW, patient. Look to discharge on 09/23 with rolling walker Restrictions/ Precautions: Falls WB status: FWB Functional Hx: ADLs: Independent Cognition: Independent Mobility: Cane Barriers to Discharge: Decreased mobility and ability to perform self care, balance deficits, weakness Estimated Length of Stay: 710 days Discharge Destination: Home with family
[2020-09-15] MEDS: FERROUS SULFATE 325 MG TAB PO SCH ×2 (08:36→21:43)
[2020-09-15] MEDS: DOCUSATE SODIUM 100 MG CAP PO SCH ×2 (08:36→21:43)
[2020-09-15] MEDS: INSULIN LISPRO 100 UNIT/ML SUB-Q SCH ×4 (08:40→22:09)
[2020-09-15] MEDS: COMBIGAN 0.2-0.5% OPHTH SOLN OU SCH ×2 (09:48→21:44)
--- NOTE | 2020-09-15 12:25 | Progress Note ---
Assessment and Plan S/P Excison of Right AVF End Stage Renal Disease Hypotension Diabetes Mellitus Weakness Plan: no indication for HD today S/p Excision of Infected Right Upper Extremity AV Fistula by Dr Hood Mederos (vascular surgeon) on 09/02/20 Weakness-In rehab therapy Fluid restriction of 1 liter per day Renally dose medications Strict I&O monitoring Assess dialysis needs daily Subjective Date of service: 09/15/20 Principal diagnosis: Debility Interval history: tolerated HD yesterday Objective - Vital Signs Vital signs: Vital Signs - 12hr 09/15/20 09/15/20 09/15/20 02:00 08:10 12:05 Temperature 97.9 F 98.3 F Pulse Rate 75 67 Respiratory 20 20 Rate Blood Pressure 125/50 Blood Pressure 101/42 [Right] O2 Sat by Pulse 100 100 96 Oximetry - Lab 09/09/20 06:58 09/12/20 12:17 Most recent lab results Calcium 10.0 mg/dL (8.4-10.2) 09/12/20 12:17 Medications & Allergies - Medications Allergies/Adverse Reactions: Allergies No Known Allergies Allergy (Unverified 09/12/16 14:54) Home Medications: Home Medications Medication Instructions Recorded Confirmed Last Taken Type Acetaminophen [Acetaminophen TAB] 650 mg PO Q4H PRN tablet 10/12/19 09/09/20 09/07/20 20:00 Rx Insulin Lispro [Humalog] 0 unit SUB-Q Q6HR vial 10/12/19 09/09/20 09/08/20 22:00 Rx Insulin Lispro [Humalog] See Protocol SUB-Q ACHS 30 Days #1 10/12/19 09/09/20 09/08/20 22:00 Rx vial Insulin Detemir [Levemir Flextouch] 8 unit SQ QHS 09/03/20 09/09/20 08/31/20 20:00 History Gabapentin [Neurontin] 300 mg PO Q8HR 09/09/20 09/09/20 09/06/20 History Simvastatin 20 mg PO BID 09/09/20 09/09/20 Unknown History Active Medications: Generic Name Dose Route Start Last Admin Trade Name Freq PRN Reason Stop Dose Admin Acetaminophen 650 mg 09/08/20 20:19 Acetaminophen 325 Mg Tab PO Q4H PRN Pain MILD(1-3)/Fever >100.5/[place] Hydrocodone Bitart/Acetaminophen 1 each 09/09/20 09:00 Hydrocodone/Acetaminophen 5-325 Mg Tab PO Q8H PRN Pain, Moderate (4-6) Bisacodyl 10 mg 09/08/20 20:36 Bisacodyl 10 Mg Rect Supp ME QDAY PRN Constipation Bisacodyl 5 mg 09/08/20 20:37 Bisacodyl 5 Mg Tab PO QDAY PRN Constipation Brimonidine/Timolol 1 drops 09/10/20 22:00 09/15/20 09:48 Combigan 0.2-0.5% Ophth Soln OU 1 drops Q12HR LOS Administration Dextrose 50 ml 09/08/20 20:19 Dextrose 50% In Water (25gm) 50 Ml Syringe IV Q30MIN PRN Hypoglycemia Protocol Docusate Sodium 100 mg 09/08/20 22:00 09/15/20 08:36 Docusate Sodium 100 Mg Cap PO 100 mg BID LOS Administration Ferrous Sulfate 325 mg 09/08/20 22:00 09/15/20 08:36 Ferrous Sulfate 325 Mg Tab PO 325 mg BID LOS Administration Heparin Sodium (Porcine) 5,000 unit 09/14/20 14:00 09/15/20 06:55 Heparin 5,000 Unit/1 Ml Vial SUB-Q 5,000 unit Q8HR LOS Administration Hydralazine HCl 10 mg 09/11/20 08:02 Hydralazine 20 Mg/1 Ml Inj IV Q4HR PRN Hypertension Insulin Glargine 10 units 09/08/20 21:00 09/14/20 21:52 Insulin Glargine 100 Units/Ml SUB-Q 10 units QHS LOS Administration Insulin Human Lispro 0 unit 09/08/20 22:00 09/15/20 08:40 Insulin Lispro 100 Unit/Ml SUB-Q Not Given ACHS LOS Protocol Latanoprost 1 drops 09/10/20 18:00 09/14/20 21:53 Latanoprost 0.005% Ophth Soln 2.5 Ml OU 1 drops QPM LOS Administration Ondansetron HCl 4 mg 09/08/20 20:36 Ondansetron 4 Mg Odt Tab PO Q8H PRN Nausea And Vomiting Pantoprazole Sodium 20 mg 09/09/20 09:00 09/14/20 12:22 Pantoprazole 20 Mg Tab PO 20 mg QDAC PRN Administration Indigestion
[2020-09-15] MEDS: LATANOPROST 0.005% OPHTH SOLN 2.5 ML OU SCH (18:20)
[2020-09-15] MEDS: INSULIN GLARGINE 100 UNITS/ML SUB-Q SCH (21:44)
[2020-09-16] MEDS: HEPARIN 5,000 UNIT/1 ML VIAL SUB-Q SCH ×3 (06:43→22:29)
[2020-09-16 07:16] LABS: Hematocrit 24.9 % (35.5-45.6); Hemoglobin 8.2 gm/dl (11.8-15.2); Mean Corpuscular HGB Conc 33 % (32-34); Mean Corpuscular Volume 79 fl (84-94); Platelet Count 198 K/mm3 (140-440); Red Blood Count 3.16 M/mm3 (3.65-5.03); Red Cell Distribution Width 17.7 % (13.2-15.2)
[2020-09-16 07:37] LABS: Calcium 9.6 mg/dL (8.4-10.2)
[2020-09-16] MEDS: INSULIN LISPRO 100 UNIT/ML SUB-Q SCH ×4 (08:02→22:28)
[2020-09-16] MEDS: DOCUSATE SODIUM 100 MG CAP PO SCH ×2 (08:35→22:13)
[2020-09-16] MEDS: FERROUS SULFATE 325 MG TAB PO SCH ×2 (08:36→22:13)
--- NOTE | 2020-09-16 08:50 | Progress Note ---
Subjective Date of service: 09/16/20 Principal diagnosis: Debility Interval history: 65-year-old male who developed a bleed on his right upper extremity AV fistula site. 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 Patient was admitted and was febrile, blood cultures were taken and showed GPC's. Infectious disease started the patient on antibiotics. Initially a pressure bandage was utilized to control bleeding however the patient continued to bleed through the dressing. He was prepped for surgery by vascular surgery for excision of the pseudoaneurysm and ligation which occurred on 09/02/2020. Patient underwent surgery without any complications and was noted to have increased debility afterwards. Patient does live alone and after being evaluated by therapy was determined to be a good candidate for participation in a short-term acute inpatient rehabilitation stay. Interval History: Patient is participating in therapy and making reasonable progress. Taking rest breaks as needed. +BM. Pain well controlled currently. Denies palpitations, dyspnea, cough, N/V, or joint pain but does have dyspnea on exertion. Tolerating therapy, making some improvements with endurance. Infected AV fistula: Continue antibiotics until complete, no signs of wound dehiscence or appearance of infection. Dressing changed and packing replaced by nursing yesterday, clean dry and intact. Wound nurse consulted. Follow-up with vascular surgery next week for possible staple removal. Will consult them to see patient in house next week Anemia: Hemoglobin improved to 8.2. Continue iron. Likely combination of end- stage renal disease and acute blood loss End-stage renal disease on hemodialysis: Appreciate nephrology consult, continue hemodialysis and afternoons on Monday/Monday/Monday, renal diet, fluid and avoid nephrotoxic medications Dyspnea on exertion: Continue supplemental oxygen and rest breaks as needed. We will look to send home with supplemental oxygen when he discharges next week Diabetes: Continue carb controlled diet, sliding scale insulin, and basal insulin dosing. Adjust as needed for euglycemia. Blood glucose variable Hypertension: Blood pressure has been variable however patient has been fairly asymptomatic from any of the hypotensive episodes. As needed hydralazine ordered. Goal less than 140/90 Obstructive sleep apnea: Continue use of CPAP at night Glaucoma: No issues currently with worsening vision. Debility with decreased mobility and ability to perform ADLs: Continue therapy to improve patient's ability to ambulate safely and provide for his own ADLs without assistance from others. All records, vitals, labs and medications were reviewed. No other issues per patient, nursing or therapy. Objective - Exam Narrative Exam: MUSCULOSKELETAL SPECIALTY EXAM CONSTITUTIONAL: Well developed, well nourished, appropriately groomed, obese RESPIRATORY: Clear to auscultation bilaterally, no increased work of breathing at rest CARDIOVASCULAR: Regular Rate/ Rhythm, right lower extremity swelling with no pitting edema, otherwise no swelling, edema or tenderness in BUE or BLE. All extremities warm. GI: + bowel sounds, soft, NTTP, nondistended. INTEGUMENTARY: Right upper extremity surgical site clean dry and intact with annita, scars on other limbs from vascular access surgeries, otherwise normal, no lesion, rash, masses or bruising noted in extremities. MUSCULOSKELETAL: BUE and BLE normal without defect, crepitus, subluxation, effusion, arthritic changes or TTP. BUE 4+/5, good ROM, with normal tone. BLE 4-/5 decreased ROM, with normal tone NEURO: Sensation intact in all extremities. No tremor noted in 4 extremities. POSTURE and GAIT: Sitting posture good. PSYCH: Alert, oriented x3, affect appears normal. Insight appears intact. - Constitutional Vitals: Vital Signs - 12hr 09/15/20 09/15/20 09/15/20 21:00 21:32 21:37 Temperature Pulse Rate Respiratory Rate Blood Pressure O2 Sat by Pulse 94 99 100 Oximetry 09/16/20 07:36 Temperature 97.9 F Pulse Rate 71 Respiratory 18 Rate Blood Pressure 134/56 O2 Sat by Pulse 100 Oximetry - Allied health notes Allied health notes reviewed: nursing, PT, OT FIMS assessment as documented by PT/OT/ST: Grooming Patient cleans teeth/dentures: Yes Patient guzman/brushes hair: Yes Patient washes, rinses and Yes dries face: Patient washes, rinses and Yes dries hands: Patient shaves: No Patient performs (no make-up/ 4/4 (100%) shaving): Grooming FIM Score 5. Supervision ([place] applies toothpaste or opens containers.) Toileting Toileting Device Commode over Toilet Patient able to: Adjust clothes before,Clean self,Adjust clothes after Patient able to perform: 3/3 (100%) Toileting FIM Score 4. Minimal Assistance (Patient = 75% or more. Needs touching.) Social interaction/Memory/Problem solving Social Interaction FIM Score 7. Complete Moffat (Interacts appropriately. Controls temper.) Memory FIM Score 7. Complete Moffat (Remembers people and routines.) Problem Solving FIM Score 7. Complete Moffat (Solves complex problems. Self corrects.) Transfers Mode of Locomotion: Wheelchair Bed/Chair/Wheelchair Transfers 5. Supervision (Needs supv. or set-up for FIM Score sliding board, foot rests.) Toilet Transfers FIM Score 5. Supervision (Needs supervision or cueing.) Patient transferred to: Shower Shower Transfers FIM Score 3. Moderate Assistance (Patient = 50% or more. Some lifting.) Locomotion- walk/wheelchair Ambulation Distance 45 Eating Eating FIM Score 6. Modified Moffat (Special consistency or uses device.) Dressing-Upper body Patient retrieves clothing Yes items: Patient applies/removes UE No: n/a prosthesis or orthosis: Upper Body Dressing FIM Score 4. Minimal Assistance (Patient = 75% or more. Needs touching.) Dressing-lower body Lower Body Dressing Device [place] Patient retrieves clothing Yes items: Patient applies/removes LE n/a prosthesis or orthosis: Lower Body Dressing FIM Score 4. Minimal Assistance (Patient = 75% or more. Needs touching.) - Labs CBC & Chem 7: 09/16/20 06:50 09/16/20 06:50 Labs: Laboratory Results - last 72 hr 09/13/20 09/13/20 09/13/20 11:05 15:57 20:11 WBC RBC Hgb Hct MCV MCH MCHC RDW Plt Count Sodium Potassium Chloride Carbon Dioxide Anion Gap BUN Creatinine Estimated GFR BUN/Creatinine Ratio Glucose POC Glucose 149 H 160 H 186 H Calcium 09/14/20 09/14/20 09/14/20 07:12 11:47 20:55 WBC RBC Hgb Hct MCV MCH MCHC RDW Plt Count Sodium Potassium Chloride Carbon Dioxide Anion Gap BUN Creatinine Estimated GFR BUN/Creatinine Ratio Glucose POC Glucose 78 95 168 H Calcium 09/15/20 09/15/20 09/15/20 08:08 12:00 16:00 WBC RBC Hgb Hct MCV MCH MCHC RDW Plt Count Sodium Potassium Chloride Carbon Dioxide Anion Gap BUN Creatinine Estimated GFR BUN/Creatinine Ratio Glucose POC Glucose 97 122 H 151 H Calcium 09/15/20 09/16/20 09/16/20 22:01 06:50 06:50 WBC 4.6 RBC 3.16 L Hgb 8.2 L Hct 24.9 L MCV 79 L MCH 26 L MCHC 33 RDW 17.7 H Plt Count 198 Sodium 137 Potassium 3.7 Chloride 94.1 L Carbon Dioxide 28 Anion Gap 19 BUN 35 H Creatinine 7.0 H Estimated GFR 10 BUN/Creatinine Ratio 5 Glucose 79 POC Glucose 168 H Calcium 9.6 09/16/20 07:36 WBC RBC Hgb Hct MCV MCH MCHC RDW Plt Count Sodium Potassium Chloride Carbon Dioxide Anion Gap BUN Creatinine Estimated GFR BUN/Creatinine Ratio Glucose POC Glucose 73 Calcium Assessment and Plan Infected AV fistula: Antibiotics completed. Monitor for any further signs of infection. Monitor WBCs. End-stage renal disease on hemodialysis: Consult nephrology for management. Hemodialysis on Monday in the afternoons due to the patient being on IRU. Renally dose all medications. Continue renal diet Anemia: Related to both acute blood loss as well as end-stage renal disease. Hemoglobin has improved, reduce blood draws and continue iron Diabetes: Continue medications, sliding scale insulin and monitor for euglycemia. Carb controlled/renal diet Dyspnea with exertion: Continue supplemental oxygen as needed, rest breaks for recovery. Will send home with oxygen when he discharges Hypertension: Blood pressure is variable, patient mostly asymptomatic. Have started as needed hydralazine. Goal is less than 140/90. Obstructive sleep apnea: Continue CPAP at night. Monitor for any signs or issues that need to be addressed. RT consult Glaucoma: Patient states that he is now missed his follow-up with his plug wirer due to hospitalization. I was able to speak with the office of the plug wirer and have restarted the patient on his prescribed medications. ADL dysfunction: OT will work on improving ability to perform ADLs (including assistive devices) to increase independence and decrease caregiver burden and improve functional transfers and mobility training. Difficulty walking: PT will work on gait training and proper use of assistive devices and advance as appropriate to use of stairs and outside ambulation on uneven surfaces. Unsteadiness on feet: PT will work on improving static and dynamic sitting and standing balance as well as proper use of assistive devices to decrease risk of falls. Abnormality of gait: PT will work to improve safety and efficiency of gait through neuromotor training and gait training along with instruction on proper use of assistive devices. Muscle weakness: PT & OT will work on strengthening exercises to improve functional strength including mixture of closed and open kinetic chain exercises. Debility: PT & OT will work on improving overall functional status to improve participation with ADLs, mobility and social involvement. Fatigue: PT & OT will work on improving endurance through aerobic exercises and therapeutic activity while monitoring patients tolerance for activity and vital signs as needed. DVT ppx: Heparin started Pain: Continue physical modalities in therapy and pain medications as needed to achieve functional pain control. Sleep: Monitor and address as needed. Bowel: Monitor and address as needed. Appetite: Monitor and address as needed. Discharge planning: Pending therapy progress and care plan meeting. Will continue discussion with therapy team, SW, patient. Look to discharge on 09/23 with rolling walker Restrictions/ Precautions: Falls WB status: FWB Functional Hx: ADLs: Independent Cognition: Independent Mobility: Cane Barriers to Discharge: Decreased mobility and ability to perform self care, balance deficits, weakness Estimated Length of Stay: 710 days Discharge Destination: Home with family
[2020-09-16] MEDS: COMBIGAN 0.2-0.5% OPHTH SOLN OU SCH ×2 (10:40→22:14)
--- NOTE | 2020-09-16 11:42 | Progress Note ---
Assessment and Plan S/P Excison of Right AVF End Stage Renal Disease Hypotension Diabetes Mellitus Weakness Plan: HD today for clearance and volume removal S/p Excision of Infected Right Upper Extremity AV Fistula by Dr Hood Mederos (vascular surgeon) on 09/02/20 Weakness-In rehab therapy Fluid restriction of 1 liter per day Renally dose medications Strict I&O monitoring Assess dialysis needs daily Subjective Date of service: 09/16/20 Principal diagnosis: Debility Interval history: no overnight events, no acute distress Objective - Vital Signs Vital signs: Vital Signs - 12hr 09/16/20 09/16/20 07:36 09:00 Temperature 97.9 F Pulse Rate 71 Respiratory 18 18 Rate Blood Pressure 134/56 O2 Sat by Pulse 100 98 Oximetry - General Appearance General appearance: well-developed, well-nourished, appears stated age EENT: ATNC, PERRL Neck: no JVD, no carotid bruit Respiratory: Present: Clear to Ascultation. Absent: Rales, Ronchi Cardiology: regular, S1S2 Gastrointestinal: normoactive bowel sounds, no hypoactive bowel sounds, no absent bowel sounds, no tenderness Integumentary: no rash, warm and dry Neurologic: no focal deficit, no asterixis, alert and oriented x3 Psychiatric: mood/affect appropriate, cooperative - Lab 09/16/20 06:50 09/16/20 06:50 Most recent lab results Calcium 9.6 mg/dL (8.4-10.2) 09/16/20 06:50 Medications & Allergies - Medications Allergies/Adverse Reactions: Allergies No Known Allergies Allergy (Unverified 09/12/16 14:54) Home Medications: Home Medications Medication Instructions Recorded Confirmed Last Taken Type Acetaminophen [Acetaminophen TAB] 650 mg PO Q4H PRN tablet 10/12/19 09/09/20 09/07/20 20:00 Rx Insulin Lispro [Humalog] 0 unit SUB-Q Q6HR vial 10/12/19 09/09/20 09/08/20 22:00 Rx Insulin Lispro [Humalog] See Protocol SUB-Q ACHS 30 Days #1 10/12/19 09/09/20 09/08/20 22:00 Rx vial Insulin Detemir [Levemir Flextouch] 8 unit SQ QHS 09/03/20 09/09/20 08/31/20 20:00 History Gabapentin [Neurontin] 300 mg PO Q8HR 09/09/20 09/09/20 09/06/20 History Simvastatin 20 mg PO BID 09/09/20 09/09/20 Unknown History Active Medications: Generic Name Dose Route Start Last Admin Trade Name Freq PRN Reason Stop Dose Admin Acetaminophen 650 mg 09/08/20 20:19 Acetaminophen 325 Mg Tab PO Q4H PRN Pain MILD(1-3)/Fever >100.5/THOMPSON Hydrocodone Bitart/Acetaminophen 1 each 09/09/20 09:00 09/15/20 21:43 Hydrocodone/Acetaminophen 5-325 Mg Tab PO 1 each Q8H PRN Administration Pain, Moderate (4-6) Bisacodyl 10 mg 09/08/20 20:36 Bisacodyl 10 Mg Rect Supp [place] QDAY PRN Constipation Bisacodyl 5 mg 09/08/20 20:37 Bisacodyl 5 Mg Tab PO QDAY PRN Constipation Brimonidine/Timolol 1 drops 09/10/20 22:00 09/16/20 10:40 Combigan 0.2-0.5% Ophth Soln OU 1 drops Q12HR LOS Administration Dextrose 50 ml 09/08/20 20:19 Dextrose 50% In Water (25gm) 50 Ml Syringe IV Q30MIN PRN Hypoglycemia Protocol Docusate Sodium 100 mg 09/08/20 22:00 09/16/20 08:35 Docusate Sodium 100 Mg Cap PO 100 mg BID LOS Administration Ferrous Sulfate 325 mg 09/08/20 22:00 09/16/20 08:36 Ferrous Sulfate 325 Mg Tab PO 325 mg BID LOS Administration Heparin Sodium (Porcine) 5,000 unit 09/14/20 14:00 09/16/20 06:43 Heparin 5,000 Unit/1 Ml Vial SUB-Q 5,000 unit Q8HR LOS Administration Hydralazine HCl 10 mg 09/11/20 08:02 Hydralazine 20 Mg/1 Ml Inj IV Q4HR PRN Hypertension Insulin Glargine 10 units 09/08/20 21:00 09/15/20 21:44 Insulin Glargine 100 Units/Ml SUB-Q 10 units QHS LOS Administration Insulin Human Lispro 0 unit 09/08/20 22:00 09/16/20 08:02 Insulin Lispro 100 Unit/Ml SUB-Q Not Given ACHS LOS Protocol Latanoprost 1 drops 09/10/20 18:00 09/15/20 18:20 Latanoprost 0.005% Ophth Soln 2.5 Ml OU 1 drops QPM LOS Administration Ondansetron HCl 4 mg 09/08/20 20:36 Ondansetron 4 Mg Odt Tab PO Q8H PRN Nausea And Vomiting Pantoprazole Sodium 20 mg 09/09/20 09:00 09/14/20 12:22 Pantoprazole 20 Mg Tab PO 20 mg QDAC PRN Administration Indigestion
[2020-09-16] MEDS: LATANOPROST 0.005% OPHTH SOLN 2.5 ML OU SCH (17:15)
[2020-09-16] MEDS: INSULIN GLARGINE 100 UNITS/ML SUB-Q SCH (22:14)
[2020-09-16] MEDS: PANTOPRAZOLE 20 MG TAB PO PRN (22:28)
[2020-09-17] MEDS: HEPARIN 5,000 UNIT/1 ML VIAL SUB-Q SCH ×3 (05:41→22:13)
[2020-09-17] MEDS: INSULIN LISPRO 100 UNIT/ML SUB-Q SCH ×4 (08:21→22:16)
[2020-09-17] MEDS: COMBIGAN 0.2-0.5% OPHTH SOLN OU SCH ×3 (08:23→22:13)
[2020-09-17] MEDS: FERROUS SULFATE 325 MG TAB PO SCH ×2 (08:23→22:13)
[2020-09-17] MEDS: DOCUSATE SODIUM 100 MG CAP PO SCH ×2 (08:23→22:13)
--- NOTE | 2020-09-17 09:16 | Progress Note ---
Assessment and Plan S/P Excison of Right AVF End Stage Renal Disease Hypotension Diabetes Mellitus Weakness Plan: no indication for HD today S/p Excision of Infected Right Upper Extremity AV Fistula by Dr Hood Mederos (vascular surgeon) on 09/02/20 Weakness-In rehab therapy Fluid restriction of 1 liter per day Renally dose medications Strict I&O monitoring Assess dialysis needs daily Subjective Date of service: 09/17/20 Principal diagnosis: Debility Interval history: tolerated HD yesterday Objective - Vital Signs Vital signs: Vital Signs - 12hr 09/17/20 09/17/20 04:16 07:54 Temperature 97.8 F 98.0 F Pulse Rate 66 75 Respiratory 18 16 Rate Blood Pressure 119/51 118/49 O2 Sat by Pulse 95 100 Oximetry - General Appearance General appearance: well-developed, well-nourished, obese EENT: ATNC, PERRL, mucous membranes moist Neck: no JVD, no carotid bruit Respiratory: Present: Clear to Ascultation. Absent: Rales Cardiology: regular, S1S2 Gastrointestinal: normoactive bowel sounds, no tenderness, no distended, no masses Integumentary: no rash, warm and dry Neurologic: no focal deficit, no asterixis, alert and oriented x3 Musculoskeletal: other (trace pitting edema in BLE) Psychiatric: mood/affect appropriate, cooperative - Lab 09/16/20 06:50 09/16/20 06:50 Most recent lab results Calcium 9.6 mg/dL (8.4-10.2) 09/16/20 06:50 Medications & Allergies - Medications Allergies/Adverse Reactions: Allergies No Known Allergies Allergy (Unverified 09/12/16 14:54) Home Medications: Home Medications Medication Instructions Recorded Confirmed Last Taken Type Acetaminophen [Acetaminophen TAB] 650 mg PO Q4H PRN tablet 10/12/19 09/09/20 09/07/20 20:00 Rx Insulin Lispro [Humalog] 0 unit SUB-Q Q6HR vial 10/12/19 09/09/20 09/08/20 22:00 Rx Insulin Lispro [Humalog] See Protocol SUB-Q ACHS 30 Days #1 10/12/19 09/09/20 09/08/20 22:00 Rx vial Insulin Detemir [Levemir Flextouch] 8 unit SQ QHS 09/03/20 09/09/20 08/31/20 20:00 History Gabapentin [Neurontin] 300 mg PO Q8HR 09/09/20 09/09/20 09/06/20 History Simvastatin 20 mg PO BID 09/09/20 09/09/20 Unknown History Active Medications: Generic Name Dose Route Start Last Admin Trade Name Freq PRN Reason Stop Dose Admin Acetaminophen 650 mg 09/08/20 20:19 Acetaminophen 325 Mg Tab PO Q4H PRN Pain MILD(1-3)/Fever >100.5/THOMPSON Hydrocodone Bitart/Acetaminophen 1 each 09/09/20 09:00 09/15/20 21:43 Hydrocodone/Acetaminophen 5-325 Mg Tab PO 1 each Q8H PRN Administration Pain, Moderate (4-6) Bisacodyl 10 mg 09/08/20 20:36 Bisacodyl 10 Mg Rect Supp [place] QDAY PRN Constipation Bisacodyl 5 mg 09/08/20 20:37 Bisacodyl 5 Mg Tab PO QDAY PRN Constipation Brimonidine/Timolol 1 drops 09/10/20 22:00 09/17/20 08:23 Combigan 0.2-0.5% Ophth Soln OU 1 drops Q12HR LOS Administration Dextrose 50 ml 09/08/20 20:19 Dextrose 50% In Water (25gm) 50 Ml Syringe IV Q30MIN PRN Hypoglycemia Protocol Docusate Sodium 100 mg 09/08/20 22:00 09/17/20 08:23 Docusate Sodium 100 Mg Cap PO 100 mg BID LOS Administration Ferrous Sulfate 325 mg 09/08/20 22:00 09/17/20 08:23 Ferrous Sulfate 325 Mg Tab PO 325 mg BID LOS Administration Heparin Sodium (Porcine) 5,000 unit 09/14/20 14:00 09/17/20 05:41 Heparin 5,000 Unit/1 Ml Vial SUB-Q 5,000 unit Q8HR LOS Administration Hydralazine HCl 10 mg 09/11/20 08:02 Hydralazine 20 Mg/1 Ml Inj IV Q4HR PRN Hypertension Insulin Glargine 10 units 09/08/20 21:00 09/16/20 22:14 Insulin Glargine 100 Units/Ml SUB-Q 10 units QHS LOS Administration Insulin Human Lispro 0 unit 09/08/20 22:00 09/17/20 08:21 Insulin Lispro 100 Unit/Ml SUB-Q Not Given ACHS LOS Protocol Latanoprost 1 drops 09/10/20 18:00 09/16/20 17:15 Latanoprost 0.005% Ophth Soln 2.5 Ml OU 1 drops QPM LOS Administration Ondansetron HCl 4 mg 09/08/20 20:36 Ondansetron 4 Mg Odt Tab PO Q8H PRN Nausea And Vomiting Pantoprazole Sodium 20 mg 09/09/20 09:00 09/16/20 22:28 Pantoprazole 20 Mg Tab PO 20 mg QDAC PRN Administration Indigestion
--- NOTE | 2020-09-17 10:52 | Progress Note ---
Subjective Date of service: 09/17/20 Principal diagnosis: Debility Interval history: 65-year-old male who developed a bleed on his right upper extremity AV fistula site. 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 Patient was admitted and was febrile, blood cultures were taken and showed GPC's. Infectious disease started the patient on antibiotics. Initially a pressure bandage was utilized to control bleeding however the patient continued to bleed through the dressing. He was prepped for surgery by vascular surgery for excision of the pseudoaneurysm and ligation which occurred on 09/02/2020. Patient underwent surgery without any complications and was noted to have increased debility afterwards. Patient does live alone and after being evaluated by therapy was determined to be a good candidate for participation in a short-term acute inpatient rehabilitation stay. Interval History: Patient is participating in therapy and making reasonable progress. Taking rest breaks as needed. -BM. Pain well controlled currently. Denies palpitations, dyspnea, cough, N/V, or joint pain but does have dyspnea on exertion (seems better this morning). Tolerating therapy, making some improvements with endurance. Infected AV fistula: Continue antibiotics until complete, no signs of wound dehiscence or appearance of infection. Dressing changed and packing replaced by nursing yesterday, clean dry and intact. Wound nurse consulted. Follow-up with vascular surgery next week for possible staple removal. Will consult them to see patient in house next week Anemia: Hemoglobin improved to 8.2. Continue iron. Likely combination of end- stage renal disease and acute blood loss End-stage renal disease on hemodialysis: Appreciate nephrology consult, continue hemodialysis and afternoons on Monday/Monday/Monday, renal diet, fluid restriction and avoid nephrotoxic medications Dyspnea on exertion: Continue supplemental oxygen and rest breaks as needed. We will look to send home with supplemental oxygen when he discharges next week if we do not continue to see improvement Diabetes: Continue carb controlled diet, sliding scale insulin, and basal insulin dosing. Adjust as needed for euglycemia. Blood glucose variable Hypertension: Blood pressure has been variable however patient has been fairly asymptomatic from any of the hypotensive episodes. As needed hydralazine ordered. Goal less than 140/90 Obstructive sleep apnea: Continue use of CPAP at night Glaucoma: No issues currently with worsening vision. Debility with decreased mobility and ability to perform ADLs: Continue therapy to improve patient's ability to ambulate safely and provide for his own ADLs without assistance from others. All records, vitals, labs and medications were reviewed. No other issues per patient, nursing or therapy. Objective - Exam Narrative Exam: MUSCULOSKELETAL SPECIALTY EXAM CONSTITUTIONAL: Well developed, well nourished, appropriately groomed, obese RESPIRATORY: Clear to auscultation bilaterally, no increased work of breathing at rest CARDIOVASCULAR: Regular Rate/ Rhythm, right lower extremity swelling with no pitting edema, otherwise no swelling, edema or tenderness in BUE or BLE. All extremities warm. GI: + bowel sounds, soft, NTTP, nondistended. INTEGUMENTARY: Right upper extremity surgical site clean dry and intact with annita, scars on other limbs from vascular access surgeries, otherwise normal, no lesion, rash, masses or bruising noted in extremities. MUSCULOSKELETAL: BUE and BLE normal without defect, crepitus, subluxation, effusion, arthritic changes or TTP. BUE 4+/5, good ROM, with normal tone. BLE 4-/5 decreased ROM, with normal tone NEURO: Sensation intact in all extremities. No tremor noted in 4 extremities. POSTURE and GAIT: Sitting posture good. PSYCH: Alert, oriented x3, affect appears normal. Insight appears intact. - Constitutional Vitals: Vital Signs - 12hr 09/17/20 09/17/20 09/17/20 04:16 07:54 10:00 Temperature 97.8 F 98.0 F Pulse Rate 66 75 Respiratory 18 16 Rate Blood Pressure 119/51 118/49 O2 Sat by Pulse 95 100 97 Oximetry - Allied health notes Allied health notes reviewed: nursing, PT, OT FIMS assessment as documented by PT/OT/ST: Grooming Patient cleans teeth/dentures: Yes Patient guzman/brushes hair: Yes Patient washes, rinses and Yes dries face: Patient washes, rinses and Yes dries hands: Patient shaves: No Patient performs (no make-up/ 4/4 (100%) shaving): Grooming FIM Score 5. Supervision ([place] applies toothpaste or opens containers.) Toileting Toileting Device Commode over Toilet Patient able to: Adjust clothes before,Clean self Patient able to perform: 2/3 (67%) Toileting FIM Score 4. Minimal Assistance (Patient = 75% or more. Needs touching.) Social interaction/Memory/Problem solving Social Interaction FIM Score 6. Mod. [place] (Mostly appropriate. May need meds. No supv.) Memory FIM Score 7. Complete [place] (Remembers people and routines.) Problem Solving FIM Score 6. Mod. [place] (Mild difficulty or needs more time w/ complex.) Transfers Mode of Locomotion: Wheelchair Bed/Chair/Wheelchair Transfers 4. Minimal Assistance (Patient = 75% or more. FIM Score Needs touching.) Toilet Transfers FIM Score 5. Supervision (Needs supervision or cueing.) Patient transferred to: Shower Shower Transfers FIM Score 3. Moderate Assistance (Patient = 50% or more. Some lifting.) Locomotion- walk/wheelchair Ambulation Distance 45 Eating Eating FIM Score 6. Modified [place] (Special consistency or uses device.) Dressing-Upper body Patient retrieves clothing Yes items: Patient applies/removes UE No: n/a prosthesis or orthosis: Upper Body Dressing FIM Score 4. Minimal Assistance (Patient = 75% or more. Needs touching.) Dressing-lower body Lower Body Dressing Device [place] Patient retrieves clothing Yes items: Patient applies/removes LE n/a prosthesis or orthosis: Lower Body Dressing FIM Score 4. Minimal Assistance (Patient = 75% or more. Needs touching.) - Labs CBC & Chem 7: 09/16/20 06:50 09/16/20 06:50 Labs: Laboratory Results - last 72 hr 09/14/20 09/14/20 09/15/20 11:47 20:55 08:08 WBC RBC Hgb Hct MCV MCH MCHC RDW Plt Count Sodium Potassium Chloride Carbon Dioxide Anion Gap BUN Creatinine Estimated GFR BUN/Creatinine Ratio Glucose POC Glucose 95 168 H 97 Calcium 09/15/20 09/15/20 09/15/20 12:00 16:00 22:01 WBC RBC Hgb Hct MCV MCH MCHC RDW Plt Count Sodium Potassium Chloride Carbon Dioxide Anion Gap BUN Creatinine Estimated GFR BUN/Creatinine Ratio Glucose POC Glucose 122 H 151 H 168 H Calcium 09/16/20 09/16/20 09/16/20 06:50 06:50 07:36 WBC 4.6 RBC 3.16 L Hgb 8.2 L Hct 24.9 L MCV 79 L MCH 26 L MCHC 33 RDW 17.7 H Plt Count 198 Sodium 137 Potassium 3.7 Chloride 94.1 L Carbon Dioxide 28 Anion Gap 19 BUN 35 H Creatinine 7.0 H Estimated GFR 10 BUN/Creatinine Ratio 5 Glucose 79 POC Glucose 73 Calcium 9.6 09/16/20 09/16/20 09/17/20 12:00 20:53 07:52 WBC RBC Hgb Hct MCV MCH MCHC RDW Plt Count Sodium Potassium Chloride Carbon Dioxide Anion Gap BUN Creatinine Estimated GFR BUN/Creatinine Ratio Glucose POC Glucose 110 H 226 H 76 Calcium Assessment and Plan Infected AV fistula: Antibiotics completed. Monitor for any further signs of infection. Monitor WBCs. End-stage renal disease on hemodialysis: Consult nephrology for management. Hemodialysis on Monday in the afternoons due to the patient tate koo on IRU. Renally dose all medications. Continue renal diet Anemia: Related to both acute blood loss as well as end-stage renal disease. Hemoglobin has improved, reduce blood draws and continue iron Diabetes: Continue medications, sliding scale insulin and monitor for euglycemia. Carb controlled/renal diet Dyspnea with exertion: Continue supplemental oxygen as needed, rest breaks for recovery. Will send home with oxygen when he discharges Hypertension: Blood pressure is variable, patient mostly asymptomatic. Have started as needed hydralazine. Goal is less than 140/90. Obstructive sleep apnea: Continue CPAP at night. Monitor for any signs or issues that need to be addressed. RT consult Glaucoma: Patient states that he is now missed his follow-up with his arabic translator due to hospitalization. I was able to speak with the office of the arabic translator and have restarted the patient on his prescribed medications. ADL dysfunction: OT will work on improving ability to perform ADLs (including assistive devices) to increase independence and decrease caregiver burden and improve functional transfers and mobility training. Difficulty walking: PT will work on gait training and proper use of assistive devices and advance as appropriate to use of stairs and outside ambulation on uneven surfaces. Unsteadiness on feet: PT will work on improving static and dynamic sitting and standing balance as well as proper use of assistive devices to decrease risk of falls. Abnormality of gait: PT will work to improve safety and efficiency of gait through neuromotor training and gait training along with instruction on proper use of assistive devices. Muscle weakness: PT & OT will work on strengthening exercises to improve functional strength including mixture of closed and open kinetic chain exercises. Debility: PT & OT will work on improving overall functional status to improve participation with ADLs, mobility and social involvement. Fatigue: PT & OT will work on improving endurance through aerobic exercises and therapeutic activity while monitoring patients tolerance for activity and vital signs as needed. DVT ppx: Heparin started Pain: Continue physical modalities in therapy and pain medications as needed to achieve functional pain control. Sleep: Monitor and address as needed. Bowel: Monitor and address as needed. Appetite: Monitor and address as needed. Discharge planning: Pending therapy progress and care plan meeting. Will continue discussion with therapy team, SW, patient. Look to discharge on 09/23 with rolling walker Restrictions/ Precautions: Falls WB status: FWB Functional Hx: ADLs: Independent Cognition: Independent Mobility: Cane Barriers to Discharge: Decreased mobility and ability to perform self care, balance deficits, weakness Estimated Length of Stay: 710 days Discharge Destination: Home with family
[2020-09-17] MEDS: LATANOPROST 0.005% OPHTH SOLN 2.5 ML OU SCH (17:02)
[2020-09-17] MEDS: PANTOPRAZOLE 20 MG TAB PO PRN (17:06)
[2020-09-17] MEDS: INSULIN GLARGINE 100 UNITS/ML SUB-Q SCH (22:14)
[2020-09-18] MEDS: HEPARIN 5,000 UNIT/1 ML VIAL SUB-Q SCH ×3 (07:02→21:40)
[2020-09-18] MEDS: INSULIN LISPRO 100 UNIT/ML SUB-Q SCH ×4 (07:52→21:41)
--- NOTE | 2020-09-18 11:26 | Progress Note ---
Subjective Date of service: 09/18/20 Principal diagnosis: Debility Interval history: 65-year-old male who developed a bleed on his right upper extremity AV fistula site. 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 Patient was admitted and was febrile, blood cultures were taken and showed GPC's. Infectious disease started the patient on antibiotics. Initially a pressure bandage was utilized to control bleeding however the patient continued to bleed through the dressing. He was prepped for surgery by vascular surgery for excision of the pseudoaneurysm and ligation which occurred on 09/02/2020. Patient underwent surgery without any complications and was noted to have increased debility afterwards. Patient does live alone and after being evaluated by therapy was determined to be a good candidate for participation in a short-term acute inpatient rehabilitation stay. Interval History: Patient is participating in therapy and making reasonable progress. Taking rest breaks as needed. +BM. Pain well controlled currently. Denies palpitations, dyspnea, cough, N/V, or joint pain but does have dyspnea on exertion (seems better this morning). Tolerating therapy, making some improvements with endurance. Infected AV fistula: Continue antibiotics until complete, no signs of wound dehiscence or appearance of infection. Dressing changed and packing replaced by nursing yesterday, clean dry and intact. Wound nurse consulted. Follow-up with vascular surgery next week for possible staple removal. Will consult them to see patient in house next week Anemia: Hemoglobin improved to 8.2. Continue iron. Likely combination of end- stage renal disease and acute blood loss End-stage renal disease on hemodialysis: Appreciate nephrology consult, continue hemodialysis and afternoons on Monday/Monday/Monday, renal diet, fluid restriction and avoid nephrotoxic medications Dyspnea on exertion: Continue supplemental oxygen and rest breaks as needed. Oxygenation improving, continue to monitor patient for supplemental oxygen needs. If we see that he still needs it at discharge, will send him home with oxygen as well as DME. Diabetes: Continue carb controlled diet, sliding scale insulin, and basal insulin dosing. Adjust as needed for euglycemia. Blood glucose variable Hypertension: Blood pressure has been variable however patient has been fairly asymptomatic from any of the hypotensive episodes. As needed hydralazine ordered. Goal less than 140/90 Obstructive sleep apnea: Continue use of CPAP at night Glaucoma: No issues currently with worsening vision. Debility with decreased mobility and ability to perform ADLs: Continue therapy to improve patient's ability to ambulate safely and provide for his own ADLs without assistance from others. All records, vitals, labs and medications were reviewed. No other issues per patient, nursing or therapy. Objective - Exam Narrative Exam: MUSCULOSKELETAL SPECIALTY EXAM CONSTITUTIONAL: Well developed, well nourished, appropriately groomed, obese RESPIRATORY: Clear to auscultation bilaterally, no increased work of breathing at rest CARDIOVASCULAR: Regular Rate/ Rhythm, right lower extremity swelling with no pitting edema, otherwise no swelling, edema or tenderness in BUE or BLE. All extremities warm. GI: + bowel sounds, soft, NTTP, nondistended. INTEGUMENTARY: Right upper extremity surgical site clean dry and intact with annita, scars on other limbs from vascular access surgeries, otherwise normal, no lesion, rash, masses or bruising noted in extremities. MUSCULOSKELETAL: BUE and BLE normal without defect, crepitus, subluxation, effusion, arthritic changes or TTP. BUE 4+/5, good ROM, with normal tone. BLE 4-/5 decreased ROM, with normal tone NEURO: Sensation intact in all extremities. No tremor noted in 4 extremities. POSTURE and GAIT: Sitting posture good. PSYCH: Alert, oriented x3, affect appears normal. Insight appears intact. - Constitutional Vitals: Vital Signs - 12hr 09/18/20 09/18/20 09/18/20 06:06 08:08 09:18 Temperature 97.8 F 98.3 F Pulse Rate 72 71 Respiratory 20 18 Rate Blood Pressure 124/43 114/42 O2 Sat by Pulse 100 95 95 Oximetry - Allied health notes Allied health notes reviewed: nursing, PT, OT FIMS assessment as documented by PT/OT/ST: Grooming Patient cleans teeth/dentures: Yes Patient guzman/brushes hair: Yes Patient washes, rinses and Yes dries face: Patient washes, rinses and Yes dries hands: Patient shaves: No Patient performs (no make-up/ 4/4 (100%) shaving): Grooming FIM Score 5. Supervision ([place] applies toothpaste or opens containers.) Toileting Toileting Device Commode over Toilet Patient able to: Adjust clothes before,Clean self,Adjust clothes after Patient able to perform: 3/3 (100%) Toileting FIM Score 4. Minimal Assistance (Patient = 75% or more. Needs touching.) Social interaction/Memory/Problem solving Social Interaction FIM Score 7. Complete [place] (Interacts appropriately. Controls temper.) Memory FIM Score 7. Complete [place] (Remembers people and routines.) Problem Solving FIM Score 7. Complete [place] (Solves complex problems. Self corrects.) Transfers Mode of Locomotion: Wheelchair Bed/Chair/Wheelchair Transfers 5. Supervision (Needs supv. or set-up for FIM Score sliding board, foot rests.) Toilet Transfers FIM Score 5. Supervision (Needs supervision or cueing.) Patient transferred to: Shower Shower Transfers FIM Score 3. Moderate Assistance (Patient = 50% or more. Some lifting.) Locomotion- walk/wheelchair Ambulation Distance 45 Eating Eating FIM Score 6. Modified [place] (Special consistency or uses device.) Dressing-Upper body Patient retrieves clothing Yes items: Patient applies/removes UE No: n/a prosthesis or orthosis: Upper Body Dressing FIM Score 5. Supv./Set-Up ([place] sets out clothes or applies pros./orth.) Dressing-lower body Lower Body Dressing Device [place] Patient retrieves clothing Yes items: Patient applies/removes LE n/a prosthesis or orthosis: Lower Body Dressing FIM Score 4. Minimal Assistance (Patient = 75% or more. Needs touching.) - Labs CBC & Chem 7: 09/16/20 06:50 09/16/20 06:50 Labs: Laboratory Results - last 72 hr 09/15/20 09/15/20 09/15/20 12:00 16:00 22:01 WBC RBC Hgb Hct MCV MCH MCHC RDW Plt Count Sodium Potassium Chloride Carbon Dioxide Anion Gap BUN Creatinine Estimated GFR BUN/Creatinine Ratio Glucose POC Glucose 122 H 151 H 168 H Calcium 09/16/20 09/16/20 09/16/20 06:50 06:50 07:36 WBC 4.6 RBC 3.16 L Hgb 8.2 L Hct 24.9 L MCV 79 L MCH 26 L MCHC 33 RDW 17.7 H Plt Count 198 Sodium 137 Potassium 3.7 Chloride 94.1 L Carbon Dioxide 28 Anion Gap 19 BUN 35 H Creatinine 7.0 H Estimated GFR 10 BUN/Creatinine Ratio 5 Glucose 79 POC Glucose 73 Calcium 9.6 09/16/20 09/16/20 09/17/20 12:00 20:53 07:52 WBC RBC Hgb Hct MCV MCH MCHC RDW Plt Count Sodium Potassium Chloride Carbon Dioxide Anion Gap BUN Creatinine Estimated GFR BUN/Creatinine Ratio Glucose POC Glucose 110 H 226 H 76 Calcium 09/17/20 09/17/20 09/17/20 11:29 15:55 21:00 WBC RBC Hgb Hct MCV MCH MCHC RDW Plt Count Sodium Potassium Chloride Carbon Dioxide Anion Gap BUN Creatinine Estimated GFR BUN/Creatinine Ratio Glucose POC Glucose 123 H 160 H 213 H Calcium 09/18/20 08:09 WBC RBC Hgb Hct MCV MCH MCHC RDW Plt Count Sodium Potassium Chloride Carbon Dioxide Anion Gap BUN Creatinine Estimated GFR BUN/Creatinine Ratio Glucose POC Glucose 81 Calcium Assessment and Plan Infected AV fistula: Antibiotics completed. Monitor for any further signs of infection. Monitor WBCs. Continue wound dressing changes. Will consult vascular surgery for wound evaluation and possible staple removal or they made opt to remove them as outpatient at a later date. End-stage renal disease on hemodialysis: Consult nephrology for management. Hemodialysis on Monday in the afternoons due to the patient being on IRU. Renally dose all medications. Continue renal diet Anemia: Related to both acute blood loss as well as end-stage renal disease. Hemoglobin has improved, reduce blood draws and continue iron Diabetes: Continue medications, sliding scale insulin and monitor for euglycemia. Carb controlled/renal diet Dyspnea with exertion: Continue supplemental oxygen as needed, rest breaks for recovery. Will send home with oxygen when he discharges Hypertension: Blood pressure is variable, patient mostly asymptomatic. Have started as needed hydralazine. Goal is less than 140/90. Obstructive sleep apnea: Continue CPAP at night. Monitor for any signs or issues that need to be addressed. RT consult Glaucoma: Patient states that he is now missed his follow-up with his general assistant due to hospitalization. I was able to speak with the office of the general assistant and have restarted the patient on his prescribed medica tions. ADL dysfunction: OT will work on improving ability to perform ADLs (including assistive devices) to increase independence and decrease caregiver burden and improve functional transfers and mobility training. Difficulty walking: PT will work on gait training and proper use of assistive devices and advance as appropriate to use of stairs and outside ambulation on uneven surfaces. Unsteadiness on feet: PT will work on improving static and dynamic sitting and standing balance as well as proper use of assistive devices to decrease risk of falls. Abnormality of gait: PT will work to improve safety and efficiency of gait through neuromotor training and gait training along with instruction on proper use of assistive devices. Muscle weakness: PT & OT will work on strengthening exercises to improve functional strength including mixture of closed and open kinetic chain exercises. Debility: PT & OT will work on improving overall functional status to improve participation with ADLs, mobility and social involvement. Fatigue: PT & OT will work on improving endurance through aerobic exercises and therapeutic activity while monitoring patients tolerance for activity and vital signs as needed. DVT ppx: Heparin started Pain: Continue physical modalities in therapy and pain medications as needed to achieve functional pain control. Sleep: Monitor and address as needed. Bowel: Monitor and address as needed. Appetite: Monitor and address as needed. Discharge planning: Pending therapy progress and care plan meeting. Will continue discussion with therapy team, [place], patient. Look to discharge on 09/23 with rolling walker Restrictions/ Precautions: Falls WB status: FWB Functional Hx: ADLs: Independent Cognition: Independent Mobility: Cane Barriers to Discharge: Decreased mobility and ability to perform self care, balance deficits, weakness Estimated Length of Stay: 710 days Discharge Destination: Home with family
--- NOTE | 2020-09-18 11:35 | Progress Note ---
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 by Dr Hood Mederos (vascular surgeon) on 09/02/20 Weakness-In rehab therapy Fluid restriction of 1 liter per day Renally dose medications Strict I&O monitoring Assess dialysis needs daily Subjective Date of service: 09/18/20 Principal diagnosis: Debility Interval history: no overnight events Objective - Vital Signs Vital signs: Vital Signs - 12hr 09/18/20 09/18/20 09/18/20 06:06 08:08 09:18 Temperature 97.8 F 98.3 F Pulse Rate 72 71 Respiratory 20 18 Rate Blood Pressure 124/43 114/42 O2 Sat by Pulse 100 95 95 Oximetry - Lab 09/16/20 06:50 09/16/20 06:50 Most recent lab results Calcium 9.6 mg/dL (8.4-10.2) 09/16/20 06:50 Medications & Allergies - Medications Allergies/Adverse Reactions: Allergies No Known Allergies Allergy (Unverified 09/12/16 14:54) Home Medications: Home Medications Medication Instructions Recorded Confirmed Last Taken Type Acetaminophen [Acetaminophen TAB] 650 mg PO Q4H PRN tablet 10/12/19 09/09/20 09/07/20 20:00 Rx Insulin Lispro [Humalog] 0 unit SUB-Q Q6HR vial 10/12/19 09/09/20 09/08/20 22:00 Rx Insulin Lispro [Humalog] See Protocol SUB-Q ACHS 30 Days #1 10/12/19 09/09/20 09/08/20 22:00 Rx vial Insulin Detemir [Levemir Flextouch] 8 unit SQ QHS 09/03/20 09/09/20 08/31/20 20:00 History Gabapentin [Neurontin] 300 mg PO Q8HR 09/09/20 09/09/20 09/06/20 History Simvastatin 20 mg PO BID 09/09/20 09/09/20 Unknown History Active Medications: Generic Name Dose Route Start Last Admin Trade Name Freq PRN Reason Stop Dose Admin Acetaminophen 650 mg 09/08/20 20:19 Acetaminophen 325 Mg Tab PO Q4H PRN Pain MILD(1-3)/Fever >100.5/THOMPSON Hydrocodone Bitart/Acetaminophen 1 each 09/09/20 09:00 09/15/20 21:43 Hydrocodone/Acetaminophen 5-325 Mg Tab PO 1 each Q8H PRN Administration Pain, Moderate (4-6) Bisacodyl 10 mg 09/08/20 20:36 Bisacodyl 10 Mg Rect Supp [place] QDAY PRN Constipation Bisacodyl 5 mg 09/08/20 20:37 Bisacodyl 5 Mg Tab PO QDAY PRN Constipation Brimonidine/Timolol 1 drops 09/10/20 22:00 09/17/20 22:13 Combigan 0.2-0.5% Ophth Soln OU 1 drops Q12HR LOS Administration Dextrose 50 ml 09/08/20 20:19 Dextrose 50% In Water (25gm) 50 Ml Syringe IV Q30MIN PRN Hypoglycemia Protocol Docusate Sodium 100 mg 09/08/20 22:00 09/17/20 22:13 Docusate Sodium 100 Mg Cap PO 100 mg BID LOS Administration Ferrous Sulfate 325 mg 09/08/20 22:00 09/17/20 22:13 Ferrous Sulfate 325 Mg Tab PO 325 mg BID LOS Administration Heparin Sodium (Porcine) 5,000 unit 09/14/20 14:00 09/18/20 07:02 Heparin 5,000 Unit/1 Ml Vial SUB-Q 5,000 unit Q8HR LOS Administration Hydralazine HCl 10 mg 09/11/20 08:02 Hydralazine 20 Mg/1 Ml Inj IV Q4HR PRN Hypertension Insulin Glargine 10 units 09/08/20 21:00 09/17/20 22:14 Insulin Glargine 100 Units/Ml SUB-Q 10 units QHS LOS Administration Insulin Human Lispro 0 unit 09/08/20 22:00 09/17/20 22:16 Insulin Lispro 100 Unit/Ml SUB-Q 3 unit ACHS LOS Administration Protocol Latanoprost 1 drops 09/10/20 18:00 09/17/20 17:02 Latanoprost 0.005% Ophth Soln 2.5 Ml OU 1 drops QPM LOS Administration Ondansetron HCl 4 mg 09/08/20 20:36 Ondansetron 4 Mg Odt Tab PO Q8H PRN Nausea And Vomiting Pantoprazole Sodium 20 mg 09/09/20 09:00 09/17/20 17:06 Pantoprazole 20 Mg Tab PO 20 mg QDAC PRN Administration Indigestion
[2020-09-18] MEDS: COMBIGAN 0.2-0.5% OPHTH SOLN OU SCH ×2 (11:47→21:41)
[2020-09-18] MEDS: PANTOPRAZOLE 20 MG TAB PO PRN (11:48)
[2020-09-18] MEDS: FERROUS SULFATE 325 MG TAB PO SCH ×2 (11:48→21:40)
[2020-09-18] MEDS: DOCUSATE SODIUM 100 MG CAP PO SCH ×2 (11:48→21:40)
[2020-09-18] MEDS: LATANOPROST 0.005% OPHTH SOLN 2.5 ML OU SCH (19:13)
[2020-09-18] MEDS: INSULIN GLARGINE 100 UNITS/ML SUB-Q SCH (21:39)
[2020-09-19] MEDS: HEPARIN 5,000 UNIT/1 ML VIAL SUB-Q SCH ×3 (05:33→22:31)
[2020-09-19] MEDS: INSULIN LISPRO 100 UNIT/ML SUB-Q SCH ×4 (08:14→22:33)
--- NOTE | 2020-09-19 08:14 | Progress Note ---
Assessment and Plan S/P Excison of Right AVF End Stage Renal Disease Hypotension Diabetes Mellitus Weakness Plan: no indication for HD today Fluid restriction of 1 liter per day Renally dose medications Strict I&O monitoring Assess dialysis needs daily Subjective Date of service: 09/19/20 Principal diagnosis: Debility Interval history: tolerated HD yesterday Objective - Vital Signs Vital signs: Vital Signs - 12hr 09/18/20 09/19/20 09/19/20 20:56 04:22 05:09 Temperature 98.4 F 98.1 F Pulse Rate 91 H 77 Respiratory 20 20 Rate Blood Pressure 116/51 119/49 O2 Sat by Pulse 98 99 99 Oximetry 09/19/20 07:41 Temperature 98.2 F Pulse Rate 77 Respiratory 20 Rate Blood Pressure 118/34 O2 Sat by Pulse 100 Oximetry - Lab 09/16/20 06:50 09/16/20 06:50 Most recent lab results Calcium 9.6 mg/dL (8.4-10.2) 09/16/20 06:50 Medications & Allergies - Medications Allergies/Adverse Reactions: Allergies No Known Allergies Allergy (Unverified 09/12/16 14:54) Home Medications: Home Medications Medication Instructions Recorded Confirmed Last Taken Type Acetaminophen [Acetaminophen TAB] 650 mg PO Q4H PRN tablet 10/12/19 09/09/20 09/07/20 20:00 Rx Insulin Lispro [Humalog] 0 unit SUB-Q Q6HR vial 10/12/19 09/09/20 09/08/20 22:00 Rx Insulin Lispro [Humalog] See Protocol SUB-Q ACHS 30 Days #1 10/12/19 09/09/20 09/08/20 22:00 Rx vial Insulin Detemir [Levemir Flextouch] 8 unit SQ QHS 09/03/20 09/09/20 08/31/20 20:00 History Gabapentin [Neurontin] 300 mg PO Q8HR 09/09/20 09/09/20 09/06/20 History Simvastatin 20 mg PO BID 09/09/20 09/09/20 Unknown History Active Medications: Generic Name Dose Route Start Last Admin Trade Name Freq PRN Reason Stop Dose Admin Acetaminophen 650 mg 09/08/20 20:19 Acetaminophen 325 Mg Tab PO Q4H PRN Pain MILD(1-3)/Fever >100.5/[place] Hydrocodone Bitart/Acetaminophen 1 each 09/09/20 09:00 09/15/20 21:43 Hydrocodone/Acetaminophen 5-325 Mg Tab PO 1 each Q8H PRN Administration Pain, Moderate (4-6) Bisacodyl 10 mg 09/08/20 20:36 Bisacodyl 10 Mg Rect Supp [place] QDAY PRN Constipation Bisacodyl 5 mg 09/08/20 20:37 Bisacodyl 5 Mg Tab PO QDAY PRN Constipation Brimonidine/Timolol 1 drops 09/10/20 22:00 09/18/20 21:41 Combigan 0.2-0.5% Ophth Soln OU 1 drops Q12HR LOS Administration Dextrose 50 ml 09/08/20 20:19 Dextrose 50% In Water (25gm) 50 Ml Syringe IV Q30MIN PRN Hypoglycemia Protocol Docusate Sodium 100 mg 09/08/20 22:00 09/18/20 21:40 Docusate Sodium 100 Mg Cap PO 100 mg BID LOS Administration Ferrous Sulfate 325 mg 09/08/20 22:00 09/18/20 21:40 Ferrous Sulfate 325 Mg Tab PO 325 mg BID LOS Administration Heparin Sodium (Porcine) 5,000 unit 09/14/20 14:00 09/19/20 05:33 Heparin 5,000 Unit/1 Ml Vial SUB-Q 5,000 unit Q8HR LOS Administration Hydralazine HCl 10 mg 09/11/20 08:02 Hydralazine 20 Mg/1 Ml Inj IV Q4HR PRN Hypertension Insulin Glargine 10 units 09/08/20 21:00 09/18/20 21:39 Insulin Glargine 100 Units/Ml SUB-Q 10 units QHS LOS Administration Insulin Human Lispro 0 unit 09/08/20 22:00 09/18/20 21:41 Insulin Lispro 100 Unit/Ml SUB-Q 3 unit ACHS LOS Administration Protocol Latanoprost 1 drops 09/10/20 18:00 09/18/20 19:13 Latanoprost 0.005% Ophth Soln 2.5 Ml OU 1 drops QPM LOS Administration Ondansetron HCl 4 mg 09/08/20 20:36 Ondansetron 4 Mg Odt Tab PO Q8H PRN Nausea And Vomiting Pantoprazole Sodium 20 mg 09/09/20 09:00 09/18/20 11:48 Pantoprazole 20 Mg Tab PO 20 mg QDAC PRN Administration Indigestion
[2020-09-19] MEDS: FERROUS SULFATE 325 MG TAB PO SCH ×2 (08:30→22:31)
[2020-09-19] MEDS: COMBIGAN 0.2-0.5% OPHTH SOLN OU SCH ×3 (08:30→22:31)
[2020-09-19] MEDS: DOCUSATE SODIUM 100 MG CAP PO SCH ×2 (08:30→22:36)
--- NOTE | 2020-09-19 09:14 | Consultation ---
History of Present Illness - Reason for Consult Consult date: 09/19/20 Staple removal, right arm surgical site - History of Present Illness Patient with a history of prior admission to [facility] for infected AV graft in his right upper arm. This was subsequently removed and annita applied to the incision. The patient ultimately was transferred to rehab. No complaints at this time. Patient anticipates discharge on Monday. Past History Past Medical History: diabetes, dialysis, ESRD, hypertension, other (glaucoma, obstructive sleep apnea, lymphedema in the right lower extremity) Past Surgical History: Other (vascular access) Social history: , Lives alone (single level home), full code. denies: smoking, alcohol abuse Family history: diabetes Medications and Allergies Allergies Allergy/AdvReac Type Severity Reaction Status Date / Time No Known Allergies Allergy Unverified 09/12/16 14:54 Home Medications Medication Instructions Recorded Confirmed Last Taken Type Acetaminophen [Acetaminophen TAB] 650 mg PO Q4H PRN tablet 10/12/19 09/09/20 20:00 Rx Insulin Lispro [Humalog] 0 unit SUB-Q Q6HR vial 10/12/19 09/09/20 09/08/20 22:00 Rx Insulin Lispro [Humalog] See Protocol SUB-Q ACHS 30 Days #1 10/12/19 09/09/20 09/08/20 22:00 Rx vial Insulin Detemir [Levemir Flextouch] 8 unit SQ QHS 09/03/20 09/09/20 08/31/20 20:00 History Gabapentin [Neurontin] 300 mg PO Q8HR 09/09/20 09/09/20 09/06/20 History Simvastatin 20 mg PO BID 09/09/20 09/09/20 Unknown History Active Meds: Active Medications Acetaminophen (Acetaminophen 325 Mg Tab) 650 mg PO Q4H PRN PRN Reason: Pain MILD(1-3)/Fever >100.5/[place]OM[place]ON Hydrocodone Bitart/Acetaminophen (Hydrocodone/Acetaminophen 5-325 Mg Tab) 1 each PO Q8H PRN PRN Reason: Pain, Moderate (4-6) Last Admin: 09/15/20 21:43 Dose: 1 each Documented by: Bisacodyl (Bisacodyl 10 Mg Rect Supp) 10 mg UT QDAY PRN PRN Reason: Constipation Bisacodyl (Bisacodyl 5 Mg Tab) 5 mg PO QDAY PRN PRN Reason: Constipation Brimonidine/Timolol (Combigan 0.2-0.5% Ophth Soln) 1 drops OU Q12HR [facility] Last Admin: 09/19/20 08:30 Dose: 1 drops Documented by: Dextrose (Dextrose 50% In Water (25gm) 50 Ml Syringe) 50 ml IV Q30MIN PRN; Protocol PRN Reason: Hypoglycemia Docusate Sodium (Docusate Sodium 100 Mg Cap) 100 mg PO BID [facility] Last Admin: 09/19/20 08:30 Dose: 100 mg Documented by: Ferrous Sulfate (Ferrous Sulfate 325 Mg Tab) 325 mg PO BID [facility] Last Admin: 09/19/20 08:30 Dose: 325 mg Documented by: Heparin Sodium (Porcine) (Heparin 5,000 Unit/1 Ml Vial) 5,000 unit SUB-Q Q8HR [facility] Last Admin: 09/19/20 05:33 Dose: 5,000 unit Documented by: Hydralazine HCl (Hydralazine 20 Mg/1 Ml Inj) 10 mg IV Q4HR PRN PRN Reason: Hypertension Insulin Glargine (Insulin Glargine 100 Units/Ml) 10 units SUB-Q QHS [facility] Last Admin: 09/18/20 21:39 Dose: 10 units Documented by: Insulin Human Lispro (Insulin Lispro 100 Unit/Ml) 0 unit SUB-Q ACHS [facility]; Protocol Last Admin: 09/19/20 08:14 Dose: Not Given Documented by: Latanoprost (Latanoprost 0.005% Ophth Soln 2.5 Ml) 1 drops OU QPM [facility] Last Admin: 09/18/20 19:13 Dose: 1 drops Documented by: Ondansetron HCl (Ondansetron 4 Mg Odt Tab) 4 mg PO Q8H PRN PRN Reason: Nausea And Vomiting Pantoprazole Sodium (Pantoprazole 20 Mg Tab) 20 mg PO QDAC PRN PRN Reason: Indigestion Last Admin: 09/18/20 11:48 Dose: 20 mg Documented by: Review of Systems All systems: negative Exam - Constitutional Vitals: Temp Pulse Resp BP Pulse Ox 98.2 F 77 20 118/34 97 09/19/20 07:41 09/19/20 07:41 09/19/20 07:41 09/19/20 07:41 09/19/20 09:07 General appearance: Present: no acute distress - EENT Eyes: Present: EOM intact ENT: hearing intact - Neck Neck: Present: supple, normal ROM - Respiratory Respiratory effort: normal - Extremities Extremities: abnormal (Right arm surgical site with to less than 1 cm areas of dehiscence) - Abdominal General gastrointestinal: Present: deferred Male genitourinary: Present: deferred - Rectal Rectal Exam: deferred - Psychiatric Psychiatric: appropriate mood/affect, cooperative Results - Labs CBC & Chem 7: 09/16/20 06:50 09/16/20 06:50 Labs: Abnormal lab results 09/18/20 09/18/20 Range/Units 11:27 21:00 POC Glucose 120 H 225 H (70-105) mg/dL Assessment and Plan Patient's right upper arm surgical site has staple line intact. There are 2 areas of dehiscence measuring less than 1 cm in diameter. The more inferior one demonstrates excellent pink granulation tissue and is closing by secondary intention. The more superior one is nearly closed with some fibrinous material. Annita were removed from the superior aspect of the surgical site. However, annita were left intact around the 2 areas of dehiscence to prevent further enlargement. Would continue wound care. Patient will need to follow-up with us following discharge. Will consider evaluating prior to his discharge from this facility to see if additional annita can be removed.
[2020-09-19] MEDS: LATANOPROST 0.005% OPHTH SOLN 2.5 ML OU SCH (17:36)
[2020-09-19] MEDS: PANTOPRAZOLE 20 MG TAB PO PRN (17:43)
[2020-09-19] MEDS: INSULIN GLARGINE 100 UNITS/ML SUB-Q SCH (22:27)
[2020-09-20] MEDS: HEPARIN 5,000 UNIT/1 ML VIAL SUB-Q SCH ×3 (05:51→23:36)
--- NOTE | 2020-09-20 08:24 | Progress Note ---
Assessment and Plan S/P Excison of Right AVF End Stage Renal Disease Hypotension Diabetes Mellitus Weakness Plan: HD tomorrow for clearance and volume removal Fluid restriction of 1 liter per day Renally dose medications Strict I&O monitoring Assess dialysis needs daily Subjective Date of service: 09/20/20 Principal diagnosis: Debility Interval history: no acute distress Objective - Vital Signs Vital signs: Vital Signs - 12hr 09/19/20 09/19/20 09/20/20 21:18 22:00 07:13 Temperature 98.8 F Pulse Rate 71 Respiratory 20 Rate Blood Pressure 125/44 O2 Sat by Pulse 99 99 100 Oximetry 09/20/20 08:04 Temperature Pulse Rate Respiratory Rate Blood Pressure O2 Sat by Pulse 97 Oximetry - General Appearance General appearance: well-developed, well-nourished, appears stated age, obese EENT: ATNC, PERRL, mucous membranes moist Neck: no JVD, no carotid bruit Respiratory: Present: Clear to Ascultation Cardiology: regular, S1S2 Gastrointestinal: normoactive bowel sounds, no hypoactive bowel sounds, no absent bowel sounds, no tenderness Integumentary: no rash, warm and dry Neurologic: no focal deficit, no asterixis, alert and oriented x3 Musculoskeletal: other (trace pitting edema in BLE) Psychiatric: mood/affect appropriate, cooperative - Lab 09/16/20 06:50 09/16/20 06:50 Most recent lab results Calcium 9.6 mg/dL (8.4-10.2) 09/16/20 06:50 Medications & Allergies - Medications Allergies/Adverse Reactions: Allergies No Known Allergies Allergy (Unverified 09/12/16 14:54) Home Medications: Home Medications Medication Instructions Recorded Confirmed Last Taken Type Acetaminophen [Acetaminophen TAB] 650 mg PO Q4H PRN tablet 10/12/19 09/09/20 09/07/20 20:00 Rx Insulin Lispro [Humalog] 0 unit SUB-Q Q6HR vial 10/12/19 09/09/20 09/08/20 22:00 Rx Insulin Lispro [Humalog] See Protocol SUB-Q ACHS 30 Days #1 10/12/19 09/09/20 09/08/20 22:00 Rx vial Insulin Detemir [Levemir Flextouch] 8 unit SQ QHS 09/03/20 09/09/20 08/31/20 20:00 History Gabapentin [Neurontin] 300 mg PO Q8HR 09/09/20 09/09/20 09/06/20 History Simvastatin 20 mg PO BID 09/09/20 09/09/20 Unknown History Active Medications: Generic Name Dose Route Start Last Admin Trade Name Freq PRN Reason Stop Dose Admin Acetaminophen 650 mg 09/08/20 20:19 Acetaminophen 325 Mg Tab PO Q4H PRN Pain MILD(1-3)/Fever >100.5/[place] Hydrocodone Bitart/Acetaminophen 1 each 09/09/20 09:00 09/15/20 21:43 Hydrocodone/Acetaminophen 5-325 Mg Tab PO 1 each Q8H PRN Administration Pain, Moderate (4-6) Bisacodyl 10 mg 09/08/20 20:36 Bisacodyl 10 Mg Rect Supp ID QDAY PRN Constipation Bisacodyl 5 mg 09/08/20 20:37 Bisacodyl 5 Mg Tab PO QDAY PRN Constipation Brimonidine/Timolol 1 drops 09/10/20 22:00 09/19/20 22:31 Combigan 0.2-0.5% Ophth Soln OU 1 drops Q12HR LOS Administration Dextrose 50 ml 09/08/20 20:19 Dextrose 50% In Water (25gm) 50 Ml Syringe IV Q30MIN PRN Hypoglycemia Protocol Docusate Sodium 100 mg 09/08/20 22:00 09/19/20 22:36 Docusate Sodium 100 Mg Cap PO 100 mg BID LOS Administration Ferrous Sulfate 325 mg 09/08/20 22:00 09/19/20 22:31 Ferrous Sulfate 325 Mg Tab PO 325 mg BID LOS Administration Heparin Sodium (Porcine) 5,000 unit 09/14/20 14:00 09/20/20 05:51 Heparin 5,000 Unit/1 Ml Vial SUB-Q 5,000 unit Q8HR LOS Administration Hydralazine HCl 10 mg 09/11/20 08:02 Hydralazine 20 Mg/1 Ml Inj IV Q4HR PRN Hypertension Insulin Glargine 10 units 09/08/20 21:00 09/19/20 22:27 Insulin Glargine 100 Units/Ml SUB-Q 10 units QHS LOS Administration Insulin Human Lispro 0 unit 09/08/20 22:00 09/19/20 22:33 Insulin Lispro 100 Unit/Ml SUB-Q Not Given ACHS LOS Protocol Latanoprost 1 drops 09/10/20 18:00 09/19/20 17:36 Latanoprost 0.005% Ophth Soln 2.5 Ml OU 1 drops QPM LOS Administration Ondansetron HCl 4 mg 09/08/20 20:36 Ondansetron 4 Mg Odt Tab PO Q8H PRN Nausea And Vomiting Pantoprazole Sodium 20 mg 09/09/20 09:00 09/19/20 17:43 Pantoprazole 20 Mg Tab PO 20 mg QDAC PRN Administration Indigestion
[2020-09-20] MEDS: FERROUS SULFATE 325 MG TAB PO SCH ×2 (09:22→21:36)
[2020-09-20] MEDS: DOCUSATE SODIUM 100 MG CAP PO SCH ×2 (09:23→21:36)
[2020-09-20] MEDS: COMBIGAN 0.2-0.5% OPHTH SOLN OU SCH ×2 (09:23→21:36)
[2020-09-20] MEDS: INSULIN LISPRO 100 UNIT/ML SUB-Q SCH ×3 (09:25→17:52)
[2020-09-20] MEDS: LATANOPROST 0.005% OPHTH SOLN 2.5 ML OU SCH (17:57)
[2020-09-20] MEDS: INSULIN GLARGINE 100 UNITS/ML SUB-Q SCH (21:37)
[2020-09-21] MEDS: INSULIN LISPRO 100 UNIT/ML SUB-Q SCH ×4 (00:04→22:00)
[2020-09-21] MEDS: HEPARIN 5,000 UNIT/1 ML VIAL SUB-Q SCH ×3 (06:38→21:58)
[2020-09-21] MEDS: FERROUS SULFATE 325 MG TAB PO SCH ×2 (08:42→21:58)
[2020-09-21] MEDS: DOCUSATE SODIUM 100 MG CAP PO SCH ×2 (08:43→22:00)
[2020-09-21 08:53] LABS: Hematocrit 28.1 % (35.5-45.6); Hemoglobin 8.9 gm/dl (11.8-15.2); Mean Corpuscular HGB Conc 32 % (32-34); Mean Corpuscular Volume 79 fl (84-94); Platelet Count 203 K/mm3 (140-440); Red Blood Count 3.56 M/mm3 (3.65-5.03); Red Cell Distribution Width 17.1 % (13.2-15.2)
--- NOTE | 2020-09-21 09:00 | Progress Note ---
Subjective Date of service: 09/21/20 Principal diagnosis: Debility Interval history: 65-year-old male who developed a bleed on his right upper extremity AV fistula site. 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 Patient was admitted and was febrile, blood cultures were taken and showed GPC's. Infectious disease started the patient on antibiotics. Initially a pressure bandage was utilized to control bleeding however the patient continued to bleed through the dressing. He was prepped for surgery by vascular surgery for excision of the pseudoaneurysm and ligation which occurred on 09/02/2020. Patient underwent surgery without any complications and was noted to have increased debility afterwards. Patient does live alone and after being evaluated by therapy was determined to be a good candidate for participation in a short-term acute inpatient rehabilitation stay. Interval History: Patient is participating in therapy and making reasonable progress. Taking rest breaks as needed. +BM. Pain well controlled currently. Denies palpitations, dyspnea, cough, N/V, or joint pain. Exertional dyspnea has improved since last week. We will continue to monitor patient to see if he has any more episodes this week prior to discharge. Tolerating therapy, making some improvements with endurance. Patient does state that he prefers to go home on Monday versus Monday as family members will be available to assist him with the transition home on Monday. We will discuss the discharge with team, informed the patient that insurance would also play a part in this. All DME equipment has been ordered and is currently available in the room. Infected AV fistula: Dressing clean dry and intact. Wound nurse consulted. Appreciate vascular surgery removal of annita. Patient will need to follow-up for remainder of annita to be removed. Wound healing well. Follow-up with vascular after discharge Anemia: Hemoglobin improved to 8.9. Continue iron. Likely combination of end- stage renal disease and acute blood loss End-stage renal disease on hemodialysis: Appreciate nephrology consult, continue hemodialysis and afternoons on Monday/Monday/Monday, renal diet, fluid restriction and avoid nephrotoxic medications Dyspnea on exertion: Continue supplemental oxygen and rest breaks as needed. Oxygenation improving, continue to monitor patient for supplemental oxygen needs. If we see that he still needs it at discharge, will send him home with oxygen as well as DME. Diabetes: Continue carb controlled diet, sliding scale insulin, and basal insulin dosing. Adjust as needed for euglycemia. Blood glucose variable Hypertension: Blood pressure has been variable however patient has been fairly asymptomatic from any of the hypotensive episodes. Slightly more stable over the past couple of days. As needed hydralazine ordered. Goal less than 140/90 Obstructive sleep apnea: Continue use of CPAP at night Glaucoma: No issues currently with worsening vision. Debility with decreased mobility and ability to perform ADLs: Continue therapy to improve patient's ability to ambulate safely and provide for his own ADLs without assistance from others. All records, vitals, labs and medications were reviewed. No other issues per patient, nursing or therapy. Objective - Exam Narrative Exam: MUSCULOSKELETAL SPECIALTY EXAM CONSTITUTIONAL: Well developed, well nourished, appropriately groomed, obese RESPIRATORY: Clear to auscultation bilaterally, no increased work of breathing at rest CARDIOVASCULAR: Regular Rate/ Rhythm, right lower extremity swelling with no pitting edema, otherwise no swelling, edema or tenderness in BUE or BLE. All extremities warm. GI: + bowel sounds, soft, NTTP, nondistended. INTEGUMENTARY: Right upper extremity surgical site clean dry and intact with annita, scars on other limbs from vascular access surgeries, otherwise normal, no lesion, rash, masses or bruising noted in extremities. MUSCULOSKELETAL: BUE and BLE normal without defect, crepitus, subluxation, effusion, arthritic changes or TTP. BUE 4+/5, good ROM, with normal tone. BLE 4-/5 decreased ROM, with normal tone NEURO: Sensation intact in all extremities. No tremor noted in 4 extremities. POSTURE and GAIT: Sitting posture good. PSYCH: Alert, oriented x3, affect appears normal. Insight appears intact. - Constitutional Vitals: Vital Signs - 12hr 09/20/20 09/21/20 22:00 07:39 Temperature 97.9 F Pulse Rate 78 Respiratory 16 16 Rate Blood Pressure 131/66 O2 Sat by Pulse 96 99 Oximetry - Allied health notes Allied health notes reviewed: nursing, PT, OT FIMS assessment as documented by PT/OT/ST: Grooming Patient cleans teeth/dentures: Yes Patient guzman/brushes hair: Yes Patient washes, rinses and Yes dries face: Patient washes, rinses and Yes dries hands: Patient shaves: No Patient performs (no make-up/ /4 (100%) shaving): Grooming FIM Score 6. Modified [place] (Needs equipment/device . Extra time.) Toileting Toileting Device Commode over Toilet Patient able to: Adjust clothes before,Clean self,Adjust clothes after Patient able to perform: 3/3 (100%) Toileting FIM Score 5. Supv./Set-Up (Needs stand-by, set-up, applying prosth/orth.) Social interaction/Memory/Problem solving Social Interaction FIM Score 6. Mod. [place] (Mostly appropriate. May need meds. No supv.) Memory FIM Score 7. Complete [place] (Remembers people and routines.) Problem Solving FIM Score 7. Complete [place] (Solves complex problems. Self corrects.) Transfers Mode of Locomotion: Wheelchair Bed/Chair/Wheelchair Transfers 4. Minimal Assistance (Patient = 75% or more. FIM Score Needs touching.) Toilet Transfers FIM Score 5. Supervision (Needs supervision or cueing.) Patient transferred to: Shower Shower Transfers FIM Score 3. Moderate Assistance (Patient = 50% or more. Some lifting.) Locomotion- walk/wheelchair Ambulation Distance 45 Eating Eating FIM Score 6. Modified [place] (Special consistency or uses device.) Dressing-Upper body Patient retrieves clothing Yes items: Patient applies/removes UE No: n/a prosthesis or orthosis: Upper Body Dressing FIM Score 5. Supv./Set-Up ([place] sets out clothes or applies pros./orth.) Dressing-lower body Lower Body Dressing Device [place] Patient retrieves clothing Yes items: Patient applies/removes LE n/a prosthesis or orthosis: Lower Body Dressing FIM Score 4. Minimal Assistance (Patient = 75% or more. Needs touching.) - Labs CBC & Chem 7: 09/21/20 07:34 09/16/20 06:50 Labs: Laboratory Results - last 72 hr 09/18/20 09/18/20 09/19/20 11:27 21:00 07:41 WBC RBC Hgb Hct MCV MCH MCHC RDW Plt Count POC Glucose 120 H 225 H 81 09/19/20 09/19/20 09/19/20 11:37 16:42 21:37 WBC RBC Hgb Hct MCV MCH MCHC RDW Plt Count POC Glucose 127 H 182 H 139 H 08/01/21 08/01/21 08/01/21 07:09 11:47 15:57 WBC RBC Hgb Hct MCV MCH MCHC RDW Plt Count POC Glucose 88 126 H 200 H 09/20/20 09/21/20 09/21/20 21:47 07:34 07:44 WBC 5.7 RBC 3.56 L Hgb 8.9 L Hct 28.1 L MCV 79 L MCH 25 L MCHC 32 RDW 17.1 H Plt Count 203 POC Glucose 181 H 83 Assessment and Plan Infected AV fistula: Antibiotics completed. Monitor for any further signs of infection. Monitor WBCs. Continue wound dressing changes. Appreciate vascular surgery consult. Some annita removed over the weekend, remainder will be removed at a later date by vascular at follow-up appointment. Continue wound care End-stage renal disease on hemodialysis: Consult nephrology for management. Hemodialysis on Monday in the afternoons due to the patient being on IRU. Renally dose all medications. Continue renal diet Anemia: Related to both acute blood loss as well as end-stage renal disease. Hemoglobin has improved, reduce blood draws and continue iron Diabetes: Continue medications, sliding scale insulin and monitor for euglycemia. Carb controlled/renal diet Dyspnea with exertion: Continue supplemental oxygen as needed, rest breaks for recovery. Will send home with oxygen when he discharges Hypertension: Blood pressure is variable, patient mostly asymptomatic. Have started as needed hydralazine. Goal is less than 140/90. Obstructive sleep apnea: Continue CPAP at night. Monitor for any signs or issues that need to be addressed. RT consult Glaucoma: Patient states that he is now missed his follow-up with his finish photographer due to hospitalization. I was able to speak with the office of the finish photographer and have restarted the patient on his prescribed medic ations. ADL dysfunction: OT will work on improving ability to perform ADLs (including assistive devices) to increase independence and decrease caregiver burden and improve functional transfers and mobility training. Difficulty walking: PT will work on gait training and proper use of assistive devices and advance as appropriate to use of stairs and outside ambulation on uneven surfaces. Unsteadiness on feet: PT will work on improving static and dynamic sitting and standing balance as well as proper use of assistive devices to decrease risk of falls. Abnormality of gait: PT will work to improve safety and efficiency of gait through neuromotor training and gait training along with instruction on proper use of assistive devices. Muscle weakness: PT & OT will work on strengthening exercises to improve functional strength including mixture of closed and open kinetic chain exercises. Debility: PT & OT will work on improving overall functional status to improve participation with ADLs, mobility and social involvement. Fatigue: PT & OT will work on improving endurance through aerobic exercises and therapeutic activity while monitoring patients tolerance for activity and vital signs as needed. DVT ppx: Heparin started Pain: Continue physical modalities in therapy and pain medications as needed to achieve functional pain control. Sleep: Monitor and address as needed. Bowel: Monitor and address as needed. Appetite: Monitor and address as needed. Discharge planning: Pending therapy progress and care plan meeting. Will continue discussion with therapy team, SW, patient. Look to discharge on 09/23 with rolling walker but patient is now asking for discharge on Monday instead in order to have family available for assistance with his transition home. Restrictions/ Precautions: Falls WB status: FWB Functional Hx: ADLs: Independent Cognition: Independent Mobility: Cane Barriers to Discharge: Decreased mobility and ability to perform self care, balance deficits, weakness Estimated Length of Stay: 710 days Discharge Destination: Home with family
[2020-09-21] MEDS: COMBIGAN 0.2-0.5% OPHTH SOLN OU SCH ×2 (09:44→21:58)
--- NOTE | 2020-09-21 10:54 | Progress Note ---
Assessment and Plan S/P Excison of Right AVF End Stage Renal Disease Hypotension Diabetes Mellitus Weakness Plan: HD today for clearance and volume removal Fluid restriction of 1 liter per day Renally dose medications Strict I&O monitoring Assess dialysis needs daily Subjective Date of service: 09/21/20 Principal diagnosis: Debility Interval history: no acute distress Objective - Vital Signs Vital signs: Vital Signs - 12hr 09/21/20 07:39 Temperature 97.9 F Pulse Rate 78 Respiratory 16 Rate Blood Pressure 131/66 O2 Sat by Pulse 99 Oximetry - Lab 09/21/20 07:34 09/16/20 06:50 Most recent lab results Calcium 9.6 mg/dL (8.4-10.2) 09/16/20 06:50 Medications & Allergies - Medications Allergies/Adverse Reactions: Allergies No Known Allergies Allergy (Unverified 09/12/16 14:54) Home Medications: Home Medications Medication Instructions Recorded Confirmed Last Taken Type Acetaminophen [Acetaminophen TAB] 650 mg PO Q4H PRN tablet 10/12/19 09/09/20 09/07/20 20:00 Rx Insulin Lispro [Humalog] 0 unit SUB-Q Q6HR vial 10/12/19 09/09/20 09/08/20 22:00 Rx Insulin Lispro [Humalog] See Protocol SUB-Q ACHS 30 Days #1 10/12/19 09/09/20 09/08/20 22:00 Rx vial Insulin Detemir [Levemir Flextouch] 8 unit SQ QHS 09/03/20 09/09/20 08/31/20 20:00 History Gabapentin [Neurontin] 300 mg PO Q8HR 09/09/20 09/09/20 09/06/20 History Simvastatin 20 mg PO BID 09/09/20 09/09/20 Unknown History Active Medications: Generic Name Dose Route Start Last Admin Trade Name Freq PRN Reason Stop Dose Admin Acetaminophen 650 mg 09/08/20 20:19 Acetaminophen 325 Mg Tab PO Q4H PRN Pain MILD(1-3)/Fever >100.5/THOMPSON Hydrocodone Bitart/Acetaminophen 1 each 09/09/20 09:00 09/15/20 21:43 Hydrocodone/Acetaminophen 5-325 Mg Tab PO 1 each Q8H PRN Administration Pain, Moderate (4-6) Bisacodyl 10 mg 09/08/20 20:36 Bisacodyl 10 Mg Rect Supp [place] QDAY PRN Constipation Bisacodyl 5 mg 09/08/20 20:37 Bisacodyl 5 Mg Tab PO QDAY PRN Constipation Brimonidine/Timolol 1 drops 09/10/20 22:00 09/21/20 09:44 Combigan 0.2-0.5% Ophth Soln OU 1 drops Q12HR LOS Administration Dextrose 50 ml 09/08/20 20:19 Dextrose 50% In Water (25gm) 50 Ml Syringe IV Q30MIN PRN Hypoglycemia Protocol Docusate Sodium 100 mg 09/08/20 22:00 09/21/20 08:43 Docusate Sodium 100 Mg Cap PO 100 mg BID LOS Administration Ferrous Sulfate 325 mg 09/08/20 22:00 09/21/20 08:42 Ferrous Sulfate 325 Mg Tab PO 325 mg BID LOS Administration Heparin Sodium (Porcine) 5,000 unit 09/14/20 14:00 09/21/20 06:38 Heparin 5,000 Unit/1 Ml Vial SUB-Q 5,000 unit Q8HR LOS Administration Hydralazine HCl 10 mg 09/11/20 08:02 Hydralazine 20 Mg/1 Ml Inj IV Q4HR PRN Hypertension Insulin Glargine 10 units 09/08/20 21:00 09/20/20 21:37 Insulin Glargine 100 Units/Ml SUB-Q 10 units QHS LOS Administration Insulin Human Lispro 0 unit 09/08/20 22:00 09/21/20 08:43 Insulin Lispro 100 Unit/Ml SUB-Q Not Given ACHS [facility] Protocol Latanoprost 1 drops 09/10/20 18:00 09/20/20 17:57 Latanoprost 0.005% Ophth Soln 2.5 Ml OU 1 drops QPM LOS Administration Ondansetron HCl 4 mg 09/08/20 20:36 Ondansetron 4 Mg Odt Tab PO Q8H PRN Nausea And Vomiting Pantoprazole Sodium 20 mg 09/09/20 09:00 09/19/20 17:43 Pantoprazole 20 Mg Tab PO 20 mg QDAC PRN Administration Indigestion
--- NOTE | 2020-09-21 11:55 | Event Note ---
Date: 09/21/20 Needs wound care nurse to follow with patient for both inpatient and outpatient wound care.
[2020-09-21] MEDS: LATANOPROST 0.005% OPHTH SOLN 2.5 ML OU SCH (21:58)
[2020-09-21] MEDS: INSULIN GLARGINE 100 UNITS/ML SUB-Q SCH (21:59)
[2020-09-22] MEDS: INSULIN LISPRO 100 UNIT/ML SUB-Q SCH ×5 (05:15→22:30)
[2020-09-22] MEDS: HEPARIN 5,000 UNIT/1 ML VIAL SUB-Q SCH ×3 (05:36→22:25)
--- NOTE | 2020-09-22 07:55 | Progress Note ---
Assessment and Plan S/P Excison of Right AVF End Stage Renal Disease Hypotension Diabetes Mellitus Weakness Plan: no indication for dialysis today Fluid restriction of 1 liter per day Renally dose medications Strict I&O monitoring Assess dialysis needs daily Subjective Date of service: 09/22/20 Principal diagnosis: Debility Interval history: tolerated HD yesterday Objective - Vital Signs Vital signs: Vital Signs - 12hr 09/21/20 09/21/20 09/22/20 22:00 23:00 00:49 Temperature Pulse Rate 85 Respiratory 18 17 Rate Respiratory 17 Rate [R arm] Blood Pressure O2 Sat by Pulse 98 96 Oximetry 09/22/20 04:42 Temperature 98.3 F Pulse Rate 72 Respiratory 20 Rate Respiratory Rate [R arm] Blood Pressure 112/46 O2 Sat by Pulse 100 Oximetry - General Appearance General appearance: well-developed, well-nourished, obese EENT: ATNC, PERRL, mucous membranes moist Neck: no JVD, no carotid bruit Respiratory: Present: Clear to Ascultation. Absent: Rales, Ronchi Cardiology: regular, S1S2 Gastrointestinal: normoactive bowel sounds, no tenderness, no distended, no masses Integumentary: no rash, warm and dry Neurologic: no focal deficit, no asterixis, alert and oriented x3 Musculoskeletal: other (edema in BLE) Psychiatric: mood/affect appropriate, cooperative - Lab 09/21/20 07:34 09/16/20 06:50 Most recent lab results Calcium 9.6 mg/dL (8.4-10.2) 09/16/20 06:50 Medications & Allergies - Medications Allergies/Adverse Reactions: Allergies No Known Allergies Allergy (Unverified 09/12/16 14:54) Home Medications: Home Medications Medication Instructions Recorded Confirmed Last Taken Type Acetaminophen [Acetaminophen TAB] 650 mg PO Q4H PRN tablet 10/12/19 09/09/20 09/07/20 20:00 Rx Insulin Lispro [Humalog] 0 unit SUB-Q Q6HR vial 10/12/19 09/09/20 09/08/20 22:00 Rx Insulin Lispro [Humalog] See Protocol SUB-Q ACHS 30 Days #1 10/12/19 09/09/20 09/08/20 22:00 Rx vial Insulin Detemir [Levemir Flextouch] 8 unit SQ QHS 09/03/20 09/09/20 08/31/20 20:00 History Gabapentin [Neurontin] 300 mg PO Q8HR 09/09/20 09/09/20 09/06/20 History Simvastatin 20 mg PO BID 09/09/20 09/09/20 Unknown History Active Medications: Generic Name Dose Route Start Last Admin Trade Name Freq PRN Reason Stop Dose Admin Acetaminophen 650 mg 09/08/20 20:19 Acetaminophen 325 Mg Tab PO Q4H PRN Pain MILD(1-3)/Fever >100.5/THOMPSON Hydrocodone Bitart/Acetaminophen 1 each 09/09/20 09:00 09/15/20 21:43 Hydrocodone/Acetaminophen 5-325 Mg Tab PO 1 each Q8H PRN Administration Pain, Moderate (4-6) Bisacodyl 10 mg 09/08/20 20:36 Bisacodyl 10 Mg Rect Supp OH QDAY PRN Constipation Bisacodyl 5 mg 09/08/20 20:37 Bisacodyl 5 Mg Tab PO QDAY PRN Constipation Brimonidine/Timolol 1 drops 09/10/20 22:00 09/21/20 21:58 Combigan 0.2-0.5% Ophth Soln OU 1 drops Q12HR LOS Administration Dextrose 50 ml 09/08/20 20:19 Dextrose 50% In Water (25gm) 50 Ml Syringe IV Q30MIN PRN Hypoglycemia Protocol Docusate Sodium 100 mg 09/08/20 22:00 09/21/20 22:00 Docusate Sodium 100 Mg Cap PO 100 mg BID LOS Administration Ferrous Sulfate 325 mg 09/08/20 22:00 09/21/20 21:58 Ferrous Sulfate 325 Mg Tab PO 325 mg BID LOS Administration Heparin Sodium (Porcine) 5,000 unit 09/14/20 14:00 09/22/20 05:36 Heparin 5,000 Unit/1 Ml Vial SUB-Q 5,000 unit Q8HR LOS Administration Hydralazine HCl 10 mg 09/11/20 08:02 Hydralazine 20 Mg/1 Ml Inj IV Q4HR PRN Hypertension Insulin Glargine 10 units 09/08/20 21:00 09/21/20 21:59 Insulin Glargine 100 Units/Ml SUB-Q 10 units QHS LOS Administration Insulin Human Lispro 0 unit 09/08/20 22:00 09/22/20 05:15 Insulin Lispro 100 Unit/Ml SUB-Q Not Given ACHS LOS Protocol Latanoprost 1 drops 09/10/20 18:00 09/21/20 21:58 Latanoprost 0.005% Ophth Soln 2.5 Ml OU 1 drops QPM LOS Administration Ondansetron HCl 4 mg 09/08/20 20:36 Ondansetron 4 Mg Odt Tab PO Q8H PRN Nausea And Vomiting Pantoprazole Sodium 20 mg 09/09/20 09:00 09/19/20 17:43 Pantoprazole 20 Mg Tab PO 20 mg QDAC PRN Administration Indigestion
[2020-09-22] MEDS: COMBIGAN 0.2-0.5% OPHTH SOLN OU SCH ×3 (08:23→22:25)
--- NOTE | 2020-09-22 08:23 | Progress Note ---
Subjective Date of service: 09/22/20 Principal diagnosis: Debility Interval history: 65-year-old male who developed a bleed on his right upper extremity AV fistula site. 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 Patient was admitted and was febrile, blood cultures were taken and showed GPC's. Infectious disease started the patient on antibiotics. Initially a pressure bandage was utilized to control bleeding however the patient continued to bleed through the dressing. He was prepped for surgery by vascular surgery for excision of the pseudoaneurysm and ligation which occurred on 09/02/2020. Patient underwent surgery without any complications and was noted to have increased debility afterwards. Patient does live alone and after being evaluated by therapy was determined to be a good candidate for participation in a short-term acute inpatient rehabilitation stay. Interval History: Patient is participating in therapy and making reasonable progress. Taking rest breaks as needed. +BM. Pain well controlled currently. Denies palpitations, dyspnea, cough, N/V, or joint pain. Exertional dyspnea has improved since last week. We will continue to monitor patient to see if he has any more episodes this week prior to discharge. Tolerating therapy, making some improvements with endurance. Discussed discharge planning with the patient today, states that he will need a ride to get home. His family is coming in sometime later this week Monday or thereafter. He has normally scheduled dialysis Monday/Monday/Monday at [facility]. We will need to set that up for him. At this point does not look like he is going to need supplemental oxygen and to return home. Infected AV fistula: Dressing clean dry and intact. Wound nurse consulted. Appreciate vascular surgery removal of annita. Patient will need to follow-up for remainder of annita to be removed. Wound healing well. Follow-up with vascular after discharge. Wound care after discharge Anemia: Hemoglobin improved to 8.9. Continue iron. Likely combination of end- stage renal disease and acute blood loss End-stage renal disease on hemodialysis: Appreciate nephrology consult, continue hemodialysis and afternoons on Monday/Monday/Monday, renal diet, fluid restriction and avoid nephrotoxic medications Dyspnea on exertion: Continue supplemental oxygen and rest breaks as needed. Oxygenation improving, continue to monitor patient for supplemental oxygen needs. Looks as if he will be okay without supplemental oxygen upon discharge Diabetes: Continue carb controlled diet, sliding scale insulin, and basal insulin dosing. Adjust as needed for euglycemia. Blood glucose variable Hypertension: Blood pressure has been variable however patient has been fairly asymptomatic from any of the hypotensive episodes. Slightly more stable over the past couple of days. As needed hydralazine ordered. Goal less than 140/90 Obstructive sleep apnea: Continue use of CPAP at night Glaucoma: No issues currently with worsening vision. Debility with decreased mobility and ability to perform ADLs: Continue therapy to improve patient's ability to ambulate safely and provide for his own ADLs without assistance from others. All records, vitals, labs and medications were reviewed. No other issues per patient, nursing or therapy. Patient discussed during team conference. Making good progress. Will attempt to perform fall recovery training prior to discharge on Monday. Endurance continues to improve with activity. Exertional dyspnea has improved. DME taking care of. Patient will need to follow-up with vascular, dialysis and wound care. Objective - Exam Narrative Exam: MUSCULOSKELETAL SPECIALTY EXAM CONSTITUTIONAL: Well developed, well nourished, appropriately groomed, obese RESPIRATORY: Clear to auscultation bilaterally, no increased work of breathing at rest CARDIOVASCULAR: Regular Rate/ Rhythm, right lower extremity swelling with no pitting edema, otherwise no swelling, edema or tenderness in BUE or BLE. All extremities warm. GI: + bowel sounds, soft, NTTP, nondistended. INTEGUMENTARY: Right upper extremity surgical site clean dry and intact with annita, scars on other limbs from vascular access surgeries, otherwise normal, no lesion, rash, masses or bruising noted in extremities. MUSCULOSKELETAL: BUE and BLE normal without defect, crepitus, subluxation, effusion, arthritic changes or TTP. BUE 4+/5, good ROM, with normal tone. BLE 4-/5 decreased ROM, with normal tone NEURO: Sensation intact in all extremities. No tremor noted in 4 extremities. POSTURE and GAIT: Sitting posture good. PSYCH: Alert, oriented x3, affect appears normal. Insight appears intact. - Constitutional Vitals: Vital Signs - 12hr 09/21/20 09/21/20 09/22/20 22:00 23:00 00:49 Temperature Pulse Rate 85 Respiratory 18 17 Rate Respiratory 17 Rate [R arm] Blood Pressure O2 Sat by Pulse 98 96 Oximetry 09/22/20 09/22/20 04:42 07:48 Temperature 98.3 F 98.5 F Pulse Rate 72 80 Respiratory 20 16 Rate Respiratory Rate [R arm] Blood Pressure 112/46 113/57 O2 Sat by Pulse 100 100 Oximetry - Allied health notes Allied health notes reviewed: nursing, PT, OT FIMS assessment as documented by PT/OT/ST: Grooming Patient cleans teeth/dentures: Yes Patient guzman/brushes hair: Yes Patient washes, rinses and Yes dries face: Patient washes, rinses and Yes dries hands: Patient shaves: No Patient performs (no make-up/ 4/4 (100%) shaving): Grooming FIM Score 6. Modified [place] (Needs equipment/device . Extra time.) Toileting Toileting Device Commode over Toilet Patient able to: Adjust clothes before,Clean self,Adjust clothes after Patient able to perform: 3/3 (100%) Toileting FIM Score 6. Modified [place] (Needs equip. or prosth ./orth.) Social interaction/Memory/Problem solving Social Interaction FIM Score 7. Complete [place] (Interacts appropriately. Controls temper.) Memory FIM Score 7. Complete [place] (Remembers people and routines.) Problem Solving FIM Score 6. Mod. [place] (Mild difficulty or needs more time w/ complex.) Transfers Mode of Locomotion: Wheelchair Bed/Chair/Wheelchair Transfers 6. Modified [place] (Uses device, sliding FIM Score board, prosth./orth.) Toilet Transfers FIM Score 5. Supervision (Needs supervision or cueing.) Patient transferred to: Shower Shower Transfers FIM Score 6. Modified [place] (Needs slide board, grab bar, tub bench.) Locomotion- walk/wheelchair Ambulation Distance 45 Eating Eating FIM Score 7. Complete [place] (Cuts meat, opens containers, regular diet.) Dressing-Upper body Patient retrieves clothing Yes items: Patient applies/removes UE No: n/a prosthesis or orthosis: Upper Body Dressing FIM Score 7. Complete [place] (Dresses self. Gets own clothes.) Dressing-lower body Lower Body Dressing Device [place] Patient retrieves clothing Yes items: Patient applies/removes LE n/a prosthesis or orthosis: Lower Body Dressing FIM Score 6. Modified [place] (Needs equipment, velcro or pros./orth.) - Labs CBC & Chem 7: 09/21/20 07:34 09/16/20 06:50 Labs: Laboratory Results - last 72 hr 07/31/21 07/31/21 07/31/21 11:37 16:42 21:37 WBC RBC Hgb Hct MCV MCH MCHC RDW Plt Count POC Glucose 127 H 182 H 139 H 09/20/20 09/20/20 09/20/20 07:09 11:47 15:57 WBC RBC Hgb Hct MCV MCH MCHC RDW Plt Count POC Glucose 88 126 H 200 H 09/20/20 09/21/20 09/21/20 21:47 07:34 07:44 WBC 5.7 RBC 3.56 L Hgb 8.9 L Hct 28.1 L MCV 79 L MCH 25 L MCHC 32 RDW 17.1 H Plt Count 203 POC Glucose 181 H 83 09/21/20 09/21/20 09/22/20 11:43 21:53 07:49 WBC RBC Hgb Hct MCV MCH MCHC RDW Plt Count POC Glucose 128 H 226 H 94 Assessment and Plan Infected AV fistula: Antibiotics completed. Monitor for any further signs of infection. Monitor WBCs. Continue wound dressing changes. Appreciate vascular surgery consult. Some annita removed over the weekend, remainder will be removed at a later date by vascular at follow-up appointment. Continue wound care End-stage renal disease on hemodialysis: Consult nephrology for management. Hemodialysis on Monday in the afternoons due to the patient being on IRU. Renally dose all medications. Continue renal diet. Patient attends dialysis at [facility]. Anemia: Related to both acute blood loss as well as end-stage renal disease. H emoglobin has improved, reduce blood draws and continue iron Diabetes: Continue medications, sliding scale insulin and monitor for euglycemia. Carb controlled/renal diet Dyspnea with exertion: Continue supplemental oxygen as needed, rest breaks for recovery. Will send home with oxygen when he discharges Hypertension: Blood pressure is variable, patient mostly asymptomatic. Have started as needed hydralazine. Goal is less than 140/90. Obstructive sleep apnea: Continue CPAP at night. Monitor for any signs or issues that need to be addressed. RT consult Glaucoma: Patient states that he is now missed his follow-up with his supervisor shop due to hospitalization. I was able to speak with the office of the supervisor shop and have restarted the patient on his prescribed medications. ADL dysfunction: OT will work on improving ability to perform ADLs (including assistive devices) to increase independence and decrease caregiver burden and improve functional transfers and mobility training. Difficulty walking: PT will work on gait training and proper use of assistive devices and advance as appropriate to use of stairs and outside ambulation on uneven surfaces. Unsteadiness on feet: PT will work on improving static and dynamic sitting and standing balance as well as proper use of assistive devices to decrease risk of falls. Abnormality of gait: PT will work to improve safety and efficiency of gait through neuromotor training and gait training along with instruction on proper use of assistive devices. Muscle weakness: PT & OT will work on strengthening exercises to improve functional strength including mixture of closed and open kinetic chain exercises. Debility: PT & OT will work on improving overall functional status to improve participation with ADLs, mobility and social involvement. Fatigue: PT & OT will work on improving endurance through aerobic exercises and therapeutic activity while monitoring patients tolerance for activity and vital signs as needed. DVT ppx: Heparin started Pain: Continue physical modalities in therapy and pain medications as needed to achieve functional pain control. Sleep: Monitor and address as needed. Bowel: Monitor and address as needed. Appetite: Monitor and address as needed. Discharge planning: Pending therapy progress and care plan meeting. Will continue discussion with therapy team, CLOVIS, patient. Look to discharge on 09/25 with rolling walker in order to have family available for assistance with his transition home. Restrictions/ Precautions: Falls WB status: FWB Functional Hx: ADLs: Independent Cognition: Independent Mobility: Cane Barriers to Discharge: Decreased mobility and ability to perform self care, balance deficits, weakness Estimated Length of Stay: 710 days Discharge Destination: Home with family
[2020-09-22] MEDS: DOCUSATE SODIUM 100 MG CAP PO SCH ×2 (08:24→22:25)
[2020-09-22] MEDS: FERROUS SULFATE 325 MG TAB PO SCH ×2 (08:24→22:25)
[2020-09-22] MEDS: LATANOPROST 0.005% OPHTH SOLN 2.5 ML OU SCH (18:13)
[2020-09-22] MEDS: PANTOPRAZOLE 20 MG TAB PO PRN (18:15)
[2020-09-22] MEDS: INSULIN GLARGINE 100 UNITS/ML SUB-Q SCH (22:26)
[2020-09-23] MEDS: HEPARIN 5,000 UNIT/1 ML VIAL SUB-Q SCH ×3 (06:16→21:40)
[2020-09-23] MEDS: INSULIN LISPRO 100 UNIT/ML SUB-Q SCH ×4 (07:03→21:41)
--- NOTE | 2020-09-23 09:56 | Progress Note ---
Subjective Date of service: 09/23/20 Principal diagnosis: Debility Interval history: 65-year-old male who developed a bleed on his right upper extremity AV fistula site. 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 Patient was admitted and was febrile, blood cultures were taken and showed GPC's. Infectious disease started the patient on antibiotics. Initially a pressure bandage was utilized to control bleeding however the patient continued to bleed through the dressing. He was prepped for surgery by vascular surgery for excision of the pseudoaneurysm and ligation which occurred on 09/02/2020. Patient underwent surgery without any complications and was noted to have increased debility afterwards. Patient does live alone and after being evaluated by therapy was determined to be a good candidate for participation in a short-term acute inpatient rehabilitation stay. Interval History: Patient is participating in therapy and making reasonable progress. Taking rest breaks as needed. +BM. Pain well controlled currently. Denies palpitations, dyspnea, cough, N/V, or joint pain. Exertional dyspnea has improved since last week. We will continue to monitor patient to see if he has any more episodes this week prior to discharge. Tolerating therapy, making some improvements with endurance. Patient continues to do well, plan discharge on Monday. Patient/family is now stating that his house is contaminated from his prior b leeding episode prior to admission to the hospital on 09/01. They want to delay discharge until they can hire a professional company to come in and do a decontamination cleaning. Not certain that we can accommodate that request as the patient is doing fairly well and we have already extended him a little bit in order to have family present on Monday. Infected AV fistula: Dressing clean dry and intact. Wound nurse consulted. Appreciate vascular surgery removal of annita. Patient will need to follow-up for remainder of annita to be removed. Wound healing well. Follow-up with vascular after discharge. Wound care after discharge Anemia: Hemoglobin improved to 8.9. Continue iron. Likely combination of end- stage renal disease and acute blood loss End-stage renal disease on hemodialysis: Appreciate nephrology consult, continue hemodialysis and afternoons on Monday/Monday/Monday, renal diet, fluid restriction and avoid nephrotoxic medications Dyspnea on exertion: Continue supplemental oxygen and rest breaks as needed. Oxygenation improving, continue to monitor patient for supplemental oxygen needs. Looks as if he will be okay without supplemental oxygen upon discharge Diabetes: Continue carb controlled diet, sliding scale insulin, and basal insulin dosing. Adjust as needed for euglycemia. Blood glucose variable Hypertension: Blood pressure has been variable however patient has been fairly asymptomatic from any of the hypotensive episodes. Slightly more stable over the past couple of days. As needed hydralazine ordered. Goal less than 140/90 Obstructive sleep apnea: Continue use of CPAP at night Glaucoma: No issues currently with worsening vision. Debility with decreased mobility and ability to perform ADLs: Continue therapy to improve patient's ability to ambulate safely and provide for his own ADLs without assistance from others. All records, vitals, labs and medications were reviewed. No other issues per patient, nursing or therapy. Objective - Exam Narrative Exam: MUSCULOSKELETAL SPECIALTY EXAM CONSTITUTIONAL: Well developed, well nourished, appropriately groomed, obese RESPIRATORY: Clear to auscultation bilaterally, no increased work of breathing at rest CARDIOVASCULAR: Regular Rate/ Rhythm, right lower extremity swelling with no pitting edema, otherwise no swelling, edema or tenderness in BUE or BLE. All extremities warm. GI: + bowel sounds, soft, NTTP, nondistended. INTEGUMENTARY: Right upper extremity surgical site clean dry and intact with annita, scars on other limbs from vascular access surgeries, otherwise normal, no lesion, rash, masses or bruising noted in extremities. MUSCULOSKELETAL: BUE and BLE normal without defect, crepitus, subluxation, effusion, arthritic changes or TTP. BUE 4+/5, good ROM, with normal tone. BLE 4-/5 decreased ROM, with normal tone NEURO: Sensation intact in all extremities. No tremor noted in 4 extremities. POSTURE and GAIT: Sitting posture good. PSYCH: Alert, oriented x3, affect appears normal. Insight appears intact. - Constitutional Vitals: Vital Signs - 12hr 09/22/20 09/23/20 09/23/20 23:00 01:00 04:29 Temperature 97.9 F Pulse Rate 84 77 Respiratory 20 17 18 Rate Blood Pressure 96/68 O2 Sat by Pulse 98 98 100 Oximetry 09/23/20 07:29 Temperature 98.2 F Pulse Rate 84 Respiratory 18 Rate Blood Pressure 101/47 O2 Sat by Pulse 99 Oximetry - Allied health notes Allied health notes reviewed: nursing, PT, OT FIMS assessment as documented by PT/OT/ST: Grooming Patient cleans teeth/dentures: Yes Patient guzman/brushes hair: Yes Patient washes, rinses and Yes dries face: Patient washes, rinses and Yes dries hands: Patient shaves: No Patient performs (no make-up/ 05/24 (100%) shaving): Grooming FIM Score 6. Modified [place] (Needs equipment/device . Extra time.) Toileting Toileting Device Commode over Toilet Patient able to: Adjust clothes before,Clean self,Adjust clothes after Patient able to perform: 3/3 (100%) Toileting FIM Score 6. Modified [place] (Needs equip. or prosth ./orth.) Social interaction/Memory/Problem solving Social Interaction FIM Score 6. Mod. [place] (Mostly appropriate. May need meds. No supv.) Memory FIM Score 6. Modified [place](Mild difficulty remembering people/routines.) Problem Solving FIM Score 6. Mod. [place] (Mild difficulty or needs more time w/ complex.) Transfers Mode of Locomotion: Wheelchair Bed/Chair/Wheelchair Transfers 6. Modified [place] (Uses device, sliding FIM Score board, prosth./orth.) Toilet Transfers FIM Score 5. Supervision (Needs supervision or cueing.) Patient transferred to: Shower Shower Transfers FIM Score 6. Modified [place] (Needs slide board, grab bar, tub bench.) Locomotion- walk/wheelchair Ambulation Distance 45 Eating Eating FIM Score 6. Modified [place] (Special consistency or uses device.) Dressing-Upper body Patient retrieves clothing Yes items: Patient applies/removes UE No: n/a prosthesis or orthosis: Upper Body Dressing FIM Score 6. Modified [place] (Needs equipment, velcro or pros./orth.) Dressing-lower body Lower Body Dressing Device [place] Patient retrieves clothing Yes items: Patient applies/removes LE n/a prosthesis or orthosis: Lower Body Dressing FIM Score 6. Modified [place] (Needs equipment, velcro or pros./orth.) - Labs CBC & Chem 7: 09/21/20 07:34 09/16/20 06:50 Labs: Laboratory Results - last 72 hr 09/20/20 09/20/20 09/20/20 11:47 15:57 21:47 WBC RBC Hgb Hct MCV MCH MCHC RDW Plt Count POC Glucose 126 H 200 H 181 H 09/21/20 09/21/20 09/21/20 07:34 07:44 11:43 WBC 5.7 RBC 3.56 L Hgb 8.9 L Hct 28.1 L MCV 79 L MCH 25 L MCHC 32 RDW 17.1 H Plt Count 203 POC Glucose 83 128 H 09/21/20 09/22/20 09/22/20 21:53 07:49 11:42 WBC RBC Hgb Hct MCV MCH MCHC RDW Plt Count POC Glucose 226 H 94 128 H 09/22/20 09/22/20 09/23/20 16:25 20:58 07:29 WBC RBC Hgb Hct MCV MCH MCHC RDW Plt Count POC Glucose 126 H 177 H 91 Assessment and Plan Infected AV fistula: Antibiotics completed. Monitor for any further signs of infection. Monitor WBCs. Continue wound dressing changes. Appreciate vascular surgery consult. Some annita removed over the weekend, remainder will be removed at a later date by vascular at follow-up appointment. Continue wound care End-stage renal disease on hemodialysis: Consult nephrology for management. Hemodialysis on Monday in the afternoons due to the patient being on IRU. Renally dose all medications. Continue renal diet. Patient attends dialysis at [facility]. Anemia: Related to both acute blood loss as well as end-stage renal disease. Hemoglobin has improved, reduce blood draws and continue iron Diabetes: Continue medications, sliding scale insulin and monitor for euglycemia. Carb controlled/renal diet Dyspnea with exertion: Continue supplemental oxygen as needed, rest breaks for recovery. Will send home with oxygen when he discharges Hypertension: Blood pressure is variable, patient mostly asymptomatic. Have started as needed hydralazine. Goal is less than 140/90. Obstructive sleep apnea: Continue CPAP at night. Monitor for any signs or issues that need to be addressed. RT consult Glaucoma: Patient states that he is now missed his follow-up with his screener and blender due to hospitalization. I was able to speak with the office of the screener and blender and have restarted the patient on his prescribed medicatio ns. ADL dysfunction: OT will work on improving ability to perform ADLs (including assistive devices) to increase independence and decrease caregiver burden and improve functional transfers and mobility training. Difficulty walking: PT will work on gait training and proper use of assistive devices and advance as appropriate to use of stairs and outside ambulation on uneven surfaces. Unsteadiness on feet: PT will work on improving static and dynamic sitting and standing balance as well as proper use of assistive devices to decrease risk of falls. Abnormality of gait: PT will work to improve safety and efficiency of gait through neuromotor training and gait training along with instruction on proper use of assistive devices. Muscle weakness: PT & OT will work on strengthening exercises to improve functional strength including mixture of closed and open kinetic chain exercises. Debility: PT & OT will work on improving overall functional status to improve participation with ADLs, mobility and social involvement. Fatigue: PT & OT will work on improving endurance through aerobic exercises and therapeutic activity while monitoring patients tolerance for activity and vital signs as needed. DVT ppx: Heparin started Pain: Continue physical modalities in therapy and pain medications as needed to achieve functional pain control. Sleep: Monitor and address as needed. Bowel: Monitor and address as needed. Appetite: Monitor and address as needed. Discharge planning: Pending therapy progress and care plan meeting. Will continue discussion with therapy team, SW, patient. Look to discharge on 09/25 with rolling walker in order to have family available for assistance with his tr ansition home. Restrictions/ Precautions: Falls WB status: FWB Functional Hx: ADLs: Independent Cognition: Independent Mobility: Cane Barriers to Discharge: Decreased mobility and ability to perform self care, balance deficits, weakness Estimated Length of Stay: 710 days Discharge Destination: Home with family
[2020-09-23] MEDS: FERROUS SULFATE 325 MG TAB PO SCH ×2 (10:00→21:40)
[2020-09-23] MEDS: DOCUSATE SODIUM 100 MG CAP PO SCH ×2 (10:06→21:40)
--- NOTE | 2020-09-23 11:00 | Progress Note ---
Assessment and Plan S/P Excison of Right AVF End Stage Renal Disease Hypotension Diabetes Mellitus Weakness Plan: discussed with dialysis nurse, will switch HD days to to TTS. HD ordered for tomorrow Fluid restriction of 1 liter per day Renally dose medications Strict I&O monitoring Assess dialysis needs daily Subjective Date of service: 09/23/20 Principal diagnosis: Debility Interval history: no overnight events Objective - Vital Signs Vital signs: Vital Signs - 12hr 09/22/20 09/23/20 09/23/20 23:00 01:00 04:29 Temperature 97.9 F Pulse Rate 84 77 Respiratory 20 17 18 Rate Blood Pressure 96/68 O2 Sat by Pulse 98 98 100 Oximetry 09/23/20 07:29 Temperature 98.2 F Pulse Rate 84 Respiratory 18 Rate Blood Pressure 101/47 O2 Sat by Pulse 99 Oximetry - Lab 09/21/20 07:34 09/16/20 06:50 Most recent lab results Calcium 9.6 mg/dL (8.4-10.2) 09/16/20 06:50 Medications & Allergies - Medications Allergies/Adverse Reactions: Allergies No Known Allergies Allergy (Unverified 09/12/16 14:54) Home Medications: Home Medications Medication Instructions Recorded Confirmed Last Taken Type Acetaminophen [Acetaminophen TAB] 650 mg PO Q4H PRN tablet 10/12/19 09/09/20 09/07/20 20:00 Rx Insulin Lispro [Humalog] 0 unit SUB-Q Q6HR vial 10/12/19 09/09/20 09/08/20 22:00 Rx Insulin Lispro [Humalog] See Protocol SUB-Q ACHS 30 Days #1 10/12/19 09/09/20 09/08/20 22:00 Rx vial Insulin Detemir [Levemir Flextouch] 8 unit SQ QHS 09/03/20 09/09/20 08/31/20 20:00 History Gabapentin [Neurontin] 300 mg PO Q8HR 09/09/20 09/09/20 09/06/20 History Simvastatin 20 mg PO BID 09/09/20 09/09/20 Unknown History Active Medications: Generic Name Dose Route Start Last Admin Trade Name Freq PRN Reason Stop Dose Admin Acetaminophen 650 mg 09/08/20 20:19 Acetaminophen 325 Mg Tab PO Q4H PRN Pain MILD(1-3)/Fever >100.5/THOMPSON Hydrocodone Bitart/Acetaminophen 1 each 09/09/20 09:00 09/15/20 21:43 Hydrocodone/Acetaminophen 5-325 Mg Tab PO 1 each Q8H PRN Administration Pain, Moderate (4-6) Bisacodyl 10 mg 09/08/20 20:36 Bisacodyl 10 Mg Rect Supp AR QDAY PRN Constipation Bisacodyl 5 mg 09/08/20 20:37 Bisacodyl 5 Mg Tab PO QDAY PRN Constipation Brimonidine/Timolol 1 drops 09/10/20 22:00 09/22/20 22:25 Combigan 0.2-0.5% Ophth Soln OU 1 drops Q12HR LOS Administration Dextrose 50 ml 09/08/20 20:19 Dextrose 50% In Water (25gm) 50 Ml Syringe IV Q30MIN PRN Hypoglycemia Protocol Docusate Sodium 100 mg 09/08/20 22:00 09/22/20 22:25 Docusate Sodium 100 Mg Cap PO 100 mg BID LOS Administration Ferrous Sulfate 325 mg 09/08/20 22:00 09/22/20 22:25 Ferrous Sulfate 325 Mg Tab PO 325 mg BID LOS Administration Heparin Sodium (Porcine) 5,000 unit 09/14/20 14:00 09/23/20 06:16 Heparin 5,000 Unit/1 Ml Vial SUB-Q 5,000 unit Q8HR LOS Administration Hydralazine HCl 10 mg 09/11/20 08:02 Hydralazine 20 Mg/1 Ml Inj IV Q4HR PRN Hypertension Insulin Glargine 10 units 09/08/20 21:00 09/22/20 22:26 Insulin Glargine 100 Units/Ml SUB-Q 10 units QHS LOS Administration Insulin Human Lispro 0 unit 09/08/20 22:00 09/22/20 22:30 Insulin Lispro 100 Unit/Ml SUB-Q 2 unit ACHS LOS Administration Protocol Latanoprost 1 drops 09/10/20 18:00 09/22/20 18:13 Latanoprost 0.005% Ophth Soln 2.5 Ml OU 1 drops QPM LOS Administration Ondansetron HCl 4 mg 09/08/20 20:36 Ondansetron 4 Mg Odt Tab PO Q8H PRN Nausea And Vomiting Pantoprazole Sodium 20 mg 09/09/20 09:00 09/22/20 18:15 Pantoprazole 20 Mg Tab PO 20 mg QDAC PRN Administration Indigestion
[2020-09-23] MEDS ORDERED: SODIUM CHLORIDE 0.9% 100 ML IV PRN (12:00)
[2020-09-23] MEDS: COMBIGAN 0.2-0.5% OPHTH SOLN OU SCH ×2 (12:53→21:42)
[2020-09-23] MEDS: LATANOPROST 0.005% OPHTH SOLN 2.5 ML OU SCH (19:05)
[2020-09-23] MEDS: INSULIN GLARGINE 100 UNITS/ML SUB-Q SCH (21:43)
[2020-09-24] MEDS: HEPARIN 5,000 UNIT/1 ML VIAL SUB-Q SCH ×3 (07:09→22:13)
[2020-09-24] MEDS: INSULIN LISPRO 100 UNIT/ML SUB-Q SCH ×4 (08:15→22:12)
[2020-09-24] MEDS: DOCUSATE SODIUM 100 MG CAP PO SCH ×2 (08:15→21:57)
[2020-09-24] MEDS: COMBIGAN 0.2-0.5% OPHTH SOLN OU SCH ×3 (08:15→22:37)
[2020-09-24] MEDS: FERROUS SULFATE 325 MG TAB PO SCH ×2 (08:15→22:10)
--- NOTE | 2020-09-24 09:38 | Progress Note ---
Subjective Date of service: 09/24/20 Principal diagnosis: Debility Interval history: 65-year-old male who developed a bleed on his right upper extremity AV fistula site. 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 Patient was admitted and was febrile, blood cultures were taken and showed GPC's. Infectious disease started the patient on antibiotics. Initially a pressure bandage was utilized to control bleeding however the patient continued to bleed through the dressing. He was prepped for surgery by vascular surgery for excision of the pseudoaneurysm and ligation which occurred on 09/02/2020. Patient underwent surgery without any complications and was noted to have increased debility afterwards. Patient does live alone and after being evaluated by therapy was determined to be a good candidate for participation in a short-term acute inpatient rehabilitation stay. Interval History: Patient is participating in therapy and making reasonable progress. Taking rest breaks as needed. +BM. Pain well controlled currently. Denies palpitations, dyspnea, cough, N/V, or joint pain. Exertional dyspnea has improved since last week. We will continue to monitor patient to see if he has any more episodes this week prior to discharge. Tolerating therapy, making improvements with endurance. Patient continues to do well, plan discharge on Monday but Patient/family stating that his house is contaminated from his prior bleeding ep isode prior to admission to the hospital on 09/01. They want to delay discharge until they can hire a professional company to come in and do a decontamination cleaning. Not certain that we can accommodate that request as the patient is doing fairly well and we have already extended him a little bit in order to have family present on Monday. We have also started looking for long term placement in case we are unable to get the patient home safely. Infected AV fistula: Dressing clean dry and intact. Wound nurse consulted. Appreciate vascular surgery removal of annita. Patient will need to follow-up for remainder of annita to be removed. Wound healing well. Follow-up with vascular after discharge. Wound care after discharge Anemia: Hemoglobin improved to 8.9. Continue iron. Likely combination of end- stage renal disease and acute blood loss End-stage renal disease on hemodialysis: Appreciate nephrology consult, continue hemodialysis and afternoons on Monday/Monday/Monday, renal diet, fluid restriction and avoid nephrotoxic medications. Unknown why patient's schedule was changed to Monday, , Monday. Dyspnea on exertion: Continue supplemental oxygen and rest breaks as needed. Oxygenation improving, continue to monitor patient for supplemental oxygen needs. Looks as if he will be okay without supplemental oxygen upon discharge Diabetes: Continue carb controlled diet, sliding scale insulin, and basal insulin dosing. Adjust as needed for euglycemia. Blood glucose variable Hypertension: Blood pressure has been variable however patient has been fairly asymptomatic from any of the hypotensive episodes. Slightly more stable over the past couple of days. As needed hydralazine ordered. Goal less than 140/90 Obstructive sleep apnea: Continue use of CPAP at night Glaucoma: No issues currently with worsening vision. Debility with decreased mobility and ability to perform ADLs: Continue therapy to improve patient's ability to ambulate safely and provide for his own ADLs without assistance from others. All records, vitals, labs and medications were reviewed. No other issues per patient, nursing or therapy. Objective - Exam Narrative Exam: MUSCULOSKELETAL SPECIALTY EXAM CONSTITUTIONAL: Well developed, well nourished, appropriately groomed, obese RESPIRATORY: Clear to auscultation bilaterally, no increased work of breathing at rest CARDIOVASCULAR: Regular Rate/ Rhythm, right lower extremity swelling with no pitting edema, otherwise no swelling, edema or tenderness in BUE or BLE. All extremities warm. GI: + bowel sounds, soft, NTTP, nondistended. INTEGUMENTARY: Right upper extremity surgical site clean dry and intact with annita, scars on other limbs from vascular access surgeries, otherwise normal, no lesion, rash, masses or bruising noted in extremities. MUSCULOSKELETAL: BUE and BLE normal without defect, crepitus, subluxation, effusion, arthritic changes or TTP. BUE 4+/5, good ROM, with normal tone. BLE 4/5 decreased ROM, with normal tone NEURO: Sensation intact in all extremities. No tremor noted in 4 extremities. POSTURE and GAIT: Sitting posture good. PSYCH: Alert, oriented x3, affect appears normal. Insight appears intact. - Constitutional Vitals: Vital Signs - 12hr 09/24/20 09/24/20 09/24/20 01:14 04:36 07:58 Temperature 97.6 F 98.0 F Pulse Rate 65 81 Respiratory 16 18 20 Rate Blood Pressure 138/56 103/42 O2 Sat by Pulse 99 100 100 Oximetry - Allied health notes Allied health notes reviewed: nursing, PT, OT FIMS assessment as documented by PT/OT/ST: Grooming Patient cleans teeth/dentures: Yes Patient guzman/brushes hair: Yes Patient washes, rinses and Yes dries face: Patient washes, rinses and Yes dries hands: Patient shaves: No Patient performs (no make-up/ 05/24 (100%) shaving): Grooming FIM Score 6. Modified [place] (Needs equipment/device . Extra time.) Toileting Toileting Device Commode over Toilet Patient able to: Adjust clothes before,Clean self,Adjust clothes after Patient able to perform: 3/3 (100%) Toileting FIM Score 6. Modified [place] (Needs equip. or prosth ./orth.) Social interaction/Memory/Problem solving Social Interaction FIM Score 6. Mod. [place] (Mostly appropriate. May need meds. No supv.) Memory FIM Score 6. Modified [place](Mild difficulty remembering people/routines.) Problem Solving FIM Score 6. Mod. [place] (Mild difficulty or needs more time w/ complex.) Transfers Mode of Locomotion: Wheelchair Bed/Chair/Wheelchair Transfers 6. Modified [place] (Uses device, sliding FIM Score board, prosth./orth.) Toilet Transfers FIM Score 5. Supervision (Needs supervision or cueing.) Patient transferred to: Shower Shower Transfers FIM Score 6. Modified [place] (Needs slide board, grab bar, tub bench.) Locomotion- walk/wheelchair Ambulation Distance 45 Eating Eating FIM Score 6. Modified [place] (Special consistency or uses device.) Dressing-Upper body Patient retrieves clothing Yes items: Patient applies/removes UE No: n/a prosthesis or orthosis: Upper Body Dressing FIM Score 6. Modified [place] (Needs equipment, velcro or pros./orth.) Dressing-lower body Lower Body Dressing Device [place] Patient retrieves clothing Yes items: Patient applies/removes LE n/a prosthesis or orthosis: Lower Body Dressing FIM Score 6. Modified [place] (Needs equipment, velcro or pros./orth.) - Labs CBC & Chem 7: 09/21/20 07:34 09/16/20 06:50 Labs: Laboratory Results - last 72 hr 09/21/20 09/21/20 09/22/20 11:43 21:53 07:49 POC Glucose 128 H 226 H 94 09/22/20 09/22/20 09/22/20 11:42 16:25 20:58 POC Glucose 128 H 126 H 177 H 09/23/20 09/23/20 09/23/20 07:29 11:53 16:42 POC Glucose 91 119 H 196 H 09/23/20 09/24/20 20:35 07:57 POC Glucose 165 H 77 Assessment and Plan Infected AV fistula: Antibiotics completed. Monitor for any further signs of infection. Monitor WBCs. Continue wound dressing changes. Appreciate vascular surgery consult. Some annita removed over the weekend, remainder will be removed at a later date by vascular at follow-up appointment. Continue wound care End-stage renal disease on hemodialysis: Consult nephrology for management. Hemodialysis on Monday in the afternoons due to the patient being on IRU. Renally dose all medications. Continue renal diet. Patient attends dialysis at [facility]. Typical schedule is Monday/Monday/Monday however for uncertain reasons the patient was recently changed to Monday//Monday. Anemia: Related to both acute blood loss as well as end-stage renal disease. Hemoglobin has improved, reduce blood draws and continue iron Diabetes: Continue medications, sliding scale insulin and monitor for euglycemia. Carb controlled/renal diet Dyspnea with exertion: Continue supplemental oxygen as needed, rest breaks for recovery. Will send home with oxygen when he discharges Hypertension: Blood pressure is variable, patient mostly asymptomatic. Have started as needed hydralazine. Goal is less than 140/90. Obstructive sleep apnea: Continue CPAP at night. Monitor for any signs or issues that need to be addressed. 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 I was able to speak with the office of the dispatcher automobile [employer] and have restarted the patient on his prescribed medications. ADL dysfunction: OT will work on improving ability to perform ADLs (including assistive devices) to increase independence and decrease caregiver burden and improve functional transfers and mobility training. Difficulty walking: PT will work on gait training and proper use of assistive devices and advance as appropriate to use of stairs and outside ambulation on uneven surfaces. Unsteadiness on feet: PT will work on improving static and dynamic sitting and standing balance as well as proper use of assistive devices to decrease risk of falls. Abnormality of gait: PT will work to improve safety and efficiency of gait through neuromotor training and gait training along with instruction on proper use of assistive devices. Muscle weakness: PT & OT will work on strengthening exercises to improve functional strength including mixture of closed and open kinetic chain exercises. Debility: PT & OT will work on improving overall functional status to improve participation with ADLs, mobility and social involvement. Fatigue: PT & OT will work on improving endurance through aerobic exercises and therapeutic activity while monitoring patients tolerance for activity and vital signs as needed. DVT ppx: Heparin started Pain: Continue physical modalities in therapy and pain medications as needed to achieve functional pain control. Sleep: Monitor and address as needed. Bowel: Monitor and address as needed. Appetite: Monitor and address as needed. Discharge planning: Pending therapy progress and care plan meeting. Will continue discussion with therapy team, CLOVIS, patient. Look to discharge on 09/25 with rolling walker in order to have family available for assistance with his transition home. Restrictions/ Precautions: Falls WB status: FWB Functional Hx: ADLs: Independent Cognition: Independent Mobility: Cane Barriers to Discharge: Decreased mobility and ability to perform self care, balance deficits, weakness Estimated Length of Stay: 710 days Discharge Destination: Home with family
--- NOTE | 2020-09-24 09:47 | Progress Note ---
Assessment and Plan S/P Excison of Right AVF End Stage Renal Disease Hypotension Diabetes Mellitus Weakness Plan: HD today for clearance and volume removal Fluid restriction of 1 liter per day Renally dose medications Strict I&O monitoring Assess dialysis needs daily Subjective Date of service: 09/24/20 Principal diagnosis: Debility Interval history: tolerating PT Objective - Vital Signs Vital signs: Vital Signs - 12hr 09/24/20 09/24/20 09/24/20 01:14 04:36 07:58 Temperature 97.6 F 98.0 F Pulse Rate 65 81 Respiratory 16 18 20 Rate Blood Pressure 138/56 103/42 O2 Sat by Pulse 99 100 100 Oximetry - Lab 09/21/20 07:34 09/16/20 06:50 Most recent lab results Calcium 9.6 mg/dL (8.4-10.2) 09/16/20 06:50 Medications & Allergies - Medications Allergies/Adverse Reactions: Allergies No Known Allergies Allergy (Unverified 09/12/16 14:54) Home Medications: Home Medications Medication Instructions Recorded Confirmed Last Taken Type Acetaminophen [Acetaminophen TAB] 650 mg PO Q4H PRN tablet 10/12/19 09/09/20 09/07/20 20:00 Rx Insulin Lispro [Humalog] 0 unit SUB-Q Q6HR vial 10/12/19 09/09/20 09/08/20 22:00 Rx Insulin Lispro [Humalog] See Protocol SUB-Q ACHS 30 Days #1 10/12/19 09/09/20 09/08/20 22:00 Rx vial Insulin Detemir [Levemir Flextouch] 8 unit SQ QHS 09/03/20 09/09/20 08/31/20 20:00 History Gabapentin [Neurontin] 300 mg PO Q8HR 09/09/20 09/09/20 09/06/20 History Simvastatin 20 mg PO BID 09/09/20 09/09/20 Unknown History Active Medications: Generic Name Dose Route Start Last Admin Trade Name Freq PRN Reason Stop Dose Admin Acetaminophen 650 mg 09/08/20 20:19 Acetaminophen 325 Mg Tab PO Q4H PRN Pain MILD(1-3)/Fever >100.5/THOMPSON Hydrocodone Bitart/Acetaminophen 1 each 09/09/20 09:00 09/15/20 21:43 Hydrocodone/Acetaminophen 5-325 Mg Tab PO 1 each Q8H PRN Administration Pain, Moderate (4-6) Bisacodyl 10 mg 09/08/20 20:36 Bisacodyl 10 Mg Rect Supp NC QDAY PRN Constipation Bisacodyl 5 mg 09/08/20 20:37 Bisacodyl 5 Mg Tab PO QDAY PRN Constipation Brimonidine/Timolol 1 drops 09/10/20 22:00 09/24/20 08:15 Combigan 0.2-0.5% Ophth Soln OU 1 drops Q12HR LOS Administration Dextrose 50 ml 09/08/20 20:19 Dextrose 50% In Water (25gm) 50 Ml Syringe IV Q30MIN PRN Hypoglycemia Protocol Docusate Sodium 100 mg 09/08/20 22:00 09/24/20 08:15 Docusate Sodium 100 Mg Cap PO 100 mg BID LOS Administration Ferrous Sulfate 325 mg 09/08/20 22:00 09/24/20 08:15 Ferrous Sulfate 325 Mg Tab PO 325 mg BID LOS Administration Heparin Sodium (Porcine) 5,000 unit 09/14/20 14:00 09/24/20 07:09 Heparin 5,000 Unit/1 Ml Vial SUB-Q 5,000 unit Q8HR LOS Administration Hydralazine HCl 10 mg 09/11/20 08:02 Hydralazine 20 Mg/1 Ml Inj IV Q4HR PRN Hypertension Sodium Chloride 100 mls @ 999 mls/hr 09/23/20 12:00 Nacl 0.9% IV MELY PRN Hypotension Insulin Glargine 10 units 09/08/20 21:00 09/23/20 21:43 Insulin Glargine 100 Units/Ml SUB-Q 10 units QHS LOS Administration Insulin Human Lispro 0 unit 09/08/20 22:00 09/24/20 08:15 Insulin Lispro 100 Unit/Ml SUB-Q Not Given ACHS [facility] Protocol Latanoprost 1 drops 09/10/20 18:00 09/23/20 19:05 Latanoprost 0.005% Ophth Soln 2.5 Ml OU 1 drops QPM LOS Administration Ondansetron HCl 4 mg 09/08/20 20:36 Ondansetron 4 Mg Odt Tab PO Q8H PRN Nausea And Vomiting Pantoprazole Sodium 20 mg 09/09/20 09:00 08/03/21 18:15 Pantoprazole 20 Mg Tab PO 20 mg QDAC PRN Administration Indigestion
[2020-09-24] MEDS: INSULIN GLARGINE 100 UNITS/ML SUB-Q SCH (21:57)
[2020-09-24] MEDS: LATANOPROST 0.005% OPHTH SOLN 2.5 ML OU SCH (22:31)
[2020-09-25] MEDS: HEPARIN 5,000 UNIT/1 ML VIAL SUB-Q SCH ×3 (06:25→21:14)
[2020-09-25] MEDS: INSULIN LISPRO 100 UNIT/ML SUB-Q SCH ×3 (07:54→16:28)
[2020-09-25] MEDS: DOCUSATE SODIUM 100 MG CAP PO SCH ×2 (07:55→21:13)
[2020-09-25] MEDS: FERROUS SULFATE 325 MG TAB PO SCH ×2 (08:33→21:13)
[2020-09-25] MEDS: COMBIGAN 0.2-0.5% OPHTH SOLN OU SCH ×2 (10:31→21:16)
--- NOTE | 2020-09-25 10:58 | Progress Note ---
Assessment and Plan S/P Excison of Right AVF End Stage Renal Disease Hypotension Diabetes Mellitus Weakness Plan: no HD today Fluid restriction of 1 liter per day Renally dose medications Strict I&O monitoring Assess dialysis needs daily Subjective Date of service: 09/25/20 Principal diagnosis: Debility Interval history: tolerated HD yesterday Objective - Vital Signs Vital signs: Vital Signs - 12hr 09/24/20 09/25/20 09/25/20 23:00 00:43 07:43 Temperature 98.0 F Pulse Rate 88 91 H Respiratory 18 18 Rate Blood Pressure 141/77 O2 Sat by Pulse 98 98 100 Oximetry - Lab 09/21/20 07:34 09/16/20 06:50 Most recent lab results Calcium 9.6 mg/dL (8.4-10.2) 09/16/20 06:50 Medications & Allergies - Medications Allergies/Adverse Reactions: Allergies No Known Allergies Allergy (Unverified 09/12/16 14:54) Home Medications: Home Medications Medication Instructions Recorded Confirmed Last Taken Type Acetaminophen [Acetaminophen TAB] 650 mg PO Q4H PRN tablet 10/12/19 09/09/20 09/07/20 20:00 Rx Insulin Lispro [Humalog] 0 unit SUB-Q Q6HR vial 10/12/19 09/09/20 09/08/20 22:00 Rx Insulin Lispro [Humalog] See Protocol SUB-Q ACHS 30 Days #1 10/12/19 09/09/20 09/08/20 22:00 Rx vial Insulin Detemir [Levemir Flextouch] 8 unit SQ QHS 09/03/20 09/09/20 08/31/20 20:00 History Gabapentin [Neurontin] 300 mg PO Q8HR 09/09/20 09/09/20 09/06/20 History Simvastatin 20 mg PO BID 09/09/20 09/09/20 Unknown History Active Medications: Generic Name Dose Route Start Last Admin Trade Name Freq PRN Reason Stop Dose Admin Acetaminophen 650 mg 09/08/20 20:19 Acetaminophen 325 Mg Tab PO Q4H PRN Pain MILD(1-3)/Fever >100.5/[place] Hydrocodone Bitart/Acetaminophen 1 each 09/09/20 09:00 09/15/20 21:43 Hydrocodone/Acetaminophen 5-325 Mg Tab PO 1 each Q8H PRN Administration Pain, Moderate (4-6) Bisacodyl 10 mg 09/08/20 20:36 Bisacodyl 10 Mg Rect Supp AR QDAY PRN Constipation Bisacodyl 5 mg 09/08/20 20:37 Bisacodyl 5 Mg Tab PO QDAY PRN Constipation Brimonidine/Timolol 1 drops 09/10/20 22:00 09/25/20 10:31 Combigan 0.2-0.5% Ophth Soln OU 1 drops Q12HR LOS Administration Dextrose 50 ml 09/08/20 20:19 Dextrose 50% In Water (25gm) 50 Ml Syringe IV Q30MIN PRN Hypoglycemia Protocol Docusate Sodium 100 mg 09/08/20 22:00 09/25/20 07:55 Docusate Sodium 100 Mg Cap PO 100 mg BID LOS Administration Ferrous Sulfate 325 mg 09/08/20 22:00 09/25/20 08:33 Ferrous Sulfate 325 Mg Tab PO 325 mg BID LOS Administration Heparin Sodium (Porcine) 5,000 unit 09/14/20 14:00 09/25/20 06:25 Heparin 5,000 Unit/1 Ml Vial SUB-Q 5,000 unit Q8HR LOS Administration Hydralazine HCl 10 mg 09/11/20 08:02 Hydralazine 20 Mg/1 Ml Inj IV Q4HR PRN Hypertension Sodium Chloride 100 mls @ 999 mls/hr 09/23/20 12:00 Nacl 0.9% IV MELY PRN Hypotension Insulin Glargine 10 units 09/08/20 21:00 09/24/20 21:57 Insulin Glargine 100 Units/Ml SUB-Q 10 units QHS LOS Administration Insulin Human Lispro 0 unit 09/08/20 22:00 09/25/20 07:54 Insulin Lispro 100 Unit/Ml SUB-Q Not Given ACHS [facility] Protocol Latanoprost 1 drops 09/10/20 18:00 09/24/20 22:31 Latanoprost 0.005% Ophth Soln 2.5 Ml OU 1 drops QPM LOS Administration Ondansetron HCl 4 mg 09/08/20 20:36 Ondansetron 4 Mg Odt Tab PO Q8H PRN Nausea And Vomiting Pantoprazole Sodium 20 mg 09/09/20 09:00 09/22/20 18:15 Pantoprazole 20 Mg Tab PO 20 mg QDAC PRN Administration Indigestion
--- NOTE | 2020-09-25 11:21 | Progress Note ---
Subjective Date of service: 09/25/20 Principal diagnosis: Debility Interval history: 65-year-old male who developed a bleed on his right upper extremity AV fistula site. 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 Patient was admitted and was febrile, blood cultures were taken and showed GPC's. Infectious disease started the patient on antibiotics. Initially a pressure bandage was utilized to control bleeding however the patient continued to bleed through the dressing. He was prepped for surgery by vascular surgery for excision of the pseudoaneurysm and ligation which occurred on 09/02/2020. Patient underwent surgery without any complications and was noted to have increased debility afterwards. Patient does live alone and after being evaluated by therapy was determined to be a good candidate for participation in a short-term acute inpatient rehabilitation stay. Interval History: Patient is participating in therapy and making reasonable progress. Taking rest breaks as needed. +BM. Pain well controlled currently. Denies palpitations, dyspnea, cough, N/V, or joint pain. Exertional dyspnea has improved since last week. We will continue to monitor patient to see if he has any more episodes this week prior to discharge. Tolerating therapy, making improvements with endurance. Patient continues to do well, plan discharge on Monday but Patient/family stating that his house is contaminated from his prior bleeding ep isode prior to admission to the hospital on 09/01. They want to delay discharge until they can hire a professional company to come in and do a decontamination cleaning. Patient has been extended until next week for discharge. No acute events overnight. Continues to do well with therapy. We will recheck labs next week prior to discharge. Infected AV fistula: Dressing clean dry and intact. Wound nurse consulted. Appreciate vascular surgery removal of annita. Patient will need to follow-up for remainder of annita to be removed. Wound healing well. Follow-up with vascular after discharge. Wound care after discharge Anemia: Hemoglobin improved to 8.9. Continue iron. Likely combination of end- stage renal disease and acute blood loss End-stage renal disease on hemodialysis: Appreciate nephrology consult, continue hemodialysis and afternoons on Monday/Monday/Monday, renal diet, fluid restriction and avoid nephrotoxic medications. Unknown why patient's schedule was changed to Monday, , Monday. Dyspnea on exertion: Continue supplemental oxygen and rest breaks as needed. Oxygenation improving, continue to monitor patient for supplemental oxygen needs. Looks as if he will be okay without supplemental oxygen upon discharge Diabetes: Continue carb controlled diet, sliding scale insulin, and basal insulin dosing. Adjust as needed for euglycemia. Blood glucose variable Hypertension: Blood pressure has been variable however patient has been fairly asymptomatic from any of the hypotensive episodes. Slightly more stable over the past couple of days. As needed hydralazine ordered. Goal less than 140/90 Obstructive sleep apnea: Continue use of CPAP at night Glaucoma: No issues currently with worsening vision. Debility with decreased mobility and ability to perform ADLs: Continue therapy to improve patient's ability to ambulate safely and provide for his own ADLs without assistance from others. All records, vitals, labs and medications were reviewed. No other issues per patient, nursing or therapy. Objective - Exam Narrative Exam: MUSCULOSKELETAL SPECIALTY EXAM CONSTITUTIONAL: Well developed, well nourished, appropriately groomed, obese RESPIRATORY: Clear to auscultation bilaterally, no increased work of breathing at rest CARDIOVASCULAR: Regular Rate/ Rhythm, right lower extremity swelling with no pitting edema, otherwise no swelling, edema or tenderness in BUE or BLE. All extremities warm. GI: + bowel sounds, soft, NTTP, nondistended. INTEGUMENTARY: Right upper extremity surgical site clean dry and intact with annita, scars on other limbs from vascular access surgeries, otherwise normal, no lesion, rash, masses or bruising noted in extremities. MUSCULOSKELETAL: BUE and BLE normal without defect, crepitus, subluxation, effusion, arthritic changes or TTP. BUE 4+/5, good ROM, with normal tone. BLE 4/5 decreased ROM, with normal tone NEURO: Sensation intact in all extremities. No tremor noted in 4 extremities. POSTURE and GAIT: Sitting posture good. PSYCH: Alert, oriented x3, affect appears normal. Insight appears intact. - Constitutional Vitals: Vital Signs - 12hr 09/25/20 09/25/20 00:43 07:43 Temperature 98.0 F Pulse Rate 88 91 H Respiratory 18 18 Rate Blood Pressure 141/77 O2 Sat by Pulse 98 100 Oximetry - Allied health notes Allied health notes reviewed: nursing, PT, OT FIMS assessment as documented by PT/OT/ST: Grooming Patient cleans teeth/dentures: Yes Patient guzman/brushes hair: Yes Patient washes, rinses and Yes dries face: Patient washes, rinses and Yes dries hands: Patient shaves: No Patient performs (no make-up/ 05/24 (100%) shaving): Grooming FIM Score 6. Modified Alexander (Needs equipment/device . Extra time.) Toileting Toileting Device Commode over Toilet Patient able to: Adjust clothes before,Clean self,Adjust clothes after Patient able to perform: 3/3 (100%) Toileting FIM Score 6. Modified Alexander (Needs equip. or prosth ./orth.) Social interaction/Memory/Problem solving Social Interaction FIM Score 6. Mod. Alexander (Mostly appropriate. May need meds. No supv.) Memory FIM Score 6. Modified Alexander(Mild difficulty remembering people/routines.) Problem Solving FIM Score 6. Mod. Alexander (Mild difficulty or needs more time w/ complex.) Transfers Mode of Locomotion: Wheelchair Bed/Chair/Wheelchair Transfers 6. Modified Alexander (Uses device, sliding FIM Score board, prosth./orth.) Toilet Transfers FIM Score 5. Supervision (Needs supervision or cueing.) Patient transferred to: Shower Shower Transfers FIM Score 6. Modified Alexander (Needs slide board, grab bar, tub bench.) Locomotion- walk/wheelchair Ambulation Distance 45 Eating Eating FIM Score 6. Modified Alexander (Special consistency or uses device.) Dressing-Upper body Patient retrieves clothing Yes items: Patient applies/removes UE No: n/a prosthesis or orthosis: Upper Body Dressing FIM Score 6. Modified Alexander (Needs equipment, velcro or pros./orth.) Dressing-lower body Lower Body Dressing Device Sh[place]horn Patient retrieves clothing Yes items: Patient applies/removes LE n/a prosthesis or orthosis: Lower Body Dressing FIM Score 6. Modified Alexander (Needs equipment, velcro or pros./orth.) - Labs CBC & Chem 7: 09/21/20 07:34 09/16/20 06:50 Labs: Laboratory Results - last 72 hr 09/22/20 09/22/20 09/22/20 11:42 16:25 20:58 POC Glucose 128 H 126 H 177 H 09/23/20 09/23/20 09/23/20 07:29 11:53 16:42 POC Glucose 91 119 H 196 H 09/23/20 09/24/2021 20:35 07:57 11:57 POC Glucose 165 H 77 88 09/24/20 09/25/20 09/25/20 21:18 07:42 08:29 POC Glucose 189 H 66 L 94 09/25/20 11:10 POC Glucose 90 Assessment and Plan Infected AV fistula: Antibiotics completed. Monitor for any further signs of infection. Monitor WBCs. Continue wound dressing changes. Appreciate vascular surgery consult. Some annita removed over the weekend, remainder will be removed at a later date by vascular at follow-up appointment. Continue wound care End-stage renal disease on hemodialysis: Consult nephrology for management. Hemodialysis on Monday in the afternoons due to the patient being on IRU. Renally dose all medications. Continue renal diet. Patient attends dialysis at [place] [facility]. Typical schedule is Monday/Mon/Monday however for uncertain reasons the patient was recently changed to Monday//Monday. Anemia: Related to both acute blood loss as well as end-stage renal disease. Hemoglobin has improved, reduce blood draws and continue iron Diabetes: Continue medications, sliding scale insulin and monitor for euglycemia. Carb controlled/renal diet Dyspnea with exertion: Continue supplemental oxygen as needed, rest breaks for recovery. Will send home with oxygen when he discharges Hypertension: Blood pressure is variable, patient mostly asymptomatic. Have started as needed hydralazine. Goal is less than 140/90. Obstructive sleep apnea: Continue CPAP at night. Monitor for any signs or issues that need to be addressed. RT consult Glaucoma: Patient states that he is now missed his follow-up with his surgical coordinator due to hospitalization. I was able to speak with the office of the surgical coordinator and have restarted the patient on his prescribed medications. ADL dysfunction: OT will work on improving ability to perform ADLs (including assistive devices) to increase independence and decrease caregiver burden and improve functional transfers and mobility training. Difficulty walking: PT will work on gait training and proper use of assistive devices and advance as appropriate to use of stairs and outside ambulation on uneven surfaces. Unsteadiness on feet: PT will work on improving static and dynamic sitting and standing balance as well as proper use of assistive devices to decrease risk of falls. Abnormality of gait: PT will work to improve safety and efficiency of gait through neuromotor training and gait training along with instruction on proper use of assistive devices. Muscle weakness: PT & OT will work on strengthening exercises to improve functional strength including mixture of closed and open kinetic chain exercises. Debility: PT & OT will work on improving overall functional status to improve participation with ADLs, mobility and social involvement. Fatigue: PT & OT will work on improving endurance through aerobic exercises and therapeutic activity while monitoring patients tolerance for activity and vital signs as needed. DVT ppx: Heparin started Pain: Continue physical modalities in therapy and pain medications as needed to achieve functional pain control. Sleep: Monitor and address as needed. Bowel: Monitor and address as needed. Appetite: Monitor and address as needed. Discharge planning: Pending therapy progress and care plan meeting. Will continue discussion with therapy team, CLOVIS, patient. Look to discharge next week with rolling walker in order to have family available for assistance with his transition home. Restrictions/ Precautions: Falls WB status: FWB Functional Hx: ADLs: Independent Cognition: Independent Mobility: Cane Barriers to Discharge: Decreased mobility and ability to perform self care, balance deficits, weakness Estimated Length of Stay: 710 days Discharge Destination: Home with family
[2020-09-25] MEDS: LATANOPROST 0.005% OPHTH SOLN 2.5 ML OU SCH (19:18)
[2020-09-25] MEDS: INSULIN GLARGINE 100 UNITS/ML SUB-Q SCH (21:13)
[2020-09-25] MEDS: PANTOPRAZOLE 20 MG TAB PO PRN (21:19)
[2020-09-26] MEDS: INSULIN LISPRO 100 UNIT/ML SUB-Q SCH ×5 (05:29→22:35)
[2020-09-26] MEDS: HEPARIN 5,000 UNIT/1 ML VIAL SUB-Q SCH ×3 (05:31→21:26)
[2020-09-26] MEDS: DOCUSATE SODIUM 100 MG CAP PO SCH ×2 (07:52→21:25)
[2020-09-26] MEDS: FERROUS SULFATE 325 MG TAB PO SCH ×2 (07:52→21:26)
--- NOTE | 2020-09-26 10:43 | Progress Note ---
Assessment and Plan Assessment: S/P Excison of Right AVF End Stage Renal Disease Hypotension Diabetes Mellitus Weakness Plan: HD today S/p Excision of Infected Right Upper Extremity AV Fistula by Dr Hood Mederos (vascular surgeon) on 09/02/20 Weakness-In rehab therapy Fluid restriction of 1 liter per day Renally dose medications Strict I&O monitoring Assess dialysis needs daily Subjective Date of service: 09/26/20 Principal diagnosis: Debility Interval history: NAD. Objective - Exam Narrative Exam: General appearance: well-developed, appears stated age EENT: ATNC, PERRL, hearing intact, vision intact Neck: no JVD, supple Respiratory: Present: Decreased Breath Sounds Cardiology: S1S2 Gastrointestinal: normoactive bowel sounds Integumentary: warm and dry Neurologic: alert and oriented x3 Musculoskeletal: joint swelling, other Psychiatric: cooperative - Vital Signs Vital signs: Vital Signs - 12hr 09/25/20 09/26/20 23:29 07:42 Temperature 98.1 F Pulse Rate 83 Respiratory 16 20 Rate Blood Pressure 142/54 [Right] O2 Sat by Pulse 96 100 Oximetry - Lab 09/21/20 07:34 09/26/20 10:18 Most recent lab results Calcium 9.6 mg/dL (8.4-10.2) 09/16/20 06:50 Medications & Allergies - Medications Allergies/Adverse Reactions: Allergies No Known Allergies Allergy (Unverified 09/12/16 14:54) Home Medications: Home Medications Medication Instructions Recorded Confirmed Last Taken Type Acetaminophen [Acetaminophen TAB] 650 mg PO Q4H PRN tablet 10/12/19 09/09/20 09/07/20 20:00 Rx Insulin Lispro [Humalog] 0 unit SUB-Q Q6HR vial 10/12/19 09/09/20 09/08/20 22:00 Rx Insulin Lispro [Humalog] See Protocol SUB-Q ACHS 30 Days #1 10/12/19 09/09/20 09/08/20 22:00 Rx vial Insulin Detemir [Levemir Flextouch] 8 unit SQ QHS 09/03/20 09/09/20 08/31/20 20:00 History Gabapentin [Neurontin] 300 mg PO Q8HR 09/09/20 09/09/20 09/06/20 History Simvastatin 20 mg PO BID 09/09/20 09/09/20 Unknown History Active Medications: Generic Name Dose Route Start Last Admin Trade Name Ulissesq PRN Reason Stop Dose Admin Acetaminophen 650 mg 09/08/20 20:19 Acetaminophen 325 Mg Tab PO Q4H PRN Pain MILD(1-3)/Fever >100.5/THOMPSON Hydrocodone Bitart/Acetaminophen 1 each 09/09/20 09:00 09/15/20 21:43 Hydrocodone/Acetaminophen 5-325 Mg Tab PO 1 each Q8H PRN Administration Pain, Moderate (4-6) Bisacodyl 10 mg 09/08/20 20:36 Bisacodyl 10 Mg Rect Supp TN QDAY PRN Constipation Bisacodyl 5 mg 09/08/20 20:37 Bisacodyl 5 Mg Tab PO QDAY PRN Constipation Brimonidine/Timolol 1 drops 09/10/20 22:00 09/25/20 21:16 Combigan 0.2-0.5% Ophth Soln OU 1 drops Q12HR LOS Administration Dextrose 50 ml 09/08/20 20:19 Dextrose 50% In Water (25gm) 50 Ml Syringe IV Q30MIN PRN Hypoglycemia Protocol Docusate Sodium 100 mg 09/08/20 22:00 09/26/20 07:52 Docusate Sodium 100 Mg Cap PO 100 mg BID LOS Administration Ferrous Sulfate 325 mg 09/08/20 22:00 09/26/20 07:52 Ferrous Sulfate 325 Mg Tab PO 325 mg BID LOS Administration Heparin Sodium (Porcine) 5,000 unit 09/14/20 14:00 09/26/20 05:31 Heparin 5,000 Unit/1 Ml Vial SUB-Q Not Given Q8HR [facility] Hydralazine HCl 10 mg 09/11/20 08:02 Hydralazine 20 Mg/1 Ml Inj IV Q4HR PRN Hypertension Sodium Chloride 100 mls @ 999 mls/hr 09/23/20 12:00 Nacl 0.9% IV MELY PRN Hypotension Insulin Glargine 10 units 09/08/20 21:00 09/25/20 21:13 Insulin Glargine 100 Units/Ml SUB-Q 10 units QHS LOS Administration Insulin Human Lispro 0 unit 09/08/20 22:00 09/26/20 07:52 Insulin Lispro 100 Unit/Ml SUB-Q Not Given ACHS [facility] Protocol Latanoprost 1 drops 09/10/20 18:00 09/25/20 19:18 Latanoprost 0.005% Ophth Soln 2.5 Ml OU 1 drops QPM LOS Administration Ondansetron HCl 4 mg 09/08/20 20:36 Ondansetron 4 Mg Odt Tab PO Q8H PRN Nausea And Vomiting Pantoprazole Sodium 20 mg 09/09/20 09:00 09/25/20 21:19 Pantoprazole 20 Mg Tab PO 20 mg QDAC PRN Administration Indigestion
[2020-09-26] MEDS: COMBIGAN 0.2-0.5% OPHTH SOLN OU SCH ×2 (10:57→21:26)
[2020-09-26 11:06] LABS: Calcium 9.9 mg/dL (8.4-10.2)
[2020-09-26] MEDS: LATANOPROST 0.005% OPHTH SOLN 2.5 ML OU SCH (18:33)
[2020-09-26] MEDS: PANTOPRAZOLE 20 MG TAB PO PRN (21:25)
[2020-09-26] MEDS: INSULIN GLARGINE 100 UNITS/ML SUB-Q SCH (22:34)
[2020-09-27] MEDS: HEPARIN 5,000 UNIT/1 ML VIAL SUB-Q SCH ×3 (05:40→22:03)
[2020-09-27] MEDS: INSULIN LISPRO 100 UNIT/ML SUB-Q SCH ×4 (08:30→22:18)
[2020-09-27] MEDS: DOCUSATE SODIUM 100 MG CAP PO SCH ×2 (08:30→22:02)
[2020-09-27] MEDS: FERROUS SULFATE 325 MG TAB PO SCH ×2 (08:30→22:02)
--- NOTE | 2020-09-27 09:52 | Progress Note ---
Assessment and Plan Assessment: S/P Excison of Right AVF End Stage Renal Disease Hypotension Diabetes Mellitus Weakness Plan: s/p HD yesterday, no HD today S/p Excision of Infected Right Upper Extremity AV Fistula by Dr Hood Mederos (vascular surgeon) on 09/02/20 Weakness-In rehab therapy Fluid restriction of 1 liter per day Renally dose medications Strict I&O monitoring Assess dialysis needs daily Subjective Date of service: 09/27/20 Principal diagnosis: Debility Interval history: NAD. Objective - Exam Narrative Exam: General appearance: well-developed, appears stated age EENT: ATNC, PERRL, hearing intact, vision intact Neck: no JVD, supple Respiratory: Present: Decreased Breath Sounds Cardiology: S1S2 Gastrointestinal: normoactive bowel sounds Integumentary: warm and dry Neurologic: alert and oriented x3 Musculoskeletal: joint swelling, other Psychiatric: cooperative - Vital Signs Vital signs: Vital Signs - 12hr 09/26/20 09/27/20 09/27/20 23:30 01:25 08:28 Temperature 97.6 F Pulse Rate 92 H 76 Respiratory 18 17 17 Rate Blood Pressure 127/66 [Right] O2 Sat by Pulse 97 100 97 Oximetry - Lab 09/21/20 07:34 09/26/20 10:18 Most recent lab results Calcium 9.9 mg/dL (8.4-10.2) 09/26/20 10:18 Medications & Allergies - Medications Allergies/Adverse Reactions: Allergies No Known Allergies Allergy (Unverified 09/12/16 14:54) Home Medications: Home Medications Medication Instructions Recorded Confirmed Last Taken Type Acetaminophen [Acetaminophen TAB] 650 mg PO Q4H PRN tablet 10/12/19 09/09/20 09/07/20 20:00 Rx Insulin Lispro [Humalog] 0 unit SUB-Q Q6HR vial 10/12/19 09/09/20 09/08/20 22:00 Rx Insulin Lispro [Humalog] See Protocol SUB-Q ACHS 30 Days #1 10/12/19 09/09/20 09/08/20 22:00 Rx vial Insulin Detemir [Levemir Flextouch] 8 unit SQ QHS 09/03/20 09/09/20 08/31/20 20:00 History Gabapentin [Neurontin] 300 mg PO Q8HR 09/09/20 09/09/20 09/06/20 History Simvastatin 20 mg PO BID 09/09/20 09/09/20 Unknown History Active Medications: Generic Name Dose Route Start Last Admin Trade Name Freq PRN Reason Stop Dose Admin Acetaminophen 650 mg 09/08/20 20:19 Acetaminophen 325 Mg Tab PO Q4H PRN Pain MILD(1-3)/Fever >100.5/THOMPSON Hydrocodone Bitart/Acetaminophen 1 each 09/09/20 09:00 09/15/20 21:43 Hydrocodone/Acetaminophen 5-325 Mg Tab PO 1 each Q8H PRN Administration Pain, Moderate (4-6) Bisacodyl 10 mg 09/08/20 20:36 Bisacodyl 10 Mg Rect Supp ID QDAY PRN Constipation Bisacodyl 5 mg 09/08/20 20:37 Bisacodyl 5 Mg Tab PO QDAY PRN Constipation Brimonidine/Timolol 1 drops 09/10/20 22:00 09/26/20 21:26 Combigan 0.2-0.5% Ophth Soln OU 1 drops Q12HR LOS Administration Dextrose 50 ml 09/08/20 20:19 Dextrose 50% In Water (25gm) 50 Ml Syringe IV Q30MIN PRN Hypoglycemia Protocol Docusate Sodium 100 mg 09/08/20 22:00 09/27/20 08:30 Docusate Sodium 100 Mg Cap PO 100 mg BID LOS Administration Ferrous Sulfate 325 mg 09/08/20 22:00 09/27/20 08:30 Ferrous Sulfate 325 Mg Tab PO 325 mg BID LOS Administration Heparin Sodium (Porcine) 5,000 unit 09/14/20 14:00 09/26/20 21:26 Heparin 5,000 Unit/1 Ml Vial SUB-Q 5,000 unit Q8HR LOS Administration Hydralazine HCl 10 mg 09/11/20 08:02 Hydralazine 20 Mg/1 Ml Inj IV Q4HR PRN Hypertension Sodium Chloride 100 mls @ 999 mls/hr 09/23/20 12:00 Nacl 0.9% IV MELY PRN Hypotension Insulin Glargine 10 units 09/08/20 21:00 09/26/20 22:34 Insulin Glargine 100 Units/Ml SUB-Q 10 units QHS LOS Administration Insulin Human Lispro 0 unit 09/08/20 22:00 09/27/20 08:30 Insulin Lispro 100 Unit/Ml SUB-Q Not Given [facility] Protocol Latanoprost 1 drops 09/10/20 18:00 09/26/20 18:33 Latanoprost 0.005% Ophth Soln 2.5 Ml OU Not Given QPM [facility] Ondansetron HCl 4 mg 09/08/20 20:36 Ondansetron 4 Mg Odt Tab PO Q8H PRN Nausea And Vomiting Pantoprazole Sodium 20 mg 09/09/20 09:00 09/26/20 21:25 Pantoprazole 20 Mg Tab PO 20 mg QDAC PRN Administration Indigestion
[2020-09-27] MEDS: COMBIGAN 0.2-0.5% OPHTH SOLN OU SCH ×2 (10:20→22:17)
--- NOTE | 2020-09-27 12:40 | Event Note ---
Date: 09/27/20 Notified this AM that patient had a run of V Tach overnight. Asymptomatic and vital signs stable now. Will consult pt's cardiology group for follow up. He stated that he is due to follow up with them as outpatient for a stress test soon. Continue telemonitoring. Pt will discharge home .
--- NOTE | 2020-09-27 13:47 | Consultation ---
History of Present Illness Consult date: 09/27/20 Consult reason: arrhythmia, other (Nonsustained ventricular tachycardia) History of present illness: The patient is a 65-year-old man with end-stage renal disease on hemodialysis, who 2 weeks ago underwent vascular surgery for an infected dialysis access AV fistula. Following that, he was admitted to the inpatient rehab unit for physical rehabilitation. He has been undergoing rehab for over 2 weeks now and has shown some progress and is planned for discharge in the next several days. During his course in the rehab unit, he has been maintained on remote telemetry. Over the last 24 to 48 hours, he has been noted with 2 episodes of nonsustained ventricular tachycardia, the first at 13 beats, and the second at 16 beats. B oth occurred in the early hours of the morning of September 26 and this morning. Otherwise, patient has remained in the stable sinus rhythm. The patient has remained asymptomatic, with no palpitations, no chest pain, no shortness of breath and no lower extremity edema. Comorbidities include chronic hypertension, sleep apnea, and chronic bilateral lymphedema. He does not report any significant cardiac history and unable to articulate the findings of any prior cardiac work-up. On this current adm ission, an echocardiogram done prior to his AV fistula surgery showed normal to hyperdynamic left ventricular systolic function, ejection fraction greater than 60 to 65%. EKG is sinus rhythm with low voltage QRS and an incomplete left bundle branch block. The ECG is unchanged from a previous ECG in the chart from a year ago. Past History Past Medical History: diabetes, dialysis, ESRD, hypertension, other (glaucoma, obstructive sleep apnea, lymphedema in the right lower extremity) Past Surgical History: Other (vascular access) Social history: , Lives alone (single level home), full code. denies: smoking, alcohol abuse Family history: diabetes Medications and Allergies Allergies Allergy/AdvReac Type Severity Reaction Status Date / Time No Known Allergies Allergy Unverified 09/12/16 14:54 Home Medications Medication Instructions Recorded Confirmed Last Taken Type Acetaminophen [Acetaminophen TAB] 650 mg PO Q4H PRN tablet 10/12/19 09/09/20 09/07/20 20:00 Rx Insulin Lispro [Humalog] 0 unit SUB-Q Q6HR vial 10/12/19 09/09/20 09/08/20 22:00 Rx Insulin Lispro [Humalog] See Protocol SUB-Q ACHS 30 Days #1 10/12/19 09/09/20 09/08/20 22:00 Rx vial Insulin Detemir [Levemir Flextouch] 8 unit SQ QHS 09/03/20 09/09/20 08/31/20 20:00 History Gabapentin [Neurontin] 300 mg PO Q8HR 09/09/20 09/09/20 09/06/20 History Simvastatin 20 mg PO BID 09/09/20 09/09/20 Unknown History Active Meds: Active Medications Acetaminophen (Acetaminophen 325 Mg Tab) 650 mg PO Q4H PRN PRN Reason: Pain MILD(1-3)/Fever >100.5/[place] Hydrocodone Bitart/Acetaminophen (Hydrocodone/Acetaminophen 5-325 Mg Tab) 1 each PO Q8H PRN PRN Reason: Pain, Moderate (4-6) Last Admin: 09/15/20 21:43 Dose: 1 each Documented by: Bisacodyl (Bisacodyl 10 Mg Rect Supp) 10 mg [place] QDAY PRN PRN Reason: Constipation Bisacodyl (Bisacodyl 5 Mg Tab) 5 mg PO QDAY PRN PRN Reason: Constipation Brimonidine/Timolol (Combigan 0.2-0.5% Oph Soln) 1 drops OU Q12HR [facility] Last Admin: 09/27/20 10:20 Dose: 1 drops Documented by: Dextrose (Dextrose 50% In Water (25gm) 50 Ml Syringe) 50 ml IV Q30MIN PRN; Protocol PRN Reason: Hypoglycemia Docusate Sodium (Docusate Sodium 100 Mg Cap) 100 mg PO BID [facility] Last Admin: 09/27/20 08:30 Dose: 100 mg Documented by: Ferrous Sulfate (Ferrous Sulfate 325 Mg Tab) 325 mg PO BID [facility] Last Admin: 09/27/20 08:30 Dose: 325 mg Documented by: Heparin Sodium (Porcine) (Heparin 5,000 Unit/1 Ml Vial) 5,000 unit SUB-Q Q8HR S Last Admin: 09/27/20 13:17 Dose: 5,000 unit Documented by: Hydralazine HCl (Hydralazine 20 Mg/1 Ml Inj) 10 mg IV Q4HR PRN PRN Reason: Hypertension Sodium Chloride (Nacl 0.9%) 100 mls @ 999 mls/hr IV MELY PRN PRN Reason: Hypotension Insulin Glargine (Insulin Glargine 100 Units/Ml) 10 units SUB-Q QHS [facility] Last Admin: 09/26/20 22:34 Dose: 10 units Documented by: Insulin Human Lispro (Insulin Lispro 100 Unit/Ml) 0 unit SUB-Q ACHS [facility]; Protocol Last Admin: 09/27/20 12:18 Dose: Not Given Documented by: Latanoprost (Latanoprost 0.005% Ophth Soln 2.5 Ml) 1 drops OU QPM [facility] Last Admin: 09/26/20 18:33 Dose: Not Given Documented by: Ondansetron HCl (Ondansetron 4 Mg Odt Tab) 4 mg PO Q8H PRN PRN Reason: Nausea And Vomiting Pantoprazole Sodium (Pantoprazole 20 Mg Tab) 20 mg PO QDAC PRN PRN Reason: Indigestion Last Admin: 09/26/20 21:25 Dose: 20 mg Documented by: Review of Systems Cardiovascular: no chest pain, no orthopnea, no palpitations, no rapid/irregular heart beat, no edema, no syncope, no lightheadedness, no shortness of breath Physical Examination Vital Signs Resp Pulse Ox 18 96 09/08/20 21:10 09/08/20 21:10 General appearance: no acute distress HEENT: Positive: PERRL Neck: Positive: neck supple Cardiac: Positive: Reg Rate and Rhythm Lungs: Positive: Decreased Breath Sounds Neuro: Positive: Grossly Intact Abdomen: Positive: Soft Male genitourinary: Positive: deferred Skin: Positive: Clear Extremities: Absent: edema Results 09/21/20 07:34 09/26/20 10:18 EKG interpretations - Telemetry EKG Rhythm: Sinus Rhythm Assessment and Plan - Patient Problems (1) Nonsustained ventricular tachycardia Current Visit: Yes Status: Acute Plan to address problem: Patient with asymptomatic, nonsustained ventricular tachycardia. Echocardiogram on this presentation shows normal to hyperdynamic left ventricular ejection fraction greater than 60 to 65%. His current potassium level is normal at 3.9. We will order magnesium levels and TSH. We will start him on metoprolol for his hypertension and for negative inotropic in the setting of hyperdynamic left ventricular function. Otherwise, conservative cardiac management of asymptomatic, nonsustained VT in the absence of an underlying cardiomyopathy.
[2020-09-27] MEDS: METOPROLOL TARTRATE 25 MG TAB PO SCH ×2 (14:40→22:12)
[2020-09-27] MEDS: LATANOPROST 0.005% OPHTH SOLN 2.5 ML OU SCH (17:16)
[2020-09-27] MEDS: INSULIN GLARGINE 100 UNITS/ML SUB-Q SCH (22:04)
[2020-09-28] MEDS: METOPROLOL TARTRATE 25 MG TAB PO SCH ×3 (05:56→21:10)
[2020-09-28] MEDS: HEPARIN 5,000 UNIT/1 ML VIAL SUB-Q SCH ×3 (05:57→21:00)
[2020-09-28] MEDS: DOCUSATE SODIUM 100 MG CAP PO SCH ×2 (07:57→21:00)
[2020-09-28] MEDS: FERROUS SULFATE 325 MG TAB PO SCH ×2 (07:57→21:00)
[2020-09-28] MEDS: INSULIN LISPRO 100 UNIT/ML SUB-Q SCH ×4 (08:04→21:09)
[2020-09-28] MEDS: COMBIGAN 0.2-0.5% OPHTH SOLN OU SCH ×2 (10:55→21:00)
--- NOTE | 2020-09-28 11:45 | Progress Note ---
Assessment and Plan Assessment: S/P Excison of Right AVF End Stage Renal Disease Hypotension Diabetes Mellitus Weakness Plan: Hemodialysis tomorrow for UF and clearance via Left AVF S/p Excision of Infected Right Upper Extremity AV Fistula by Dr Hood Mederos (vascular surgeon) on 09/02/20 Weakness-In rehab therapy Fluid restriction of 1 liter per day Renally dose medications Strict I&O monitoring Assess dialysis needs daily Subjective Date of service: 09/28/20 Principal diagnosis: Debility Interval history: Patient off floor Objective - Vital Signs Vital signs: Vital Signs - 12hr 09/28/20 09/28/20 09/28/20 02:29 04:38 05:56 Temperature 97.5 F L Pulse Rate 64 64 Respiratory 17 18 Rate Blood Pressure 143/47 143/47 O2 Sat by Pulse 100 100 Oximetry 09/28/20 07:27 Temperature 98.3 F Pulse Rate 50 L Respiratory 18 Rate Blood Pressure 134/108 O2 Sat by Pulse 100 Oximetry - Lab 09/21/20 07:34 09/26/20 10:18 Most recent lab results Calcium 9.9 mg/dL (8.4-10.2) 09/26/20 10:18 Magnesium 1.70 mg/dL (1.7-2.3) 09/27/20 15:22 Medications & Allergies - Medications Allergies/Adverse Reactions: Allergies No Known Allergies Allergy (Unverified 09/12/16 14:54) Home Medications: Home Medications Medication Instructions Recorded Confirmed Last Taken Type Acetaminophen [Acetaminophen TAB] 650 mg PO Q4H PRN tablet 10/12/19 09/09/20 09/07/20 20:00 Rx Insulin Lispro [Humalog] 0 unit SUB-Q Q6HR vial 10/12/19 09/09/20 09/08/20 22:00 Rx Insulin Lispro [Humalog] See Protocol SUB-Q ACHS 30 Days #1 10/12/19 09/09/20 09/08/20 22:00 Rx vial Insulin Detemir [Levemir Flextouch] 8 unit SQ QHS 09/03/20 09/09/20 08/31/20 20:00 History Gabapentin [Neurontin] 300 mg PO Q8HR 09/09/20 09/09/20 09/06/20 History Simvastatin 20 mg PO BID 09/09/20 09/09/20 Unknown History Active Medications: Generic Name Dose Route Start Last Admin Trade Name Freq PRN Reason Stop Dose Admin Acetaminophen 650 mg 09/08/20 20:19 Acetaminophen 325 Mg Tab PO Q4H PRN Pain MILD(1-3)/Fever >100.5/[place] Hydrocodone Bitart/Acetaminophen 1 each 09/09/20 09:00 09/15/20 21:43 Hydrocodone/Acetaminophen 5-325 Mg Tab PO 1 each Q8H PRN Administration Pain, Moderate (4-6) Bisacodyl 10 mg 09/08/20 20:36 Bisacodyl 10 Mg Rect Supp [place] QDAY PRN Constipation Bisacodyl 5 mg 09/08/20 20:37 Bisacodyl 5 Mg Tab PO QDAY PRN Constipation Brimonidine/Timolol 1 drops 09/10/20 22:00 09/27/20 22:17 Combigan 0.2-0.5% Ophth Soln OU 1 drops Q12HR LOS Administration Dextrose 50 ml 09/08/20 20:19 Dextrose 50% In Water (25gm) 50 Ml Syringe IV Q30MIN PRN Hypoglycemia Protocol Docusate Sodium 100 mg 09/08/20 22:00 09/28/20 07:57 Docusate Sodium 100 Mg Cap PO 100 mg BID LOS Administration Ferrous Sulfate 325 mg 09/08/20 22:00 09/28/20 07:57 Ferrous Sulfate 325 Mg Tab PO 325 mg BID LOS Administration Heparin Sodium (Porcine) 5,000 unit 09/14/20 14:00 09/28/20 05:57 Heparin 5,000 Unit/1 Ml Vial SUB-Q 5,000 unit Q8HR LOS Administration Hydralazine HCl 10 mg 09/11/20 08:02 Hydralazine 20 Mg/1 Ml Inj IV Q4HR PRN Hypertension Sodium Chloride 100 mls @ 999 mls/hr 09/23/20 12:00 Nacl 0.9% IV MELY PRN Hypotension Insulin Glargine 10 units 09/08/20 21:00 09/27/20 22:04 Insulin Glargine 100 Units/Ml SUB-Q 10 units QHS LOS Administration Insulin Human Lispro 0 unit 09/08/20 22:00 09/28/20 08:04 Insulin Lispro 100 Unit/Ml SUB-Q Not Given ACHS [facility] Protocol Latanoprost 1 drops 09/10/20 18:00 09/27/20 17:16 Latanoprost 0.005% Ophth Soln 2.5 Ml OU 1 drops QPM LOS Administration Metoprolol Tartrate 25 mg 09/27/20 14:00 09/28/20 05:56 Metoprolol Tartrate 25 Mg Tab PO 25 mg Q8H LOS Administration Ondansetron HCl 4 mg 09/08/20 20:36 Ondansetron 4 Mg Odt Tab PO Q8H PRN Nausea And Vomiting Pantoprazole Sodium 20 mg 09/09/20 09:00 09/26/20 21:25 Pantoprazole 20 Mg Tab PO 20 mg QDAC PRN Administration Indigestion
--- NOTE | 2020-09-28 13:12 | Progress Note ---
Assessment and Plan - Patient Problems (1) Nonsustained ventricular tachycardia Current Visit: Yes Status: Acute Plan to address problem: Patient with asymptomatic, nonsustained ventricular tachycardia. Echocardiogram on this presentation shows normal to hyperdynamic left ventricular ejection fraction greater than 60 to 65%. Potassium level was normal at 3.9. Magnesium level is borderline low and TSH is normal. We will continue metoprolol and replete magnesium. Subjective Date of service: 09/28/20 Principal diagnosis: Debility Interval history: No new cardiac complaints, patient's laboratory values show magnesium borderline low at 1.7, but normal TSH. No further ventricular tachycardia was reported. Patient is on metoprolol. Objective Vital Signs Temp Pulse Resp BP BP Pulse Ox 09/28/20 07:27 98.3 F 50 L 18 134/108 100 09/28/20 05:56 64 143/47 09/28/20 04:38 97.5 F L 64 18 143/47 100 09/28/20 02:29 17 100 09/27/20 22:22 98.3 F 63 13 133/58 100 09/27/20 22:12 63 133/58 09/27/20 16:18 98.1 F 67 16 110/62 96 09/27/20 14:41 97.8 F 70 17 114/69 97 09/27/20 14:40 70 114/69 - Physical Examination General: No Apparent Distress HEENT: Positive: PERRL Neck: Positive: neck supple Cardiac: Positive: Reg Rate and Rhythm Lungs: Positive: Decreased Breath Sounds Neuro: Positive: Grossly Intact Abdomen: Positive: Soft Skin: Positive: Clear Extremities: Absent: edema
[2020-09-28] MEDS ORDERED: MAGNESIUM SULFATE 2 GM/50 ML BAG IV ONE (14:30)
--- NOTE | 2020-09-28 14:30 | Electrocardiograph Report ---
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
[2020-09-28] MEDS: PANTOPRAZOLE 20 MG TAB PO PRN (18:49)
[2020-09-28] MEDS: LATANOPROST 0.005% OPHTH SOLN 2.5 ML OU SCH (19:05)
[2020-09-28] MEDS: INSULIN GLARGINE 100 UNITS/ML SUB-Q SCH (21:09)
[2020-09-29 05:54] LABS: Hematocrit 26.4 % (35.5-45.6); Mean Corpuscular HGB Conc 34 % (32-34); Mean Corpuscular Volume 78 fl (84-94); Platelet Count 137 K/mm3 (140-440)
[2020-09-29 06:14] LABS: C-Reactive Protein 0.5 mg/dL (0.00-1.30); Calcium 10.6 mg/dL (8.4-10.2)
[2020-09-29] MEDS: HEPARIN 5,000 UNIT/1 ML VIAL SUB-Q SCH ×3 (06:20→21:17)
[2020-09-29] MEDS: METOPROLOL TARTRATE 25 MG TAB PO SCH ×3 (06:23→22:00)
[2020-09-29] MEDS: INSULIN LISPRO 100 UNIT/ML SUB-Q SCH ×3 (07:32→16:33)
--- NOTE | 2020-09-29 08:29 | Progress Note ---
Subjective Date of service: 09/29/20 Principal diagnosis: Debility Interval history: 65-year-old male who developed a bleed on his right upper extremity AV fistula site. 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 Patient was admitted and was febrile, blood cultures were taken and showed GPC's. Infectious disease started the patient on antibiotics. Initially a pressure bandage was utilized to control bleeding however the patient continued to bleed through the dressing. He was prepped for surgery by vascular surgery for excision of the pseudoaneurysm and ligation which occurred on 09/02/2020. Patient underwent surgery without any complications and was noted to have increased debility afterwards. Patient does live alone and after being evaluated by therapy was determined to be a good candidate for participation in a short-term acute inpatient rehabilitation stay. Interval History: Patient is participating in therapy and making reasonable progress. Taking rest breaks as needed. +BM. Pain well controlled currently. Denies palpitations, dyspnea, cough, N/V, or joint pain. Tolerating therapy, making improvements with endurance. No further episodes with exertional dyspnea and does not look like we will discharge patient with oxygen. Patient's labs were reviewed, WBCs and CRP are both within normal limits. Infected AV fistula: Dressing clean dry and intact. Wound nurse consulted. Appreciate vascular surgery removal of annita. Patient will need to follow-up for remainder of annita to be removed. Wound healing well. Follow-up with vascular after discharge. Wound care after discharge Anemia: Hemoglobin improved to 8.9. Continue iron. Likely combination of end- stage renal disease and acute blood loss End-stage renal disease on hemodialysis: Appreciate nephrology consult, continue hemodialysis and afternoons on Monday/Monday/Monday, renal diet, fluid restriction and avoid nephrotoxic medications. Unknown why patient's schedule was changed to Monday, , Monday. Nonsustained V. tach: Notified over the weekend the patient had a couple runs of nonsustained ventricular tachycardia. 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 Reconsulted his cardiology group and appreciate their assistance. They have added on metoprolol as well checked and modified his electrolytes. Patient continues to be asymptomatic currently with no more episodes reported from telemetry. Dyspnea on exertion: Continue supplemental oxygen and rest breaks as needed. Oxygenation improving, continue to monitor patient for supplemental oxygen needs. Looks as if he will be okay without supplemental oxygen upon discharge, appears to be resolved Diabetes: Continue carb controlled diet, sliding scale insulin, and basal insulin dosing. Adjust as needed for euglycemia. Blood glucose variable Hypertension: Blood pressure has been variable however patient has been fairly asymptomatic from any of the hypotensive episodes. Patient has encountered a random episode of being hypertensive here and there. As needed hydralazine ordered. Goal less than 140/90. Metoprolol has been ordered by cardiology and patient will need to follow-up with them after discharge. Obstructive sleep apnea: Continue use of CPAP at night Glaucoma: No issues currently with worsening vision. Debility with decreased mobility and ability to perform ADLs: Continue therapy to improve patient's ability to ambulate safely and provide for his own ADLs without assistance from others. All records, vitals, labs and medications were reviewed. No other issues per patient, nursing or therapy. Patient discussed during team conference. Continues to make good progress, just awaiting for his home situation to be remedied. Patient does state that his cousin has come in and is working on getting the home ready for his return. Patient will continue to work on fine tuning his ADLs and self-care and mobility issues over the next couple of days and we will look to discharge on . Will work to have therapy improve his fall recovery since patient will be living alone at times. Objective - Exam Narrative Exam: MUSCULOSKELETAL SPECIALTY EXAM CONSTITUTIONAL: Well developed, well nourished, appropriately groomed, obese RESPIRATORY: Clear to auscultation bilaterally, no increased work of breathing at rest CARDIOVASCULAR: Regular Rate/ Rhythm, right lower extremity swelling with no pitting edema, otherwise no swelling, edema or tenderness in BUE or BLE. All extremities warm. GI: + bowel sounds, soft, NTTP, nondistended. INTEGUMENTARY: Right upper extremity surgical site clean dry and intact with annita, scars on other limbs from vascular access surgeries, otherwise normal, no lesion, rash, masses or bruising noted in extremities. MUSCULOSKELETAL: BUE and BLE normal without defect, crepitus, subluxation, effusion, arthritic changes or TTP. BUE 4+/5, good ROM, with normal tone. BLE 4/5 decreased ROM, with normal tone NEURO: Sensation intact in all extremities. No tremor noted in 4 extremities. POSTURE and GAIT: Sitting posture good. PSYCH: Alert, oriented x3, affect appears normal. Insight appears intact. - Constitutional Vitals: Vital Signs - 12hr 09/28/20 09/28/20 09/28/20 21:55 22:54 23:14 Temperature Pulse Rate 62 Respiratory 18 Rate Blood Pressure Blood Pressure 131/72 [Right] O2 Sat by Pulse 100 100 Oximetry 09/29/20 09/29/20 06:23 07:57 Temperature 98.7 F Pulse Rate 69 70 Respiratory 18 Rate Blood Pressure 130/61 108/64 Blood Pressure [Right] O2 Sat by Pulse 99 Oximetry - Allied health notes Allied health notes reviewed: nursing, PT, OT FIMS assessment as documented by PT/OT/ST: Grooming Patient cleans teeth/dentures: Yes Patient guzman/brushes hair: Yes Patient washes, rinses and Yes dries face: Patient washes, rinses and Yes dries hands: Patient shaves: No Patient performs (no make-up/ 05/24 (100%) shaving): Grooming FIM Score 6. Modified [place] (Needs equipment/device . Extra time.) Toileting Toileting Device Commode over Toilet Patient able to: Adjust clothes before,Clean self,Adjust clothes after Patient able to perform: 3/3 (100%) Toileting FIM Score 6. Modified [place] (Needs equip. or prosth ./orth.) Social interaction/Memory/Problem solving Social Interaction FIM Score 6. Mod. [place] (Mostly appropriate. May need meds. No supv.) Memory FIM Score 6. Modified [place](Mild difficulty remembering people/routines.) Problem Solving FIM Score 6. Mod. [place] (Mild difficulty or needs more time w/ complex.) Transfers Mode of Locomotion: Wheelchair Bed/Chair/Wheelchair Transfers 6. Modified [place] (Uses device, sliding FIM Score board, prosth./orth.) Toilet Transfers FIM Score 5. Supervision (Needs supervision or cueing.) Patient transferred to: Shower Shower Transfers FIM Score 6. Modified [place] (Needs slide board, grab bar, tub bench.) Locomotion- walk/wheelchair Ambulation Distance 45 Eating Eating FIM Score 6. Modified [place] (Special consistency or uses device.) Dressing-Upper body Patient retrieves clothing Yes items: Patient applies/removes UE No: n/a prosthesis or orthosis: Upper Body Dressing FIM Score 6. Modified [place] (Needs equipment, velcro or pros./orth.) Dressing-lower body Lower Body Dressing Device [place] Patient retrieves clothing Yes items: Patient applies/removes LE n/a prosthesis or orthosis: Lower Body Dressing FIM Score 6. Modified [place] (Needs equipment, velcro or pros./orth.) - Labs CBC & Chem 7: 09/29/20 05:28 09/29/20 05:28 Labs: Laboratory Results - last 72 hr 09/26/20 09/26/20 09/26/20 10:18 11:50 22:29 WBC RBC Hgb Hct MCV MCH MCHC RDW Plt Count Sodium 133 L Potassium 3.9 Chloride 91.4 L Carbon Dioxide 30 Anion Gap 16 BUN 37 H Creatinine 7.4 H Estimated GFR 9 BUN/Creatinine Ratio 5 Glucose 122 H POC Glucose 111 H 197 H Calcium 9.9 Magnesium C-Reactive Protein TSH 09/27/20 09/27/20 09/27/20 07:39 12:15 15:22 WBC RBC Hgb Hct MCV MCH MCHC RDW Plt Count Sodium Potassium Chloride Carbon Dioxide Anion Gap BUN Creatinine Estimated GFR BUN/Creatinine Ratio Glucose POC Glucose 82 143 H Calcium Magnesium 1.70 C-Reactive Protein TSH 09/27/20 09/27/20 09/27/20 15:22 16:41 21:58 WBC RBC Hgb Hct MCV MCH MCHC RDW Plt Count Sodium Potassium Chloride Carbon Dioxide Anion Gap BUN Creatinine Estimated GFR BUN/Creatinine Ratio Glucose POC Glucose 164 H 167 H Calcium Magnesium C-Reactive Protein TSH 3.450 09/28/20 09/28/20 09/28/20 07:26 11:53 16:09 WBC RBC Hgb Hct MCV MCH MCHC RDW Plt Count Sodium Potassium Chloride Carbon Dioxide Anion Gap BUN Creatinine Estimated GFR BUN/Creatinine Ratio Glucose POC Glucose 102 133 H 206 H Calcium Magnesium C-Reactive Protein TSH 09/28/20 09/29/20 09/29/20 21:04 05:28 05:28 WBC 5.1 RBC 3.40 L Hgb 9.0 L Hct 26.4 L MCV 78 L MCH 26 L MCHC 34 RDW 17.0 H Plt Count 137 L Sodium 135 L Potassium 4.2 Chloride 91.5 L Carbon Dioxide 30 Anion Gap 18 BUN 42 H Creatinine 7.3 H Estimated GFR 9 BUN/Creatinine Ratio 6 Glucose 89 POC Glucose 178 H Calcium 10.6 H Magnesium C-Reactive Protein 0.50 TSH 09/29/20 07:57 WBC RBC Hgb Hct MCV MCH MCHC RDW Plt Count Sodium Potassium Chloride Carbon Dioxide Anion Gap BUN Creatinine Estimated GFR BUN/Creatinine Ratio Glucose POC Glucose 90 Calcium Magnesium C-Reactive Protein TSH Assessment and Plan Infected AV fistula: Antibiotics completed. Monitor for any further signs of infection. Monitor WBCs. Continue wound dressing changes. Appreciate vascular surgery consult. Some annita removed over the weekend, remainder will be removed at a later date by vascular at follow-up appointment. Continue wound care End-stage renal disease on hemodialysis: Consult nephrology for management. Hemodialysis on Monday in the afternoons due to the patient being on IRU. Renally dose all medications. Continue renal diet. Patient attends dialysis at [facility]. Typical schedule is Monday/Monday/Monday however for uncertain reasons the patient was recently changed to Monday//Monday. Anemia: Related to both acute blood loss as well as end-stage renal disease. Hemoglobin has improved, reduce blood draws and continue iron Diabetes: Continue medications, sliding scale insulin and monitor for euglycemia. Carb controlled/renal diet Dyspnea with exertion: Continue supplemental oxygen as needed, rest breaks for recovery. Will send home with oxygen when he discharges Hypertension: Blood pressure is variable, patient mostly asymptomatic. Have started as needed hydralazine. Goal is less than 140/90. Ventricular tachycardia, nonsustained: 2 runs of this over the weekend. Cardiology consulted, administered magnesium and started metoprolol, appreciate their assistance. Patient continues to be asymptomatic with no further epis odes. Monitor Obstructive sleep apnea: Continue CPAP at night. Monitor for any signs or issues that need to be addressed. RT consult Glaucoma: Patient states that he is now missed his follow-up with his ager operator due to hospitalization. I was able to speak with the office of the ager operator and have restarted the patient on his prescribed medications. ADL dysfunction: OT will work on improving ability to perform ADLs (including assistive devices) to increase independence and decrease caregiver burden and improve functional transfers and mobility training. Difficulty walking: PT will work on gait training and proper use of assistive devices and advance as appropriate to use of stairs and outside ambulation on uneven surfaces. Unsteadiness on feet: PT will work on improving static and dynamic sitting and standing balance as well as proper use of assistive devices to decrease risk of falls. Abnormality of gait: PT will work to improve safety and efficiency of gait thro [facility] neuromotor training and gait training along with instruction on proper use of assistive devices. Muscle weakness: PT & OT will work on strengthening exercises to improve functional strength including mixture of closed and open kinetic chain exercises. Debility: PT & OT will work on improving overall functional status to improve participation with ADLs, mobility and social involvement. Fatigue: PT & OT will work on improving endurance through aerobic exercises and therapeutic activity while monitoring patients tolerance for activity and vital signs as needed. DVT ppx: Heparin started Pain: Continue physical modalities in therapy and pain medications as needed to achieve functional pain control. Sleep: Monitor and address as needed. Bowel: Monitor and address as needed. Appetite: Monitor and address as needed. Discharge planning: Pending therapy progress and care plan meeting. Will continue discussion with therapy team, SW, patient. Look to discharge next week with rolling walker in order to have family available for assistance with his transition home. Restrictions/ Precautions: Falls WB status: FWB Functional Hx: ADLs: Independent Cognition: Independent Mobility: Cane Barriers to Discharge: Decreased mobility and ability to perform self care, balance deficits, weakness Estimated Length of Stay: 710 days Discharge Destination: Home with family
[2020-09-29] MEDS: DOCUSATE SODIUM 100 MG CAP PO SCH ×2 (10:23→21:17)
[2020-09-29] MEDS: FERROUS SULFATE 325 MG TAB PO SCH ×2 (11:23→21:16)
[2020-09-29] MEDS: COMBIGAN 0.2-0.5% OPHTH SOLN OU SCH ×2 (11:24→21:24)
--- NOTE | 2020-09-29 11:43 | Progress Note ---
Assessment and Plan - Patient Problems (1) Nonsustained ventricular tachycardia Current Visit: Yes Status: Acute Plan to address problem: Continue current management and medical therapy as previously outlined. Subjective Date of service: 09/29/20 Principal diagnosis: Debility Interval history: Patient is comfortable, undergoing physical therapy. No cardiac complaints. No further ventricular tachycardia has been reported since magnesium treatment and metoprolol therapy. Objective Vital Signs Temp Pulse Resp BP BP Pulse Ox 09/29/20 07:57 98.7 F 70 18 108/64 99 09/29/20 06:23 69 130/61 09/28/20 23:14 62 18 100 09/28/20 22:54 100 09/28/20 21:55 131/72 09/28/20 19:29 98.3 F 65 18 178/96 100 09/28/20 16:09 98.3 F 74 18 102/42 100 09/28/20 14:00 100 - Physical Examination General: No Apparent Distress HEENT: Positive: PERRL Neck: Positive: neck supple Cardiac: Positive: Reg Rate and Rhythm Lungs: Positive: Decreased Breath Sounds Neuro: Positive: Grossly Intact Abdomen: Positive: Soft Skin: Positive: Clear Extremities: Absent: edema - Labs and Meds CBC 09/29/20 Range/Units 05:28 WBC 5.1 (4.5-11.0) K/mm3 RBC 3.40 L (3.65-5.03) M/mm3 Hgb 9.0 L (11.8-15.2) gm/dl Hct 26.4 L (35.5-45.6) % Plt Count 137 L (140-440) K/mm3 Comprehensive Metabolic Panel 09/29/20 Range/Units 05:28 Sodium 135 L (137-145) mmol/L Potassium 4.2 (3.6-5.0) mmol/L Chloride 91.5 L (98-107) mmol/L Carbon Dioxide 30 (22-30) mmol/L BUN 42 H (9-20) mg/dL Creatinine 7.3 H (0.8-1.3) mg/dL Glucose 89 (75-100) mg/dL Calcium 10.6 H (8.4-10.2) mg/dL
--- NOTE | 2020-09-29 13:01 | Progress Note ---
Assessment and Plan S/P Excison of Right AVF End Stage Renal Disease Hypotension Diabetes Mellitus Weakness Plan: HD today for clearance and volume removal Fluid restriction of 1 liter per day Renally dose medications Strict I&O monitoring Assess dialysis needs daily Subjective Date of service: 09/29/20 Principal diagnosis: Debility Interval history: denies acute issues Objective - Vital Signs Vital signs: Vital Signs - 12hr 09/29/20 09/29/20 09/29/20 06:23 07:57 11:35 Temperature 98.7 F 98.5 F Pulse Rate 69 70 66 Respiratory 18 18 Rate Blood Pressure 130/61 108/64 Blood Pressure 112/63 [Right] O2 Sat by Pulse 99 98 Oximetry - Lab 09/29/20 05:28 09/29/20 05:28 Most recent lab results Calcium 10.6 mg/dL (8.4-10.2) H 09/29/20 05:28 Magnesium 1.70 mg/dL (1.7-2.3) 09/27/20 15:22 Medications & Allergies - Medications Allergies/Adverse Reactions: Allergies No Known Allergies Allergy (Unverified 09/12/16 14:54) Home Medications: Home Medications Medication Instructions Recorded Confirmed Last Taken Type Acetaminophen [Acetaminophen TAB] 650 mg PO Q4H PRN tablet 10/12/19 09/09/20 09/07/20 20:00 Rx Insulin Lispro [Humalog] 0 unit SUB-Q Q6HR vial 10/12/19 09/09/20 09/08/20 22:00 Rx Insulin Lispro [Humalog] See Protocol SUB-Q ACHS 30 Days #1 10/12/19 09/09/20 09/08/20 22:00 Rx vial Insulin Detemir [Levemir Flextouch] 8 unit SQ QHS 09/03/20 09/09/20 08/31/20 20:00 History Gabapentin [Neurontin] 300 mg PO Q8HR 09/09/20 09/09/20 09/06/20 History Simvastatin 20 mg PO BID 09/09/20 09/09/20 Unknown History Active Medications: Generic Name Dose Route Start Last Admin Trade Name Freq PRN Reason Stop Dose Admin Acetaminophen 650 mg 09/08/20 20:19 Acetaminophen 325 Mg Tab PO Q4H PRN Pain MILD(1-3)/Fever >100.5/THOMPSON Hydrocodone Bitart/Acetaminophen 1 each 09/09/20 09:00 09/15/20 21:43 Hydrocodone/Acetaminophen 5-325 Mg Tab PO 1 each Q8H PRN Administration Pain, Moderate (4-6) Bisacodyl 10 mg 09/08/20 20:36 Bisacodyl 10 Mg Rect Supp CA QDAY PRN Constipation Bisacodyl 5 mg 09/08/20 20:37 Bisacodyl 5 Mg Tab PO QDAY PRN Constipation Brimonidine/Timolol 1 drops 09/10/20 22:00 09/28/20 21:00 Combigan 0.2-0.5% Ophth Soln OU 1 drops Q12HR LOS Administration Dextrose 50 ml 09/08/20 20:19 Dextrose 50% In Water (25gm) 50 Ml Syringe IV Q30MIN PRN Hypoglycemia Protocol Docusate Sodium 100 mg 09/08/20 22:00 09/28/20 21:00 Docusate Sodium 100 Mg Cap PO 100 mg BID LOS Administration Ferrous Sulfate 325 mg 09/08/20 22:00 09/28/20 21:00 Ferrous Sulfate 325 Mg Tab PO 325 mg BID LOS Administration Heparin Sodium (Porcine) 5,000 unit 09/14/20 14:00 09/29/20 06:20 Heparin 5,000 Unit/1 Ml Vial SUB-Q 5,000 unit Q8HR LOS Administration Hydralazine HCl 10 mg 09/11/20 08:02 09/28/20 21:20 Hydralazine 20 Mg/1 Ml Inj IV 10 mg Q4HR PRN Administration Hypertension Sodium Chloride 100 mls @ 999 mls/hr 09/23/20 12:00 Nacl 0.9% IV MELY PRN Hypotension Insulin Glargine 10 units 09/08/20 21:00 09/28/20 21:09 Insulin Glargine 100 Units/Ml SUB-Q 10 units QHS LOS Administration Insulin Human Lispro 0 unit 09/08/20 22:00 09/28/20 21:09 Insulin Lispro 100 Unit/Ml SUB-Q 2 unit ACHS LOS Administration Protocol Latanoprost 1 drops 09/10/20 18:00 09/28/20 19:05 Latanoprost 0.005% Ophth Soln 2.5 Ml OU 1 drops QPM LOS Administration Metoprolol Tartrate 25 mg 09/27/20 14:00 08/10/21 06:23 Metoprolol Tartrate 25 Mg Tab PO 25 mg Q8H LOS Administration Ondansetron HCl 4 mg 09/08/20 20:36 Ondansetron 4 Mg Odt Tab PO Q8H PRN Nausea And Vomiting Pantoprazole Sodium 20 mg 09/09/20 09:00 09/28/20 18:49 Pantoprazole 20 Mg Tab PO 20 mg QDAC PRN Administration Indigestion
[2020-09-29] MEDS: LATANOPROST 0.005% OPHTH SOLN 2.5 ML OU SCH (19:05)
[2020-09-29] MEDS: INSULIN GLARGINE 100 UNITS/ML SUB-Q SCH (21:52)
[2020-09-30] MEDS: INSULIN LISPRO 100 UNIT/ML SUB-Q SCH ×5 (00:23→21:54)
[2020-09-30] MEDS: HEPARIN 5,000 UNIT/1 ML VIAL SUB-Q SCH ×3 (05:56→21:44)
[2020-09-30] MEDS: METOPROLOL TARTRATE 25 MG TAB PO SCH ×3 (05:56→21:45)
[2020-09-30] MEDS: DOCUSATE SODIUM 100 MG CAP PO SCH ×2 (07:53→21:44)
[2020-09-30] MEDS: FERROUS SULFATE 325 MG TAB PO SCH ×2 (07:53→21:43)
--- NOTE | 2020-09-30 08:11 | Progress Note ---
Subjective Date of service: 09/30/20 Principal diagnosis: Debility Interval history: 65-year-old male who developed a bleed on his right upper extremity AV fistula site. 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 Patient was admitted and was febrile, blood cultures were taken and showed GPC's. Infectious disease started the patient on antibiotics. Initially a pressure bandage was utilized to control bleeding however the patient continued to bleed through the dressing. He was prepped for surgery by vascular surgery for excision of the pseudoaneurysm and ligation which occurred on 09/02/2020. Patient underwent surgery without any complications and was noted to have increased debility afterwards. Patient does live alone and after being evaluated by therapy was determined to be a good candidate for participation in a short-term acute inpatient rehabilitation stay. Interval History: Patient is participating in therapy and making reasonable progress. Taking rest breaks as needed. +BM. Pain well controlled currently. Denies palpitations, dyspnea, cough, N/V, or joint pain. Tolerating therapy, making improvements with endurance. No further episodes with exertional dyspnea and does not look like we will discharge patient with oxygen. Patient's labs were reviewed, WBCs and CRP are both within normal limits. Patient will be discharged home tomorrow after dialysis. Will likely resume Monday/Monday/Monday schedule at home dialysis Infected AV fistula: Dressing clean dry and intact. Wound nurse consulted. Appreciate vascular surgery removal of annita. Patient will need to follow-up for remainder of annita to be removed. Wound healing well. Follow-up with vascular after discharge. Wound care after discharge Anemia: Hemoglobin improved to 9.0. Continue iron. Likely combination of end- stage renal disease and acute blood loss End-stage renal disease on hemodialysis: Appreciate nephrology consult, continue hemodialysis and afternoons on Monday/Monday/Monday, renal diet, fluid restriction and avoid nephrotoxic medications. Unknown why patient's schedule was changed to Monday, , Monday, will likely change back to Monday, Monday, Monday once he returns home. Nonsustained V. tach: Notified over the weekend the patient had a couple runs of nonsustained ventricular tachycardia. He was scheduled to see his manager diversity during his time of being in the hospital from what he recalls. Reconsulted his cardiology group and appreciate their assistance. They have added on metoprolol as well checked and modified his electrolytes. Patient continues to be asymptomatic currently with no more episodes reported from telemetry. Dyspnea on exertion: Continue supplemental oxygen and rest breaks as needed. Oxygenation improving, continue to monitor patient for supplemental oxygen needs. Looks as if he will be okay without supplemental oxygen upon discharge, appears to be resolved Diabetes: Continue carb controlled diet, sliding scale insulin, and basal insulin dosing. Adjust as needed for euglycemia. Blood glucose variable Hypertension: Blood pressure has been variable however patient has been fairly asymptomatic from any of the hypotensive episodes. Patient has encountered a random episode of being hypertensive here and there. As needed hydralazine ordered. Goal less than 140/90. Metoprolol has been ordered by cardiology and patient will need to follow-up with them after discharge. Obstructive sleep apnea: Continue use of CPAP at night Glaucoma: No issues currently with worsening vision. Debility with decreased mobility and ability to perform ADLs: Continue therapy to improve patient's ability to ambulate safely and provide for his own ADLs wit hout assistance from others. All records, vitals, labs and medications were reviewed. No other issues per patient, nursing or therapy. Objective - Exam Narrative Exam: MUSCULOSKELETAL SPECIALTY EXAM CONSTITUTIONAL: Well developed, well nourished, appropriately groomed, obese RESPIRATORY: Clear to auscultation bilaterally, no increased work of breathing at rest CARDIOVASCULAR: Regular Rate/ Rhythm, right lower extremity swelling with no pitting edema, otherwise no swelling, edema or tenderness in BUE or BLE. All extremities warm. GI: + bowel sounds, soft, NTTP, nondistended. INTEGUMENTARY: Right upper extremity surgical site clean dry and intact with annita, scars on other limbs from vascular access surgeries, otherwise normal, no lesion, rash, masses or bruising noted in extremities. MUSCULOSKELETAL: BUE and BLE normal without defect, crepitus, subluxation, effusion, arthritic changes or TTP. BUE 4+/5, good ROM, with normal tone. BLE 4+/5 decreased ROM, with normal tone NEURO: Sensation intact in all extremities. No tremor noted in 4 extremities. POSTURE and GAIT: Sitting posture good. PSYCH: Alert, oriented x3, affect appears normal. Insight appears intact. - Constitutional Vitals: Vital Signs - 12hr 09/29/20 09/30/20 09/30/20 22:00 00:15 05:56 Temperature Pulse Rate 73 80 Respiratory 17 Rate Blood Pressure 103/45 119/57 O2 Sat by Pulse 97 Oximetry 09/30/20 07:42 Temperature 98.4 F Pulse Rate 67 Respiratory 16 Rate Blood Pressure 109/36 O2 Sat by Pulse 99 Oximetry - Allied health notes Allied health notes reviewed: nursing, PT, OT FIMS assessment as documented by PT/OT/ST: Grooming Patient cleans teeth/dentures: Yes Patient guzman/brushes hair: Yes Patient washes, rinses and Yes dries face: Patient washes, rinses and Yes dries hands: Patient shaves: No Patient performs (no make-up/ 05/24 (100%) shaving): Grooming FIM Score 6. Modified [place] (Needs equipment/device . Extra time.) Toileting Toileting Device Commode over Toilet Patient able to: Adjust clothes before,Clean self,Adjust clothes after Patient able to perform: 3/3 (100%) Toileting FIM Score 6. Modified [place] (Needs equip. or prosth ./orth.) Social interaction/Memory/Problem solving Social Interaction FIM Score 6. Mod. [place] (Mostly appropriate. May need meds. No supv.) Memory FIM Score 6. Modified [place](Mild difficulty remembering people/routines.) Problem Solving FIM Score 6. Mod. [place] (Mild difficulty or needs more time w/ complex.) Transfers Mode of Locomotion: Wheelchair Bed/Chair/Wheelchair Transfers 6. Modified [place] (Uses device, sliding FIM Score board, prosth./orth.) Toilet Transfers FIM Score 5. Supervision (Needs supervision or cueing.) Patient transferred to: Shower Shower Transfers FIM Score 6. Modified [place] (Needs slide board, grab bar, tub bench.) Locomotion- walk/wheelchair Ambulation Distance 45 Eating Eating FIM Score 6. Modified [place] (Special consistency or uses device.) Dressing-Upper body Patient retrieves clothing Yes items: Patient applies/removes UE No: n/a prosthesis or orthosis: Upper Body Dressing FIM Score 6. Modified [place] (Needs equipment, velcro or pros./orth.) Dressing-lower body Lower Body Dressing Device [place] Patient retrieves clothing Yes items: Patient applies/removes LE n/a prosthesis or orthosis: Lower Body Dressing FIM Score 6. Modified [place] (Needs equipment, velcro or pros./orth.) - Labs CBC & Chem 7: 09/29/20 05:28 09/29/20 05:28 Labs: Laboratory Results - last 72 hr 09/27/20 09/27/20 09/27/20 12:15 15:22 15:22 WBC RBC Hgb Hct MCV MCH MCHC RDW Plt Count Sodium Potassium Chloride Carbon Dioxide Anion Gap BUN Creatinine Estimated GFR BUN/Creatinine Ratio Glucose POC Glucose 143 H Calcium Magnesium 1.70 C-Reactive Protein TSH 3.450 09/27/20 09/27/20 09/28/20 16:41 21:58 07:26 WBC RBC Hgb Hct MCV MCH MCHC RDW Plt Count Sodium Potassium Chloride Carbon Dioxide Anion Gap BUN Creatinine Estimated GFR BUN/Creatinine Ratio Glucose POC Glucose 164 H 167 H 102 Calcium Magnesium C-Reactive Protein TSH 09/28/20 09/28/20 09/28/20 11:53 16:09 21:04 WBC RBC Hgb Hct MCV MCH MCHC RDW Plt Count Sodium Potassium Chloride Carbon Dioxide Anion Gap BUN Creatinine Estimated GFR BUN/Creatinine Ratio Glucose POC Glucose 133 H 206 H 178 H Calcium Magnesium C-Reactive Protein TSH 09/29/20 09/29/20 09/29/20 05:28 05:28 07:57 WBC 5.1 RBC 3.40 L Hgb 9.0 L Hct 26.4 L MCV 78 L MCH 26 L MCHC 34 RDW 17.0 H Plt Count 137 L Sodium 135 L Potassium 4.2 Chloride 91.5 L Carbon Dioxide 30 Anion Gap 18 BUN 42 H Creatinine 7.3 H Estimated GFR 9 BUN/Creatinine Ratio 6 Glucose 89 POC Glucose 90 Calcium 10.6 H Magnesium C-Reactive Protein 0.50 TSH 09/29/20 09/29/20 09/30/20 11:37 21:44 07:44 WBC RBC Hgb Hct MCV MCH MCHC RDW Plt Count Sodium Potassium Chloride Carbon Dioxide Anion Gap BUN Creatinine Estimated GFR BUN/Creatinine Ratio Glucose POC Glucose 106 H 152 H 89 Calcium Magnesium C-Reactive Protein TSH Assessment and Plan Infected AV fistula: Antibiotics completed. Monitor for any further signs of infection. Monitor WBCs. Continue wound dressing changes. Appreciate vascular surgery consult. Some annita removed over the weekend, remainder will be removed at a later date by vascular at follow-up appointment. Continue wound care End-stage renal disease on hemodialysis: Consult nephrology for management. Hemodialysis on Monday in the afternoons due to the patient being on IRU. Renally dose all medications. Continue renal diet. Patient attends dialysis at [facility]. Typical schedule is Monday/Monday/Monday however for uncertain reasons the patient was recently changed to Monday//Monday. Anemia: Related to both acute blood loss as well as end-stage renal disease. H emoglobin has improved, reduce blood draws and continue iron Diabetes: Continue medications, sliding scale insulin and monitor for euglycemia. Carb controlled/renal diet Dyspnea with exertion: Continue supplemental oxygen as needed, rest breaks for recovery. Will send home with oxygen when he discharges Hypertension: Blood pressure is variable, patient mostly asymptomatic. Have started as needed hydralazine. Goal is less than 140/90. Ventricular tachycardia, nonsustained: 2 runs of this over the weekend. Cardiology consulted, administered magnesium and started metoprolol, appreciate their assistance. Patient continues to be asymptomatic with no further episodes. Monitor Obstructive sleep apnea: Continue CPAP at night. Monitor for any signs or issues that need to be addressed. RT consult Glaucoma: Patient states that he is now missed his follow-up with his stopper grinder due to hospitalization. I was able to speak with the office of the stopper grinder and have restarted the patient on his prescribed medications. ADL dysfunction: OT will work on improving ability to perform ADLs (including assistive devices) to increase independence and decrease caregiver burden and improve functional transfers and mobility training. Difficulty walking: PT will work on gait training and proper use of assistive devices and advance as appropriate to use of stairs and outside ambulation on uneven surfaces. Unsteadiness on feet: PT will work on improving static and dynamic sitting and standing balance as well as proper use of assistive devices to decrease risk of falls. Abnormality of gait: PT will work to improve safety and efficiency of gait through neuromotor training and gait training along with instruction on proper use of assistive devices. Muscle weakness: PT & OT will work on strengthening exercises to improve functional strength including mixture of closed and open kinetic chain exercises. Debility: PT & OT will work on improving overall functional status to improve participation with ADLs, mobility and social involvement. Fatigue: PT & OT will work on improving endurance through aerobic exercises and therapeutic activity while monitoring patients tolerance for activity and vital signs as needed. DVT ppx: Heparin started Pain: Continue physical modalities in therapy and pain medications as needed to achieve functional pain control. Sleep: Monitor and address as needed. Bowel: Monitor and address as needed. Appetite: Monitor and address as needed. Discharge planning: Pending therapy progress and care plan meeting. Will continue discussion with therapy team, SW, patient. Look to discharge with rolling walker in order to have family available for assistance with his transition home. Restrictions/ Precautions: Falls WB status: FWB Functional Hx: ADLs: Independent Cognition: Independent Mobility: Cane Barriers to Discharge: Decreased mobility and ability to perform self care, balance deficits, weakness Estimated Length of Stay: 710 days Discharge Destination: Home with family
--- NOTE | 2020-09-30 10:31 | Progress Note ---
Assessment and Plan - Patient Problems (1) Nonsustained ventricular tachycardia Current Visit: Yes Status: Acute Plan to address problem: Continue current management and medical therapy as previously outlined. Subjective Date of service: 09/30/20 Principal diagnosis: Debility Interval history: No cardiac complaints, no further ventricular tachycardia reported. Objective Vital Signs Temp Pulse Resp BP BP Pulse Ox Pulse Ox 09/30/20 07:42 98.4 F 67 16 109/36 99 09/30/20 05:56 80 119/57 09/30/20 00:15 17 97 09/29/20 22:00 73 103/45 09/29/20 19:31 98.8 F 70 18 103/43 97 09/29/20 18:40 98.2 F 60 18 107/51 97 09/29/20 18:30 53 L 109/45 09/29/20 18:15 57 L 103/54 09/29/20 18:00 73 131/42 09/29/20 17:45 59 L 108/59 09/29/20 17:30 64 104/40 09/29/20 17:15 73 140/64 09/29/20 17:00 52 L 106/77 09/29/20 16:45 75 150/61 09/29/20 16:30 63 134/40 09/29/20 16:15 65 114/40 09/29/20 16:00 63 135/86 09/29/20 15:45 62 113/67 09/29/20 14:40 98.8 F 67 20 128/72 97 09/29/20 14:00 100 09/29/20 11:35 98.5 F 66 18 112/63 98 Pulse Ox 09/30/20 07:42 09/30/20 05:56 09/30/20 00:15 09/29/20 22:00 09/29/20 19:31 09/29/20 18:40 97 09/29/20 18:30 09/29/20 18:15 09/29/20 18:00 09/29/20 17:45 09/29/20 17:30 09/29/20 17:15 09/29/20 17:00 09/29/20 16:45 09/29/20 16:30 09/29/20 16:15 09/29/20 16:00 09/29/20 15:45 09/29/20 14:40 97 09/29/20 14:00 09/29/20 11:35 - Physical Examination General: No Apparent Distress HEENT: Positive: PERRL Neck: Positive: neck supple Cardiac: Positive: Reg Rate and Rhythm Lungs: Positive: Decreased Breath Sounds Neuro: Positive: Grossly Intact Abdomen: Positive: Soft Skin: Positive: Clear Extremities: Absent: edema
--- NOTE | 2020-09-30 11:48 | Progress Note ---
Assessment and Plan S/P Excison of Right AVF End Stage Renal Disease Hypotension Diabetes Mellitus Weakness Plan: no indication for HD today Fluid restriction of 1 liter per day Renally dose medications Strict I&O monitoring Assess dialysis needs daily Subjective Date of service: 09/30/20 Principal diagnosis: Debility Interval history: tolerated HD yesterday Objective - Vital Signs Vital signs: Vital Signs - 12hr 09/30/20 09/30/20 09/30/20 00:15 05:56 07:42 Temperature 98.4 F Pulse Rate 80 67 Respiratory 17 16 Rate Blood Pressure 119/57 109/36 O2 Sat by Pulse 97 99 Oximetry - Lab 09/29/20 05:28 09/29/20 05:28 Most recent lab results Calcium 10.6 mg/dL (8.4-10.2) H 09/29/20 05:28 Magnesium 1.70 mg/dL (1.7-2.3) 09/27/20 15:22 Medications & Allergies - Medications Allergies/Adverse Reactions: Allergies No Known Allergies Allergy (Unverified 09/12/16 14:54) Home Medications: Home Medications Medication Instructions Recorded Confirmed Last Taken Type Acetaminophen [Acetaminophen TAB] 650 mg PO Q4H PRN tablet 10/12/19 09/09/20 09/07/20 20:00 Rx Insulin Lispro [Humalog] 0 unit SUB-Q Q6HR vial 10/12/19 09/09/20 09/08/20 22:00 Rx Insulin Lispro [Humalog] See Protocol SUB-Q ACHS 30 Days #1 10/12/19 09/09/20 09/08/20 22:00 Rx vial Insulin Detemir [Levemir Flextouch] 8 unit SQ QHS 09/03/20 09/09/20 08/31/20 20:00 History Gabapentin [Neurontin] 300 mg PO Q8HR 09/09/20 09/09/20 09/06/20 History Simvastatin 20 mg PO BID 09/09/20 09/09/20 Unknown History Active Medications: Generic Name Dose Route Start Last Admin Trade Name Freq PRN Reason Stop Dose Admin Acetaminophen 650 mg 09/08/20 20:19 Acetaminophen 325 Mg Tab PO Q4H PRN Pain MILD(1-3)/Fever >100.5/THOM[place] Hydrocodone Bitart/Acetaminophen 1 each 09/09/20 09:00 09/15/20 21:43 Hydrocodone/Acetaminophen 5-325 Mg Tab PO 1 each Q8H PRN Administration Pain, Moderate (4-6) Bisacodyl 10 mg 09/08/20 20:36 Bisacodyl 10 Mg Rect Supp AL QDAY PRN Constipation Bisacodyl 5 mg 09/08/20 20:37 09/30/20 08:30 Bisacodyl 5 Mg Tab PO 5 mg QDAY PRN Administration Constipation Brimonidine/Timolol 1 drops 09/10/20 22:00 09/29/20 21:24 Combigan 0.2-0.5% Ophth Soln OU 1 drops Q12HR LOS Administration Dextrose 50 ml 09/08/20 20:19 Dextrose 50% In Water (25gm) 50 Ml Syringe IV Q30MIN PRN Hypoglycemia Protocol Docusate Sodium 100 mg 09/08/20 22:00 09/30/20 07:53 Docusate Sodium 100 Mg Cap PO 100 mg BID LOS Administration Ferrous Sulfate 325 mg 09/08/20 22:00 09/30/20 07:53 Ferrous Sulfate 325 Mg Tab PO 325 mg BID LOS Administration Heparin Sodium (Porcine) 5,000 unit 09/14/20 14:00 09/30/20 05:56 Heparin 5,000 Unit/1 Ml Vial SUB-Q 5,000 unit Q8HR LOS Administration Hydralazine HCl 10 mg 09/11/20 08:02 09/28/20 21:20 Hydralazine 20 Mg/1 Ml Inj IV 10 mg Q4HR PRN Administration Hypertension Sodium Chloride 100 mls @ 999 mls/hr 09/23/20 12:00 Nacl 0.9% IV MELY PRN Hypotension Insulin Glargine 10 units 09/08/20 21:00 09/29/20 21:52 Insulin Glargine 100 Units/Ml SUB-Q 10 units QHS LOS Administration Insulin Human Lispro 0 unit 09/08/20 22:00 09/30/20 07:57 Insulin Lispro 100 Unit/Ml SUB-Q Not Given ACHS [facility] Protocol Latanoprost 1 drops 09/10/20 18:00 09/29/20 19:05 Latanoprost 0.005% Ophth Soln 2.5 Ml OU 1 drops QPM LOS Administration Metoprolol Tartrate 25 mg 09/27/20 14:00 09/30/20 05:56 Metoprolol Tartrate 25 Mg Tab PO 25 mg Q8H LOS Administration Ondansetron HCl 4 mg 09/08/20 20:36 Ondansetron 4 Mg Odt Tab PO Q8H PRN Nausea And Vomiting Pantoprazole Sodium 20 mg 09/09/20 09:00 09/28/20 18:49 Pantoprazole 20 Mg Tab PO 20 mg QDAC PRN Administration Indigestion
[2020-09-30] MEDS: COMBIGAN 0.2-0.5% OPHTH SOLN OU SCH ×2 (12:32→21:44)
[2020-09-30] MEDS: LATANOPROST 0.005% OPHTH SOLN 2.5 ML OU SCH (18:00)
[2020-09-30] MEDS: INSULIN GLARGINE 100 UNITS/ML SUB-Q SCH (21:43)
[2020-10-01] MEDS: HEPARIN 5,000 UNIT/1 ML VIAL SUB-Q SCH (06:26)
[2020-10-01] MEDS: METOPROLOL TARTRATE 25 MG TAB PO SCH (06:26)
--- NOTE | 2020-10-01 07:23 | Discharge Summary ---
Providers - Providers Date of Admission: 09/08/20 20:56 Date of discharge: 10/01/20 Attending physician: RICHIE CHAMBERS III, MD 09/08/20 20:13 Occupational Therapy Evaluate and Treat [CONS] Routine Comment: Reason For Exam: ADL dysfunction Physical Therapy Evaluation and Treat [CONS] Routine Comment: Reason For Exam: Mobility Dysfunction 09/08/20 20:31 Consult to Case Management [CONS] Routine Services Needed at Discharge: Home Health Services Notified:: cm notified 09/08/20 20:32 Consult to Physician [CONS] Routine Comment: Consulting Provider: ROSHAN LOCKWOOD Physician Instructions: Reason For Exam: ESRD on HD 09/08/20 20:37 Consult to Dietitian/Nutrition [CONS] Routine Physician Instructions: Reason For Exam: Reason for Consult: Diet education Consult to Wound/ET Nurse [CONS] Routine Reason For Exam: wound eval 09/18/20 11:27 Consult to Physician [CONS] Routine Comment: Pt to d/c 09/23 Consulting Provider: CHAPINCITO RODAS Physician Instructions: Please eval surgical wound for poss staple dc Reason For Exam: Wound Eval 09/21/20 11:55 Consult to Wound/ET Nurse [CONS] Routine Reason For Exam: right arm 09/22/20 13:41 Consult to Physician [CONS] Routine Comment: Consulting Provider: PAOLA CARPIO Physician Instructions: evaluate upper arm wound and treatment reccomendat Reason For Exam: evaluate and treat arm wound. 09/27/20 11:25 Consult to Physician [CONS] Routine Comment: Consulting Provider: BRANDON HART Physician Instructions: Reason For Exam: V-Tach on tele Primary care physician: HOUSE WIRER HELPER Hospitalization Reason for admission: Debility Condition: Good Hospital course: 65-year-old male who developed a bleed on his right upper extremity AV fistula site. 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 Patient was admitted and was febrile, blood cultures were taken and showed GPC's. Infectious disease started the patient on antibiotics. Initially a pressure bandage was utilized to control bleeding however the patient continued to bleed through the dressing. He was prepped for surgery by vascular surgery for excision of the pseudoaneurysm and ligation which occurred on 09/02/2020. Patient underwent surgery without any complications and was noted to have increased debility afterwards. Patient does live alone and after being evaluated by therapy was determined to be a good candidate for participation in a short-term acute inpatient rehabilitation stay. Infected AV fistula: Dressing clean dry and intact. Wound nurse consulted. Appreciate vascular surgery removal of annita. Patient will need to follow-up for remainder of annita to be removed. Wound healing well. Follow-up with vascular after discharge. Wound care after discharge Anemia: Hemoglobin improved to 9.0. Continue iron. Likely combination of end- stage renal disease and acute blood loss End-stage renal disease on hemodialysis: Appreciate nephrology consult, continue hemodialysis and afternoons on Monday/Monday/Monday, renal diet, fluid restriction and avoid nephrotoxic medications. Unknown why patient's schedule was changed to Monday, , Monday, will change back to Monday, Monday, Monday once he returns home. Nonsustained V. tach: Notified over the weekend the patient had a couple runs of nonsustained ventricular tachycardia. He was scheduled to see his heater room helper during his time of being in the hospital from what he recalls. Reconsulted his cardiology group and appreciate their assistance. They have added on metoprolol as well checked and modified his electrolytes. Patient continues to be asymptomatic currently with no more episodes reported from telemetry. Dyspnea on exertion: Continue supplemental oxygen and rest breaks as needed. Oxygenation improving, continue to monitor patient for supplemental oxygen needs. Looks as if he will be okay without supplemental oxygen upon discharge, appears to be resolved Diabetes: Continue carb controlled diet, sliding scale insulin, and basal insulin dosing. Adjust as needed for euglycemia. Blood glucose variable Hypertension: Blood pressure has been variable however patient has been fairly asymptomatic from any of the hypotensive episodes. Patient has encountered a random episode of being hypertensive here and there. As needed hydralazine ordered. Goal less than 140/90. Metoprolol has been ordered by cardiology and patient will need to follow-up with them after discharge. Obstructive sleep apnea: Continue use of CPAP at night Glaucoma: No issues currently with worsening vision. From a therapy standpoint, patient is able to ambulate household distances with a rolling walker and occasional verbal cues for safety. He does have a slow letha but is not having any overt loss of balance. Would benefit from continued physical therapy to improve his endurance and strength with transfers. He has undergone fall recovery and did fairly well with that. Mostly modified independent for ADLs. Disposition: [id number] HOME UNDER HOME [facility] Final Discharge Diagnosis (Prints w/discharge instructions): Debility, infected right upper extremity fistula, diabetes, nonsustained ventricular tachycardia Time spent for discharge: >30 mins Core Measure Documentation - Palliative Care Palliative Care/ Comfort Measures: Not Applicable - Core Measures Any of the following diagnoses?: none Exam - Physical Exam Narrative exam: MUSCULOSKELETAL SPECIALTY EXAM CONSTITUTIONAL: Well developed, well nourished, appropriately groomed, obese RESPIRATORY: Clear to auscultation bilaterally, no increased work of breathing at rest CARDIOVASCULAR: Regular Rate/ Rhythm, right lower extremity swelling with no pitting edema, otherwise no swelling, edema or tenderness in BUE or BLE. All extremities warm. GI: + bowel sounds, soft, NTTP, nondistended. INTEGUMENTARY: Right upper extremity surgical site clean dry and intact with annita, scars on other limbs from vascular access surgeries, otherwise normal, no lesion, rash, masses or bruising noted in extremities. MUSCULOSKELETAL: BUE and BLE normal without defect, crepitus, subluxation, effusion, arthritic changes or TTP. BUE 4+/5, good ROM, with normal tone. BLE 4+/5 decreased ROM, with normal tone NEURO: Sensation intact in all extremities. No tremor noted in 4 extremities. POSTURE and GAIT: Sitting posture good. PSYCH: Alert, oriented x3, affect appears normal. Insight appears intact. - Constitutional Vitals: Temp Pulse Resp BP Pulse Ox 97.7 F 63 18 125/45 97 10/01/20 04:28 10/01/20 06:26 10/01/20 04:28 10/01/20 06:26 10/01/20 05:00 Plan Activity: advance as tolerated, fall precautions Weight Bearing Status: Full Weight Bearing Diet: renal (Renal, cardiac, diabetic diet) Wound: keep clean and dry (Follow-up with wound care as outpatient and with home health) Special Instructions: restrict fluid intake to (1 L/day), record daily BP diary, record blood sugar diary, physical therapy, occupational therapy, home health RN Durable Medical Equipment Needed Upon Discharge: Walker-Rolling Care Plan Goals: Patient will need to follow-up with PCP after discharge for continued monitoring of chronic medical conditions. Blood pressure has been fairly well controlled and patient has tolerated addition of metoprolol by cardiology so far. Patient will need to review turn to his normally scheduled dialysis days on Monday, Monday, Monday and his home dialysis clinic has been notified. He will get dialysis today prior to discharge as he was recently changed to Monday by nephrology in house. Patient will need to follow-up with vascular surgery as well as wound care once discharged. Home health wound care will continue to provide dressing changes. Remaining annita to be removed by vascular surgery after follow-up with them. Patient will also need to follow-up with his home cardiology group who also saw him here in the hospital. Currently he remains stable on metoprolol which was started by cardiology in the hospital and has not had no further episodes of ventricular tachycardia. Follow up with: PRIMARY MD HENOK [Primary Care Provider] - 7 Days CHAPINCITO RODAS MD [Staff Physician] - 7 Days KATHLEEN PINTO MD [Staff Physician] - 7 Days Prescriptions: Insulin Glargine [Lantus VIAL] 10 units SUB-Q QHS #1 vial Docusate Sodium [Colace CAP] 100 mg PO BID #60 capsule Brimonidine/Timolol 0.2-0.5% [Combigan 0.2-0.5%] 1 drops OU Q12HR #1 bottle Ferrous Sulfate [Feosol 325 MG tab] 325 mg PO BID #60 tablet Lispro Insulin [HumaLOG] See Protocol SUB-Q ACHS #1 vial Latanoprost 0.005% 1 drops OU QPM #1 bottle Metoprolol [Lopressor TAB] 25 mg PO Q8H #90 tablet Pantoprazole [Protonix TAB] 20 mg PO QDAC PRN #30 tablet.dr PIEDRA Reason: Indigestion
[2020-10-01] MEDS: FERROUS SULFATE 325 MG TAB PO SCH (11:09)
[2020-10-01] MEDS: DOCUSATE SODIUM 100 MG CAP PO SCH (11:09)
[2020-10-01] MEDS: PANTOPRAZOLE 20 MG TAB PO PRN (11:09)
--- NOTE | 2020-10-01 11:12 | Progress Note ---
Assessment and Plan - Patient Problems (1) Nonsustained ventricular tachycardia Current Visit: Yes Status: Acute Plan to address problem: Nonsustained ventricular tachycardia Patient remained asymptomatic; no reoccurrence. Magnesium level is borderline low and TSH is normal. Echocardiogram on this presentation shows normal to hyperdynamic left ventricular ejection fraction greater than 60-65%. We will continue metoprolol for his hypertension. Otherwise, conservative cardiac management. Once discharge, patient will follow up with his primary sloop captain, Dr Younger, as scheduled. Subjective Date of service: 10/01/20 Principal diagnosis: Debility Interval history: Patient has no cardiac complaints. He is planned for discharge home today. Objective Vital Signs Temp Pulse Resp Resp BP Pulse Ox 10/01/20 08:04 97.3 F L 61 16 127/43 100 10/01/20 06:26 63 125/45 10/01/20 05:00 97 10/01/20 04:28 97.7 F 66 18 135/48 09/30/20 22:00 17 09/30/20 21:45 92 H 130/61 09/30/20 19:04 97.6 F 59 L 18 87/53 100 09/30/20 17:02 17 98 09/30/20 15:26 97.8 F 82 16 109/56 99 09/30/20 15:12 81 111/57 09/30/20 11:56 97.8 F 81 16 111/51 98 - Physical Examination General: No Apparent Distress HEENT: Positive: PERRL Neck: Positive: neck supple Cardiac: Positive: Reg Rate and Rhythm Lungs: Positive: Decreased Breath Sounds Neuro: Positive: Grossly Intact, Weakness Abdomen: Positive: Soft Extremities: Absent: edema
--- NOTE | 2020-10-01 13:11 | Progress Note ---
Assessment and Plan Assessment: S/P Excison of Right AVF End Stage Renal Disease Hypotension Diabetes Mellitus Weakness Plan: Hemodialysis today for UF and clearance via Left AVF S/p Excision of Infected Right Upper Extremity AV Fistula by Dr Hood Mederos (vascular surgeon) on 09/02/20 Weakness-In rehab therapy Fluid restriction of 1 liter per day Renally dose medications Strict I&O monitoring Assess dialysis needs daily Possible discharge home today Subjective Date of service: 10/01/20 Principal diagnosis: Debility Interval history: Patient seen sitting up in chair. Agreed to HD today but does not want HD tomorrow at clinic. Wants to wait until Monday. Objective - Vital Signs Vital signs: Vital Signs - 12hr 10/01/20 10/01/20 10/01/20 04:28 05:00 06:26 Temperature 97.7 F Pulse Rate 66 63 Respiratory 18 Rate Blood Pressure 135/48 125/45 O2 Sat by Pulse 97 Oximetry 10/01/20 10/01/20 08:04 11:23 Temperature 97.3 F L 97.9 F Pulse Rate 61 57 L Respiratory 16 16 Rate Blood Pressure 127/43 112/31 O2 Sat by Pulse 100 100 Oximetry - General Appearance General appearance: well-developed, appears stated age EENT: ATNC, PERRL, hearing intact, pharyngeal erythema Neck: no JVD, supple Respiratory: Present: Decreased Breath Sounds Cardiology: S1S2 Gastrointestinal: normoactive bowel sounds Integumentary: warm and dry Neurologic: alert and oriented x3 Musculoskeletal: joint swelling Psychiatric: cooperative - Lab 09/29/20 05:28 09/29/20 05:28 Most recent lab results Calcium 10.6 mg/dL (8.4-10.2) H 09/29/20 05:28 Magnesium 1.70 mg/dL (1.7-2.3) 09/27/20 15:22 Medications & Allergies - Medications Allergies/Adverse Reactions: Allergies No Known Allergies Allergy (Unverified 09/12/16 14:54) Home Medications: Home Medications Medication Instructions Recorded Confirmed Last Taken Type Brimonidine/Timolol 0.2-0.5% 1 drops OU Q12HR #1 bottle 10/01/20 Unknown Rx [Combigan 0.2-0.5%] Docusate Sodium [Colace CAP] 100 mg PO BID #60 capsule 10/01/20 Unknown Rx Ferrous Sulfate [Feosol 325 MG tab] 325 mg PO BID #60 tablet 10/01/20 Unknown Rx Insulin Glargine [Lantus VIAL] 10 units SUB-Q QHS #1 vial 10/01/20 Unknown Rx Latanoprost 0.005% 1 drops OU QPM #1 bottle 10/01/20 Unknown Rx Lispro Insulin [HumaLOG] See Protocol SUB-Q ACHS #1 vial 10/01/20 Unknown Rx Metoprolol [Lopressor TAB] 25 mg PO Q8H #90 tablet 10/01/20 Unknown Rx Pantoprazole [Protonix TAB] 20 mg PO QDAC PRN #30 tablet. 10/01/20 Unknown Rx Active Medications: Generic Name Dose Route Start Last Admin Trade Name Freq PRN Reason Stop Dose Admin Acetaminophen 650 mg 09/08/20 20:19 Acetaminophen 325 Mg Tab PO Q4H PRN Pain MILD(1-3)/Fever >100.5/THOMPSON Hydrocodone Bitart/Acetaminophen 1 each 09/09/20 09:00 09/15/20 21:43 Hydrocodone/Acetaminophen 5-325 Mg Tab PO 1 each Q8H PRN Administration Pain, Moderate (4-6) Bisacodyl 10 mg 09/08/20 20:36 Bisacodyl 10 Mg Rect Supp MO QDAY PRN Constipation Bisacodyl 5 mg 09/08/20 20:37 09/30/20 08:30 Bisacodyl 5 Mg Tab PO 5 mg QDAY PRN Administration Constipation Brimonidine/Timolol 1 drops 09/10/20 22:00 09/30/20 21:44 Combigan 0.2-0.5% Ophth Soln OU 1 drops Q12HR LOS Administration Dextrose 50 ml 09/08/20 20:19 Dextrose 50% In Water (25gm) 50 Ml Syringe IV Q30MIN PRN Hypoglycemia Protocol Docusate Sodium 100 mg 09/08/20 22:00 10/01/20 11:09 Docusate Sodium 100 Mg Cap PO 100 mg BID LOS Administration Ferrous Sulfate 325 mg 09/08/20 22:00 10/01/20 11:09 Ferrous Sulfate 325 Mg Tab PO 325 mg BID LOS Administration Heparin Sodium (Porcine) 5,000 unit 09/14/20 14:00 10/01/20 06:26 Heparin 5,000 Unit/1 Ml Vial SUB-Q 5,000 unit Q8HR LOS Administration Hydralazine HCl 10 mg 09/11/20 08:02 09/28/20 21:20 Hydralazine 20 Mg/1 Ml Inj IV 10 mg Q4HR PRN Administration Hypertension Sodium Chloride 100 mls @ 999 mls/hr 09/23/20 12:00 Nacl 0.9% IV MELY PRN Hypotension Insulin Glargine 10 units 09/08/20 21:00 09/30/20 21:43 Insulin Glargine 100 Units/Ml SUB-Q 10 units QHS LOS Administration Insulin Human Lispro 0 unit 09/08/20 22:00 09/30/20 21:54 Insulin Lispro 100 Unit/Ml SUB-Q Not Given ACHS [facility] Protocol Latanoprost 1 drops 09/10/20 18:00 09/30/20 18:00 Latanoprost 0.005% Ophth Soln 2.5 Ml OU 1 drops QPM LOS Administration Metoprolol Tartrate 25 mg 09/27/20 14:00 10/01/20 06:26 Metoprolol Tartrate 25 Mg Tab PO Not Given Q8H [facility] Ondansetron HCl 4 mg 09/08/20 20:36 Ondansetron 4 Mg Odt Tab PO Q8H PRN Nausea And Vomiting Pantoprazole Sodium 20 mg 09/09/20 09:00 10/01/20 11:09 Pantoprazole 20 Mg Tab PO 20 mg QDAC PRN Administration Indigestion
[2020-10-01 19:50] VITALS: BP 100/49
== END 2020-10-01 20:30 | disposition home health service (06) | DRG 947 ==
LOC: UNDOADMIN 17:10 → 3A 17:10 → 3B 20:56
PROVIDERS: ADMIT Physical Medicine & Rehabilitation; ATTEND Physical Medicine & Rehabilitation
PROC: 5A1D70Z Performance of Urinary Filtration, Intermittent, Less than 6 Hours Per Day (ICD-10-PCS; principal; 2020-09-09)
PROC: 5A09457 Assistance with Respiratory Ventilation, 24-96 Consecutive Hours, Continuous Positive Airway Pressure (ICD-10-PCS; 2020-09-09)
PROC: 5A1D70Z Performance of Urinary Filtration, Intermittent, Less than 6 Hours Per Day (ICD-10-PCS; 2020-09-11)
PROC: 5A1D70Z Performance of Urinary Filtration, Intermittent, Less than 6 Hours Per Day (ICD-10-PCS; 2020-09-14)
PROC: 5A1D70Z Performance of Urinary Filtration, Intermittent, Less than 6 Hours Per Day (ICD-10-PCS; 2020-09-16)
PROC: 5A1D70Z Performance of Urinary Filtration, Intermittent, Less than 6 Hours Per Day (ICD-10-PCS; 2020-09-18)
PROC: 5A1D70Z Performance of Urinary Filtration, Intermittent, Less than 6 Hours Per Day (ICD-10-PCS; 2020-09-21)
PROC: 5A1D70Z Performance of Urinary Filtration, Intermittent, Less than 6 Hours Per Day (ICD-10-PCS; 2020-09-24)
PROC: 5A1D70Z Performance of Urinary Filtration, Intermittent, Less than 6 Hours Per Day (ICD-10-PCS; 2020-09-26)
PROC: 5A1D70Z Performance of Urinary Filtration, Intermittent, Less than 6 Hours Per Day (ICD-10-PCS; 2020-09-29)
PROC: 5A1D70Z Performance of Urinary Filtration, Intermittent, Less than 6 Hours Per Day (ICD-10-PCS; 2020-10-01)
DX: R53.81 Other malaise (principal); N18.6 End stage renal disease; I12.0 Hypertensive chronic kidney disease with stage 5 chronic kidney disease or end stage renal disease; I47.2 Ventricular tachycardia; E11.22 Type 2 diabetes mellitus with diabetic chronic kidney disease; D63.1 Anemia in chronic kidney disease; G47.33 Obstructive sleep apnea (adult) (pediatric); I95.9 Hypotension, unspecified; H40.9 Unspecified glaucoma; R53.83 Other fatigue; Z83.3 Family history of diabetes mellitus; Z99.2 Dependence on renal dialysis; Z79.4 Long term (current) use of insulin; Z79.899 Other long term (current) drug therapy
CPT/HCPCS: 36415; 80048; 80053; 82962; 83735; 84443; 85007; 85025; 85027; 86140; 93005; 94660; G0378; J0360; J1644; J1815; J3475